=== PATIENT | female | born 1935 | race Caucasian/White ===

== ENCOUNTER 2016-05-22 17:46 | Emergency (ER) | payer MEDICARE, OTHER ==
[~2016-05-22] VITALS: Ht 167.6 cm; Wt 111.1 kg
[~2016-05-22 17:46] MED LIST: ALLO300T PO; ALPR0.254 PO; ASPI325T4 PO; ATOR40TA59 PO; BUDE10.2 IH; CALC500T27 PO; CITR473S3 PO; DRON400T PO; HUM100VI SQ; HYDR12.53 PO; HYDR12.58 PO; IBUP200T77 PO; LOSA50TA6 PO; METO100T2 PO; OMEG500C PO; POTA10CA PO; PROAIR HFA8.5 GM IH; VIT1TABL44 PO; WARF10TA PO; WARF5TAB7 PO
[2016-05-22 18:43] LABS: INR 2.3 (0.8-1.1); PROTHROMBIN TIME PATIENT 24.3 SEC (11.7-14.0)
--- NOTE | 2016-05-22 18:48 | PHYS DOC ---
Past Medical History Past Medical History: A-Fib, CHF, COPD, Diabetes-Type II, High Cholesterol, Hypertension, Kidney Infection, Kidney Stone Past Surgical History: Appendectomy, Cholecystectomy, Hysterectomy, Tonsillectomy, Other Additional Past Surgical Histo: bilat knee replacements, aortic valve, mastoid Alcohol Use: None Drug Use: None Adult General Chief Complaint Chief Complaint: NOSEBLEED [facility] HPI Patient is a 81 year old female who presents with right nosebleed that started this evening spontaneously. States has intermittent symptoms like this and can usually control it with direct pressure. She has finally controlled her bleeding upon arrival. She takes Coumadin chronically; no recent dose changes. She notes mild sneezing and rhinorrhea recently similar to seasonal allergy symptoms. Review of Systems Review of Systems Constitutional: Denies fever or chills [] Eyes: Denies change in visual acuity, redness, or eye pain [] HENT: Denies nasal congestion or sore throat [] Respiratory: Denies cough or shortness of breath [] Cardiovascular: No additional information not addressed in HPI [] GI: Denies abdominal pain, nausea, vomiting, bloody stools or diarrhea [] : Denies dysuria or hematuria [] Musculoskeletal: Denies back pain or joint pain [] Integument: Denies rash or skin lesions [] Neurologic: Denies headache, focal weakness or sensory changes [] Endocrine: Denies polyuria or polydipsia [] Allergies Allergies Allergies Coded Allergies Type Severity Reaction Last Updated Verified lisinopril Allergy Severe Anaphylaxis 06/07/15 Yes shellfish derived Allergy Severe Shortness of Air 06/07/15 Yes Penicillins Allergy Intermediate Tolerates rocephin 06/07/15 Yes Sulfa (Sulfonamide Antibiotics) Allergy Intermediate 06/07/15 Yes morphine Adverse Reaction Severe Anxiety 06/07/15 Yes Physical Exam Physical Exam Constitutional: Well developed, well nourished, no acute distress, non-toxic appearance. [] HENT: Normocephalic, atraumatic, bilateral external ears normal, oropharynx moist. Nose with bilateral hyperemia, right side anterior small clot, no active bleeding. [] Eyes: PERRLA, EOMI. [] Neck: Normal range of motion, supple. [] Cardiovascular:Heart rate regular rhythm [] Lungs & Thorax: Bilateral breath sounds clear to auscultation [] Abdomen: Bowel sounds normal, soft, no tenderness. [] Skin: Warm, dry, no erythema, no rash. [] Back: Normal ROM. [] Extremities: No tenderness, ROM intact. [] Neurologic: Alert and oriented X 3, normal motor function, normal sensory function, no focal deficits noted. [] Psychologic: Affect normal, judgement normal, mood normal. [] Current Patient Data Vital Signs Vital Signs Date Time Temp Pulse Resp B/P Pulse Ox O2 Delivery O2 Flow Rate FiO2 05/22/16 19:00 78 20 169/73 95 Room Air 05/22/16 17:50 98.2 98.2 Lab Values Laboratory Tests Test 05/22/16 18:25 Prothrombin Time 24.3SEC (11.7-14.0) H Prothrombin Time INR 2.3 (0.8-1.1) H Course & Med Decision Making Course & Med Decision Making Pertinent Labs and Imaging studies reviewed. (See chart for details) Bleeding controlled. Discussed symptomatic care for nose bleeds. Return precautions given. She understands and agrees with plan. Dragon Disclaimer Dragon Disclaimer This electronic medical record was generated, in whole or in part, using a voice recognition dictation system. Departure Departure Impression: Primary Impression: Anterior epistaxis Disposition: 01 HOME, SELF-CARE Condition: STABLE Referrals: PREMA MASON MD (PCP) Patient Instructions: Nosebleed, [id number] Additional Instructions: Your INR is 2.3 today; continue your current coumadin therapy. Follow-up with your primary care doctor. Return for any concerns. Nils KEYS MD May 22, 2016 18:48
[2016-05-22 19:00] VITALS: BP 169/73
== END 2016-05-22 19:20 | disposition home or self-care (01) ==
LOC: ER 17:46
DX: R04.0 Epistaxis (principal); I11.0 Hypertensive heart disease with heart failure; I50.9 Heart failure, unspecified; J44.9 Chronic obstructive pulmonary disease, unspecified; E11.9 Type 2 diabetes mellitus without complications; E78.00 Pure hypercholesterolemia, unspecified; I48.91 Unspecified atrial fibrillation; Z90.49 Acquired absence of other specified parts of digestive tract; Z90.710 Acquired absence of both cervix and uterus; Z90.89 Acquired absence of other organs; Z79.01 Long term (current) use of anticoagulants; Z88.0 Allergy status to penicillin; Z88.2 Allergy status to sulfonamides; Z88.8 Allergy status to other drugs, medicaments and biological substances; Z88.5 Allergy status to narcotic agent; Z91.013 Allergy to seafood
CPT/HCPCS: 36415; 85610; 99283

== ENCOUNTER → 2016-06-08 | Outpatient (CLI) | payer MEDICARE ==
[~2016-06-08] VITALS: Ht 167.6 cm; Wt 106.1 kg
[~2016-06-08] MED LIST changes: +LIDOCAINE 1% / SOD BICARB 8.4% 20 ML VIAL. IJ ONE; +METO50TA2 PO
[2016-06-08 11:22] VITALS: BP 199/76
--- NOTE | 2016-06-09 10:57 | RAD ---
Ultrasound and fluoro guided power PICC placement Indication: 81-year-old female with recurrent urinary tract infections. PICC insertion has been requested for long-term outpatient IV antibiotics. Fluoro time: 0.6 minutes Kerma-Area Product: 258.3 microGym2 Anesthesia: Local only Sterility: All elements of maximal sterile barrier technique were utilized, including cap, mask, sterile gown, sterile gloves, large sterile sheet, appropriate hand hygiene, and 2% chlorhexidine for cutaneous antisepsis Procedure: Informed consent was obtained from the patient. She was placed supine on the biplane angiography table. Preliminary ultrasound examination of right upper arm revealed wide patency of right basilic vein, which was documented with a hard copy ultrasound image. Right upper arm was then prepped and draped in the usual sterile fashion, utilizing all elements of maximal sterile barrier technique, as described above. Using aseptic technique, local anesthesia, direct ultrasound guidance, and the micropuncture system, successful percutaneous entry was achieved into right basilic vein at the level of distal humerus. A 5 Ethiopian dual lumen power PICC was trimmed to 42 cm in length, was inserted through a 5 Ethiopian peel-away sheath, and was easily advanced centrally under fluoroscopic control. Tip of the power PICC was positioned at upper right atrium. This was documented with a single fluoroscopic spot image. The PICC was then demonstrated to flush and aspirate normally, and was secured at the skin exit site utilizing suture and sterile dressing. The patient tolerated the procedure well without apparent complication. Impression: Successful, uneventful ultrasound and fluoro guided placement of right basilic vein 5 Ethiopian dual-lumen 42 cm power PICC, as described.
== END | disposition home or self-care (01) ==
LOC: INTRAD 08:00
PROVIDERS: ATTEND Urology
DX: N39.0 Urinary tract infection, site not specified (principal); E78.00 Pure hypercholesterolemia, unspecified; I10 Essential (primary) hypertension; J44.9 Chronic obstructive pulmonary disease, unspecified; J45.909 Unspecified asthma, uncomplicated; E66.9 Obesity, unspecified; M19.90 Unspecified osteoarthritis, unspecified site; E11.9 Type 2 diabetes mellitus without complications; F41.9 Anxiety disorder, unspecified; Z90.710 Acquired absence of both cervix and uterus; Z90.49 Acquired absence of other specified parts of digestive tract; Z98.41 Cataract extraction status, right eye; Z98.42 Cataract extraction status, left eye; Z96.653 Presence of artificial knee joint, bilateral; Z87.442 Personal history of urinary calculi
CPT/HCPCS: 36569; 76937; 77001; 96365; C1751; C1892

== ENCOUNTER 2016-06-17 14:42 | Inpatient (IN) | payer MEDICARE ==
[~2016-06-17] VITALS: Ht 167.6 cm; Wt 109.0 kg
[~2016-06-17 14:42] MED LIST changes: -LIDOCAINE 1% / SOD BICARB 8.4% 20 ML VIAL. IJ ONE; -METO50TA2 PO; -WARF10TA PO; +WARF10TA45 PO
[2016-06-17 15:51] LABS: BASO # 0.1 x10^3/uL (0.0-0.2); BASO % 1 % (0-3); EOS % 2 % (0-3); HEMATOCRIT 28.4 % (36.0-47.0); HEMOGLOBIN 8.8 g/dL (12.0-15.5); LYMPH % 9 % (24-48); MEAN CORPUSCULAR HEMOGLOBIN 26 pg (25-35); MEAN CORPUSCULAR HGB CONC 31 g/dL (31-37); MEAN CORPUSCULAR VOLUME 83 fL (79-100); MONO % 7 % (0-9); NEUT % 81 % (31-73); PLATELET COUNT 410 x10^3/uL (140-400); RED BLOOD COUNT 3.41 x10^6/uL (3.50-5.40); RED CELL DISTRIBUTION WIDTH 18.9 % (11.5-14.5); WHITE BLOOD COUNT 11.3 x10^3/uL (4.0-11.0)
--- NOTE | 2016-06-17 15:58 | PHYS DOC ---
Past Medical History Past Medical History: A-Fib, CHF, COPD, Diabetes-Type II, High Cholesterol, Hypertension, Kidney Infection, Kidney Stone Additional Past Medical Histor: coumadin use Past Surgical History: Appendectomy, Cholecystectomy, Hysterectomy, Tonsillectomy, Other Additional Past Surgical Histo: bilat knee replacements, aortic valve, mastoid Alcohol Use: None Drug Use: None Adult General Chief Complaint Chief Complaint: SHORTNESS OF BREATH HPI HPI Patient is a 81 year old female who presents with SOB. Patient reports this morning she was having indigestion; she has also been having constipation recently. Yesterday she took milk of magnesia, and has had 4-5 BMs today. This morning she started feeling SOB and having dizzy spells. Also having hot flashes with BMs. Only c/o pain is in R posterior shoulder. She tried tylenol for pain with insufficient relief. Review of Systems Review of Systems Constitutional: Hot flashes during BMs. Denies fever or chills Eyes: Denies change in visual acuity or eye pain HENT: Denies nasal congestion or sore throat Respiratory: Shortness of breath Cardiovascular: Denies chest pain GI: 4-5 loose stools today. Denies abdominal pain, nausea, vomiting, bloody stools : Denies dysuria or hematuria Musculoskeletal: R posterior shoulder pain Integument: Denies rash or skin lesions Neurologic: Dizzy spells. Denies headache, focal weakness or sensory changes Allergies Allergies Allergies Coded Allergies Type Severity Reaction Last Updated Verified lisinopril Allergy Severe Anaphylaxis 06/14/16 Yes shellfish derived Allergy Severe Shortness of Air 06/14/16 Yes Penicillins Allergy Intermediate Tolerates rocephin 06/14/16 Yes Sulfa (Sulfonamide Antibiotics) Allergy Intermediate 06/14/16 Yes morphine Adverse Reaction Severe Anxiety 06/14/16 Yes Physical Exam Physical Exam Constitutional: Well developed, well nourished, no acute distress, non-toxic appearance HENT: Normocephalic, atraumatic, bilateral external ears normal Neck: Normal range of motion, no stridor Cardiovascular: Bradycardic, irregular rhythm, no murmur. Radial pulses equal b/ l Lungs & Thorax: Coarse breath sounds in L base Abdomen: Bowel sounds normal, soft, non-distended, no TTP Skin: Warm, dry, no erythema, no rash Back: No tenderness, R shoulder without deformity Extremities: No obvious deformity, no edema Neurologic: Alert and oriented X 3, no gross deficits noted Current Patient Data Vital Signs Vital Signs Date Time Temp Pulse Resp B/P Pulse Ox O2 Delivery O2 Flow Rate FiO2 06/17/16 14:50 98.3 50 24 140/40 95 Room Air 98.3 Lab Values Laboratory Tests Test 06/17/16 15:40 06/17/16 16:09 White Blood Count 11.3x10^3/uL (4.0-11.0) H Red Blood Count 3.41x10^6/uL (3.50-5.40) L Hemoglobin 8.8g/dL (12.0-15.5) L Hematocrit 28.4% (36.0-47.0) L Mean Corpuscular Volume 83fL (79-100) Mean Corpuscular Hemoglobin 26pg (25-35) Mean Corpuscular Hemoglobin Concent 31g/dL (31-37) Red Cell Distribution Width 18.9% (11.5-14.5) H Platelet Count 410x10^3/uL (140-400) H Neutrophils (%) (Auto) 81% (31-73) H Lymphocytes (%) (Auto) 9% (24-48) L Monocytes (%) (Auto) 7% (0-9) Eosinophils (%) (Auto) 2% (0-3) Basophils (%) (Auto) 1% (0-3) Neutrophils # (Auto) 9.1x10^3uL (1.8-7.7) H Lymphocytes # (Auto) 1.0x10^3/uL (1.0-4.8) Monocytes # (Auto) 0.8x10^3/uL (0.0-1.1) Eosinophils # (Auto) 0.2x10^3/uL (0.0-0.7) Basophils # (Auto) 0.1x10^3/uL (0.0-0.2) Prothrombin Time 21.3SEC (11.7-14.0) H Prothrombin Time INR 2.0 (0.8-1.1) H Sodium Level 137mmol/L (136-145) Potassium Level 4.8mmol/L (3.5-5.1) Chloride Level 100mmol/L (98-107) Carbon Dioxide Level 29mmol/L (21-32) Anion Gap 8 (6-14) Blood Urea Nitrogen 29mg/dL (7-20) H Creatinine 1.3mg/dL (0.6-1.0) H Estimated GFR (Cockcroft-Gault) 39.2 Glucose Level 253mg/dL (70-99) H Calcium Level 9.0mg/dL (8.5-10.1) Total Bilirubin 0.3mg/dL (0.2-1.0) Direct Bilirubin 0.2mg/dL (0.0-0.2) Aspartate Amino Transferase (AST) 29U/L (15-37) Alanine Aminotransferase (ALT) 30U/L (14-59) Alkaline Phosphatase 140U/L (46-116) H Troponin I Quantitative < 0.017ng/mL (0.000-0.055) [id number]-[id number]-Y-Type Natriuretic Peptide 1159pg/mL (0-449) H Total Protein 7.1g/dL (6.4-8.2) Albumin 3.4g/dL (3.4-5.0) Urine Collection Type Void Urine Color Yellow Urine Clarity Clear Urine pH 6.5 Urine Specific [place] 1.015 Urine Protein Negativemg/dL (NEG-TRACE) Urine Glucose (UA) Negativemg/dL (NEG) Urine Ketones (Stick) Negativemg/dL (NEG) Urine Blood Negative (NEG) Urine Nitrite Negative (NEG) Urine Bilirubin Negative (NEG) Urine Urobilinogen Dipstick 0.2mg/dL (0.2 mg/dL) Urine Leukocyte Esterase Trace (NEG) Urine RBC 0/HPF (0-2) Urine WBC 5-10/HPF (0-4) Urine Squamous Epithelial Cells Mod/LPF Urine Bacteria Few/HPF (0-FEW) Laboratory Tests 06/17/16 15:40 Laboratory Tests 06/17/16 15:40 EKG EKG EKG (my read): atrial fibrillation, rate 79, LAD, QTc 488ms, no acute ST/T changes Radiology/Procedures Radiology/Procedures CXR: Impression: Findings are seen consistent with CHF. Course & Med Decision Making Course & Med Decision Making Pertinent Labs and Imaging studies reviewed. (See chart for details) Patient is 81 year old female who presents with SOB. Will check EKG, CXR, labs to evaluate. EKG and CXR results as above. Labs notable for anemia (has been anemic in past although not quite to this degree), elevated BNP (high than prior value). Discussed results with patient. Discussed with her PCP, Dr. Suresh. Will admit under his care for further evaluation and treatment. Dose of lasix ordered as well as hydralazine for elevated BP. Dragon Disclaimer Dragon Disclaimer This electronic medical record was generated, in whole or in part, using a voice recognition dictation system. Departure Departure Impression: Primary Impression: CHF (congestive heart failure) Disposition: ADMITTED INPATIENT Admitting Physician: Thee Suresh Condition: STABLE Referrals: THEE SURESH MD (PCP) CR CHANDRA MD Jun 17, 2016 15:58
[2016-06-17 16:01] LABS: PROTHROMBIN TIME PATIENT 21.3 SEC (11.7-14.0)
[2016-06-17 16:02] LABS: CREATININE 1.3 mg/dL (0.6-1.0); GFR 39.2; POTASSIUM 4.8 mmol/L (3.5-5.1)
[2016-06-17 16:08] LABS: ALBUMIN 3.4 g/dL (3.4-5.0); DIRECT BILIRUBIN 0.2 mg/dL (0.0-0.2); TOTAL BILIRUBIN 0.3 mg/dL (0.2-1.0); TOTAL PROTEIN 7.1 g/dL (6.4-8.2)
[2016-06-17 16:18] LABS: BILIRUBIN,URINE NEGATIVE (NEG); GLUCOSE,URINE NEGATIVE (NEG); NITRITE,URINE NEGATIVE (NEG); PH,URINE 6.5; PROTEIN,URINE NEGATIVE (NEG-TRACE); UROBILINOGEN,URINE 0.2 mg/dL (0.2 mg/dL)
--- NOTE | 2016-06-17 16:20 | RAD ---
PA and lateral chest radiographs 06/17/2016 Clinical history: Shortness of breath and weakness. PA and lateral digital radiographs of the chest were obtained. Comparison study is dated 10/17/2015. Surgical changes are seen consistent with a cardiac valve replacement. The cardiac silhouette is mildly enlarged. Atherosclerotic calcification of the thoracic aorta is seen. The thoracic aorta is mildly tortuous. Prominence of the vasculature and interstitial markings of both lungs is seen consistent with mild to moderate CHF. No area of consolidation is noted. No pneumothorax or pleural effusion is seen. Degenerative changes are seen involving the thoracic spine. Impression: Findings are seen consistent with CHF.
[2016-06-17 16:24] LABS: BACTERIA,URINE FEW /HPF (0-FEW); RBC,URINE 0 /HPF (0-2); SQUAMOUS EPITHELIAL CELL,UR MOD /LPF
[2016-06-17] MEDS ORDERED: hydrALAZINE 20 MG/ML VIAL. IVP ONE (16:45)
[2016-06-17] MEDS ORDERED: ACETAMINOPHEN 325 MG TABLET. PO PRN (16:45)
[2016-06-17] MEDS ORDERED: ONDANSETRON PF 4 MG/2 ML VIAL. IV PRN (16:45)
[2016-06-17] MEDS ORDERED: fentaNYL PF VIAL 100 MCG/2 ML VIAL IV PRN (16:45)
[2016-06-17] MEDS ORDERED: DEXTROSE 50% 25 GM / 50ML DISP.SYRIN. IV PRN (16:45)
[2016-06-17] MEDS ORDERED: FUROSEMIDE 40 MG/4 ML VIAL. IVP ONE (16:45)
--- NOTE | 2016-06-17 17:15 | ACF ---
Admission Forms Criteria HEART FAILURE: COMMON COMPLICATIONS Clinical Indications for Inpatient Care (Place 'X' for any and all applicable criteria): Ongoing inpatient care may be indicated for heart failure with ANY ONE of the following (1)(2)(3)(4)(5): [ ]I. Ongoing need for care for primary condition requiring frequent therapy adjustments because of changes in cardiac function (eg, drug dosage changes for drugs that are renally metabolized) [ ]II. New-onset heart failure [ ]III. Heart failure with decreased urine output not responsive to attempts to optimize volume status [ ]IV. Acute cardiac ischemia causing or associated with failure [X]V. Complications of heart failure, including ANY ONE of the following: [ ]a) Pericardial effusion [ ]b) Symptomatic pleural effusion [ ]c) O2 saturation <90% or PO2 < 60 mm Hg (8.0 kPa) on room air or require baseline supplemental O2 [ ]d) Tachypnea [X]e) Dyspnea [ ]f) Syncope [ ]g) Change in mental status [ ]h) Acute renal insufficiency that is severe (reduction of more than 50% in estimated glomerular filtration rate from baseline) or progressive reduction of more than 25% in estimated glomerular filtration rate from baseline, with creatinine continuing to rise) [ ]i) Hemodynamic instability [ ]j) Anasarca [ ]k) Clinically significant metabolic abnormalities due to heart failure (eg, new-onset metabolic acidosis) Extended stay beyond goal length of stay for primary condition may be needed until ALL of the following are present(1)(3): [ ]a) Stable and effective diuretic regimen established (or patient on stable dialysis regimen if in chronic renal failure) [ ]b) Breathing comfortably at rest [ ]c) Saturation of arterial oxygen greater than 90% or at acceptable baseline [ ]d) Pulmonary edema absent or improved [ ]e) Hemodynamic stability [ ]f) Volume status acceptable on oral medication [ ]g) Peripheral or sacral edema absent or improved [ ]h) Renal function stable and manageable at a lower level of care [ ]i) Complications (eg, pleural effusion) resolved or manageable at a lower level of care [ ]j) Patient or caregiver has received written discharge instructions or educational material addressing activity level, diet, discharge medications, follow-up appointment, weight monitoring, and what to do if symptoms worsen The original [email or web address] content created by [email or web address] has been revised. The portions of the content which have been revised are identified through the use of italic text or in bold, and [facility] has neither reviewed nor approved the modified material.All other unmodified content is copyright [facility]. Please see references footnoted in the original [facility] edition 2016 Admission Criteria Met?: Yes RERE GOODE Jun 17, 2016 17:15
[2016-06-17 19:00] VITALS: BP 154/75
[2016-06-17] MEDS ORDERED: ALBUTEROL SULFATE 2.5 MG/3 ML NEBU. NEB PRN (21:00)
[2016-06-17] MEDS ORDERED: METO50TA2 PO (21:04)
[2016-06-17] MEDS: ALPRAZolam 0.25 MG TABLET PO SCH (21:25)
[2016-06-17] MEDS: DRONEDARONE HCL 400 MG TABLET PO SCH (21:25)
[2016-06-17] MEDS: CITRIC ACID/SODIUM CITRATE 30 ML SOLUTION. PO SCH (21:26)
[2016-06-17] MEDS: METOPROLOL TART IMMED RELEASE 50 MG TABLET. PO SCH (21:26)
[2016-06-17] MEDS: INSULIN DETEMIR 300 UNITS/3 ML INSULN.PEN. SQ SCH (21:30)
[2016-06-17] MEDS: INSULIN ASPART 300 UNITS/3 ML INSULN.PEN SQ SCH (21:30)
--- NOTE | 2016-06-17 22:10 | EKG ---
[facility] [address] [place] [address] Test Date: 2016-06-17 Test Time: 15:20:22 Pat Name: ROSA PATEL Department: Room: 506 1 Gender: Female Equal Opportunity Director: : 1935 Requested By: CR CHANDRA Order Number: [id number] Reading MD: Mateus Jacobo Measurements Intervals [place] Rate: 79 P: [place]: QRS: -26 QRSD: 90 T: 27 QT: 420 QTc: 488 Interpretive Statements SINUS RHYTHM NON-SPECIFIC ST/T CHANGES Electronically Signed On 06-19-2016 15:35:15 CDT by Mateus Jacobo
[2016-06-17 23:00] VITALS: BP 139/80
[2016-06-18 04:54] LABS: BASO # 0.1 x10^3/uL (0.0-0.2); BASO % 1 % (0-3); EOS % 2 % (0-3); HEMATOCRIT 28.5 % (36.0-47.0); HEMOGLOBIN 8.8 g/dL (12.0-15.5); LYMPH # 1.3 x10^3/uL (1.0-4.8); LYMPH % 11 % (24-48); MEAN CORPUSCULAR HEMOGLOBIN 26 pg (25-35); MEAN CORPUSCULAR HGB CONC 31 g/dL (31-37); MEAN CORPUSCULAR VOLUME 82 fL (79-100); MONO % 11 % (0-9); NEUT % 76 % (31-73); PLATELET COUNT 435 x10^3/uL (140-400); RED BLOOD COUNT 3.47 x10^6/uL (3.50-5.40); RED CELL DISTRIBUTION WIDTH 18.6 % (11.5-14.5)
[2016-06-18 05:14] LABS: CALCIUM 9.3 mg/dL (8.5-10.1); CREATININE 1.1 mg/dL (0.6-1.0); GFR 47.6
[2016-06-18 07:00] VITALS: BP 178/80
[2016-06-18] MEDS ORDERED: POTASSIUM CHLORIDE 10 MEQ TABLET.ER. PO SCH (08:00)
[2016-06-18] MEDS: INSULIN ASPART 300 UNITS/3 ML INSULN.PEN SQ SCH (08:00)
[2016-06-18] MEDS: BUDESONIDE 0.5 MG/2 ML NEBU. NEB SCH ×2 (08:19→19:49)
[2016-06-18] MEDS: ALBUTEROL SULFATE 2.5 MG/3 ML NEBU. NEB SCH ×4 (08:19→19:48)
--- NOTE | 2016-06-18 08:28 | PDOC ---
Provider Note Provider Note [id number] PREMA MASON MD Jun 18, 2016 08:28
[2016-06-18 08:51] LABS: % SAT IRON 6 % (15-34); IRON,SERUM 25 ug/dL (50-170)
[2016-06-18] MEDS: MULTIVITAMIN EYE FORMULA CAPSULE. PO SCH (08:52)
[2016-06-18] MEDS: CALCIUM CARBONATE 500 MG TABLET PO SCH (08:53)
[2016-06-18] MEDS: OMEGA-3 FATTY ACIDS/FISH OIL 1,000 MG CAPSULE. PO SCH (08:53)
[2016-06-18] MEDS: POTASSIUM CHLORIDE 10 MEQ TABLET.ER. PO SCH ×2 (08:53→16:37)
[2016-06-18] MEDS: ASPIRIN 325 MG TABLET PO SCH (08:53)
[2016-06-18] MEDS: DRONEDARONE HCL 400 MG TABLET PO SCH ×2 (08:53→20:33)
[2016-06-18] MEDS: ATORVASTATIN CALCIUM 40 MG TABLET. PO SCH (08:53)
[2016-06-18] MEDS: METOPROLOL TART IMMED RELEASE 50 MG TABLET. PO SCH ×2 (08:54→20:34)
[2016-06-18] MEDS: ALLOPURINOL 300 MG TABLET. PO SCH (08:54)
[2016-06-18] MEDS: HYDROCHLOROTHIAZIDE 12.5 MG CAPSULE. PO SCH (08:54)
[2016-06-18] MEDS: FUROSEMIDE 40 MG/4 ML VIAL. IVP SCH ×2 (08:55→16:37)
[2016-06-18] MEDS: FAMOTIDINE 20 MG TABLET. PO SCH ×2 (08:59→20:31)
[2016-06-18] MEDS ORDERED: LOSARTAN POTASSIUM 50 MG TABLET. PO SCH (09:00)
[2016-06-18] MEDS: INSULIN DETEMIR 300 UNITS/3 ML INSULN.PEN. SQ SCH ×2 (09:10→20:41)
--- NOTE | 2016-06-18 09:24 | HP ---
ADMIT DATE: 06/17/2016 CHIEF COMPLAINT: Shortness of breath. HISTORY OF PRESENT ILLNESS: An 81-year-old white female with known atrial fibrillation and aortic valve replacement, is on warfarin and other medications and came in with increasing shortness of breath over the last 2-3 days. She describes a scant dry cough and a lot of "burping," but no dysphagia, heartburn, emesis, nausea or known melena or hematochezia. She does have visual problems, and does not see her stools well, in the form of macular degeneration. Previous echocardiogram shows a good ejection fraction of 55%. ALLERGIES: PENICILLIN, SULFA AND OLVIN INHIBITORS. MEDICATIONS: Noted per the chart. She uses Symbicort and albuterol for breathing treatments at home. She is on warfarin for her atrial fibrillation and aortic valve and is monitored by Dr. Jovel. No other recent significant problems. Last hemoglobin A1c was 6.8 about 2 months ago regarding her diabetes. SOCIAL HISTORY: Nonsmoker, nondrinker, lives with her , not employed, not physically active because of her medical problems. FAMILY HISTORY: Unremarkable. REVIEW OF SYSTEMS: No other known complaints. OBJECTIVE: ENT: All within normal limits. NECK: No nodes, masses, or thyroid enlargement. LUNGS: Bibasilar crackle. No wheezing or tachypnea noted. CARDIOVASCULAR: Irregular rate. Grade 2 systolic murmur over the aortic valve, otherwise unremarkable. No S3 is heard. ABDOMEN: Obese, benign and nontender. EXTREMITIES: No ankle or pedal edema. Pedal pulses are good. Nail beds are slightly pale. JOINTS AND SKIN: Normal. NEUROLOGIC: Physiologic and nonfocal. LABORATORY STUDIES: Of note showed hemoglobin of 8.8, whereas 4-5 months ago it was 11. ASSESSMENT: 1. Congestive heart failure, diastolic type, with preserved ejection fraction. She has a history of atrial fibrillation and aortic valve replacement, adequately anticoagulated. 2. Well-controlled type 2 diabetes mellitus. 3. Normocytic anemia, etiology undetermined. The patient is anticoagulated, but certainly could contribute to any gastrointestinal blood loss. PLAN: We will follow the anemia and work it up further as this could be contributing to her dyspnea symptoms. We will add Pepcid for gastrointestinal prophylaxis and she is not a great endoscopic candidate. PREMA MASON MD DR: Jaquelin JOB#: [id number] / [id number]
[2016-06-18 11:00] VITALS: BP 156/78
[2016-06-18] MEDS: CITRIC ACID/SODIUM CITRATE 30 ML SOLUTION. PO SCH ×2 (13:01→20:34)
--- NOTE | 2016-06-18 13:03 | PDOC2 ---
CONSULT Date of Consult Date of Consult DATE: 06/18/16 TIME: 12:54 Reason for Consult Reason for Consult: CHF/HTN Identification/Chief Complaint Chief Complaint SOB and back pain Source Source: Patient History of Present Illness Reason for Visit: Ms. Barkley is an 81 yo female who presented to the ED yesterday with SOB and pain in her back. Pt reported that she couldn't sleep this past Saturday and felt bad all day Saturday. After a nap Saturday, she reported that she couldn't breathe and came to the ED. Pt reported that she had difficulty breathing while laying flat and started to have right shoulder pain. Pt's SBP on arrival was >200. Pt has a history of pulmonary edema if her BP's are too elevated. Pt reported the ED physician that she took some milk of magnesia for constipation and had 4-5 bowel movements. Afterwards, she started feeling lightheaded and dizzy. Today, the pt reported feeling a little better. Denies SOB/CP currently. Past Medical History Cardiovascular: AFIB, CAD, CHF, HTN, Valve insufficiency, Pulmonary hypertension Pulmonary: Bronchitis, COPD Endocrine: Diabetes Past Surgical History Past Surgical History: Appendectomy, Cholecystectomy, Total knee replacement ( bilateral), Hysterectomy, Other (aortic valve replaced) Current Problem List Problem List Problems Medical Problems: (1) CHF (congestive heart failure) Status: Acute Current Medications Current Medications Current Medications Furosemide (Lasix) 40 mg 1X ONCE IVP Last administered on 06/17/16 17:23; Start 06/17/16 at 16:45; Stop 06/17/16 at 16:46; Status DC Hydralazine HCl (Apresoline) 10 mg 1X ONCE IVP Last administered on 06/17/16 17:23; Start 06/17/16 at 16:45; Stop 06/17/16 at 16:46; Status DC Ondansetron HCl (Zofran) 4 mg PRN Q8HRS PRN IV NAUSEA/VOMITING; Start 06/17/16 at 16:45; Stop 06/18/16 at 16:44 Acetaminophen (Tylenol) 650 mg PRN Q4HRS PRN PO FEVER Last administered on 06/18 08:59; Start 06/17/16 at 16:45; Stop 06/18/16 at 16:44 Insulin Aspart (Novolog) 0-7 UNITS TIDWMEALS SQ Last administered on 06/17/16 21:30; Start 06/17/16 at 17:00; Stop 06/18/16 at 08:24; Status DC Dextrose (Dextrose 50%-Water Syringe) 12.5 gm PRN Q15MIN PRN IV SEE COMMENTS; Start 06/17/16 at 16:45 Fentanyl Citrate (Fentanyl 2ml Vial) 25 mcg PRN Q1HR PRN IV pain; Start at 16:45; Stop 06/18/16 at 08:24; Status DC Allopurinol (Zyloprim) 300 mg DAILY PO Last administered on 06/18/16 08:54; Start 06/18/16 at 09:00 Atorvastatin Calcium (Lipitor) 40 mg DAILY PO Last administered on 06/18/16 08 :53; Start 06/18/16 at 09:00 Calcium Carbonate/ Glycine (Oscal) 500 mg DAILY PO Last administered on 08:53; Start 06/18/16 at 09:00 Citric Acid/ Sodium Citrate (Bicitra) 30 ml BID PO Last administered on 21:26; Start 06/17/16 at 21:00 Multivitamins/ Minerals (Ocuvite Lutein) 2 cap DAILY PO Last administered on 08:52; Start 06/18/16 at 09:00 Warfarin Sodium (Coumadin) 7.5 mg TuThSa@16 PO ; Start 06/19/16 at 16:00 Warfarin Sodium (Coumadin) 10 mg SuMoWeFr@16 PO ; Start 06/18/16 at 16:00 Albuterol Sulfate (Ventolin Neb Soln) 2.5 mg PRN Q4HRS PRN NEB SHORTNESS OF BREATH; Start 06/17/16 at 21:00 Budesonide (Pulmicort) 0.5 mg RTBID NEB Last administered on 06/18/16 08:19; Start 06/18/16 at 08:00 Insulin Detemir (Levemir) 35 units QHS SQ Last administered on 06/17/16 21:30 ; Start 06/17/16 at 21:00 Insulin Detemir (Levemir) 50 units DAILYWBKFT SQ Last administered on 09:10; Start 06/18/16 at 08:00 Hydrochlorothiazide (Microzide) 12.5 mg DAILY PO Last administered on 08:54; Start 06/18/16 at 09:00 Metoprolol Tartrate (Lopressor) 50 mg BID PO Last administered on 06/18/16 08: 54; Start 06/17/16 at 21:00 Fish Oil (Fish Oil) 1,000 mg DAILY PO Last administered on 06/18/16 08:53; Start 06/18/16 at 09:00 Potassium Chloride (Klor-Con) 10 meq DAILYWBKFT PO ; Start 06/18/16 at 08:00; Stop 06/18/16 at 08:24; Status DC Alprazolam (Xanax) 0.25 mg HS PO Last administered on 06/17/16 21:25; Start at 21:00 Aspirin (Madhuri Aspirin) 325 mg DAILY PO Last administered on 06/18/16 08:53; Start 06/18/16 at 09:00 Dronedarone (Multaq) 400 mg BID PO Last administered on 06/18/16 08:53; Start 06/17/16 at 21:00 Losartan Potassium (Cozaar) 50 mg DAILY PO Last administered on 06/18/16 08:55 ; Start 06/18/16 at 09:00 Warfarin Sodium (Coumadin Per Physician) 1 each PRN DAILY PRN MC SEE COMMENTS; Start 06/17/16 at 21:15 Albuterol Sulfate (Ventolin Neb Soln) 2.5 mg RTQID NEB Last administered on 11:47; Start 06/18/16 at 08:00 Potassium Chloride (Klor-Con) 10 meq BIDAFTMEAL PO Last administered on 08:53; Start 06/18/16 at 09:00 Furosemide (Lasix) 40 mg BID92 IVP Last administered on 06/18/16 08:55; Start 06/18/16 at 09:00 Famotidine (Pepcid) 20 mg QHS PO Last administered on 06/18/16 08:59; Start at 09:00 Active Scripts Active Reported Metoprolol Tartrate 50 Mg Tablet 50 Mg PO BID Warfarin Sodium 5 Mg Tablet 10 Mg PO SUMOWEFR Multaq (Dronedarone Hcl) 400 Mg Tablet 1 Tab PO BID Humulin 70-30 Vial (Hum Insulin Nph/Reg Insulin Hm) 100 Unit/1 Ml Vial 35 Unit SQ HS Alprazolam 0.25 Mg Tablet 1 Tab PO HS Aspirin 325 Mg Tablet 1 Tab PO DAILY Proair Hfa Inhaler (Albuterol Sulfate) 8.5 Gm Hfa.aer.ad 2 Puff IH PRN Q4-6HRS Losartan Potassium 50 Mg Tablet 1 Tab PO DAILY Potassium Chloride 10 Meq Capsule.er 1 Cap PO DAILY Warfarin Sodium 5 Mg Tablet 7.5 Mg PO TUTHSA Vision Vitamins Tablet (Vit A,C & E/Lutein/Minerals) 1 Each Tablet 2 Tab PO DAILY Hydrochlorothiazide Tablet (Hydrochlorothiazide) 12.5 Mg Tablet 12.5 Mg PO DAILY Calcium (Calcium Carbonate) 500 Mg Tablet 500 Mg PO DAILY Fish Oil (Star-3 Fatty Acids) 500 Mg Capsule.dr 500 Mg PO DAILY Cytra-2 Oral Solution (Citric Acid/Sodium Citrate) 473 Ml Solution 30 Ml PO BID Allopurinol 300 Mg Tablet 300 Mg PO DAILY Symbicort 160-4.5 Mcg Inhaler (Budesonide/Formoterol Fumarate) 10.2 Gm Hfa.aer.ad 10.2 Gm IH BID Atorvastatin Calcium 40 Mg Tablet 40 Mg PO DAILY Humulin 70-30 Vial (Hum Insulin Nph/Reg Insulin Hm) 100 Unit/1 Ml Vial 50 Unit SQ DAILYWBKFT Allergies Allergies: Coded Allergies: lisinopril (Verified Allergy, Severe, Anaphylaxis, 06/14/16) shellfish derived (Verified Allergy, Severe, Shortness of Air, 06/14/16) Penicillins (Verified Allergy, Intermediate, Tolerates rocephin, 06/14/16) Sulfa (Sulfonamide Antibiotics) (Verified Allergy, Intermediate, 06/14/16) morphine (Verified Adverse Reaction, Severe, Anxiety, 06/14/16) Physical Exam General: Alert, Oriented X3, Cooperative HEENT: Atraumatic, PERRLA Lungs: Clear to auscultation Heart: Normal S1, Normal S2, Other (irregular rate; grade 2/6 systolic murmur heard best over the aortic valve;) Abdomen: Normal bowel sounds, Soft, No tenderness Extremities: No cyanosis, No edema Neuro: Normal speech Vitals VITALS Vital Signs Date Time Temp Pulse Resp B/P Pulse Ox O2 Delivery O2 Flow Rate FiO2 06/18/16 11:47 92 Room Air 06/18/16 08:55 83 178/80 06/17/16 23:00 98.5 18 98.5 Labs Labs Laboratory Tests Test 06/17/16 15:40 06/17/16 16:09 06/17/16 18:39 06/17/16 21:24 White Blood Count 11.3x10^3/uL (4.0-11.0) Red Blood Count 3.41x10^6/uL (3.50-5.40) Hemoglobin 8.8g/dL (12.0-15.5) Hematocrit 28.4% (36.0-47.0) Mean Corpuscular Volume 83fL (79-100) Mean Corpuscular Hemoglobin 26pg (25-35) Mean Corpuscular Hemoglobin Concent 31g/dL (31-37) Red Cell Distribution Width 18.9% (11.5-14.5) Platelet Count 410x10^3/uL (140-400) Neutrophils (%) (Auto) 81% (31-73) Lymphocytes (%) (Auto) 9% (24-48) Monocytes (%) (Auto) 7% (0-9) Eosinophils (%) (Auto) 2% (0-3) Basophils (%) (Auto) 1% (0-3) Neutrophils # (Auto) 9.1x10^3uL (1.8-7.7) Lymphocytes # (Auto) 1.0x10^3/uL (1.0-4.8) Monocytes # (Auto) 0.8x10^3/uL (0.0-1.1) Eosinophils # (Auto) 0.2x10^3/uL (0.0-0.7) Basophils # (Auto) 0.1x10^3/uL (0.0-0.2) Prothrombin Time 21.3SEC (11.7-14.0) Prothromb Time International Ratio 2.0 (0.8-1.1) Sodium Level 137mmol/L (136-145) Potassium Level 4.8mmol/L (3.5-5.1) Chloride Level 100mmol/L (98-107) Carbon Dioxide Level 29mmol/L (21-32) Anion Gap 8 (6-14) Blood Urea Nitrogen 29mg/dL (7-20) Creatinine 1.3mg/dL (0.6-1.0) Estimated GFR (Cockcroft-Gault) 39.2 Glucose Level 253mg/dL (70-99) Calcium Level 9.0mg/dL (8.5-10.1) Total Bilirubin 0.3mg/dL (0.2-1.0) Direct Bilirubin 0.2mg/dL (0.0-0.2) Aspartate Amino Transf (AST/SGOT) 29U/L (15-37) Alanine Aminotransferase (ALT/SGPT) 30U/L (14-59) Alkaline Phosphatase 140U/L (46-116) Troponin I Quantitative < 0.017ng/mL (0.000-0.055) LQ-Bwh-X-Type Natriuretic Peptide 1159pg/mL (0-449) Total Protein 7.1g/dL (6.4-8.2) Albumin 3.4g/dL (3.4-5.0) Urine Collection Type Void Urine Color Yellow Urine Clarity Clear Urine pH 6.5 Urine Specific Trosper 1.015 Urine Protein Negativemg/dL (NEG-TRACE) Urine Glucose (UA) Negativemg/dL (NEG) Urine Ketones (Stick) Negativemg/dL (NEG) Urine Blood Negative (NEG) Urine Nitrite Negative (NEG) Urine Bilirubin Negative (NEG) Urine Urobilinogen Dipstick 0.2mg/dL (0.2 mg/dL) Urine Leukocyte Esterase Trace (NEG) Urine RBC 0/HPF (0-2) Urine WBC 5-10/HPF (0-4) Urine Squamous Epithelial Cells Mod/LPF Urine Bacteria Few/HPF (0-FEW) Glucose (Fingerstick) 154mg/dL (70-99) 223mg/dL (70-99) Test 06/18/16 03:25 06/18/16 04:00 06/18/16 04:10 06/18/16 07:59 Glucose (Fingerstick) 112mg/dL (70-99) 98mg/dL (70-99) White Blood Count 12.0x10^3/uL (4.0-11.0) Red Blood Count 3.47x10^6/uL (3.50-5.40) Hemoglobin 8.8g/dL (12.0-15.5) Hematocrit 28.5% (36.0-47.0) Mean Corpuscular Volume 82fL (79-100) Mean Corpuscular Hemoglobin 26pg (25-35) Mean Corpuscular Hemoglobin Concent 31g/dL (31-37) Red Cell Distribution Width 18.6% (11.5-14.5) Platelet Count 435x10^3/uL (140-400) Neutrophils (%) (Auto) 76% (31-73) Lymphocytes (%) (Auto) 11% (24-48) Monocytes (%) (Auto) 11% (0-9) Eosinophils (%) (Auto) 2% (0-3) Basophils (%) (Auto) 1% (0-3) Neutrophils # (Auto) 9.0x10^3uL (1.8-7.7) Lymphocytes # (Auto) 1.3x10^3/uL (1.0-4.8) Monocytes # (Auto) 1.3x10^3/uL (0.0-1.1) Eosinophils # (Auto) 0.3x10^3/uL (0.0-0.7) Basophils # (Auto) 0.1x10^3/uL (0.0-0.2) Thyroid Stimulating Hormone (TSH) 2.432uIU/mL (0.358-3.74) Sodium Level 141mmol/L (136-145) Potassium Level 4.0mmol/L (3.5-5.1) Chloride Level 100mmol/L (98-107) Carbon Dioxide Level 30mmol/L (21-32) Anion Gap 11 (6-14) Blood Urea Nitrogen 26mg/dL (7-20) Creatinine 1.1mg/dL (0.6-1.0) Estimated GFR (Cockcroft-Gault) 47.6 Glucose Level 103mg/dL (70-99) Calcium Level 9.3mg/dL (8.5-10.1) Iron Level 25ug/dL (50-170) Total Iron Binding Capacity 427ug/dL (250-450) Iron Saturation 6% (15-34) Ferritin 14ng/mL (8-252) Test 06/18/16 12:03 Glucose (Fingerstick) 143mg/dL (70-99) Laboratory Tests Test 06/17/16 15:40 06/17/16 16:09 06/17/16 18:39 06/17/16 21:24 White Blood Count 11.3x10^3/uL (4.0-11.0) Red Blood Count 3.41x10^6/uL (3.50-5.40) Hemoglobin 8.8g/dL (12.0-15.5) Hematocrit 28.4% (36.0-47.0) Mean Corpuscular Volume 83fL (79-100) Mean Corpuscular Hemoglobin 26pg (25-35) Mean Corpuscular Hemoglobin Concent 31g/dL (31-37) Red Cell Distribution Width 18.9% (11.5-14.5) Platelet Count 410x10^3/uL (140-400) Neutrophils (%) (Auto) 81% (31-73) Lymphocytes (%) (Auto) 9% (24-48) Monocytes (%) (Auto) 7% (0-9) Eosinophils (%) (Auto) 2% (0-3) Basophils (%) (Auto) 1% (0-3) Neutrophils # (Auto) 9.1x10^3uL (1.8-7.7) Lymphocytes # (Auto) 1.0x10^3/uL (1.0-4.8) Monocytes # (Auto) 0.8x10^3/uL (0.0-1.1) Eosinophils # (Auto) 0.2x10^3/uL (0.0-0.7) Basophils # (Auto) 0.1x10^3/uL (0.0-0.2) Prothrombin Time 21.3SEC (11.7-14.0) Prothromb Time International Ratio 2.0 (0.8-1.1) Sodium Level 137mmol/L (136-145) Potassium Level 4.8mmol/L (3.5-5.1) Chloride Level 100mmol/L (98-107) Carbon Dioxide Level 29mmol/L (21-32) Anion Gap 8 (6-14) Blood Urea Nitrogen 29mg/dL (7-20) Creatinine 1.3mg/dL (0.6-1.0) Estimated GFR (Cockcroft-Gault) 39.2 Glucose Level 253mg/dL (70-99) Calcium Level 9.0mg/dL (8.5-10.1) Total Bilirubin 0.3mg/dL (0.2-1.0) Direct Bilirubin 0.2mg/dL (0.0-0.2) Aspartate Amino Transf (AST/SGOT) 29U/L (15-37) Alanine Aminotransferase (ALT/SGPT) 30U/L (14-59) Alkaline Phosphatase 140U/L (46-116) Troponin I Quantitative < 0.017ng/mL (0.000-0.055) IK-Yss-Y-Type Natriuretic Peptide 1159pg/mL (0-449) Total Protein 7.1g/dL (6.4-8.2) Albumin 3.4g/dL (3.4-5.0) Urine Collection Type Void Urine Color Yellow Urine Clarity Clear Urine pH 6.5 Urine Specific Trosper 1.015 Urine Protein Negativemg/dL (NEG-TRACE) Urine Glucose (UA) Negativemg/dL (NEG) Urine Ketones (Stick) Negativemg/dL (NEG) Urine Blood Negative (NEG) Urine Nitrite Negative (NEG) Urine Bilirubin Negative (NEG) Urine Urobilinogen Dipstick 0.2mg/dL (0.2 mg/dL) Urine Leukocyte Esterase Trace (NEG) Urine RBC 0/HPF (0-2) Urine WBC 5-10/HPF (0-4) Urine Squamous Epithelial Cells Mod/LPF Urine Bacteria Few/HPF (0-FEW) Glucose (Fingerstick) 154mg/dL (70-99) 223mg/dL (70-99) Test 06/18/16 03:25 06/18/16 04:00 06/18/16 04:10 06/18/16 07:59 Glucose (Fingerstick) 112mg/dL (70-99) 98mg/dL (70-99) White Blood Count 12.0x10^3/uL (4.0-11.0) Red Blood Count 3.47x10^6/uL (3.50-5.40) Hemoglobin 8.8g/dL (12.0-15.5) Hematocrit 28.5% (36.0-47.0) Mean Corpuscular Volume 82fL (79-100) Mean Corpuscular Hemoglobin 26pg (25-35) Mean Corpuscular Hemoglobin Concent 31g/dL (31-37) Red Cell Distribution Width 18.6% (11.5-14.5) Platelet Count 435x10^3/uL (140-400) Neutrophils (%) (Auto) 76% (31-73) Lymphocytes (%) (Auto) 11% (24-48) Monocytes (%) (Auto) 11% (0-9) Eosinophils (%) (Auto) 2% (0-3) Basophils (%) (Auto) 1% (0-3) Neutrophils # (Auto) 9.0x10^3uL (1.8-7.7) Lymphocytes # (Auto) 1.3x10^3/uL (1.0-4.8) Monocytes # (Auto) 1.3x10^3/uL (0.0-1.1) Eosinophils # (Auto) 0.3x10^3/uL (0.0-0.7) Basophils # (Auto) 0.1x10^3/uL (0.0-0.2) Thyroid Stimulating Hormone (TSH) 2.432uIU/mL (0.358-3.74) Sodium Level 141mmol/L (136-145) Potassium Level 4.0mmol/L (3.5-5.1) Chloride Level 100mmol/L (98-107) Carbon Dioxide Level 30mmol/L (21-32) Anion Gap 11 (6-14) Blood Urea Nitrogen 26mg/dL (7-20) Creatinine 1.1mg/dL (0.6-1.0) Estimated GFR (Cockcroft-Gault) 47.6 Glucose Level 103mg/dL (70-99) Calcium Level 9.3mg/dL (8.5-10.1) Iron Level 25ug/dL (50-170) Total Iron Binding Capacity 427ug/dL (250-450) Iron Saturation 6% (15-34) Ferritin 14ng/mL (8-252) Test 06/18/16 12:03 Glucose (Fingerstick) 143mg/dL (70-99) Assessment/Plan Assessment/Plan Assessment: - Congestive heart failure, diastolic type with preserved ejection fraction - Type 2 DM, well controlled - Normocytic anemia Plan: - Agree with continuing IV lasix - Will increase her losartan to 100mg PO daily - I want to keep her SBP's <140-150. - Will add Labetalol 5mg IV Q4hrs prn if SBP >150 - Will continue to monitor while she is in the hospital Thank you for your consultation! RUDOLPH CLARK MD Jun 18, 2016 13:03
[2016-06-18] MEDS ORDERED: LABETALOL 20 MG/4 ML DISP.SYRIN. IVP PRN (13:15)
[2016-06-18 15:00] VITALS: BP 148/72
[2016-06-18] MEDS ORDERED: WARFARIN 10 MG TABLET. PO SCH (16:00)
[2016-06-18 19:00] VITALS: BP 112/70
[2016-06-18] MEDS: ALPRAZolam 0.25 MG TABLET PO SCH (20:34)
[2016-06-18] MEDS: ACETAMINOPHEN 325 MG TABLET. PO PRN (22:37)
[2016-06-18 23:00] VITALS: BP 152/60
[2016-06-19 03:00] VITALS: BP 129/56
[2016-06-19 07:00] VITALS: BP 151/71
[2016-06-19 07:17] LABS: HEMOGLOBIN 9.4 g/dL (12.0-15.5); RED BLOOD COUNT 3.58 x10^6/uL (3.50-5.40); RED CELL DISTRIBUTION WIDTH 18.5 % (11.5-14.5); WHITE BLOOD COUNT 10.3 x10^3/uL (4.0-11.0)
[2016-06-19 07:31] LABS: INR 1.5 (0.8-1.1); PROTHROMBIN TIME PATIENT 17.6 SEC (11.7-14.0)
--- NOTE | 2016-06-19 08:14 | PDOC ---
Provider Note Provider Note feels better , less cough/ orthopnea- no edema in legs, lungs sound good- tsh ok , hb 9.4, iron low/TIBC high, will go to po lasix, repeat hb- may dc in am , may need po iron as gi workup will not be well tolerated PREMA MASON MD Jun 19, 2016 08:14
[2016-06-19] MEDS: ASPIRIN 325 MG TABLET PO SCH (08:51)
[2016-06-19] MEDS: METOPROLOL TART IMMED RELEASE 50 MG TABLET. PO SCH ×2 (08:51→20:33)
[2016-06-19] MEDS: ATORVASTATIN CALCIUM 40 MG TABLET. PO SCH (08:51)
[2016-06-19] MEDS: ALLOPURINOL 300 MG TABLET. PO SCH (08:52)
[2016-06-19] MEDS: LOSARTAN POTASSIUM 50 MG TABLET. PO SCH (08:52)
[2016-06-19] MEDS: MULTIVITAMIN EYE FORMULA CAPSULE. PO SCH (08:52)
[2016-06-19] MEDS: OMEGA-3 FATTY ACIDS/FISH OIL 1,000 MG CAPSULE. PO SCH (08:52)
[2016-06-19] MEDS: POTASSIUM CHLORIDE 10 MEQ TABLET.ER. PO SCH ×2 (08:53→17:34)
[2016-06-19] MEDS: FUROSEMIDE 40 MG TABLET. PO SCH (08:53)
[2016-06-19] MEDS: HYDROCHLOROTHIAZIDE 12.5 MG CAPSULE. PO SCH (08:53)
[2016-06-19] MEDS: DRONEDARONE HCL 400 MG TABLET PO SCH ×2 (08:53→20:33)
[2016-06-19] MEDS: CALCIUM CARBONATE 500 MG TABLET PO SCH (08:53)
[2016-06-19] MEDS: INSULIN DETEMIR 300 UNITS/3 ML INSULN.PEN. SQ SCH ×2 (09:08→20:37)
[2016-06-19] MEDS: ALBUTEROL SULFATE 2.5 MG/3 ML NEBU. NEB SCH ×4 (09:09→19:29)
[2016-06-19] MEDS: BUDESONIDE 0.5 MG/2 ML NEBU. NEB SCH ×2 (09:10→19:29)
[2016-06-19 11:00] VITALS: BP 108/52
[2016-06-19] MEDS: CITRIC ACID/SODIUM CITRATE 30 ML SOLUTION. PO SCH ×2 (12:15→20:33)
--- NOTE | 2016-06-19 12:44 | PDOC ---
PROGRESS NOTES Subjective Subjective Pt is sitting up in her chair this morning. Pt reported she felt nauseous after she took a shower. Pt reports her breathing is getting better and had a good night sleep. Objective Objective Vital Signs Date Time Temp Pulse Resp B/P Pulse Ox O2 Delivery O2 Flow Rate FiO2 06/19/16 09:16 Room Air 06/19/16 08:53 89 151/71 06/19/16 08:23 95 06/19/16 07:00 98.5 19 98.5 Intake and Output 06/19/16 06:59 Intake Total 1550 ml Output Total 950 ml Balance 600 ml Intake Oral 1550 ml Output Urine Total 950 ml Physical Exam Abdomen: Normal bowel sounds, Soft, No tenderness Heart: No murmurs, Other (Irregular rate; 2/6 systolic murmur over the aortic valve) Extremities: No clubbing, No edema General: Alert, Oriented X3, Cooperative HEENT: Atraumatic, PERRLA Lungs: Clear to auscultation Neck: Supple Psych/Mental Status: Mental status NL, Mood NL Assessment Assessment Pt with chronic A Fib that has some timothy episodes with the rate down to the 40' s but she is not symptomatic with it and no LOC. She is probably going to need a pacer in the future and we have discussed this in the past 2 years. Home soon. Problems Medical Problems: (1) CHF (congestive heart failure) Status: Acute - Congestive heart failure, diastolic type with preserved ejection fraction - Type 2 DM, well controlled - Normocytic anemia Plan Plan of Care - Agree with continuing lasix - BP's have improved; now SBP is around 150's - I want to keep her SBP's <140-150. - Will add Labetalol 5mg IV Q4hrs prn if SBP >150 - Will continue to monitor while she is in the hospital Thank you for your consultation and allowing me to participate in the care of this patient! Comment Review of Relevant I have reviewed the following items yo (where applicable) has been applied. Labs Laboratory Tests Test 06/17/16 15:40 06/17/16 16:09 06/17/16 18:39 06/17/16 21:24 White Blood Count 11.3x10^3/uL (4.0-11.0) Red Blood Count 3.41x10^6/uL (3.50-5.40) Hemoglobin 8.8g/dL (12.0-15.5) Hematocrit 28.4% (36.0-47.0) Mean Corpuscular Volume 83fL (79-100) Mean Corpuscular Hemoglobin 26pg (25-35) Mean Corpuscular Hemoglobin Concent 31g/dL (31-37) Red Cell Distribution Width 18.9% (11.5-14.5) Platelet Count 410x10^3/uL (140-400) Neutrophils (%) (Auto) 81% (31-73) Lymphocytes (%) (Auto) 9% (24-48) Monocytes (%) (Auto) 7% (0-9) Eosinophils (%) (Auto) 2% (0-3) Basophils (%) (Auto) 1% (0-3) Neutrophils # (Auto) 9.1x10^3uL (1.8-7.7) Lymphocytes # (Auto) 1.0x10^3/uL (1.0-4.8) Monocytes # (Auto) 0.8x10^3/uL (0.0-1.1) Eosinophils # (Auto) 0.2x10^3/uL (0.0-0.7) Basophils # (Auto) 0.1x10^3/uL (0.0-0.2) Prothrombin Time 21.3SEC (11.7-14.0) Prothromb Time International Ratio 2.0 (0.8-1.1) Sodium Level 137mmol/L (136-145) Potassium Level 4.8mmol/L (3.5-5.1) Chloride Level 100mmol/L (98-107) Carbon Dioxide Level 29mmol/L (21-32) Anion Gap 8 (6-14) Blood Urea Nitrogen 29mg/dL (7-20) Creatinine 1.3mg/dL (0.6-1.0) Estimated GFR (Cockcroft-Gault) 39.2 Glucose Level 253mg/dL (70-99) Calcium Level 9.0mg/dL (8.5-10.1) Total Bilirubin 0.3mg/dL (0.2-1.0) Direct Bilirubin 0.2mg/dL (0.0-0.2) Aspartate Amino Transf (AST/SGOT) 29U/L (15-37) Alanine Aminotransferase (ALT/SGPT) 30U/L (14-59) Alkaline Phosphatase 140U/L (46-116) Troponin I Quantitative < 0.017ng/mL (0.000-0.055) DZ-Qgg-X-Type Natriuretic Peptide 1159pg/mL (0-449) Total Protein 7.1g/dL (6.4-8.2) Albumin 3.4g/dL (3.4-5.0) Urine Collection Type Void Urine Color Yellow Urine Clarity Clear Urine pH 6.5 Urine Specific [place] 1.015 Urine Protein Negativemg/dL (NEG-TRACE) Urine Glucose (UA) Negativemg/dL (NEG) Urine Ketones (Stick) Negativemg/dL (NEG) Urine Blood Negative (NEG) Urine Nitrite Negative (NEG) Urine Bilirubin Negative (NEG) Urine Urobilinogen Dipstick 0.2mg/dL (0.2 mg/dL) Urine Leukocyte Esterase Trace (NEG) Urine RBC 0/HPF (0-2) Urine WBC 5-10/HPF (0-4) Urine Squamous Epithelial Cells Mod/LPF Urine Bacteria Few/HPF (0-FEW) Glucose (Fingerstick) 154mg/dL (70-99) 223mg/dL (70-99) Test 06/18/16 03:25 06/18/16 04:00 06/18/16 04:10 06/18/16 07:59 Glucose (Fingerstick) 112mg/dL (70-99) 98mg/dL (70-99) White Blood Count 12.0x10^3/uL (4.0-11.0) Red Blood Count 3.47x10^6/uL (3.50-5.40) Hemoglobin 8.8g/dL (12.0-15.5) Hematocrit 28.5% (36.0-47.0) Mean Corpuscular Volume 82fL (79-100) Mean Corpuscular Hemoglobin 26pg (25-35) Mean Corpuscular Hemoglobin Concent 31g/dL (31-37) Red Cell Distribution Width 18.6% (11.5-14.5) Platelet Count 435x10^3/uL (140-400) Neutrophils (%) (Auto) 76% (31-73) Lymphocytes (%) (Auto) 11% (24-48) Monocytes (%) (Auto) 11% (0-9) Eosinophils (%) (Auto) 2% (0-3) Basophils (%) (Auto) 1% (0-3) Neutrophils # (Auto) 9.0x10^3uL (1.8-7.7) Lymphocytes # (Auto) 1.3x10^3/uL (1.0-4.8) Monocytes # (Auto) 1.3x10^3/uL (0.0-1.1) Eosinophils # (Auto) 0.3x10^3/uL (0.0-0.7) Basophils # (Auto) 0.1x10^3/uL (0.0-0.2) Thyroid Stimulating Hormone (TSH) 2.432uIU/mL (0.358-3.74) Sodium Level 141mmol/L (136-145) Potassium Level 4.0mmol/L (3.5-5.1) Chloride Level 100mmol/L (98-107) Carbon Dioxide Level 30mmol/L (21-32) Anion Gap 11 (6-14) Blood Urea Nitrogen 26mg/dL (7-20) Creatinine 1.1mg/dL (0.6-1.0) Estimated GFR (Cockcroft-Gault) 47.6 Glucose Level 103mg/dL (70-99) Calcium Level 9.3mg/dL (8.5-10.1) Iron Level 25ug/dL (50-170) Total Iron Binding Capacity 427ug/dL (250-450) Iron Saturation 6% (15-34) Ferritin 14ng/mL (8-252) Test 06/18/16 12:03 06/18/16 16:43 06/18/16 20:32 06/19/16 06:15 Glucose (Fingerstick) 143mg/dL (70-99) 220mg/dL (70-99) 306mg/dL (70-99) White Blood Count 10.3x10^3/uL (4.0-11.0) Red Blood Count 3.58x10^6/uL (3.50-5.40) Hemoglobin 9.4g/dL (12.0-15.5) Hematocrit 30.0% (36.0-47.0) Mean Corpuscular Volume 84fL (79-100) Mean Corpuscular Hemoglobin 26pg (25-35) Mean Corpuscular Hemoglobin Concent 31g/dL (31-37) Red Cell Distribution Width 18.5% (11.5-14.5) Platelet Count 425x10^3/uL (140-400) Prothrombin Time 17.6SEC (11.7-14.0) Prothromb Time International Ratio 1.5 (0.8-1.1) Test 06/19/16 07:50 Glucose (Fingerstick) 118mg/dL (70-99) Laboratory Tests Test 06/18/16 16:43 06/18/16 20:32 06/19/16 06:15 06/19/16 07:50 Glucose (Fingerstick) 220mg/dL (70-99) 306mg/dL (70-99) 118mg/dL (70-99) White Blood Count 10.3x10^3/uL (4.0-11.0) Red Blood Count 3.58x10^6/uL (3.50-5.40) Hemoglobin 9.4g/dL (12.0-15.5) Hematocrit 30.0% (36.0-47.0) Mean Corpuscular Volume 84fL (79-100) Mean Corpuscular Hemoglobin 26pg (25-35) Mean Corpuscular Hemoglobin Concent 31g/dL (31-37) Red Cell Distribution Width 18.5% (11.5-14.5) Platelet Count 425x10^3/uL (140-400) Prothrombin Time 17.6SEC (11.7-14.0) Prothromb Time International Ratio 1.5 (0.8-1.1) Microbiology 06/17/16 Urine Culture - Preliminary, Resulted 06/17/16 Urine Culture Result 1 (AMI) - Preliminary, Resulted Medications Current Medications Furosemide (Lasix) 40 mg 1X ONCE IVP Last administered on 06/17/16 17:23; Start 06/17/16 at 16:45; Stop 06/17/16 at 16:46; Status DC Hydralazine HCl (Apresoline) 10 mg 1X ONCE IVP Last administered on 06/17/16 17:23; Start 06/17/16 at 16:45; Stop 06/17/16 at 16:46; Status DC Ondansetron HCl (Zofran) 4 mg PRN Q8HRS PRN IV NAUSEA/VOMITING; Start 06/17/16 at 16:45; Stop 06/18/16 at 16:44; Status DC Acetaminophen (Tylenol) 650 mg PRN Q4HRS PRN PO FEVER Last administered on 06/18 08:59; Start 06/17/16 at 16:45; Stop 06/18/16 at 16:44; Status DC Insulin Aspart (Novolog) 0-7 UNITS TIDWMEALS SQ Last administered on 06/17/16 21:30; Start 06/17/16 at 17:00; Stop 06/18/16 at 08:24; Status DC Dextrose (Dextrose 50%-Water Syringe) 12.5 gm PRN Q15MIN PRN IV SEE COMMENTS; Start 06/17/16 at 16:45 Fentanyl Citrate (Fentanyl 2ml Vial) 25 mcg PRN Q1HR PRN IV pain; Start at 16:45; Stop 06/18/16 at 08:24; Status DC Allopurinol (Zyloprim) 300 mg DAILY PO Last administered on 06/19/16 08:52; Start 06/18/16 at 09:00 Atorvastatin Calcium (Lipitor) 40 mg DAILY PO Last administered on 06/19/16 08 :51; Start 06/18/16 at 09:00 Calcium Carbonate/ Glycine (Oscal) 500 mg DAILY PO Last administered on 08:53; Start 06/18/16 at 09:00 Citric Acid/ Sodium Citrate (Bicitra) 30 ml BID PO Last administered on 12:15; Start 06/17/16 at 21:00 Multivitamins/ Minerals (Ocuvite Lutein) 2 cap DAILY PO Last administered on 08:52; Start 06/18/16 at 09:00 Warfarin Sodium (Coumadin) 7.5 mg TuThSa@16 PO ; Start 06/19/16 at 16:00 Warfarin Sodium (Coumadin) 10 mg SuMoWeFr@16 PO Last administered on 06/18/16 16:37; Start 06/18/16 at 16:00 Albuterol Sulfate (Ventolin Neb Soln) 2.5 mg PRN Q4HRS PRN NEB SHORTNESS OF BREATH; Start 06/17/16 at 21:00 Budesonide (Pulmicort) 0.5 mg RTBID NEB Last administered on 06/19/16 09:10; Start 06/18/16 at 08:00 Insulin Detemir (Levemir) 35 units QHS SQ Last administered on 06/18/16 20:41 ; Start 06/17/16 at 21:00 Insulin Detemir (Levemir) 50 units DAILYWBKFT SQ Last administered on 09:08; Start 06/18/16 at 08:00 Hydrochlorothiazide (Microzide) 12.5 mg DAILY PO Last administered on 08:53; Start 06/18/16 at 09:00 Metoprolol Tartrate (Lopressor) 50 mg BID PO Last administered on 06/19/16 08: 51; Start 06/17/16 at 21:00 Fish Oil (Fish Oil) 1,000 mg DAILY PO Last administered on 06/19/16 08:52; Start 06/18/16 at 09:00 Potassium Chloride (Klor-Con) 10 meq DAILYWBKFT PO ; Start 06/18/16 at 08:00; Stop 06/18/16 at 08:24; Status DC Alprazolam (Xanax) 0.25 mg HS PO Last administered on 06/18/16 20:34; Start at 21:00 Aspirin (Madhuri Aspirin) 325 mg DAILY PO Last administered on 06/19/16 08:51; Start 06/18/16 at 09:00 Dronedarone (Multaq) 400 mg BID PO Last administered on 06/19/16 08:53; Start 06/17/16 at 21:00 Losartan Potassium (Cozaar) 50 mg DAILY PO Last administered on 06/18/16 08:55 ; Start 06/18/16 at 09:00; Stop 06/18/16 at 13:06; Status DC Warfarin Sodium (Coumadin Per Physician) 1 each PRN DAILY PRN MC SEE COMMENTS Last administered on 06/18/16 14:10; Start 06/17/16 at 21:15 Albuterol Sulfate (Ventolin Neb Soln) 2.5 mg RTQID NEB Last administered on 09:09; Start 06/18/16 at 08:00 Potassium Chloride (Klor-Con) 10 meq BIDAFTMEAL PO Last administered on 08:53; Start 06/18/16 at 09:00 Furosemide (Lasix) 40 mg BID92 IVP Last administered on 06/18/16 16:37; Start 06/18/16 at 09:00; Stop 06/19/16 at 08:13; Status DC Famotidine (Pepcid) 20 mg QHS PO Last administered on 06/18/16 20:31; Start at 09:00 Losartan Potassium (Cozaar) 100 mg DAILY PO Last administered on 06/19/16 08: 52; Start 06/19/16 at 09:00 Labetalol HCl (Normodyne) 5 mg PRN Q4HRS PRN IVP HYPERTENSION, SEE COMMENTS; Start 06/18/16 at 13:15 Acetaminophen (Tylenol) 650 mg PRN Q6HRS PRN PO PAIN Last administered on 22:37; Start 06/18/16 at 22:30 Furosemide (Lasix) 40 mg DAILY PO Last administered on 06/19/16 08:53; Start 06/19/16 at 09:00 Active Scripts Active Reported Metoprolol Tartrate 50 Mg Tablet 50 Mg PO BID Warfarin Sodium 5 Mg Tablet 10 Mg PO SUMOWEFR Multaq (Dronedarone Hcl) 400 Mg Tablet 1 Tab PO BID Humulin 70-30 Vial (Hum Insulin Nph/Reg Insulin Hm) 100 Unit/1 Ml Vial 35 Unit SQ HS Alprazolam 0.25 Mg Tablet 1 Tab PO HS Aspirin 325 Mg Tablet 1 Tab PO DAILY Proair Hfa Inhaler (Albuterol Sulfate) 8.5 Gm Hfa.aer.ad 2 Puff IH PRN Q4-6HRS Losartan Potassium 50 Mg Tablet 1 Tab PO DAILY Potassium Chloride 10 Meq Capsule.er 1 Cap PO DAILY Warfarin Sodium 5 Mg Tablet 7.5 Mg PO TUTHSA Vision Vitamins Tablet (Vit A,C & E/Lutein/Minerals) 1 Each Tablet 2 Tab PO DAILY Hydrochlorothiazide Tablet (Hydrochlorothiazide) 12.5 Mg Tablet 12.5 Mg PO DAILY Calcium (Calcium Carbonate) 500 Mg Tablet 500 Mg PO DAILY Fish Oil (Paradis-3 Fatty Acids) 500 Mg Capsule.dr 500 Mg PO DAILY Cytra-2 Oral Solution (Citric Acid/Sodium Citrate) 473 Ml Solution 30 Ml PO BID Allopurinol 300 Mg Tablet 300 Mg PO DAILY Symbicort 160-4.5 Mcg Inhaler (Budesonide/Formoterol Fumarate) 10.2 Gm Hfa.aer.ad 10.2 Gm IH BID Atorvastatin Calcium 40 Mg Tablet 40 Mg PO DAILY Humulin 70-30 Vial (Hum Insulin Nph/Reg Insulin Hm) 100 Unit/1 Ml Vial 50 Unit SQ DAILYWBKFT Vitals/I & O Vital Sign - Last 24 Hours 06/18/16 06/18/16 06/18/16 06/18/16 15:00 15:14 19:00 19:49 Temp 97.8 98.3 97.8 98.3 Pulse 80 93 Resp 20 20 B/P 148/72 112/70 Pulse Ox 92 91 95 O2 Delivery Room Air Room Air Room Air Room Air 06/18/16 06/18/16 06/18/16 06/18/16 19:50 20:03 20:33 20:34 Pulse 52 52 B/P 112/70 112/70 Pulse Ox 95 O2 Delivery Room Air Room Air 06/18/16 06/19/16 06/19/16 06/19/16 23:00 03:00 07:00 08:20 Temp 98.2 98.2 98.5 98.2 98.2 98.5 Pulse 87 61 89 Resp 18 18 19 B/P 152/60 129/56 151/71 Pulse Ox 91 94 92 95 O2 Delivery Room Air Room Air Room Air Room Air 06/19/16 06/19/16 06/19/16 06/19/16 08:23 08:51 08:52 08:53 Pulse 89 89 89 B/P 151/71 151/71 151/71 Pulse Ox 95 O2 Delivery Room Air 06/19/16 09:16 O2 Delivery Room Air Intake and Output 06/18/16 06/18/16 06/19/16 14:59 22:59 06:59 Intake Total 500 ml 1050 ml Output Total 950 ml Balance 500 ml 100 ml RUDOLPH CLARK MD Jun 19, 2016 12:44
[2016-06-19 15:00] VITALS: BP 120/69
[2016-06-19] MEDS ORDERED: WARFARIN 7.5 MG TABLET. PO SCH (16:00)
[2016-06-19 19:00] VITALS: BP 153/66
[2016-06-19] MEDS: FAMOTIDINE 20 MG TABLET. PO SCH (20:33)
[2016-06-19] MEDS: ALPRAZolam 0.25 MG TABLET PO SCH (20:33)
[2016-06-19] MEDS: ACETAMINOPHEN 325 MG TABLET. PO PRN (21:15)
[2016-06-19 23:00] VITALS: BP 147/59
[2016-06-20 03:00] VITALS: BP 130/65
[2016-06-20 06:20] LABS: HEMATOCRIT 30.5 % (36.0-47.0); HEMOGLOBIN 9.2 g/dL (12.0-15.5); RED BLOOD COUNT 3.62 x10^6/uL (3.50-5.40); RED CELL DISTRIBUTION WIDTH 18.9 % (11.5-14.5); WHITE BLOOD COUNT 11.4 x10^3/uL (4.0-11.0)
[2016-06-20] MEDS: BUDESONIDE 0.5 MG/2 ML NEBU. NEB SCH (07:12)
[2016-06-20] MEDS: ALBUTEROL SULFATE 2.5 MG/3 ML NEBU. NEB SCH ×2 (07:14→10:53)
[2016-06-20 07:30] VITALS: BP 138/67
[2016-06-20] MEDS: POTASSIUM CHLORIDE 10 MEQ TABLET.ER. PO SCH (08:16)
[2016-06-20] MEDS: CITRIC ACID/SODIUM CITRATE 30 ML SOLUTION. PO SCH (08:16)
[2016-06-20] MEDS: FUROSEMIDE 40 MG TABLET. PO SCH (08:16)
[2016-06-20] MEDS: MULTIVITAMIN EYE FORMULA CAPSULE. PO SCH (08:16)
[2016-06-20] MEDS: LOSARTAN POTASSIUM 50 MG TABLET. PO SCH (08:17)
[2016-06-20] MEDS: ALLOPURINOL 300 MG TABLET. PO SCH (08:17)
[2016-06-20] MEDS: ATORVASTATIN CALCIUM 40 MG TABLET. PO SCH (08:17)
[2016-06-20] MEDS: CALCIUM CARBONATE 500 MG TABLET PO SCH (08:17)
[2016-06-20] MEDS: OMEGA-3 FATTY ACIDS/FISH OIL 1,000 MG CAPSULE. PO SCH (08:18)
[2016-06-20] MEDS: HYDROCHLOROTHIAZIDE 12.5 MG CAPSULE. PO SCH (08:18)
[2016-06-20] MEDS: METOPROLOL TART IMMED RELEASE 50 MG TABLET. PO SCH (08:18)
[2016-06-20 08:19] VITALS: BP 138/67
[2016-06-20] MEDS: ASPIRIN 325 MG TABLET PO SCH (08:19)
[2016-06-20] MEDS: DRONEDARONE HCL 400 MG TABLET PO SCH (08:19)
[2016-06-20] MEDS: INSULIN DETEMIR 300 UNITS/3 ML INSULN.PEN. SQ SCH (08:26)
--- NOTE | 2016-06-20 08:34 | DISCH ---
DISCHARGE INSTRUCTIONS Condition on Discharge Condition on Discharge: Stable Activity After Discharge Activity Instructions for Disc: No restrictions Diet after Discharge Diet after Discharge: Low Sodium 4 gm Follow-Up Follow up with: dr tony Patel w PREMA MASON MD Jun 20, 2016 08:34
--- NOTE | 2016-06-20 08:39 | PDOC ---
Provider Note Provider Note tc to [facility], admit re chf and new onset anemia, on anticoags, iv lasix and hb monitoring, still admit declined per reviewer, ok to dc and follow as op [id number] PREMA MASON MD Jun 20, 2016 08:39
--- NOTE | 2016-06-20 18:31 | DS ---
DATE OF DISCHARGE: 06/20/2016 HOSPITAL SUMMARY: An 81-year-old white female with a history of aortic valve replacement, renal artery stents, and atrial fibrillation, came in with congestive heart failure, seen on chest x-ray with orthopnea and shortness of breath. She also had a hemoglobin reduced to 8.8, which is new for her, last they have been 11 about 6 months ago. She has had some recent epistaxis and perhaps is a source of anemia, but no other source of anemia is seen, although she is on aspirin and warfarin. Iron was low, TIBC was high, and ferritin was low at 14 consistent with iron deficiency. Hemoglobin was followed and has remained stable at 9.2, after IV diuresis and lab studies were normal. She is feeling better after a day and half of IV Lasix and is comfortable to be followed as an outpatient, as she is hemodynamically stable as well. Echocardiogram showed a preserved ejection fraction of 55% consistent with diastolic heart failure. ASSESSMENT: 1. Acute congestive heart failure, diastolic type. 2. Iron deficiency anemia, etiology undetermined. OPERATIONS, PROCEDURES, COMPLICATIONS: None. CONSULTATIONS: Dr. Jovel. DISPOSITION: We will add Lasix 40 mg 3 times a week for now to home meds, which to continue the same. Continue aspirin and warfarin as ordered, see her in 1 week for the repeat hemoglobin. Hopefully, the recent epistaxis would allow her hemoglobins to recover a bit. Would need further GI evaluation should the hemoglobin continued to drop. As likely, this was some of the etiology of her heart failure as well. She is not a good candidate for aggressive endoscopies or interventions otherwise. PREMA MASON MD DR: KAMI/dwaine JOB#: [id number] / [id number]
== END 2016-06-20 10:57 | disposition home or self-care (01) | DRG 291 ==
LOC: ER 14:42 → 5 NORTH 16:32
PROVIDERS: ADMIT Family Medicine; ATTEND Family Medicine
DX: I13.0 Hypertensive heart and chronic kidney disease with heart failure and stage 1 through stage 4 chronic kidney disease, or unspecified chronic kidney disease (principal); I50.31 Acute diastolic (congestive) heart failure; E11.9 Type 2 diabetes mellitus without complications; D64.9 Anemia, unspecified; D50.9 Iron deficiency anemia, unspecified; E78.00 Pure hypercholesterolemia, unspecified; I25.10 Atherosclerotic heart disease of native coronary artery without angina pectoris; I27.2 Other secondary pulmonary hypertension; Z96.653 Presence of artificial knee joint, bilateral; I48.2 Chronic atrial fibrillation; J44.9 Chronic obstructive pulmonary disease, unspecified; K59.00 Constipation, unspecified; Z79.01 Long term (current) use of anticoagulants; Z87.442 Personal history of urinary calculi; Z95.2 Presence of prosthetic heart valve; Z88.0 Allergy status to penicillin; Z88.2 Allergy status to sulfonamides; Z90.49 Acquired absence of other specified parts of digestive tract; Z90.710 Acquired absence of both cervix and uterus; Z88.8 Allergy status to other drugs, medicaments and biological substances; Z91.013 Allergy to seafood; Z79.899 Other long term (current) drug therapy; N18.2 Chronic kidney disease, stage 2 (mild)
CPT/HCPCS: 36415; 71020; 80048; 80076; 81001; 82728; 82947; 83540; 83550; 83880; 84443; 84484; 85027; 85610; 87086; 87186; 93005; 94250; 94640; 94760; 96374; 96375; J0360; J1815; J1940; 99285-25

== ENCOUNTER 2016-07-02 08:16 | Observation (INO) | payer MEDICARE ==
[2016-07-02] VITALS (10 sets, daily range): BP systolic 122–185; BP diastolic 58–76
[~2016-07-02] VITALS: Ht 167.6 cm; Wt 116.7 kg
[~2016-07-02 08:16] MED LIST changes: -ASPI325T4 PO; +ASPI325T8 PO; -CALC500T27 PO; +CALC500T30 PO; +METO50TA2 PO; -POTA10CA PO; +POTASSIUM CHLO10 MEQ PO; +VANCOMYCIN 1 GM in IV NORMAL SALINE 250ML 250 ML IV ONE
[2016-07-02] MEDS ORDERED: BACITRACIN 50,000 UNIT in IV NORMAL SALINE 250ML 250 ML IRR ONE (08:45)
[2016-07-02 08:52] LABS: HEMATOCRIT 28.7 % (36.0-47.0); RED BLOOD COUNT 3.34 x10^6/uL (3.50-5.40); RED CELL DISTRIBUTION WIDTH 18.8 % (11.5-14.5); WHITE BLOOD COUNT 9.4 x10^3/uL (4.0-11.0)
[2016-07-02 09:02] LABS: INR 1.3 (0.8-1.1); PROTHROMBIN TIME PATIENT 15.3 SEC (11.7-14.0)
[2016-07-02] MEDS ORDERED: GABA-585 PO (09:07)
[2016-07-02] MEDS ORDERED: FURO40TA4 PO (09:07)
[2016-07-02] MEDS ORDERED: FERR-26 PO (09:07)
[2016-07-02 09:11] LABS: CALCIUM 8.4 mg/dL (8.5-10.1); CREATININE 1.2 mg/dL (0.6-1.0); POTASSIUM 4.7 mmol/L (3.5-5.1)
[2016-07-02] MEDS ORDERED: LIDOCAINE 2%/EPI 1:100,000 20 ML VIAL. ONE (09:32)
--- NOTE | 2016-07-02 09:41 | PDOC ---
MODERATE SEDATION ASSESSMENT RISKS/ALTERNATIVES Risks/Alternatives Risks and alternatives of this type of sedation and procedure discussed with: RISK/ALTERNATIVES: Patient H & P ON CHART H & P H & P on chart and reviewed for co-morbid conditions and appropriate labs. H&P ON CHART: Yes STATUS PREG STATUS ASSESSED: Yes MEDS/ALLERGIES REVIEWED Meds/Allergies Reviewed Medications and Allergies including time and route of recently administered narcotics and sedatives. MEDS/ALLERGIES REVIEWED: Yes ASA RATING ASA RATING: II AIRWAY ASSESSMENT Airway Assessment Airway patency, oral function limitations, presence of caps, crowns, dentures, partials, and ability to extend neck assessed. AIRWAY ASSESSMENT: Yes MALLAMPATI SCORE MALLAMPATI SCORE: II PRE-SEDATION ASSESSMENT PRE-SEDATION ASSESSMENT: Yes RUDOLPH CLARK MD July 02, 2016 09:41
--- NOTE | 2016-07-02 10:53 | EKG ---
[facility] [address] [place] [address] Test Date: 2016-07-02 Test Time: 09:03:36 Pat Name: ROSA PATEL Department: Room: Gender: F Risk Investigator: : 1935 Requested By: RUDOLPH CLARK Order Number: [id number] Reading MD: Mateus Jacobo Measurements Intervals [place] Rate: 83 P: 90 NV: 58 QRS: -29 QRSD: 144 T: -15 QT: 424 QTc: 499 Interpretive Statements SINUS RHYTHM LEFTWARD AXIS NON SPECIFIC INTRAVENTRICULAR BLOCK RBBB INFERIOR INFARCT, LIKELY OLD Electronically Signed On 07-09-2016 8:54:18 CDT by Mateus Jacobo
--- NOTE | 2016-07-02 11:21 | EKG ---
[facility] [address] [place] [address] Test Date: 2016-07-02 Test Time: 09:03:36 Pat Name: ROSA PATEL Department: Room: 208 1 Gender: F Transition Social Worker: : 1935 Requested By: RUDOLPH CLARK Order Number: [id number] Reading MD: Mateus Jacobo Measurements Intervals [place] Rate: 83 P: 90 ND: 58 QRS: -29 QRSD: 144 T: -15 QT: 424 QTc: 499 Interpretive Statements SINUS RHYTHM LEFTWARD AXIS RBBB CONSIDER ANTEROSEPTAL MYOCARDIAL DAMAGE CONSISTENT WITH INFERIOR INFARCT AGE UNDETERMINED Electronically Signed On 07-09-2016 8:53:58 CDT by Mateus Jacobo
[2016-07-02] MEDS ORDERED: LIDOCAINE 2%/EPI 1:100,000 20 ML VIAL. IJ ONE (11:45)
[2016-07-02] MEDS ORDERED: fentaNYL PF VIAL 100 MCG/2 ML VIAL IV ONE (11:45)
[2016-07-02] MEDS ORDERED: MIDAZOLAM HCL/PF 2 MG/2 ML VIAL. IV ONE (11:45)
[2016-07-02] MEDS ORDERED: fentaNYL PF VIAL 100 MCG/2 ML VIAL ONE (11:46)
[2016-07-02] MEDS ORDERED: MIDAZOLAM HCL/PF 2 MG/2 ML VIAL. ONE (11:46)
[2016-07-02] MEDS ORDERED: VANCOMYCIN 1GM IVPB FOR OMNI 250 ML IV ONE (12:30)
[2016-07-02] MEDS ORDERED: NO ANTICOAGULANT THERAPY. MC PRN (12:45)
[2016-07-02] MEDS ORDERED: ONDANSETRON PF 4 MG/2 ML VIAL. IV PRN (12:45)
[2016-07-02] MEDS ORDERED: HYDROcodone/APAP 5/325MG 1 TAB TABLET PO PRN (12:45)
--- NOTE | 2016-07-02 13:22 | RAD ---
Indication: Pacemaker placement. Time of exam 1315 hours. Correlation is made with prior chest from 06/17/2016. The heart size is stable. There are changes of median sternotomy. A single lead left-sided cardiac pacer has been placed with the lead tip in the region of the right ventricle. No pneumothorax is identified. The lungs are clear. Impression: Pacer placement, as described.
[2016-07-02] MEDS ORDERED: NON FORMULARY ITEM (Albuterol Sulfate (Proair Hfa Inhaler) 2 PUFF) IH SCH (16:00)
[2016-07-02] MEDS ORDERED: ALBUTEROL SULFATE 2.5 MG/3 ML NEBU. NEB PRN (16:15)
[2016-07-02] MEDS ORDERED: WARFARIN 10 MG TABLET. PO SCH (17:00)
--- NOTE | 2016-07-02 17:55 | CARD ---
APPROVED REPORT HISTORY The Patient is a 81 year-old female with a history of chronic a fib and bradycardia PROCEDURES Insertion Single Chamber Ventricle Pacemaker CONSCIOUS SEDATION AGENTS Fentanyl mg Versed mg PROCEDURE After explaining the risks, benefits, and alternative options, informed consent was obtained from the patient. The patient was brought to the cardiac catheterization lab and the left chest and shoulder were prepp ed and draped in a sterile manner. The left subclavian region was infiltrated with 2% Lidocaine with Epinephrine, subcutaneous anesthesi a. A transverse incision was made in the left subclavicular area. During this case, Fluoroscopy were used for imaging. The subcutaneous pocket was formed via blunt dissection, Percutaneous venous access was achieved and an introducer sheath was inserted into the leftSubclavian vein. Through the introducer sheath, the ventricular lead wire was postitioned in the right ventricular ape x utilizing fluoroscopic guidance. The ventricular lead was advanced over the wire under fluoroscopic guidance and positioned in the rig ht ventricle. Capturing and sensing thresholds were verified. This was a [employer] Adalberto pacing lead THE VENTRICULAR ELECTRODE PARAMETERS The ventricular lead was then secured using sutures. The subcutaneous pocket was irrigated with Betad ine. The ventricular lead was attached to the appropriate receptacle on the pulse generator and set s crews firmly tightened to insure adequate contact and stability. The lead and pulse generator were pl aced into the subcutaneous pocket. Sharp and sponge counts were confirmed to be correct. At this time the pocket was closed subcutaneously with a 3 layers of running sutures and the skin was closed with a dermabond .The operative site was dressed in sterile fashion. The patient tolerated the procedure well and was transferred to the floor in stable condition. The pacer generator was a single lead [employer] Adalberto pacemaker COMPLICATIONS The patient tolerated the procedure well and there were no complications associated with the procedur e. CONCLUSION This was the insertion of a [employer] Adalberto single lead pacemaker. The patient tolerated this well and will go home in AM if stable
[2016-07-02] MEDS: GABAPENTIN 100 MG CAPSULE. PO SCH (20:10)
[2016-07-02] MEDS: DRONEDARONE HCL 400 MG TABLET PO SCH (20:10)
[2016-07-02] MEDS: METOPROLOL TART IMMED RELEASE 50 MG TABLET. PO SCH (20:11)
[2016-07-02] MEDS ORDERED: ALPRAZolam 0.25 MG TABLET PO SCH (21:00)
[2016-07-02] MEDS ORDERED: INSULN ASP PRT/INSULIN ASPART 300 UNITS/3 ML INSULN.PEN. SQ SCH (21:00)
[2016-07-02] MEDS ORDERED: ATORVASTATIN CALCIUM 40 MG TABLET. PO SCH (21:00)
[2016-07-02] MEDS ORDERED: NON FORMULARY ITEM (Budesonide/Formoterol Fumarate (Symbicort 160-4.5 Mcg Inhaler) 10.2 GM IH SCH (21:00)
[2016-07-02] MEDS: ALBUTEROL SULFATE 2.5 MG/3 ML NEBU. NEB SCH ×2 (21:08→23:35)
[2016-07-02] MEDS: BUDESONIDE 0.5 MG/2 ML NEBU. NEB SCH (21:08)
[2016-07-03] MEDS ORDERED: VANCOMYCIN 1 GM in IV NORMAL SALINE 250ML 250 ML IV ONE ×2
[2016-07-03 03:02] VITALS: BP 148/55
[2016-07-03 07:00] VITALS: BP 157/62
[2016-07-03] MEDS: BUDESONIDE 0.5 MG/2 ML NEBU. NEB SCH (07:59)
[2016-07-03] MEDS: ALBUTEROL SULFATE 2.5 MG/3 ML NEBU. NEB SCH (07:59)
[2016-07-03] MEDS ORDERED: INSULN ASP PRT/INSULIN ASPART 300 UNITS/3 ML INSULN.PEN. SQ SCH (08:00)
[2016-07-03] MEDS ORDERED: POTASSIUM CHLORIDE 10 MEQ TABLET.ER. PO SCH (08:00)
[2016-07-03] MEDS: GABAPENTIN 100 MG CAPSULE. PO SCH (08:42)
[2016-07-03] MEDS: DRONEDARONE HCL 400 MG TABLET PO SCH (08:44)
[2016-07-03] MEDS: METOPROLOL TART IMMED RELEASE 50 MG TABLET. PO SCH (08:44)
[2016-07-03 08:45] VITALS: BP 158/72
[2016-07-03] MEDS ORDERED: LOSARTAN POTASSIUM 50 MG TABLET. PO SCH (09:00)
[2016-07-03] MEDS ORDERED: hydroCHLOROthiazide 12.5 MG CAPSULE PO SCH (09:00)
[2016-07-03] MEDS ORDERED: ALLOPURINOL 300 MG TABLET. PO SCH (09:00)
[2016-07-03] MEDS ORDERED: ASPIRIN 325 MG TABLET PO SCH (09:00)
[2016-07-03] MEDS ORDERED: FERROUS SULFATE 325 MG TABLET. PO SCH (09:00)
[2016-07-03] MEDS ORDERED: MULTIVITAMIN I-VITE TABLET. PO SCH (09:00)
--- NOTE | 2016-07-03 11:17 | RAD ---
Exam performed: 2 view chest. History: 1 day post pacemaker. Date of service: 07/03/16. Comparison: 07/02/16. Single AP upright portable view chest findings: Left-sided unipolar pacemaker. No pneumothorax. Mild cardiomegaly. Atheromatous calcification of the aortic knob with ectatic tortuous aorta. Previous median sternotomy. Improved central vascular congestion. Coarse prominent interstitial markings are seen in both lungs likely improving interstitial edema versus chronic interstitial markings. Linear right basilar atelectasis. No pleural effusion. Impression: 1. Left-sided pacemaker without evidence of pneumothorax. 2. Improved central vascular congestion.
[2016-07-03] MEDS ORDERED: WARFARIN 5 MG TABLET. PO SCH (16:00)
[2016-07-03] MEDS ORDERED: WARFARIN 7.5 MG TABLET. PO SCH (16:00)
[2016-07-04] MEDS ORDERED: FUROSEMIDE 40 MG TABLET. PO SCH (09:00)
[2016-07-08] MEDS ORDERED: WARFARIN 10 MG TABLET. PO SCH (16:00)
== END 2016-07-03 11:51 | disposition home or self-care (01) ==
LOC: CCL 08:16 → 2 NORTH 11:21
PROVIDERS: ADMIT Internal Medicine Cardiovascular Disease; ATTEND Internal Medicine Cardiovascular Disease
DX: I49.5 Sick sinus syndrome (principal); I48.2 Chronic atrial fibrillation; R55 Syncope and collapse; I10 Essential (primary) hypertension; I25.10 Atherosclerotic heart disease of native coronary artery without angina pectoris; E11.9 Type 2 diabetes mellitus without complications; E66.9 Obesity, unspecified; Z95.1 Presence of aortocoronary bypass graft; Z95.2 Presence of prosthetic heart valve; Z80.9 Family history of malignant neoplasm, unspecified; Z82.49 Family history of ischemic heart disease and other diseases of the circulatory system
CPT/HCPCS: 33207; 36415; 71010; 71020; 80048; 82962; 85027; 85610; 85730; 93005; 94250; 94640; 94760; 96365; 96367; 96368; 96372; C1786; C1898; G0378; G0379; J1815; J2250; J3010; J3370; J3490; J7050; 99152; 99153; J7030

== ENCOUNTER → 2016-12-03 | Outpatient (CLI) | payer MEDICARE ==
[2016-11-09 11:00] VITALS: BP 137/59
[~2016-12-03] MED LIST changes: +FERR-26 PO; +FURO40TA4 PO; +GABA-585 PO; +INSU100V13 SQ; +PANT40GR PO; -VANCOMYCIN 1 GM in IV NORMAL SALINE 250ML 250 ML IV ONE
[2016-12-03 15:56] LABS: BASO # 0.1 x10^3/uL (0.0-0.2); BASO % 1 % (0-3); EOS % 3 % (0-3); HEMATOCRIT 32.1 % (36.0-47.0); LYMPH # 0.6 x10^3/uL (1.0-4.8); LYMPH % 8 % (24-48); MEAN CORPUSCULAR HEMOGLOBIN 31 pg (25-35); MEAN CORPUSCULAR HGB CONC 31 g/dL (31-37); MEAN CORPUSCULAR VOLUME 99 fL (79-100); MONO % 10 % (0-9); NEUT % 79 % (31-73); PLATELET COUNT 325 x10^3/uL (140-400); RED BLOOD COUNT 3.24 x10^6/uL (3.50-5.40); WHITE BLOOD COUNT 8.3 x10^3/uL (4.0-11.0)
[2016-12-03 16:57] LABS: ANISOCYTOSIS MOD; PLT ESTIMATE ADEQUATE (ADEQUATE); POLYCHROMASIA SLIGHT; SCHISTOCYTES OCC
== END | disposition home or self-care (01) ==
LOC: SPEC 15:41
PROVIDERS: ATTEND Family Medicine
DX: K92.2 Gastrointestinal hemorrhage, unspecified (principal); M62.81 Muscle weakness (generalized)
CPT/HCPCS: 36415; 85025

== ENCOUNTER 2017-03-18 07:24 | Inpatient (IN) | payer MEDICARE ==
[2017-03-18 09:05] LABS: ADD MAN DIFF? NO
[2017-03-18 09:08] LABS: BASO # 0.1 x10^3/uL (0.0-0.2); BASO % 1 % (0-3); EOS # 0.1 x10^3/uL (0.0-0.7); EOS % 0 % (0-3); LYMPH # 1.3 x10^3/uL (1.0-4.8); LYMPH % 8 % (24-48); MEAN CORPUSCULAR HEMOGLOBIN 28 pg (25-35); MEAN CORPUSCULAR HGB CONC 31 g/dL (31-37); MEAN CORPUSCULAR VOLUME 91 fL (79-100); MONO # 0.9 x10^3/uL (0.0-1.1); MONO % 6 % (0-9); NEUT # 13.5 x10^3uL (1.8-7.7); NEUT % 85 % (31-73); PLATELET COUNT 603 x10^3/uL (140-400); RED BLOOD COUNT 1.78 x10^6/uL (3.50-5.40); RED CELL DISTRIBUTION WIDTH 17.3 % (11.5-14.5); WHITE BLOOD COUNT 15.9 x10^3/uL (4.0-11.0)
[2017-03-18 09:12] LABS: HEMATOCRIT 16.2 % (36.0-47.0)
[2017-03-18 09:29] LABS: ANION GAP 9 (6-14); BLOOD UREA NITROGEN 74 mg/dL (7-20); CALCIUM 9.1 mg/dL (8.5-10.1); CARBON DIOXIDE 28 mmol/L (21-32); CHLORIDE 102 mmol/L (98-107); CREATININE 1.2 mg/dL (0.6-1.0); GLUCOSE 256 mg/dL (70-99); SODIUM 139 mmol/L (136-145)
[2017-03-18 09:34] LABS: ALBUMIN 2.4 g/dL (3.4-5.0); ALK PHOS 104 U/L (46-116); ALT (SGPT) 14 U/L (14-59); AST (SGOT) 16 U/L (15-37); DIRECT BILIRUBIN 0.2 mg/dL (0.0-0.2); LIPASE 125 U/L (73-393); TOTAL BILIRUBIN 0.3 mg/dL (0.2-1.0); TOTAL PROTEIN 6.2 g/dL (6.4-8.2)
[2017-03-18 09:37] LABS: TROPONINI < 0.017 ng/mL (0.000-0.055)
[2017-03-18 09:40] LABS: THYROID STIM HORMONE (TSH) 2.203 uIU/mL (0.358-3.74)
[2017-03-18 09:42] LABS: CKMB MASS 1.3 ng/mL (0.0-3.6); CREATINE KINASE 22 U/L (26-192)
[2017-03-18 09:42] LABS: NT-PRO BNP 3363 pg/mL (0-449)
[2017-03-18] MEDS ORDERED: ONDANSETRON PF 4 MG/2 ML VIAL. IV (10:15)
[2017-03-18 11:33] LABS: % BANDS 1 % (0-9); % LYMPHS 6 % (24-48); % MONOS 5 % (0-10); % SEGS 88 % (35-66); ANISOCYTOSIS MOD; HYPERSEGS PRESENT; NUCLEATED RBC 1; PLT ESTIMATE INCREASED (ADEQUATE); POLYCHROMASIA PRESENT
[2017-03-18 11:50] LABS: POC GLUCOSE 235 mg/dL (70-99)
[2017-03-18 15:04] LABS: HEMOGLOBIN 5.5 g/dL (12.0-15.5)
[2017-03-18 15:04] LABS: HEMATOCRIT 17.9 % (36.0-47.0)
[2017-03-18 15:32] LABS: TROPONINI < 0.017 ng/mL (0.000-0.055)
[2017-03-18] MEDS ORDERED: NON FORMULARY ITEM (Albuterol Sulfate (Proair Hfa Inhaler) 2 PUFF) IH (15:45)
[2017-03-18] MEDS ORDERED: FUROSEMIDE 40 MG TABLET. PO (16:00)
[2017-03-18] MEDS: ALBUTEROL SULFATE 2.5 MG/3 ML NEBU. NEB ×2 (16:00→20:09)
[2017-03-18 16:02] LABS: PROTHROMBIN TIME PATIENT 66.5 SEC (11.7-14.0)
[2017-03-18 16:04] LABS: INR 8.7 (0.8-1.1)
[2017-03-18] MEDS: FUROSEMIDE 40 MG TABLET. PO (16:17)
[2017-03-18] MEDS: ALLOPURINOL 300 MG TABLET. PO (16:17)
[2017-03-18] MEDS: PANTOPRAZOLE 40 MG TABLET.DR. PO (16:17)
[2017-03-18] MEDS: FERROUS SULFATE 325 MG TABLET. PO (16:17)
[2017-03-18] MEDS: hydroCHLOROthiazide 12.5 MG CAPSULE PO (16:18)
[2017-03-18] MEDS: DRONEDARONE HCL 400 MG TABLET PO (16:18)
[2017-03-18 16:37] LABS: POC GLUCOSE 290 mg/dL (70-99)
[2017-03-18] MEDS: PHYTONADIONE 10 MG/ML AMPUL. SQ (17:31)
[2017-03-18] MEDS: BUDESONIDE 0.5 MG/2 ML NEBU. NEB (20:09)
[2017-03-18 20:38] LABS: POC GLUCOSE 350 mg/dL (70-99)
[2017-03-18] MEDS ORDERED: NON FORMULARY ITEM (Budesonide/Formoterol Fumarate (Symbicort 160-4.5 Mcg Inhaler) 10.2 GM IH (21:00)
[2017-03-18] MEDS: ATORVASTATIN CALCIUM 40 MG TABLET. PO (21:35)
[2017-03-18] MEDS: ALPRAZolam 0.25 MG TABLET PO (21:35)
[2017-03-18] MEDS: GABAPENTIN 100 MG CAPSULE. PO (21:36)
[2017-03-18] MEDS: METOPROLOL TART IMMED RELEASE 50 MG TABLET. PO (21:40)
[2017-03-18] MEDS: INSULIN DETEMIR 300 UNITS/3 ML INSULN.PEN. SQ (21:45)
[2017-03-18 22:24] LABS: TROPONINI 0.019 ng/mL (0.000-0.055)
[2017-03-18 23:32] LABS: IMMEDIATE SPIN CROSSMATCH 1 7
[2017-03-18] MEDS: PANTOPRAZOLE SODIUM IV DRIP 80 MG in IV NORMAL SALINE 100ML 100 ML IV (23:36)
[2017-03-19] MEDS: PANTOPRAZOLE SODIUM IV DRIP 80 MG in IV NORMAL SALINE 100ML 100 ML IV ×2 (02:45→12:28)
[2017-03-19 06:57] LABS: BASO # 0.1 x10^3/uL (0.0-0.2); BASO % 1 % (0-3); EOS # 0.1 x10^3/uL (0.0-0.7); EOS % 1 % (0-3); LYMPH % 6 % (24-48); MEAN CORPUSCULAR HEMOGLOBIN 28 pg (25-35); MEAN CORPUSCULAR HGB CONC 32 g/dL (31-37); MEAN CORPUSCULAR VOLUME 88 fL (79-100); MONO # 1.3 x10^3/uL (0.0-1.1); MONO % 9 % (0-9); NEUT # 12.7 x10^3uL (1.8-7.7); NEUT % 84 % (31-73); PLATELET COUNT 454 x10^3/uL (140-400); RED BLOOD COUNT 2.28 x10^6/uL (3.50-5.40); RED CELL DISTRIBUTION WIDTH 16.4 % (11.5-14.5); WHITE BLOOD COUNT 15.2 x10^3/uL (4.0-11.0)
[2017-03-19 07:06] LABS: ANION GAP 6 (6-14); BLOOD UREA NITROGEN 76 mg/dL (7-20); CALCIUM 8.2 mg/dL (8.5-10.1); CARBON DIOXIDE 29 mmol/L (21-32); CHLORIDE 100 mmol/L (98-107); CREATININE 1.2 mg/dL (0.6-1.0); GLUCOSE 319 mg/dL (70-99); SODIUM 135 mmol/L (136-145)
[2017-03-19 07:10] LABS: ADD MAN DIFF? YES; HEMATOCRIT 20.1 % (36.0-47.0); HEMOGLOBIN 6.4 g/dL (12.0-15.5)
[2017-03-19 07:48] LABS: INR 2.4 (0.8-1.1); PROTHROMBIN TIME PATIENT 24.7 SEC (11.7-14.0)
[2017-03-19 08:02] LABS: POC GLUCOSE 278 mg/dL (70-99)
[2017-03-19] MEDS: BUDESONIDE 0.5 MG/2 ML NEBU. NEB ×2 (08:09→20:24)
[2017-03-19] MEDS: ALBUTEROL SULFATE 2.5 MG/3 ML NEBU. NEB ×4 (08:09→20:24)
[2017-03-19] MEDS: DRONEDARONE HCL 400 MG TABLET PO ×2 (09:11→20:36)
[2017-03-19] MEDS: POTASSIUM CHLORIDE 10 MEQ TABLET.ER. PO (09:12)
[2017-03-19] MEDS: GABAPENTIN 100 MG CAPSULE. PO ×3 (09:12→20:37)
[2017-03-19] MEDS: FERROUS SULFATE 325 MG TABLET. PO ×2 (09:12→17:58)
[2017-03-19] MEDS: ALLOPURINOL 300 MG TABLET. PO (09:12)
[2017-03-19] MEDS: METOPROLOL TART IMMED RELEASE 50 MG TABLET. PO ×2 (09:12→20:37)
[2017-03-19] MEDS: hydroCHLOROthiazide 12.5 MG CAPSULE PO (09:12)
[2017-03-19] MEDS: INSULIN DETEMIR 300 UNITS/3 ML INSULN.PEN. SQ ×2 (09:18→20:42)
[2017-03-19 10:12] LABS: % BANDS 1 % (0-9); % LYMPHS 5 % (24-48); % MONOS 2 % (0-10); % SEGS 92 % (35-66); PLT ESTIMATE ADEQUATE (ADEQUATE)
[2017-03-19 11:37] LABS: POC GLUCOSE 302 mg/dL (70-99)
[2017-03-19 17:23] LABS: POC GLUCOSE 222 mg/dL (70-99)
[2017-03-19 18:35] LABS: HEMATOCRIT 23.2 % (36.0-47.0); HEMOGLOBIN 7.6 g/dL (12.0-15.5); MEAN CORPUSCULAR HEMOGLOBIN 29 pg (25-35); MEAN CORPUSCULAR HGB CONC 33 g/dL (31-37); MEAN CORPUSCULAR VOLUME 89 fL (79-100); PLATELET COUNT 452 x10^3/uL (140-400); RED BLOOD COUNT 2.62 x10^6/uL (3.50-5.40); RED CELL DISTRIBUTION WIDTH 16.2 % (11.5-14.5); WHITE BLOOD COUNT 17.3 x10^3/uL (4.0-11.0)
[2017-03-19 19:56] LABS: POC GLUCOSE 255 mg/dL (70-99)
[2017-03-19] MEDS: ALPRAZolam 0.25 MG TABLET PO (20:37)
[2017-03-19] MEDS: ATORVASTATIN CALCIUM 40 MG TABLET. PO (20:37)
[2017-03-20] MEDS: PANTOPRAZOLE SODIUM IV DRIP 80 MG in IV NORMAL SALINE 100ML 100 ML IV ×2 (00:28→08:45)
[2017-03-20 05:12] LABS: MEAN CORPUSCULAR HEMOGLOBIN 30 pg (25-35); MEAN CORPUSCULAR HGB CONC 33 g/dL (31-37); MEAN CORPUSCULAR VOLUME 89 fL (79-100); PLATELET COUNT 407 x10^3/uL (140-400); RED BLOOD COUNT 2.32 x10^6/uL (3.50-5.40); RED CELL DISTRIBUTION WIDTH 16.3 % (11.5-14.5); WHITE BLOOD COUNT 16.9 x10^3/uL (4.0-11.0)
[2017-03-20 05:14] LABS: INR 1.5 (0.8-1.1); PROTHROMBIN TIME PATIENT 17.1 SEC (11.7-14.0)
[2017-03-20 05:23] LABS: HEMATOCRIT 20.7 % (36.0-47.0); HEMOGLOBIN 6.9 g/dL (12.0-15.5)
[2017-03-20] MEDS: BUDESONIDE 0.5 MG/2 ML NEBU. NEB ×2 (06:08→19:46)
[2017-03-20] MEDS: ALBUTEROL SULFATE 2.5 MG/3 ML NEBU. NEB ×4 (06:08→19:46)
[2017-03-20] MEDS: INSULIN DETEMIR 300 UNITS/3 ML INSULN.PEN. SQ ×2 (08:00→20:52)
[2017-03-20 08:10] LABS: POC GLUCOSE 140 mg/dL (70-99)
[2017-03-20] MEDS: POTASSIUM CHLORIDE 10 MEQ TABLET.ER. PO (08:58)
[2017-03-20] MEDS: METOPROLOL TART IMMED RELEASE 50 MG TABLET. PO ×2 (08:59→20:45)
[2017-03-20] MEDS: FUROSEMIDE 40 MG TABLET. PO (08:59)
[2017-03-20] MEDS: GABAPENTIN 100 MG CAPSULE. PO ×3 (08:59→20:44)
[2017-03-20] MEDS: hydroCHLOROthiazide 12.5 MG CAPSULE PO (08:59)
[2017-03-20] MEDS: FERROUS SULFATE 325 MG TABLET. PO (08:59)
[2017-03-20] MEDS: ALLOPURINOL 300 MG TABLET. PO (08:59)
[2017-03-20] MEDS: DRONEDARONE HCL 400 MG TABLET PO ×2 (09:00→20:44)
[2017-03-20] MEDS: IRON SUCROSE COMPLEX 500 MG in IV NORMAL SALINE 250ML 250 ML IV (09:47)
[2017-03-20 11:36] LABS: IMMEDIATE SPIN CROSSMATCH 1
[2017-03-20 12:22] LABS: POC GLUCOSE 170 mg/dL (70-99)
[2017-03-20] MEDS: PANTOPRAZOLE 40 MG TABLET.DR. PO (13:23)
[2017-03-20 17:47] LABS: POC GLUCOSE 134 mg/dL (70-99)
[2017-03-20 17:57] LABS: HEMATOCRIT 25.8 % (36.0-47.0); HEMOGLOBIN 8.5 g/dL (12.0-15.5); MEAN CORPUSCULAR HEMOGLOBIN 29 pg (25-35); MEAN CORPUSCULAR HGB CONC 33 g/dL (31-37); MEAN CORPUSCULAR VOLUME 88 fL (79-100); PLATELET COUNT 420 x10^3/uL (140-400); RED BLOOD COUNT 2.93 x10^6/uL (3.50-5.40); RED CELL DISTRIBUTION WIDTH 17.1 % (11.5-14.5); WHITE BLOOD COUNT 17.7 x10^3/uL (4.0-11.0)
[2017-03-20] MEDS: ATORVASTATIN CALCIUM 40 MG TABLET. PO (20:43)
[2017-03-20] MEDS: ALPRAZolam 0.25 MG TABLET PO (20:43)
[2017-03-20 23:37] LABS: POC GLUCOSE 112 mg/dL (70-99)
[2017-03-21 05:52] LABS: HEMATOCRIT 23.5 % (36.0-47.0); HEMOGLOBIN 7.6 g/dL (12.0-15.5); MEAN CORPUSCULAR HEMOGLOBIN 29 pg (25-35); MEAN CORPUSCULAR HGB CONC 32 g/dL (31-37); MEAN CORPUSCULAR VOLUME 89 fL (79-100); PLATELET COUNT 427 x10^3/uL (140-400); RED BLOOD COUNT 2.66 x10^6/uL (3.50-5.40); RED CELL DISTRIBUTION WIDTH 17.1 % (11.5-14.5); WHITE BLOOD COUNT 15.6 x10^3/uL (4.0-11.0)
[2017-03-21] MEDS: INSULIN DETEMIR 300 UNITS/3 ML INSULN.PEN. SQ ×2 (08:00→21:41)
[2017-03-21 08:02] LABS: POC GLUCOSE 58 mg/dL (70-99)
[2017-03-21] MEDS: BUDESONIDE 0.5 MG/2 ML NEBU. NEB ×2 (08:09→20:14)
[2017-03-21] MEDS: ALBUTEROL SULFATE 2.5 MG/3 ML NEBU. NEB ×4 (08:09→20:15)
[2017-03-21 09:22] LABS: INR 1.3 (0.8-1.1)
[2017-03-21] MEDS: GABAPENTIN 100 MG CAPSULE. PO ×3 (09:33→21:38)
[2017-03-21] MEDS: METOPROLOL TART IMMED RELEASE 50 MG TABLET. PO ×2 (09:34→21:38)
[2017-03-21] MEDS: POTASSIUM CHLORIDE 10 MEQ TABLET.ER. PO (09:34)
[2017-03-21] MEDS: ALLOPURINOL 300 MG TABLET. PO (09:34)
[2017-03-21] MEDS: hydroCHLOROthiazide 12.5 MG CAPSULE PO (09:34)
[2017-03-21] MEDS: DRONEDARONE HCL 400 MG TABLET PO ×2 (09:35→21:37)
[2017-03-21] MEDS: PANTOPRAZOLE 40 MG TABLET.DR. PO (09:37)
[2017-03-21 12:16] LABS: POC GLUCOSE 119 mg/dL (70-99)
[2017-03-21 13:49] LABS: IMMEDIATE SPIN CROSSMATCH 1
[2017-03-21] MEDS: ACETAMINOPHEN 325 MG TABLET. PO (14:28)
[2017-03-21 17:13] LABS: POC GLUCOSE 112 mg/dL (70-99)
[2017-03-21 17:17] LABS: HEMATOCRIT 26.8 % (36.0-47.0); HEMOGLOBIN 8.9 g/dL (12.0-15.5); MEAN CORPUSCULAR HEMOGLOBIN 29 pg (25-35); MEAN CORPUSCULAR HGB CONC 33 g/dL (31-37); MEAN CORPUSCULAR VOLUME 87 fL (79-100); PLATELET COUNT 403 x10^3/uL (140-400); RED BLOOD COUNT 3.07 x10^6/uL (3.50-5.40); RED CELL DISTRIBUTION WIDTH 16.5 % (11.5-14.5); WHITE BLOOD COUNT 15.3 x10^3/uL (4.0-11.0)
[2017-03-21 20:37] LABS: POC GLUCOSE 236 mg/dL (70-99)
[2017-03-21] MEDS: ALPRAZolam 0.25 MG TABLET PO (21:37)
[2017-03-21] MEDS: ATORVASTATIN CALCIUM 40 MG TABLET. PO (21:38)
[2017-03-22 07:37] LABS: HEMATOCRIT 29.4 % (36.0-47.0); HEMOGLOBIN 9.6 g/dL (12.0-15.5); MEAN CORPUSCULAR HEMOGLOBIN 30 pg (25-35); MEAN CORPUSCULAR HGB CONC 33 g/dL (31-37); MEAN CORPUSCULAR VOLUME 91 fL (79-100); PLATELET COUNT 384 x10^3/uL (140-400); RED BLOOD COUNT 3.22 x10^6/uL (3.50-5.40); RED CELL DISTRIBUTION WIDTH 17.1 % (11.5-14.5); WHITE BLOOD COUNT 14.3 x10^3/uL (4.0-11.0)
[2017-03-22 07:56] LABS: POC GLUCOSE 136 mg/dL (70-99)
[2017-03-22] MEDS: ALBUTEROL SULFATE 2.5 MG/3 ML NEBU. NEB ×4 (08:02→20:18)
[2017-03-22] MEDS: BUDESONIDE 0.5 MG/2 ML NEBU. NEB ×2 (08:02→20:18)
[2017-03-22] MEDS: hydroCHLOROthiazide 12.5 MG CAPSULE PO (09:48)
[2017-03-22] MEDS: POTASSIUM CHLORIDE 10 MEQ TABLET.ER. PO (09:48)
[2017-03-22] MEDS: ALLOPURINOL 300 MG TABLET. PO (09:48)
[2017-03-22] MEDS: PANTOPRAZOLE 40 MG TABLET.DR. PO (09:49)
[2017-03-22] MEDS: FUROSEMIDE 40 MG TABLET. PO (09:49)
[2017-03-22] MEDS: GABAPENTIN 100 MG CAPSULE. PO ×3 (09:49→21:25)
[2017-03-22] MEDS: METOPROLOL TART IMMED RELEASE 50 MG TABLET. PO ×2 (09:49→21:26)
[2017-03-22] MEDS: DRONEDARONE HCL 400 MG TABLET PO ×2 (09:50→21:26)
[2017-03-22] MEDS: INSULIN DETEMIR 300 UNITS/3 ML INSULN.PEN. SQ ×2 (09:56→21:33)
[2017-03-22 10:41] LABS: BILIRUBIN,URINE NEGATIVE (NEG); CLARITY,URINE TURBID; COLOR,URINE YELLOW; GLUCOSE,URINE NEGATIVE (NEG); NITRITE,URINE NEGATIVE (NEG); PROTEIN,URINE 30 mg/dL (NEG-TRACE)
[2017-03-22 10:50] LABS: BACTERIA,URINE MANY /HPF (0-FEW); RBC,URINE FOBS /HPF (0-2); WBC,URINE TNTC /HPF (0-4)
[2017-03-22 11:31] LABS: POC GLUCOSE 222 mg/dL (70-99)
[2017-03-22] MEDS: NEOMY/BACITR/POLYMYXIN OINT PACKET. TP (15:31)
[2017-03-22 17:19] LABS: POC GLUCOSE 190 mg/dL (70-99)
[2017-03-22 18:08] LABS: HEMATOCRIT 28.2 % (36.0-47.0); HEMOGLOBIN 9.2 g/dL (12.0-15.5); MEAN CORPUSCULAR HEMOGLOBIN 29 pg (25-35); MEAN CORPUSCULAR HGB CONC 33 g/dL (31-37); MEAN CORPUSCULAR VOLUME 88 fL (79-100); PLATELET COUNT 420 x10^3/uL (140-400); RED CELL DISTRIBUTION WIDTH 16.7 % (11.5-14.5); WHITE BLOOD COUNT 15.2 x10^3/uL (4.0-11.0)
[2017-03-22] MEDS: ACETAMINOPHEN 325 MG TABLET. PO (18:27)
[2017-03-22 20:47] LABS: POC GLUCOSE 194 mg/dL (70-99)
[2017-03-22] MEDS: TEMAZEPAM 15 MG CAPSULE PO (21:25)
[2017-03-22] MEDS: ATORVASTATIN CALCIUM 40 MG TABLET. PO (21:25)
[2017-03-22] MEDS: MAG HYDROX/ALUMINUM HYD/SIMETH 30 ML ORAL.SUSP PO (21:25)
[2017-03-23 05:40] LABS: HEMOGLOBIN 8.8 g/dL (12.0-15.5); MEAN CORPUSCULAR HEMOGLOBIN 29 pg (25-35); MEAN CORPUSCULAR HGB CONC 33 g/dL (31-37); MEAN CORPUSCULAR VOLUME 89 fL (79-100); PLATELET COUNT 407 x10^3/uL (140-400); RED BLOOD COUNT 3.02 x10^6/uL (3.50-5.40); RED CELL DISTRIBUTION WIDTH 16.9 % (11.5-14.5); WHITE BLOOD COUNT 12.5 x10^3/uL (4.0-11.0)
[2017-03-23 07:37] LABS: POC GLUCOSE 90 mg/dL (70-99)
[2017-03-23] MEDS: ALBUTEROL SULFATE 2.5 MG/3 ML NEBU. NEB ×4 (08:12→19:55)
[2017-03-23] MEDS: BUDESONIDE 0.5 MG/2 ML NEBU. NEB ×2 (08:12→19:55)
[2017-03-23] MEDS: POTASSIUM CHLORIDE 10 MEQ TABLET.ER. PO (09:38)
[2017-03-23] MEDS: GABAPENTIN 100 MG CAPSULE. PO ×3 (09:38→20:41)
[2017-03-23] MEDS: DRONEDARONE HCL 400 MG TABLET PO ×2 (09:38→20:41)
[2017-03-23] MEDS: ALLOPURINOL 300 MG TABLET. PO (09:39)
[2017-03-23] MEDS: PANTOPRAZOLE 40 MG TABLET.DR. PO (09:39)
[2017-03-23] MEDS: hydroCHLOROthiazide 12.5 MG CAPSULE PO (09:39)
[2017-03-23] MEDS: METOPROLOL TART IMMED RELEASE 50 MG TABLET. PO ×2 (09:40→20:42)
[2017-03-23] MEDS: INSULIN DETEMIR 300 UNITS/3 ML INSULN.PEN. SQ ×2 (09:47→21:06)
[2017-03-23] MEDS: CEFPODOXIME PROXETIL 100 MG TABLET. PO ×2 (11:25→20:41)
[2017-03-23 12:01] LABS: POC GLUCOSE 150 mg/dL (70-99)
[2017-03-23 16:51] LABS: POC GLUCOSE 180 mg/dL (70-99)
[2017-03-23 18:25] LABS: HEMATOCRIT 28.9 % (36.0-47.0); HEMOGLOBIN 9.4 g/dL (12.0-15.5); MEAN CORPUSCULAR HEMOGLOBIN 29 pg (25-35); MEAN CORPUSCULAR HGB CONC 32 g/dL (31-37); MEAN CORPUSCULAR VOLUME 90 fL (79-100); PLATELET COUNT 438 x10^3/uL (140-400); RED BLOOD COUNT 3.23 x10^6/uL (3.50-5.40); RED CELL DISTRIBUTION WIDTH 16.6 % (11.5-14.5); WHITE BLOOD COUNT 14.8 x10^3/uL (4.0-11.0)
[2017-03-23 20:26] LABS: POC GLUCOSE 209 mg/dL (70-99)
[2017-03-23] MEDS: ATORVASTATIN CALCIUM 40 MG TABLET. PO (20:41)
[2017-03-23] MEDS: LACTOBACILLUS RHAMNOSUS GG 1 CAPSULE. PO (20:41)
[2017-03-23] MEDS: TEMAZEPAM 15 MG CAPSULE PO (20:42)
[2017-03-23] MEDS ORDERED: CIPROFLOXACIN HCL 250 MG TABLET. PO (21:00)
[2017-03-24] MEDS: ALBUTEROL SULFATE 2.5 MG/3 ML NEBU. NEB ×5 (04:08→19:58)
[2017-03-24 05:45] LABS: HEMATOCRIT 27.4 % (36.0-47.0); HEMOGLOBIN 8.7 g/dL (12.0-15.5); MEAN CORPUSCULAR HEMOGLOBIN 29 pg (25-35); MEAN CORPUSCULAR HGB CONC 32 g/dL (31-37); MEAN CORPUSCULAR VOLUME 90 fL (79-100); PLATELET COUNT 389 x10^3/uL (140-400); RED BLOOD COUNT 3.04 x10^6/uL (3.50-5.40); RED CELL DISTRIBUTION WIDTH 17.1 % (11.5-14.5); WHITE BLOOD COUNT 13.2 x10^3/uL (4.0-11.0)
[2017-03-24 07:47] LABS: POC GLUCOSE 90 mg/dL (70-99)
[2017-03-24] MEDS: PANTOPRAZOLE 40 MG TABLET.DR. PO (08:37)
[2017-03-24] MEDS: hydroCHLOROthiazide 12.5 MG CAPSULE PO (08:38)
[2017-03-24] MEDS: CEFPODOXIME PROXETIL 100 MG TABLET. PO (08:38)
[2017-03-24] MEDS: ALLOPURINOL 300 MG TABLET. PO (08:38)
[2017-03-24] MEDS: GABAPENTIN 100 MG CAPSULE. PO ×3 (08:38→20:41)
[2017-03-24] MEDS: LACTOBACILLUS RHAMNOSUS GG 1 CAPSULE. PO ×2 (08:38→20:45)
[2017-03-24] MEDS: DRONEDARONE HCL 400 MG TABLET PO ×2 (08:39→20:42)
[2017-03-24] MEDS: POTASSIUM CHLORIDE 10 MEQ TABLET.ER. PO (08:39)
[2017-03-24] MEDS: METOPROLOL TART IMMED RELEASE 50 MG TABLET. PO ×2 (08:40→20:43)
[2017-03-24] MEDS: INSULIN DETEMIR 300 UNITS/3 ML INSULN.PEN. SQ ×2 (08:45→20:48)
[2017-03-24] MEDS: MAG HYDROX/ALUMINUM HYD/SIMETH 30 ML ORAL.SUSP PO (08:45)
[2017-03-24] MEDS: BUDESONIDE 0.5 MG/2 ML NEBU. NEB ×2 (09:32→19:58)
[2017-03-24 11:31] LABS: POC GLUCOSE 161 mg/dL (70-99)
[2017-03-24] MEDS: DABIGATRAN ETEXILATE 75 MG CAPSULE. PO (13:49)
[2017-03-24] MEDS: cefTRIAXone IV Push 1 GM VIAL. IVP (13:49)
[2017-03-24 16:57] LABS: POC GLUCOSE 155 mg/dL (70-99)
[2017-03-24 18:01] LABS: MEAN CORPUSCULAR HEMOGLOBIN 29 pg (25-35); MEAN CORPUSCULAR HGB CONC 32 g/dL (31-37); MEAN CORPUSCULAR VOLUME 90 fL (79-100); PLATELET COUNT 426 x10^3/uL (140-400); RED BLOOD COUNT 3.11 x10^6/uL (3.50-5.40); RED CELL DISTRIBUTION WIDTH 17.5 % (11.5-14.5); WHITE BLOOD COUNT 12.2 x10^3/uL (4.0-11.0)
[2017-03-24] MEDS: ATORVASTATIN CALCIUM 40 MG TABLET. PO (20:44)
[2017-03-24] MEDS: TEMAZEPAM 15 MG CAPSULE PO (20:55)
[2017-03-24 21:53] LABS: POC GLUCOSE 245 mg/dL (70-99)
[2017-03-25] MEDS: ALBUTEROL SULFATE 2.5 MG/3 ML NEBU. NEB ×5 (01:47→19:17)
[2017-03-25 04:51] LABS: ADD MAN DIFF? NO
[2017-03-25 05:01] LABS: BASO # 0.1 x10^3/uL (0.0-0.2); BASO % 1 % (0-3); EOS # 0.4 x10^3/uL (0.0-0.7); EOS % 4 % (0-3); HEMATOCRIT 28.4 % (36.0-47.0); HEMOGLOBIN 8.9 g/dL (12.0-15.5); LYMPH # 1.1 x10^3/uL (1.0-4.8); LYMPH % 10 % (24-48); MEAN CORPUSCULAR HEMOGLOBIN 29 pg (25-35); MEAN CORPUSCULAR HGB CONC 32 g/dL (31-37); MEAN CORPUSCULAR VOLUME 91 fL (79-100); MONO # 1.2 x10^3/uL (0.0-1.1); MONO % 10 % (0-9); NEUT % 76 % (31-73); PLATELET COUNT 387 x10^3/uL (140-400); RED BLOOD COUNT 3.13 x10^6/uL (3.50-5.40); RED CELL DISTRIBUTION WIDTH 17.3 % (11.5-14.5); WHITE BLOOD COUNT 11.8 x10^3/uL (4.0-11.0)
[2017-03-25] MEDS: BUDESONIDE 0.5 MG/2 ML NEBU. NEB ×2 (07:37→19:17)
[2017-03-25 08:18] LABS: POC GLUCOSE 108 mg/dL (70-99)
[2017-03-25] MEDS: ALLOPURINOL 300 MG TABLET. PO (09:09)
[2017-03-25] MEDS: FUROSEMIDE 40 MG TABLET. PO (09:09)
[2017-03-25] MEDS: POTASSIUM CHLORIDE 10 MEQ TABLET.ER. PO (09:09)
[2017-03-25] MEDS: PANTOPRAZOLE 40 MG TABLET.DR. PO (09:09)
[2017-03-25] MEDS: DABIGATRAN ETEXILATE 75 MG CAPSULE. PO (09:10)
[2017-03-25] MEDS: LACTOBACILLUS RHAMNOSUS GG 1 CAPSULE. PO ×2 (09:10→22:17)
[2017-03-25] MEDS: METOPROLOL TART IMMED RELEASE 50 MG TABLET. PO ×2 (09:10→22:16)
[2017-03-25] MEDS: GABAPENTIN 100 MG CAPSULE. PO ×3 (09:10→22:16)
[2017-03-25] MEDS: DRONEDARONE HCL 400 MG TABLET PO ×2 (09:11→22:17)
[2017-03-25] MEDS: hydroCHLOROthiazide 12.5 MG CAPSULE PO (09:13)
[2017-03-25] MEDS: INSULIN DETEMIR 300 UNITS/3 ML INSULN.PEN. SQ ×2 (09:20→22:24)
[2017-03-25 11:48] LABS: POC GLUCOSE 159 mg/dL (70-99)
[2017-03-25] MEDS: ANTI-COAG MONITOR BY PHARMACY. MC (12:26)
[2017-03-25 12:57] LABS: BILIRUBIN,URINE NEGATIVE (NEG); CLARITY,URINE CLEAR; COLOR,URINE YELLOW; GLUCOSE,URINE NEGATIVE (NEG); NITRITE,URINE NEGATIVE (NEG); PH,URINE 5.5; PROTEIN,URINE NEGATIVE (NEG-TRACE); UROBILINOGEN,URINE 0.2 mg/dL (0.2 mg/dL)
[2017-03-25 13:07] LABS: BACTERIA,URINE MODERATE /HPF (0-FEW); SQUAMOUS EPITHELIAL CELL,UR FEW /LPF; WBC,URINE 20-40 /HPF (0-4)
[2017-03-25] MEDS: cefTRIAXone IV Push 1 GM VIAL. IVP (14:08)
[2017-03-25 16:36] LABS: POC GLUCOSE 159 mg/dL (70-99)
[2017-03-25 18:54] LABS: HEMATOCRIT 27.3 % (36.0-47.0); HEMOGLOBIN 9.1 g/dL (12.0-15.5); MEAN CORPUSCULAR HEMOGLOBIN 30 pg (25-35); MEAN CORPUSCULAR HGB CONC 33 g/dL (31-37); MEAN CORPUSCULAR VOLUME 90 fL (79-100); PLATELET COUNT 414 x10^3/uL (140-400); RED BLOOD COUNT 3.02 x10^6/uL (3.50-5.40); RED CELL DISTRIBUTION WIDTH 17.1 % (11.5-14.5); WHITE BLOOD COUNT 10.2 x10^3/uL (4.0-11.0)
[2017-03-25 21:14] LABS: POC GLUCOSE 225 mg/dL (70-99)
[2017-03-25] MEDS: ATORVASTATIN CALCIUM 40 MG TABLET. PO (22:16)
[2017-03-25] MEDS: TEMAZEPAM 15 MG CAPSULE PO (22:29)
[2017-03-26 05:48] LABS: ADD MAN DIFF? NO
[2017-03-26 07:03] LABS: BASO # 0.1 x10^3/uL (0.0-0.2); BASO % 1 % (0-3); EOS # 0.5 x10^3/uL (0.0-0.7); EOS % 5 % (0-3); HEMATOCRIT 26.7 % (36.0-47.0); HEMOGLOBIN 8.6 g/dL (12.0-15.5); LYMPH # 0.9 x10^3/uL (1.0-4.8); LYMPH % 9 % (24-48); MEAN CORPUSCULAR HEMOGLOBIN 29 pg (25-35); MEAN CORPUSCULAR HGB CONC 32 g/dL (31-37); MEAN CORPUSCULAR VOLUME 91 fL (79-100); MONO % 10 % (0-9); NEUT # 7.6 x10^3uL (1.8-7.7); NEUT % 75 % (31-73); PLATELET COUNT 399 x10^3/uL (140-400); RED BLOOD COUNT 2.94 x10^6/uL (3.50-5.40); RED CELL DISTRIBUTION WIDTH 17.6 % (11.5-14.5); WHITE BLOOD COUNT 10.1 x10^3/uL (4.0-11.0)
[2017-03-26] MEDS: ALBUTEROL SULFATE 2.5 MG/3 ML NEBU. NEB ×4 (07:36→20:21)
[2017-03-26] MEDS: BUDESONIDE 0.5 MG/2 ML NEBU. NEB ×2 (07:36→20:21)
[2017-03-26 08:27] LABS: POC GLUCOSE 107 mg/dL (70-99)
[2017-03-26] MEDS: DABIGATRAN ETEXILATE 75 MG CAPSULE. PO (09:39)
[2017-03-26] MEDS: GABAPENTIN 100 MG CAPSULE. PO ×3 (09:40→22:22)
[2017-03-26] MEDS: METOPROLOL TART IMMED RELEASE 50 MG TABLET. PO ×2 (09:43→22:21)
[2017-03-26] MEDS: PANTOPRAZOLE 40 MG TABLET.DR. PO (09:43)
[2017-03-26] MEDS: hydroCHLOROthiazide 12.5 MG CAPSULE PO (09:43)
[2017-03-26] MEDS: ALLOPURINOL 300 MG TABLET. PO (09:43)
[2017-03-26] MEDS: DRONEDARONE HCL 400 MG TABLET PO ×2 (09:43→22:22)
[2017-03-26] MEDS: LACTOBACILLUS RHAMNOSUS GG 1 CAPSULE. PO ×2 (09:46→22:21)
[2017-03-26] MEDS: POTASSIUM CHLORIDE 10 MEQ TABLET.ER. PO (09:47)
[2017-03-26] MEDS: INSULIN DETEMIR 300 UNITS/3 ML INSULN.PEN. SQ ×2 (10:09→22:23)
[2017-03-26 11:59] LABS: POC GLUCOSE 204 mg/dL (70-99)
[2017-03-26] MEDS: ANTI-COAG MONITOR BY PHARMACY. MC (12:10)
[2017-03-26] MEDS: ACETAMINOPHEN 325 MG TABLET. PO (12:51)
[2017-03-26] MEDS: cefTRIAXone IV Push 1 GM VIAL. IVP (13:54)
[2017-03-26 18:27] LABS: HEMATOCRIT 27.5 % (36.0-47.0); HEMOGLOBIN 9.1 g/dL (12.0-15.5); MEAN CORPUSCULAR HEMOGLOBIN 30 pg (25-35); MEAN CORPUSCULAR HGB CONC 33 g/dL (31-37); MEAN CORPUSCULAR VOLUME 89 fL (79-100); PLATELET COUNT 418 x10^3/uL (140-400); RED BLOOD COUNT 3.08 x10^6/uL (3.50-5.40); RED CELL DISTRIBUTION WIDTH 16.7 % (11.5-14.5); WHITE BLOOD COUNT 10.1 x10^3/uL (4.0-11.0)
[2017-03-26 20:49] LABS: POC GLUCOSE 166 mg/dL (70-99)
[2017-03-26] MEDS: ATORVASTATIN CALCIUM 40 MG TABLET. PO (22:22)
[2017-03-26] MEDS: TEMAZEPAM 15 MG CAPSULE PO (22:25)
[2017-03-27] MEDS: ACETAMINOPHEN 325 MG TABLET. PO ×2 (01:24→10:02)
[2017-03-27 07:50] LABS: POC GLUCOSE 64 mg/dL (70-99)
[2017-03-27 07:51] LABS: POC GLUCOSE 81 mg/dL (70-99)
[2017-03-27] MEDS: INSULIN DETEMIR 300 UNITS/3 ML INSULN.PEN. SQ ×3 (08:00→20:47)
[2017-03-27] MEDS: ALBUTEROL SULFATE 2.5 MG/3 ML NEBU. NEB ×4 (09:09→18:55)
[2017-03-27] MEDS: BUDESONIDE 0.5 MG/2 ML NEBU. NEB ×2 (09:09→18:55)
[2017-03-27] MEDS: PANTOPRAZOLE 40 MG TABLET.DR. PO (10:01)
[2017-03-27] MEDS: DABIGATRAN ETEXILATE 75 MG CAPSULE. PO (10:01)
[2017-03-27] MEDS: METOPROLOL TART IMMED RELEASE 50 MG TABLET. PO ×2 (10:01→20:41)
[2017-03-27] MEDS: GABAPENTIN 100 MG CAPSULE. PO ×3 (10:01→20:41)
[2017-03-27] MEDS: LACTOBACILLUS RHAMNOSUS GG 1 CAPSULE. PO ×2 (10:02→20:40)
[2017-03-27] MEDS: ALLOPURINOL 300 MG TABLET. PO (10:02)
[2017-03-27] MEDS: hydroCHLOROthiazide 12.5 MG CAPSULE PO (10:02)
[2017-03-27] MEDS: DRONEDARONE HCL 400 MG TABLET PO ×2 (10:02→20:40)
[2017-03-27] MEDS: POTASSIUM CHLORIDE 10 MEQ TABLET.ER. PO (10:03)
[2017-03-27] MEDS: FUROSEMIDE 40 MG TABLET. PO (10:03)
[2017-03-27 12:03] LABS: POC GLUCOSE 160 mg/dL (70-99)
[2017-03-27] MEDS: cefTRIAXone IV Push 1 GM VIAL. IVP (12:39)
[2017-03-27] MEDS: ANTI-COAG MONITOR BY PHARMACY. MC ×3 (13:29→13:32)
[2017-03-27 16:56] LABS: POC GLUCOSE 187 mg/dL (70-99)
[2017-03-27] MEDS: TEMAZEPAM 15 MG CAPSULE PO (20:40)
[2017-03-27] MEDS: ATORVASTATIN CALCIUM 40 MG TABLET. PO (20:41)
[2017-03-27 20:43] LABS: POC GLUCOSE 183 mg/dL (70-99)
[2017-03-28 02:24] LABS: POC GLUCOSE 150 mg/dL (70-99)
[2017-03-28 04:22] LABS: ADD MAN DIFF? NO
[2017-03-28 04:26] LABS: BASO # 0.1 x10^3/uL (0.0-0.2); BASO % 1 % (0-3); EOS # 0.5 x10^3/uL (0.0-0.7); EOS % 5 % (0-3); HEMOGLOBIN 8.6 g/dL (12.0-15.5); LYMPH % 9 % (24-48); MEAN CORPUSCULAR HEMOGLOBIN 29 pg (25-35); MEAN CORPUSCULAR HGB CONC 32 g/dL (31-37); MEAN CORPUSCULAR VOLUME 90 fL (79-100); MONO % 10 % (0-9); NEUT # 7.6 x10^3uL (1.8-7.7); NEUT % 75 % (31-73); PLATELET COUNT 410 x10^3/uL (140-400); RED BLOOD COUNT 3.01 x10^6/uL (3.50-5.40); RED CELL DISTRIBUTION WIDTH 16.8 % (11.5-14.5); WHITE BLOOD COUNT 10.1 x10^3/uL (4.0-11.0)
[2017-03-28 04:52] LABS: ALBUMIN 2.4 g/dL (3.4-5.0); ALBUMIN/GLOBULIN RATIO 0.6 (1.0-1.7); ALK PHOS 112 U/L (46-116); ALT (SGPT) 12 U/L (14-59); ANION GAP 4 (6-14); AST (SGOT) 16 U/L (15-37); BLOOD UREA NITROGEN 44 mg/dL (7-20); BUN/CREATININE RATIO 37 (6-20); CALCIUM 8.7 mg/dL (8.5-10.1); CARBON DIOXIDE 35 mmol/L (21-32); CHLORIDE 99 mmol/L (98-107); CREATININE 1.2 mg/dL (0.6-1.0); GLUCOSE 104 mg/dL (70-99); SODIUM 138 mmol/L (136-145); TOTAL BILIRUBIN 0.2 mg/dL (0.2-1.0); TOTAL PROTEIN 6.4 g/dL (6.4-8.2)
[2017-03-28 08:00] LABS: POC GLUCOSE 93 mg/dL (70-99)
[2017-03-28 08:00] LABS: POC GLUCOSE 62 mg/dL (70-99)
[2017-03-28] MEDS: INSULIN DETEMIR 300 UNITS/3 ML INSULN.PEN. SQ (08:00)
[2017-03-28] MEDS: ALBUTEROL SULFATE 2.5 MG/3 ML NEBU. NEB ×2 (08:10→11:50)
[2017-03-28] MEDS: BUDESONIDE 0.5 MG/2 ML NEBU. NEB (08:10)
[2017-03-28] MEDS: PANTOPRAZOLE 40 MG TABLET.DR. PO (09:51)
[2017-03-28] MEDS: ALLOPURINOL 300 MG TABLET. PO (09:51)
[2017-03-28] MEDS: DABIGATRAN ETEXILATE 75 MG CAPSULE. PO (09:51)
[2017-03-28] MEDS: LACTOBACILLUS RHAMNOSUS GG 1 CAPSULE. PO (09:52)
[2017-03-28] MEDS: hydroCHLOROthiazide 12.5 MG CAPSULE PO (09:52)
[2017-03-28] MEDS: POTASSIUM CHLORIDE 10 MEQ TABLET.ER. PO (09:52)
[2017-03-28] MEDS: GABAPENTIN 100 MG CAPSULE. PO ×2 (09:52→13:21)
[2017-03-28] MEDS: METOPROLOL TART IMMED RELEASE 50 MG TABLET. PO (09:52)
[2017-03-28] MEDS: DRONEDARONE HCL 400 MG TABLET PO (09:53)
[2017-03-28 12:09] LABS: POC GLUCOSE 116 mg/dL (70-99)
[2017-03-28] MEDS: cefTRIAXone IM 1 GM VIAL IM (13:21)
== END 2017-03-28 14:00 | disposition home health service (06) | DRG 871 ==
LOC: ER 07:24 → 6 SOUTH 09:13
PROC: 30233L1 Transfusion of Nonautologous Fresh Plasma into Peripheral Vein, Percutaneous Approach (ICD-10-PCS; principal; 2017-03-18)
PROC: 30233N1 Transfusion of Nonautologous Red Blood Cells into Peripheral Vein, Percutaneous Approach (ICD-10-PCS; 2017-03-18)
PROC: 30233K1 Transfusion of Nonautologous Frozen Plasma into Peripheral Vein, Percutaneous Approach (ICD-10-PCS; 2017-03-18)
DX: A41.9 Sepsis, unspecified organism (principal); E43 Unspecified severe protein-calorie malnutrition; K92.2 Gastrointestinal hemorrhage, unspecified; D68.32 Hemorrhagic disorder due to extrinsic circulating anticoagulants; E11.22 Type 2 diabetes mellitus with diabetic chronic kidney disease; K57.91 Diverticulosis of intestine, part unspecified, without perforation or abscess with bleeding; D68.2 Hereditary deficiency of other clotting factors; E11.40 Type 2 diabetes mellitus with diabetic neuropathy, unspecified; I48.2 Chronic atrial fibrillation; N39.0 Urinary tract infection, site not specified; J98.11 Atelectasis; E11.649 Type 2 diabetes mellitus with hypoglycemia without coma; E11.65 Type 2 diabetes mellitus with hyperglycemia; D64.9 Anemia, unspecified; E78.5 Hyperlipidemia, unspecified; G47.33 Obstructive sleep apnea (adult) (pediatric); I11.0 Hypertensive heart disease with heart failure; I25.10 Atherosclerotic heart disease of native coronary artery without angina pectoris; I50.9 Heart failure, unspecified; J44.9 Chronic obstructive pulmonary disease, unspecified; K55.20 Angiodysplasia of colon without hemorrhage; M10.9 Gout, unspecified; N20.0 Calculus of kidney; R04.0 Epistaxis; B96.20 Unspecified Escherichia coli [E. coli] as the cause of diseases classified elsewhere; I12.9 Hypertensive chronic kidney disease with stage 1 through stage 4 chronic kidney disease, or unspecified chronic kidney disease; N18.9 Chronic kidney disease, unspecified; R32 Unspecified urinary incontinence; Z96.653 Presence of artificial knee joint, bilateral; T45.515A Adverse effect of anticoagulants, initial encounter; Z87.442 Personal history of urinary calculi; Z90.49 Acquired absence of other specified parts of digestive tract; Z90.710 Acquired absence of both cervix and uterus; Z95.1 Presence of aortocoronary bypass graft; Z95.2 Presence of prosthetic heart valve; Z99.81 Dependence on supplemental oxygen
CPT/HCPCS: 36415; 71045; 71046; 80048; 80053; 80076; 81001; 82553; 82962; 83690; 83735; 83880; 84443; 84484; 85007; 85014; 85018; 85025; 85027; 85610; 86850; 86900; 86901; 86920; 86927; 87045; 87086; 87186; 93005; 94640; 94760; 97110-GP; 97116-GP; 97162-GP; 97166-GO; 97530-GO; 97530-GP; 97535-GO; 99291; C9113; J0696; J1756; J1815; J3430; J7050; J7613; J7626; P9016; P9017

== ENCOUNTER 2017-12-11 02:55 | Inpatient (IN) | payer MEDICARE ==
[~2017-12-11] VITALS: Ht 162.6 cm; Wt 113.4 kg
[~2017-12-11 02:55] MED LIST changes: -FERR-26 PO; +FERR325T14 PO; -LOSA50TA6 PO; +LOSA50TA7 PO; -METO100T2 PO; +METO100T7 PO; -METO50TA2 PO; +METO50TA6 PO; +POTA10TA12 PO; -POTASSIUM CHLO10 MEQ PO; +WARF-31 PO; -WARF5TAB7 PO
--- NOTE | 2017-12-11 03:27 | PHYS DOC ---
Past Medical History Past Medical History: A-Fib, CHF, COPD, Diabetes-Type II, High Cholesterol, Hypertension, Kidney Infection, Kidney Stone Additional Past Medical Histor: coumadin use Past Surgical History: Appendectomy, Cholecystectomy, Hysterectomy, Tonsillectomy, Other Additional Past Surgical Histo: bilat knee replacements, aortic valve, mastoid Alcohol Use: None Drug Use: None Adult General Chief Complaint Chief Complaint: FLANK PAIN HPI HPI Patient is a 82 year old female who presents with left flank pain. The patient had sudden onset of pain in the left flank area about 2 hours earlier when she was sleeping. Since that time, the pain has been severe and worsening. She has had some nausea but no emesis. She denies abdominal pain. No chest pain or shortness of breath. No recent fevers or other illness. She denies urinary symptoms. She does have a remote history of kidney stone on the right and states that the pain this evening feels similar to that. Review of Systems Review of Systems Constitutional: Denies fever or chills Eyes: + hx of macular degeneration and poor vision HENT: Denies Respiratory: Denies cough o Cardiovascular: No additional information not addressed in HPI GI: Denies abdominal pain, + nausea, no emesis : Denies dysuria Musculoskeletal: Denies Integument: Denies rash or skin lesions Neurologic: Denies headache All other systems were reviewed and found to be within normal limits, except as documented in this note. Current Medications Current Medications Current Medications Medications (Trade) Dose Ordered Sig/Nickie Start Time Stop Time Status Last Admin Dose Admin Acetaminophen (Tylenol) 650 mg PRN Q4HRS PRN 12/11/17 05:15 12/12/17 05:14 UNV Fentanyl Citrate (Fentanyl 2ml Vial) 50 mcg PRN Q2HR PRN 12/11/17 05:15 12/12/17 05:14 UNV Ketorolac Tromethamine (Toradol 30mg Vial) 30 mg 1X ONCE 12/11/17 03:45 12/11/17 03:46 DC 12/11/17 04:20 30 MG Levofloxacin/ Dextrose 150 ml @ 100 mls/hr 1X ONCE 12/11/17 05:30 12/11/17 06:59 Ondansetron HCl (Zofran) 4 mg PRN Q8HRS PRN 12/11/17 05:15 12/12/17 05:14 UNV Sodium Chloride 500 ml @ 500 mls/hr 1X ONCE 12/11/17 03:45 12/11/17 04:44 DC 12/11/17 04:21 500 MLS/HR Allergies Allergies Allergies Coded Allergies Type Severity Reaction Last Updated Verified lisinopril Allergy Severe Anaphylaxis 02/11/17 Yes shellfish derived Allergy Severe Shortness of Air 02/11/17 Yes Penicillins Allergy Intermediate Tolerates rocephin 02/11/17 Yes Sulfa (Sulfonamide Antibiotics) Allergy Intermediate 02/11/17 Yes morphine Adverse Reaction Severe Anxiety 02/11/17 Yes Physical Exam Physical Exam Constitutional: Well developed, well nourished, uncomfortable appearing but no acute distress HENT: Normocephalic, atraumatic, bilateral external ears normal Eyes: PERRLA Neck: Normal range of motion, no tenderness Cardiovascular:Heart rate regular rhythm, no murmur Lungs & Thorax: Bilateral breath sounds clear to auscultation Abdomen: Bowel sounds normal, soft, no tenderness Skin: Warm, dry, no erythema, no rash Back: No tenderness, CVA TTP on the Left Extremities: No tenderness, no edema Neurologic: Alert and oriented X 3 Psychologic: Affect normal Current Patient Data Vital Signs Vital Signs Date Time Temp Pulse Resp B/P (MAP) Pulse Ox O2 Delivery O2 Flow Rate FiO2 12/11/17 04:25 60 16 179/75 (109) 92 Nasal Cannula 2.0 12/11/17 03:00 97.6 97.6 Lab Values Laboratory Tests Test 12/11/17 03:15 White Blood Count 10.3 x10^3/uL (4.0-11.0) Red Blood Count 3.13 x10^6/uL (3.50-5.40) L Hemoglobin 9.7 g/dL (12.0-15.5) L Hematocrit 28.8 % (36.0-47.0) L Mean Corpuscular Volume 92 fL (79-100) Mean Corpuscular Hemoglobin 31 pg (25-35) Mean Corpuscular Hemoglobin Concent 34 g/dL (31-37) Red Cell Distribution Width 15.1 % (11.5-14.5) H Platelet Count 340 x10^3/uL (140-400) Neutrophils (%) (Auto) 77 % (31-73) H Lymphocytes (%) (Auto) 12 % (24-48) L Monocytes (%) (Auto) 8 % (0-9) Eosinophils (%) (Auto) 1 % (0-3) Basophils (%) (Auto) 1 % (0-3) Neutrophils # (Auto) 8.0 x10^3uL (1.8-7.7) H Lymphocytes # (Auto) 1.2 x10^3/uL (1.0-4.8) Monocytes # (Auto) 0.8 x10^3/uL (0.0-1.1) Eosinophils # (Auto) 0.1 x10^3/uL (0.0-0.7) Basophils # (Auto) 0.1 x10^3/uL (0.0-0.2) Urine Collection Type Unknown Urine Color Red Urine Clarity Turbid Urine pH 5.0 Urine Specific [place] 1.020 Urine Protein >=300 mg/dL (NEG-TRACE) Urine Glucose (UA) Negative mg/dL (NEG) Urine Ketones (Stick) 40 mg/dL (NEG) Urine Blood Large (NEG) Urine Nitrite Positive (NEG) Urine Bilirubin Large (NEG) Urine Urobilinogen Dipstick 1.0 mg/dL (0.2 mg/dL) Urine Leukocyte Esterase Large (NEG) Urine RBC Tntc /HPF (0-2) Urine WBC Tntc /HPF (0-4) Urine Squamous Epithelial Cells Mod /LPF Urine Bacteria Many /HPF (0-FEW) Urine Mucus Slight /LPF Sodium Level 137 mmol/L (136-145) Potassium Level 3.9 mmol/L (3.5-5.1) Chloride Level 97 mmol/L (98-107) L Carbon Dioxide Level 31 mmol/L (21-32) Anion Gap 9 (6-14) Blood Urea Nitrogen 40 mg/dL (7-20) H Creatinine 1.7 mg/dL (0.6-1.0) H Estimated GFR (Cockcroft-Gault) 28.7 Glucose Level 324 mg/dL (70-99) H Calcium Level 9.6 mg/dL (8.5-10.1) Creatine Kinase 34 U/L (26-192) Laboratory Tests 12/11/17 03:15 Laboratory Tests 12/11/17 03:15 EKG EKG [] Radiology/Procedures Radiology/Procedures FINDINGS: Lack of intravenous contrast limits evaluation of solid organs, vasculature, and lymph nodes. Lower chest: Dependent opacities likely scarring/atelectasis. Abdomen and Pelvis: No focal liver lesion. Gallbladder is not seen, likely from prior cholecystectomy. No biliary ductal dilatation. Spleen is unremarkable. Adrenal glands are unremarkable. Diffuse atrophy of the pancreas which is otherwise unremarkable. A right interpolar nonobstructing calculus measures 1.3 cm. A 1.4 cm right ureteropelvic junction calculus is seen resulting in mild right hydronephrosis and associated inflammatory change. No definite distal right ureteral calculi are seen. No definite left renal, ureteral or bladder calculus is noted. Moderate colonic stool content. No significant large or small bowel dilatation. Colonic diverticula are seen. No evidence of acute diverticulitis. No abdominal or pelvic ascites. No abdominal or pelvic lymphadenopathy. Atherosclerotic calcifications of aorta are seen. Bones: Degenerative changes of the spine are seen. IMPRESSION: 1. 1.4 cm calculus is seen at the right ureteropelvic junction with associated mild right hydronephrosis and significant perienteric fat infiltration/inflammatory change. Superimposed infection is not excluded. 2. Nonobstructing 1.3 cm right interpolar renal calculus. Course & Med Decision Making Course & Med Decision Making Pertinent Labs and Imaging studies reviewed. (See chart for details) 03:20: Patient is evaluated and examined. She did provide a urine sample which is grossly bloody. IV fluids are ordered along with pain medications and nausea medications. We will do CT scan without contrast. 05:00: CT scan is returned. The patient does have small kidney stone on the right resulting in mild hydronephrosis and some fat stranding concerning for infection. Her urinalysis certainly confirms infection. She does have penicillin allergies so Levaquin is started in the emergency department. There are no CT findings to explain the flank pain that the patient has having which is primarily on the left. She is noted to be anemic as well as have some elevation of her creatinine. Both of these numbers appeared to be at baseline for this patient. No indication for transfusion. In the emergency department, the patient was given a single dose of Toradol prior to return of her creatinine. This medication did relieve her pain symptoms. She does have an allergy to morphine. Plan this evening is to admit the patient to her primary care physician, Dr. Thee Suresh. The patient is requesting that Dr. Jovel also be consult did as he apparently follows her very closely and the patient has prior history of valve replacement in the heart. Consult was placed to that effect. Also will consult nephrology for patient's CK the and recommendations for treatment. Suspect Levaquin will remain the best option with every other day dosing but deferred to nephrology consult. No urology consult was during the ED course as the patient's stones are small and no acute intervention is indicated. Prior to admission, all results are reviewed and discussed with the patient and her family and all of their questions are answered. The patient is agreeable to the plan of care. Urine Cx is added to her lab panel. Dragon Disclaimer Dragon Disclaimer This electronic medical record was generated, in whole or in part, using a voice recognition dictation system. Departure Departure Referrals: THEE SURESH MD (PCP) SANIA GIBBS DO Dec 11, 2017 03:27
[2017-12-11 03:34] LABS: BASO # 0.1 x10^3/uL (0.0-0.2); BASO % 1 % (0-3); EOS # 0.1 x10^3/uL (0.0-0.7); EOS % 1 % (0-3); HEMATOCRIT 28.8 % (36.0-47.0); HEMOGLOBIN 9.7 g/dL (12.0-15.5); LYMPH # 1.2 x10^3/uL (1.0-4.8); LYMPH % 12 % (24-48); MEAN CORPUSCULAR HEMOGLOBIN 31 pg (25-35); MEAN CORPUSCULAR HGB CONC 34 g/dL (31-37); MEAN CORPUSCULAR VOLUME 92 fL (79-100); MONO # 0.8 x10^3/uL (0.0-1.1); MONO % 8 % (0-9); NEUT % 77 % (31-73); PLATELET COUNT 340 x10^3/uL (140-400); RED BLOOD COUNT 3.13 x10^6/uL (3.50-5.40); RED CELL DISTRIBUTION WIDTH 15.1 % (11.5-14.5); WHITE BLOOD COUNT 10.3 x10^3/uL (4.0-11.0)
[2017-12-11 03:35] LABS: BILIRUBIN,URINE LARGE (NEG); CLARITY,URINE TURBID; COLOR,URINE RED; NITRITE,URINE POSITIVE (NEG); PROTEIN,URINE >=300 mg/dL (NEG-TRACE)
[2017-12-11 03:40] LABS: BACTERIA,URINE MANY /HPF (0-FEW); RBC,URINE TNTC /HPF (0-2); WBC,URINE TNTC /HPF (0-4)
[2017-12-11 03:41] LABS: SQUAMOUS EPITHELIAL CELL,UR MOD /LPF
[2017-12-11 03:45] LABS: CALCIUM 9.6 mg/dL (8.5-10.1); CREATININE 1.7 mg/dL (0.6-1.0); GFR 28.7; POTASSIUM 3.9 mmol/L (3.5-5.1)
[2017-12-11] MEDS ORDERED: IV NORMAL SALINE 500ML BAG 500 ML IV ONE (03:45)
[2017-12-11] MEDS ORDERED: ONDANSETRON PF 4 MG/2 ML VIAL. IV ONE (03:45)
[2017-12-11] MEDS ORDERED: KETOROLAC 30 MG/ML VIAL. IV ONE (03:45)
--- NOTE | 2017-12-11 05:00 | RAD ---
EXAM: CT Abdomen and Pelvis without IV contrast CLINICAL HISTORY: LT. FLANK PAIN. COMPARISON: none TECHNIQUE: Helical CT of the abdomen and pelvis without intravenous contrast. Axial, coronal and sagittal reformatted images were generated. PQRS compliance statement - One or more of the following individualized dose reduction techniques were utilized for this study: 1. Automated exposure control 2. Adjustment of the mA and/or kV according to patient size 3. Use of iterative reconstruction technique FINDINGS: Lack of intravenous contrast limits evaluation of solid organs, vasculature, and lymph nodes. Lower chest: Dependent opacities likely scarring/atelectasis. Abdomen and Pelvis: No focal liver lesion. Gallbladder is not seen, likely from prior cholecystectomy. No biliary ductal dilatation. Spleen is unremarkable. Adrenal glands are unremarkable. Diffuse atrophy of the pancreas which is otherwise unremarkable. A right interpolar nonobstructing calculus measures 1.3 cm. A 1.4 cm right ureteropelvic junction calculus is seen resulting in mild right hydronephrosis and associated inflammatory change. No definite distal right ureteral calculi are seen. No definite left renal, ureteral or bladder calculus is noted. Moderate colonic stool content. No significant large or small bowel dilatation. Colonic diverticula are seen. No evidence of acute diverticulitis. No abdominal or pelvic ascites. No abdominal or pelvic lymphadenopathy. Atherosclerotic calcifications of aorta are seen. Bones: Degenerative changes of the spine are seen. IMPRESSION: 1. 1.4 cm calculus is seen at the right ureteropelvic junction with associated mild right hydronephrosis and significant perienteric fat infiltration/inflammatory change. Superimposed infection is not excluded. 2. Nonobstructing 1.3 cm right interpolar renal calculus. Electronically signed by: Brandon Hutton MD (12/11/2017 4:57 AM) [facility]
[2017-12-11] MEDS ORDERED: ACETAMINOPHEN 325 MG TABLET. PO PRN (05:15)
[2017-12-11] MEDS ORDERED: ONDANSETRON PF 4 MG/2 ML VIAL. IV PRN (05:15)
[2017-12-11 06:09] VITALS: BP 140/73
--- NOTE | 2017-12-11 08:38 | PDOC1 ---
H & P H&P HPI: Ms. Barkley is a 82-year-old female with past medical history of CHF, type 2 diabetes, COPD, A. fib, hypertension, hyperlipidemia, history of aortic valve replacement, chronic iron deficiency anemia, and macular degeneration who was admitted this AM for likely pyelonephritis and kidney stones. She notes that she started having pain last night in the left flank which worsened and caused her to come to the ER. She denies dysuria, frequency, urgency. She does not a remote hx of kidney stones. She denies any other symptoms of chest pain, palpitations, weakness, numbness or tingling, change in speech, change in vision. She has no recent falls. ROS: Constitutional: Denies fever, fatigue, chills HEENT: Denies vision changes Cardio: Denies chest pain, syncope, palpitations, edema, weight gain; Admits mild shortness of breath Pulmonary: Denies cough, wheezing; notes some shortness of breath GI: Denies nausea, vomiting, diarrhea, constipation or abdominal pain : Denies dysuria, frequency, urgency, incontinence; admits left flank pain, improved now Skin: Denies new lesions Neuro: Denies weakness, paresthesias, change in vision or speech PMH: as above Family Hx: Father -Type 2 diabetes, lung cancer; mother: Heart attack, type 2 diabetes, hypertension Social Hx: Nonsmoker, but notes significant history of secondhand smoke. Nondrinker, no drug use Surg Hx: Aortic valve replacement, pacer placement, tonsillectomy, appendectomy , hysterectomy, bilateral knee replacements, cataract removal Meds: Reviewed and reconciled Allergies: Reviewed PE: Alert, oriented, no acute distress EOMI, sclera non-icteric Neck supple RRR, 2/6 systolic murmur CTAB, no wheezes or rhonchi Soft, NT, ND, normal bowel sounds, no rebound, guarding No CVA tenderness No edema, cyanosis. Normal capillary refill. Calm, cooperative, mood/affect within normal limits Nonfocal, cranial nerves II through XII grossly intact CT abd/pelvis w/o contrast: IMPRESSION: 1. 1.4 cm calculus is seen at the right ureteropelvic junction with associated mild right hydronephrosis and significant perienteric fat infiltration/inflammatory change. Superimposed infection is not excluded. 2. Nonobstructing 1.3 cm right interpolar renal calculus. Assessment/Plan: Possible Pyleonephritis Nephrolithiasis, bilateral CHF not in acute exacerbation Chronic iron deficiency anemia (baseline ~10) ARMAAN on CKD (baseline ~1.1-1.2) Type 2 diabetes A. fib History of aortic valve replacement Hypertension Hyperlipidemia GERD Continue home medications Urology consulted IV fluids Flomax Cipro IV Q12H PT OT consult Pt wishes to be DNR and has a form on file already. VALERIE FLORENCE MD Dec 11, 2017 08:38
--- NOTE | 2017-12-11 09:15 | PDOC2 ---
CONSULT Date of Consult Date of Consult DATE: 12/11/17 TIME: 09:08 Reason for Consult Reason for Consult: past hx of aortic valve replacement Identification/Chief Complaint Chief Complaint left flank pain x1d Source Source: Patient History of Present Illness Reason for Visit: Ms Barkley is an 82 y/o female with past history of COPD, CHF, Afib,T2DM, HTN, s/p aortic valve replacement in 2010 presented to the ED on 12/11 with left flank pain that kept her awake at night. She said the pain was similar to prior episodes of kidney stones, but she also had nausea associated with this episode. She denies having chest pain or any increased shortness of breath. She was concerned that the abdominal pain could be associated with her heart. She was not having any urinary complaints on presentation. Past Medical History Cardiovascular: AFIB, CAD, CHF, HTN, Hyperlipidemia, Valve insufficiency, Pulmonary hypertension Pulmonary: Bronchitis, COPD GI: Diverticulosis, GI bleed Endocrine: Diabetes Past Surgical History Past Surgical History: Pacemaker, Appendectomy, Cholecystectomy, CABG, Total knee replacement, Hysterectomy, Other Family History Family History: Heart Disease Social History ALCOHOL: none Drugs: None Current Medications Current Medications Current Medications Sodium Chloride 500 ml @ 500 mls/hr 1X ONCE IV Last administered on at 04:21; Start 12/11/17 at 03:45; Stop 12/11/17 at 04:44; Status DC Ketorolac Tromethamine (Toradol 30mg Vial) 30 mg 1X ONCE IV Last administered on 12/11/17at 04:20; Start 12/11/17 at 03:45; Stop 12/11/17 at 03:46; Status DC Ondansetron HCl (Zofran) 4 mg 1X ONCE IV Last administered on 12/11/17at 04:20 ; Start 12/11/17 at 03:45; Stop 12/11/17 at 03:46; Status DC Levofloxacin/ Dextrose 150 ml @ 100 mls/hr 1X ONCE IV Last administered on at 05:38; Start 12/11/17 at 05:30; Stop 12/11/17 at 06:59; Status DC Ondansetron HCl (Zofran) 4 mg PRN Q8HRS PRN IV NAUSEA/VOMITING 1ST CHOICE; Start 12/11/17 at 05:15; Stop 12/13/17 at 05:13 Fentanyl Citrate (Fentanyl 2ml Vial) 50 mcg PRN Q2HR PRN IV SEVERE PAIN; Start 12/11/17 at 05:15; Stop 12/13/17 at 05:13 Acetaminophen (Tylenol) 650 mg PRN Q4HRS PRN PO FEVER; Start 12/11/17 at 05:15 ; Stop 12/12/17 at 05:14 Ciprofloxacin/ Dextrose 200 ml @ 200 mls/hr Q12HR IV ; Start 12/11/17 at 09:00 Sodium Chloride 1,000 ml @ 75 mls/hr [id number] IV ; Start 12/11/17 at 08:30 Tamsulosin HCl (Flomax) 0.4 mg DAILY PO ; Start 12/11/17 at 09:00 Active Scripts Active Reported Protonix (Pantoprazole Sodium) 40 Mg Granpkt.dr 40 Mg PO DAILY Ferrous Sulfate 325 Mg Tablet 1 Tab PO BID Levemir (Insulin Detemir) 100 Unit/1 Ml Vial 40 Unit SQ [id number] Levemir (Insulin Detemir) 100 Unit/1 Ml Vial 20 Unit SQ QHS Furosemide 40 Mg Tablet 40 Mg PO QMWF Gabapentin 100 Mg Capsule 100 Mg PO TID Metoprolol Tartrate 50 Mg Tablet 50 Mg PO BID Multaq (Dronedarone Hcl) 400 Mg Tablet 1 Tab PO BID Alprazolam 0.25 Mg Tablet 1 Tab PO HS Aspirin 325 Mg Tablet 1 Tab PO DAILY Potassium Chloride 10 Meq Capsule.er 1 Cap PO DAILY Hydrochlorothiazide Tablet (Hydrochlorothiazide) 12.5 Mg Tablet 12.5 Mg PO DAILY Symbicort 160-4.5 Mcg Inhaler (Budesonide/Formoterol Fumarate) 10.2 Gm Hfa.aer.ad 10.2 Gm IH BID Atorvastatin Calcium 40 Mg Tablet 40 Mg PO DAILY Allergies Allergies: Coded Allergies: lisinopril (Verified Allergy, Severe, Anaphylaxis, 02/11/17) shellfish derived (Verified Allergy, Severe, Shortness of Air, 02/11/17) Penicillins (Verified Allergy, Intermediate, Tolerates rocephin, 02/11/17) Sulfa (Sulfonamide Antibiotics) (Verified Allergy, Intermediate, 02/11/17) morphine (Verified Adverse Reaction, Severe, Anxiety, 02/11/17) ROS Eyes: No Blurry vision, No Decreased vision, No Double vision, No Photophobia HEENT: No: Heacaches, Visual Changes, Hearing change Respiratory: YES: Shortness of breath; No: Cough, Hemoptysis, Orthopnea, Tachypnea Cardiovascular: No Chest Pain, No Palpitations, No Paroxysmal Noc. Dyspnea, No Edema Gastrointestinal: Yes Nausea, Yes Abdominal Pain (left suprapubic pain, radiating to left flank); No Vomiting Genitourinary: No Dysuria, No Frequency, No Incontinence, No Urgency Physical Exam General: Alert, Oriented X3, Cooperative Lungs: Clear to auscultation, Normal air movement Heart: Regular rate, Normal S1, Normal S2, Other (systolic mmurmur 2/6, best heard right 2nd ICS) Extremities: No cyanosis, No edema Psych/Mental Status: Mental status NL, Mood NL Vitals VITALS Vital Signs Date Time Temp Pulse Resp B/P (MAP) Pulse Ox O2 Delivery O2 Flow Rate FiO2 12/11/17 06:09 97.9 57 18 140/73 (95) 95 BiPAP/CPAP 2.0 97.9 Labs Labs Laboratory Tests Test 12/11/17 03:15 12/11/17 07:28 White Blood Count 10.3 x10^3/uL (4.0-11.0) Red Blood Count 3.13 x10^6/uL (3.50-5.40) Hemoglobin 9.7 g/dL (12.0-15.5) Hematocrit 28.8 % (36.0-47.0) Mean Corpuscular Volume 92 fL (79-100) Mean Corpuscular Hemoglobin 31 pg (25-35) Mean Corpuscular Hemoglobin Concent 34 g/dL (31-37) Red Cell Distribution Width 15.1 % (11.5-14.5) Platelet Count 340 x10^3/uL (140-400) Neutrophils (%) (Auto) 77 % (31-73) Lymphocytes (%) (Auto) 12 % (24-48) Monocytes (%) (Auto) 8 % (0-9) Eosinophils (%) (Auto) 1 % (0-3) Basophils (%) (Auto) 1 % (0-3) Neutrophils # (Auto) 8.0 x10^3uL (1.8-7.7) Lymphocytes # (Auto) 1.2 x10^3/uL (1.0-4.8) Monocytes # (Auto) 0.8 x10^3/uL (0.0-1.1) Eosinophils # (Auto) 0.1 x10^3/uL (0.0-0.7) Basophils # (Auto) 0.1 x10^3/uL (0.0-0.2) Urine Collection Type Unknown Urine Color Red Urine Clarity Turbid Urine pH 5.0 Urine Specific [place] 1.020 Urine Protein >=300 mg/dL (NEG-TRACE) Urine Glucose (UA) Negative mg/dL (NEG) Urine Ketones (Stick) 40 mg/dL (NEG) Urine Blood Large (NEG) Urine Nitrite Positive (NEG) Urine Bilirubin Large (NEG) Urine Urobilinogen Dipstick 1.0 mg/dL (0.2 mg/dL) Urine Leukocyte Esterase Large (NEG) Urine RBC Tntc /HPF (0-2) Urine WBC Tntc /HPF (0-4) Urine Squamous Epithelial Cells Mod /LPF Urine Bacteria Many /HPF (0-FEW) Urine Mucus Slight /LPF Sodium Level 137 mmol/L (136-145) Potassium Level 3.9 mmol/L (3.5-5.1) Chloride Level 97 mmol/L (98-107) Carbon Dioxide Level 31 mmol/L (21-32) Anion Gap 9 (6-14) Blood Urea Nitrogen 40 mg/dL (7-20) Creatinine 1.7 mg/dL (0.6-1.0) Estimated GFR (Cockcroft-Gault) 28.7 Glucose Level 324 mg/dL (70-99) Calcium Level 9.6 mg/dL (8.5-10.1) Creatine Kinase 34 U/L (26-192) Glucose (Fingerstick) 277 mg/dL (70-99) Laboratory Tests Test 12/11/17 03:15 12/11/17 07:28 White Blood Count 10.3 x10^3/uL (4.0-11.0) Red Blood Count 3.13 x10^6/uL (3.50-5.40) Hemoglobin 9.7 g/dL (12.0-15.5) Hematocrit 28.8 % (36.0-47.0) Mean Corpuscular Volume 92 fL (79-100) Mean Corpuscular Hemoglobin 31 pg (25-35) Mean Corpuscular Hemoglobin Concent 34 g/dL (31-37) Red Cell Distribution Width 15.1 % (11.5-14.5) Platelet Count 340 x10^3/uL (140-400) Neutrophils (%) (Auto) 77 % (31-73) Lymphocytes (%) (Auto) 12 % (24-48) Monocytes (%) (Auto) 8 % (0-9) Eosinophils (%) (Auto) 1 % (0-3) Basophils (%) (Auto) 1 % (0-3) Neutrophils # (Auto) 8.0 x10^3uL (1.8-7.7) Lymphocytes # (Auto) 1.2 x10^3/uL (1.0-4.8) Monocytes # (Auto) 0.8 x10^3/uL (0.0-1.1) Eosinophils # (Auto) 0.1 x10^3/uL (0.0-0.7) Basophils # (Auto) 0.1 x10^3/uL (0.0-0.2) Urine Collection Type Unknown Urine Color Red Urine Clarity Turbid Urine pH 5.0 Urine Specific [place] 1.020 Urine Protein >=300 mg/dL (NEG-TRACE) Urine Glucose (UA) Negative mg/dL (NEG) Urine Ketones (Stick) 40 mg/dL (NEG) Urine Blood Large (NEG) Urine Nitrite Positive (NEG) Urine Bilirubin Large (NEG) Urine Urobilinogen Dipstick 1.0 mg/dL (0.2 mg/dL) Urine Leukocyte Esterase Large (NEG) Urine RBC Tntc /HPF (0-2) Urine WBC Tntc /HPF (0-4) Urine Squamous Epithelial Cells Mod /LPF Urine Bacteria Many /HPF (0-FEW) Urine Mucus Slight /LPF Sodium Level 137 mmol/L (136-145) Potassium Level 3.9 mmol/L (3.5-5.1) Chloride Level 97 mmol/L (98-107) Carbon Dioxide Level 31 mmol/L (21-32) Anion Gap 9 (6-14) Blood Urea Nitrogen 40 mg/dL (7-20) Creatinine 1.7 mg/dL (0.6-1.0) Estimated GFR (Cockcroft-Gault) 28.7 Glucose Level 324 mg/dL (70-99) Calcium Level 9.6 mg/dL (8.5-10.1) Creatine Kinase 34 U/L (26-192) Glucose (Fingerstick) 277 mg/dL (70-99) Assessment/Plan Assessment/Plan continue treatment as recommended by primary hospitalist will follow patient for any cardiac concerns that may arise RUDOLPH CLARK MD Dec 11, 2017 09:15
[2017-12-11] MEDS ORDERED: DEXTROSE 50% 25 GM / 50ML DISP.SYRIN. IV PRN (09:30)
[2017-12-11] MEDS: GABAPENTIN 100 MG CAPSULE. PO SCH ×3 (09:51→21:00)
[2017-12-11] MEDS: CIPROFLOXACIN 400MG PREMIX 200 ML IV SCH ×2 (09:51→21:01)
[2017-12-11] MEDS: IV NORMAL SALINE 1000ML BAG 1,000 ML IV SCH ×2 (09:51→21:05)
[2017-12-11] MEDS: PANTOPRAZOLE 40 MG TABLET.DR. PO SCH (09:51)
[2017-12-11] MEDS: TAMSULOSIN 0.4 MG CAP.ER.24H. PO SCH (09:51)
[2017-12-11] MEDS: METOPROLOL TART IMMED RELEASE 50 MG TABLET. PO SCH ×2 (09:52→21:21)
[2017-12-11] MEDS: fentaNYL PF VIAL 100 MCG/2 ML VIAL IV PRN ×2 (09:53→14:54)
[2017-12-11] MEDS: ASPIRIN 325 MG TABLET PO SCH (09:57)
[2017-12-11] MEDS: BUDESONIDE 0.5 MG/2 ML NEBU. NEB SCH ×2 (10:00→12:55)
--- NOTE | 2017-12-11 10:15 | PDOC2 ---
DOLORES CAMPOS CHIP PERSON 12/11/17 1015: UROLOGY CONSULT Date of Consult Date of Consult DATE: 12/11/17 TIME: 09:57 Reason for Consult Reason for Consult: 1.4 CM calculus at the right UPJ with mild hydro and significant perienteric fat infiltration/inflammatory change. Superimposed infection not excluded. Identification/Chief Complaint Chief Complaint 1.4 cm calculus at the right UPJ with mild hydro. Source Source: Caregiver, Chart review, Patient History of Present Illness Reason for Visit: 82 year old pleasant female presented to the ER with lower abd pain and right flank pain. A CT scan was done and she was found to have 1.4 cm calculus at the right UPJ with associated mild right hydronephrosis and signficant perienteric fat infiltration/inflammatory changes. Pt also has a 1.3 cm right interpolar renal calculus. She admits a history of stone and is a former patient of Dr. Buenrostro. She has not been to the kidney doctor in several years, ever since Chitra left. The last time she saw a urologist was about 2-3 years ago and at that time she had just a 4 mm stone that was asymptomatic. She did well from that time until last night when she started to have significant pain. This morning her pain is actually well controlled and she denies dysuria. She had some nausea last night, but no vomiting. She does take an aspirin for her blood thinners and thinks she may have one more blood thinner that she takes , but is not sure. She has taken Coumadin in the past for A Fib. Prefers not to have surgery if possible, citing her age and significant cardiovascular history to include A Fib and valve replacement. She is a patient of Dr. Jovel for her heart. Past Medical History Cardiovascular: AFIB, CAD, CHF, HTN, Hyperlipidemia, Valve insufficiency, Pulmonary hypertension Pulmonary: Bronchitis, COPD GI: Diverticulosis, GI bleed Endocrine: Diabetes Past Surgical History Past Surgical History: Pacemaker, Appendectomy, Cholecystectomy, CABG, Total knee replacement, Hysterectomy, Other Family History Family History: Heart Disease Social History No ALCOHOL: none Drugs: None Current Problem List Problems: (1) Renal lithiasis Current Medications Current Medications Current Medications Acetaminophen (Tylenol) 650 mg PRN Q4HRS PRN PO FEVER; Start 12/11/17 at 05:15 ; Stop 12/12/17 at 05:14 Albuterol Sulfate (Ventolin Neb Soln) 2.5 mg Q6HRS NEB ; Start 12/11/17 at 12: 00 Alprazolam (Xanax) 0.25 mg HS PO ; Start 12/11/17 at 21:00 Aspirin (Madhuri Aspirin) 325 mg DAILY PO ; Start 12/11/17 at 12:00 Atorvastatin Calcium (Lipitor) 40 mg QHS PO ; Start 12/12/17 at 21:00 Budesonide (Pulmicort) 0.5 mg BID NEB ; Start 12/11/17 at 10:00 Ciprofloxacin/ Dextrose 200 ml @ 200 mls/hr Q12HR IV Last administered on at 09:51; Start 12/11/17 at 09:00 Dextrose (Dextrose 50%-Water Syringe) 12.5 gm PRN Q15MIN PRN IV SEE COMMENTS; Start 12/11/17 at 09:30 Dronedarone (Multaq) 400 mg BID PO ; Start 12/11/17 at 12:00 Fentanyl Citrate (Fentanyl 2ml Vial) 50 mcg PRN Q2HR PRN IV SEVERE PAIN Last administered on 12/11/17at 09:53; Start 12/11/17 at 05:15; Stop 12/13/17 at 05 :13 Ferrous Sulfate (Feosol) 325 mg BID PO ; Start 12/11/17 at 12:00 Furosemide (Lasix) 40 mg QMWF@0900 PO ; Start 12/11/17 at 12:00 Gabapentin (Neurontin) 100 mg TID PO Last administered on 12/11/17at 09:51; Start 12/11/17 at 10:00 Hydrochlorothiazide (Microzide) 12.5 mg DAILY PO ; Start 12/11/17 at 12:00 Insulin Glargine (Lantus) 20 units QHS SQ ; Start 12/11/17 at 21:00 Insulin Glargine (Lantus) 40 units DAILYWBKFT SQ ; Start 12/11/17 at 10:00 Ketorolac Tromethamine (Toradol 30mg Vial) 30 mg 1X ONCE IV Last administered on 12/11/17at 04:20; Start 12/11/17 at 03:45; Stop 12/11/17 at 03:46; Status DC Levofloxacin/ Dextrose 150 ml @ 100 mls/hr 1X ONCE IV Last administered on at 05:38; Start 12/11/17 at 05:30; Stop 12/11/17 at 06:59; Status DC Metoprolol Tartrate (Lopressor) 50 mg BID PO Last administered on 12/11/17at 09 :52; Start 12/11/17 at 10:00 Non-Formulary Medication (Budesonide/ Formoterol Fumarate (Symbicort 160-4.5 Mcg Inhaler)) 10.2 gm BID IH ; Start 12/11/17 at 21:00; Status UNV Ondansetron HCl (Zofran) 4 mg 1X ONCE IV Last administered on 12/11/17at 04:20 ; Start 12/11/17 at 03:45; Stop 12/11/17 at 03:46; Status DC Ondansetron HCl (Zofran) 4 mg PRN Q8HRS PRN IV NAUSEA/VOMITING 1ST CHOICE; Start 12/11/17 at 05:15; Stop 12/13/17 at 05:13 Pantoprazole Sodium (Protonix) 40 mg DAILYAC PO Last administered on at 09:51; Start 12/11/17 at 11:00 Potassium Chloride (Klor-Con) 10 meq DAILY PO ; Start 12/11/17 at 12:00 Sodium Chloride 500 ml @ 500 mls/hr 1X ONCE IV Last administered on at 04:21; Start 12/11/17 at 03:45; Stop 12/11/17 at 04:44; Status DC Sodium Chloride 1,000 ml @ 75 mls/hr [id number] IV Last administered on at 09:51; Start 12/11/17 at 08:30 Tamsulosin HCl (Flomax) 0.4 mg DAILY PO Last administered on 12/11/17at 09:51; Start 12/11/17 at 09:00 Allergies Allergies: Coded Allergies: lisinopril (Verified Allergy, Severe, Anaphylaxis, 02/11/17) shellfish derived (Verified Allergy, Severe, Shortness of Air, 02/11/17) Penicillins (Verified Allergy, Intermediate, Tolerates rocephin, 02/11/17) Sulfa (Sulfonamide Antibiotics) (Verified Allergy, Intermediate, 02/11/17) morphine (Verified Adverse Reaction, Severe, Anxiety, 02/11/17) ROS Review Of Systems: CONSTITUTIONAL: No fever or chills EYES: No recent changes SKIN: No rash or itching CARDIOVASCULAR: No chest pain, syncope, palpitations, or edema RESPIRATORY: No SOB or cough GASTROINTESTINAL: + lower abd pain, but improving. Nausea last night, but gone this am. No vomiting. NEUROLOGICAL: No headaches or weakness ENDOCRINE: No cold or heat intolerance GENITOURINARY: + slight dysuria, improving. MUSCULOSKELETAL: No back pain or joint pain LYMPHATICS: No enlarged lymph nodes PSYCHIATRIC: No anxiety or depression Physical Exam Physical Exam: General: Pleasant, no acute distress, well groomed Eyes: conjunctiva anicteric, eyes full range of motion ENT: moist oral mucosa, normal dentition Neck: Trachea midline, no masses Respiratory: unlabored breathing, not using accessory muscles. Back: No CVA pain bilaterally. Abdomen: Tender bilat lower quadrants. Soft, obese. Skin: no rashes or skin lesions on visualized skin Psych: normal mood, affect. Alert and oriented x 3. Vitals VITALS Vital Signs Date Time Temp Pulse Resp B/P (MAP) Pulse Ox O2 Delivery O2 Flow Rate FiO2 12/11/17 09:53 95 Nasal Cannula 2.0 12/11/17 09:52 57 140/73 12/11/17 06:09 97.9 18 97.9 Labs Labs Laboratory Tests Test 12/11/17 03:15 12/11/17 07:28 White Blood Count 10.3 x10^3/uL (4.0-11.0) Red Blood Count 3.13 x10^6/uL (3.50-5.40) Hemoglobin 9.7 g/dL (12.0-15.5) Hematocrit 28.8 % (36.0-47.0) Mean Corpuscular Volume 92 fL (79-100) Mean Corpuscular Hemoglobin 31 pg (25-35) Mean Corpuscular Hemoglobin Concent 34 g/dL (31-37) Red Cell Distribution Width 15.1 % (11.5-14.5) Platelet Count 340 x10^3/uL (140-400) Neutrophils (%) (Auto) 77 % (31-73) Lymphocytes (%) (Auto) 12 % (24-48) Monocytes (%) (Auto) 8 % (0-9) Eosinophils (%) (Auto) 1 % (0-3) Basophils (%) (Auto) 1 % (0-3) Neutrophils # (Auto) 8.0 x10^3uL (1.8-7.7) Lymphocytes # (Auto) 1.2 x10^3/uL (1.0-4.8) Monocytes # (Auto) 0.8 x10^3/uL (0.0-1.1) Eosinophils # (Auto) 0.1 x10^3/uL (0.0-0.7) Basophils # (Auto) 0.1 x10^3/uL (0.0-0.2) Urine Collection Type Unknown Urine Color Red Urine Clarity Turbid Urine pH 5.0 Urine Specific [place] 1.020 Urine Protein >=300 mg/dL (NEG-TRACE) Urine Glucose (UA) Negative mg/dL (NEG) Urine Ketones (Stick) 40 mg/dL (NEG) Urine Blood Large (NEG) Urine Nitrite Positive (NEG) Urine Bilirubin Large (NEG) Urine Urobilinogen Dipstick 1.0 mg/dL (0.2 mg/dL) Urine Leukocyte Esterase Large (NEG) Urine RBC Tntc /HPF (0-2) Urine WBC Tntc /HPF (0-4) Urine Squamous Epithelial Cells Mod /LPF Urine Bacteria Many /HPF (0-FEW) Urine Mucus Slight /LPF Sodium Level 137 mmol/L (136-145) Potassium Level 3.9 mmol/L (3.5-5.1) Chloride Level 97 mmol/L (98-107) Carbon Dioxide Level 31 mmol/L (21-32) Anion Gap 9 (6-14) Blood Urea Nitrogen 40 mg/dL (7-20) Creatinine 1.7 mg/dL (0.6-1.0) Estimated GFR (Cockcroft-Gault) 28.7 Glucose Level 324 mg/dL (70-99) Calcium Level 9.6 mg/dL (8.5-10.1) Creatine Kinase 34 U/L (26-192) Glucose (Fingerstick) 277 mg/dL (70-99) Laboratory Tests Test 12/11/17 03:15 12/11/17 07:28 White Blood Count 10.3 x10^3/uL (4.0-11.0) Red Blood Count 3.13 x10^6/uL (3.50-5.40) Hemoglobin 9.7 g/dL (12.0-15.5) Hematocrit 28.8 % (36.0-47.0) Mean Corpuscular Volume 92 fL (79-100) Mean Corpuscular Hemoglobin 31 pg (25-35) Mean Corpuscular Hemoglobin Concent 34 g/dL (31-37) Red Cell Distribution Width 15.1 % (11.5-14.5) Platelet Count 340 x10^3/uL (140-400) Neutrophils (%) (Auto) 77 % (31-73) Lymphocytes (%) (Auto) 12 % (24-48) Monocytes (%) (Auto) 8 % (0-9) Eosinophils (%) (Auto) 1 % (0-3) Basophils (%) (Auto) 1 % (0-3) Neutrophils # (Auto) 8.0 x10^3uL (1.8-7.7) Lymphocytes # (Auto) 1.2 x10^3/uL (1.0-4.8) Monocytes # (Auto) 0.8 x10^3/uL (0.0-1.1) Eosinophils # (Auto) 0.1 x10^3/uL (0.0-0.7) Basophils # (Auto) 0.1 x10^3/uL (0.0-0.2) Urine Collection Type Unknown Urine Color Red Urine Clarity Turbid Urine pH 5.0 Urine Specific [place] 1.020 Urine Protein >=300 mg/dL (NEG-TRACE) Urine Glucose (UA) Negative mg/dL (NEG) Urine Ketones (Stick) 40 mg/dL (NEG) Urine Blood Large (NEG) Urine Nitrite Positive (NEG) Urine Bilirubin Large (NEG) Urine Urobilinogen Dipstick 1.0 mg/dL (0.2 mg/dL) Urine Leukocyte Esterase Large (NEG) Urine RBC Tntc /HPF (0-2) Urine WBC Tntc /HPF (0-4) Urine Squamous Epithelial Cells Mod /LPF Urine Bacteria Many /HPF (0-FEW) Urine Mucus Slight /LPF Sodium Level 137 mmol/L (136-145) Potassium Level 3.9 mmol/L (3.5-5.1) Chloride Level 97 mmol/L (98-107) Carbon Dioxide Level 31 mmol/L (21-32) Anion Gap 9 (6-14) Blood Urea Nitrogen 40 mg/dL (7-20) Creatinine 1.7 mg/dL (0.6-1.0) Estimated GFR (Cockcroft-Gault) 28.7 Glucose Level 324 mg/dL (70-99) Calcium Level 9.6 mg/dL (8.5-10.1) Creatine Kinase 34 U/L (26-192) Glucose (Fingerstick) 277 mg/dL (70-99) Images Images CT ABD/ PELVIS IMPRESSION: 1. 1.4 cm calculus is seen at the right ureteropelvic junction with associated mild right hydronephrosis and significant perienteric fat infiltration/inflammatory change. Superimposed infection is not excluded. 2. Nonobstructing 1.3 cm right interpolar renal calculus. Assessment/Plan Assessment/Plan 82 year old female with 1.4 cm calculus at the right UPJ, is asking for one more day to try to flush stone through. Discussed with patient that given size of stone, is unlikely, however we can monitor for one day and see how she does overnight. Patient will need cardiovascular clearance for surgery anyway since she has a significant cardiovascular history. For today: Continue IVF. Strain urine Cardiac diet today with NPO at midnight Continue pain control/nausea control as needed. Continue antibiotics(Cipro q 12) Labs in the am KUB in am. Will follow. EMETERIO MAHONEY MD 12/11/17 1401: UROLOGY CONSULT Assessment/Plan Assessment/Plan Non obstructing right mid pole and renal pelvis stone. right extra renal pelvis. Recommend treating uti first. KUB for stone visualization. Will set for right ESWl as OP. DOLORES CAMPOS APRN Dec 11, 2017 10:15 EMETERIO MAHONEY MD Dec 11, 2017 14:01
[2017-12-11 11:00] VITALS: BP 139/46
[2017-12-11] MEDS: POTASSIUM CHLORIDE 10 MEQ TABLET.ER. PO SCH (11:00)
[2017-12-11] MEDS: FERROUS SULFATE 325 MG TABLET. PO SCH ×2 (11:00→20:58)
[2017-12-11] MEDS: hydroCHLOROthiazide 12.5 MG CAPSULE PO SCH (11:00)
[2017-12-11] MEDS: FUROSEMIDE 40 MG TABLET. PO SCH (11:00)
[2017-12-11] MEDS: DRONEDARONE HCL 400 MG TABLET PO SCH ×2 (11:01→21:21)
[2017-12-11] MEDS: INSULIN GLARGINE 300 UNITS/3 ML INSULN.PEN. SQ SCH (11:04)
--- NOTE | 2017-12-11 11:15 | PDOC2 ---
CONSULT Date of Consult Date of Consult DATE: 12/11/17 TIME: 11:04 Reason for Consult Reason for Consult: CKD, Pyelo, Renal Lithiasis Identification/Chief Complaint Chief Complaint Lower abdomen discomfort/pain - better Source Source: Chart review, Patient History of Present Illness Reason for Visit: Pt is a 82-year-old CF with PMHx of CHF, DM , COPD, A. fib, HTN, aortic valve replacement, chronic iron deficiency anemia, and macular degeneration admitted on 12/10 for likely pyelonephritis and kidney stones. She reports she has been having pain in lower abdomen (suprapubic) and caused her to come to the ER. States its not tender just discomfort- better now. She denies dysuria, frequency, urgency. She reports she was told by Dr. Buenrostro that she has small stone and he was trying to dissolve it . She never passed any stones and no Surgical intervention. The last time she saw a urologist was about 2-3 years ago had- a 4 mm stone that was asymptomatic She denies any other symptoms of chest pain, palpitations, SOB . No Fever/ Chills , No N/V/D . She uses Home O2 24/7 2 Lts . Denies taking NSAID's. Has never seen Renal Past Medical History Cardiovascular: AFIB, CAD, CHF, HTN, Hyperlipidemia, Valve insufficiency, Pulmonary hypertension Pulmonary: Bronchitis, COPD GI: Diverticulosis, GI bleed Endocrine: Diabetes Past Surgical History Past Surgical History: Pacemaker, Appendectomy, Cholecystectomy, CABG, Total knee replacement, Hysterectomy, Other Family History Family History: Heart Disease Social History No ALCOHOL: none Drugs: None Current Medications Current Medications Current Medications Sodium Chloride 500 ml @ 500 mls/hr 1X ONCE IV Last administered on at 04:21; Start 12/11/17 at 03:45; Stop 12/11/17 at 04:44; Status DC Ketorolac Tromethamine (Toradol 30mg Vial) 30 mg 1X ONCE IV Last administered on 12/11/17at 04:20; Start 12/11/17 at 03:45; Stop 12/11/17 at 03:46; Status DC Ondansetron HCl (Zofran) 4 mg 1X ONCE IV Last administered on 12/11/17at 04:20 ; Start 12/11/17 at 03:45; Stop 12/11/17 at 03:46; Status DC Levofloxacin/ Dextrose 150 ml @ 100 mls/hr 1X ONCE IV Last administered on at 05:38; Start 12/11/17 at 05:30; Stop 12/11/17 at 06:59; Status DC Ondansetron HCl (Zofran) 4 mg PRN Q8HRS PRN IV NAUSEA/VOMITING 1ST CHOICE; Start 12/11/17 at 05:15; Stop 12/13/17 at 05:13 Fentanyl Citrate (Fentanyl 2ml Vial) 50 mcg PRN Q2HR PRN IV SEVERE PAIN Last administered on 12/11/17at 09:53; Start 12/11/17 at 05:15; Stop 12/13/17 at 05 :13 Acetaminophen (Tylenol) 650 mg PRN Q4HRS PRN PO FEVER; Start 12/11/17 at 05:15 ; Stop 12/12/17 at 05:14 Ciprofloxacin/ Dextrose 200 ml @ 200 mls/hr Q12HR IV Last administered on at 09:51; Start 12/11/17 at 09:00 Sodium Chloride 1,000 ml @ 75 mls/hr [id number] IV Last administered on at 09:51; Start 12/11/17 at 08:30 Tamsulosin HCl (Flomax) 0.4 mg DAILY PO Last administered on 12/11/17at 09:51; Start 12/11/17 at 09:00 Alprazolam (Xanax) 0.25 mg HS PO ; Start 12/11/17 at 21:00 Aspirin (Madhuri Aspirin) 325 mg DAILY PO ; Start 12/11/17 at 12:00 Atorvastatin Calcium (Lipitor) 40 mg QHS PO ; Start 12/12/17 at 21:00 Dronedarone (Multaq) 400 mg BID PO ; Start 12/11/17 at 12:00 Ferrous Sulfate (Feosol) 325 mg BID PO ; Start 12/11/17 at 12:00 Furosemide (Lasix) 40 mg QMWF@0900 PO ; Start 12/11/17 at 12:00 Gabapentin (Neurontin) 100 mg TID PO Last administered on 12/11/17at 09:51; Start 12/11/17 at 10:00 Metoprolol Tartrate (Lopressor) 50 mg BID PO Last administered on 12/11/17at 09 :52; Start 12/11/17 at 10:00 Potassium Chloride (Klor-Con) 10 meq DAILY PO ; Start 12/11/17 at 12:00 Non-Formulary Medication (Budesonide/ Formoterol Fumarate (Symbicort 160-4.5 Mcg Inhaler)) 10.2 gm BID IH ; Start 12/11/17 at 21:00; Status UNV Hydrochlorothiazide (Microzide) 12.5 mg DAILY PO ; Start 12/11/17 at 12:00 Insulin Glargine (Lantus) 20 units QHS SQ ; Start 12/11/17 at 21:00 Insulin Glargine (Lantus) 40 units DAILYWBKFT SQ ; Start 12/11/17 at 10:00 Pantoprazole Sodium (Protonix) 40 mg DAILYAC PO Last administered on at 09:51; Start 12/11/17 at 11:00 Dextrose (Dextrose 50%-Water Syringe) 12.5 gm PRN Q15MIN PRN IV SEE COMMENTS; Start 12/11/17 at 09:30 Budesonide (Pulmicort) 0.5 mg BID NEB ; Start 12/11/17 at 10:00 Albuterol Sulfate (Ventolin Neb Soln) 2.5 mg Q6HRS NEB ; Start 12/11/17 at 12: 00 Active Scripts Active Reported Protonix (Pantoprazole Sodium) 40 Mg Granpkt.dr 40 Mg PO DAILY Ferrous Sulfate 325 Mg Tablet 1 Tab PO BID Levemir (Insulin Detemir) 100 Unit/1 Ml Vial 40 Unit SQ DAILYWBKFT Levemir (Insulin Detemir) 100 Unit/1 Ml Vial 20 Unit SQ QHS Furosemide 40 Mg Tablet 40 Mg PO QMWF Gabapentin 100 Mg Capsule 100 Mg PO TID Metoprolol Tartrate 50 Mg Tablet 50 Mg PO BID Multaq (Dronedarone Hcl) 400 Mg Tablet 1 Tab PO BID Alprazolam 0.25 Mg Tablet 1 Tab PO HS Aspirin 325 Mg Tablet 1 Tab PO DAILY Potassium Chloride 10 Meq Capsule.er 1 Cap PO DAILY Hydrochlorothiazide Tablet (Hydrochlorothiazide) 12.5 Mg Tablet 12.5 Mg PO DAILY Symbicort 160-4.5 Mcg Inhaler (Budesonide/Formoterol Fumarate) 10.2 Gm Hfa.aer.ad 10.2 Gm IH BID Atorvastatin Calcium 40 Mg Tablet 40 Mg PO DAILY Allergies Allergies: Coded Allergies: lisinopril (Verified Allergy, Severe, Anaphylaxis, 02/11/17) shellfish derived (Verified Allergy, Severe, Shortness of Air, 02/11/17) Penicillins (Verified Allergy, Intermediate, Tolerates rocephin, 02/11/17) Sulfa (Sulfonamide Antibiotics) (Verified Allergy, Intermediate, 02/11/17) morphine (Verified Adverse Reaction, Severe, Anxiety, 02/11/17) ROS Review of System As per HPI Physical Exam Physical Exam Gen- NAD HEENT- OM Moist Neck- supple Heart RRR, 2/6 systolic murmur Lungs - CTAB, no wheezes or rhonchi Abd- Soft, NT, - No CVA tenderness, Ext - No edema, Neuro - Nonfocal, cranial nerves II through XII grossly intact Skin No Rash Vital Signs Vital Signs Date Time Temp Pulse Resp B/P (MAP) Pulse Ox O2 Delivery O2 Flow Rate FiO2 12/11/17 09:53 95 Nasal Cannula 2.0 12/11/17 09:52 57 140/73 12/11/17 06:09 97.9 18 97.9 Assessment & Plan ARMAAN on CKD - Obstructive Uropathy Urology following E-Lytes and acid base stable UTI- likely has UTI As per Primary CKD stage 3- Baseline 1.2-1.3, in Jan 2016 1.6 based on Records available in [facility] EMR Nephrolithiasis, bilateral- Urology consulted CHF Compensated On HCTZ and lasix Chronic iron deficiency anemia Baseline 10, follows with PCP Type 2 diabetes as per primary A. fib- stable History of aortic valve replacement Hypertension Discussed with Pt Labs Labs Laboratory Tests Test 12/11/17 03:15 12/11/17 07:28 12/11/17 10:51 White Blood Count 10.3 x10^3/uL (4.0-11.0) Red Blood Count 3.13 x10^6/uL (3.50-5.40) Hemoglobin 9.7 g/dL (12.0-15.5) Hematocrit 28.8 % (36.0-47.0) Mean Corpuscular Volume 92 fL (79-100) Mean Corpuscular Hemoglobin 31 pg (25-35) Mean Corpuscular Hemoglobin Concent 34 g/dL (31-37) Red Cell Distribution Width 15.1 % (11.5-14.5) Platelet Count 340 x10^3/uL (140-400) Neutrophils (%) (Auto) 77 % (31-73) Lymphocytes (%) (Auto) 12 % (24-48) Monocytes (%) (Auto) 8 % (0-9) Eosinophils (%) (Auto) 1 % (0-3) Basophils (%) (Auto) 1 % (0-3) Neutrophils # (Auto) 8.0 x10^3uL (1.8-7.7) Lymphocytes # (Auto) 1.2 x10^3/uL (1.0-4.8) Monocytes # (Auto) 0.8 x10^3/uL (0.0-1.1) Eosinophils # (Auto) 0.1 x10^3/uL (0.0-0.7) Basophils # (Auto) 0.1 x10^3/uL (0.0-0.2) Urine Collection Type Unknown Urine Color Red Urine Clarity Turbid Urine pH 5.0 Urine Specific [place] 1.020 Urine Protein >=300 mg/dL (NEG-TRACE) Urine Glucose (UA) Negative mg/dL (NEG) Urine Ketones (Stick) 40 mg/dL (NEG) Urine Blood Large (NEG) Urine Nitrite Positive (NEG) Urine Bilirubin Large (NEG) Urine Urobilinogen Dipstick 1.0 mg/dL (0.2 mg/dL) Urine Leukocyte Esterase Large (NEG) Urine RBC Tntc /HPF (0-2) Urine WBC Tntc /HPF (0-4) Urine Squamous Epithelial Cells Mod /LPF Urine Bacteria Many /HPF (0-FEW) Urine Mucus Slight /LPF Sodium Level 137 mmol/L (136-145) Potassium Level 3.9 mmol/L (3.5-5.1) Chloride Level 97 mmol/L (98-107) Carbon Dioxide Level 31 mmol/L (21-32) Anion Gap 9 (6-14) Blood Urea Nitrogen 40 mg/dL (7-20) Creatinine 1.7 mg/dL (0.6-1.0) Estimated GFR (Cockcroft-Gault) 28.7 Glucose Level 324 mg/dL (70-99) Calcium Level 9.6 mg/dL (8.5-10.1) Creatine Kinase 34 U/L (26-192) Glucose (Fingerstick) 277 mg/dL (70-99) 285 mg/dL (70-99) Laboratory Tests Test 12/11/17 03:15 12/11/17 07:28 12/11/17 10:51 White Blood Count 10.3 x10^3/uL (4.0-11.0) Red Blood Count 3.13 x10^6/uL (3.50-5.40) Hemoglobin 9.7 g/dL (12.0-15.5) Hematocrit 28.8 % (36.0-47.0) Mean Corpuscular Volume 92 fL (79-100) Mean Corpuscular Hemoglobin 31 pg (25-35) Mean Corpuscular Hemoglobin Concent 34 g/dL (31-37) Red Cell Distribution Width 15.1 % (11.5-14.5) Platelet Count 340 x10^3/uL (140-400) Neutrophils (%) (Auto) 77 % (31-73) Lymphocytes (%) (Auto) 12 % (24-48) Monocytes (%) (Auto) 8 % (0-9) Eosinophils (%) (Auto) 1 % (0-3) Basophils (%) (Auto) 1 % (0-3) Neutrophils # (Auto) 8.0 x10^3uL (1.8-7.7) Lymphocytes # (Auto) 1.2 x10^3/uL (1.0-4.8) Monocytes # (Auto) 0.8 x10^3/uL (0.0-1.1) Eosinophils # (Auto) 0.1 x10^3/uL (0.0-0.7) Basophils # (Auto) 0.1 x10^3/uL (0.0-0.2) Urine Collection Type Unknown Urine Color Red Urine Clarity Turbid Urine pH 5.0 Urine Specific [place] 1.020 Urine Protein >=300 mg/dL (NEG-TRACE) Urine Glucose (UA) Negative mg/dL (NEG) Urine Ketones (Stick) 40 mg/dL (NEG) Urine Blood Large (NEG) Urine Nitrite Positive (NEG) Urine Bilirubin Large (NEG) Urine Urobilinogen Dipstick 1.0 mg/dL (0.2 mg/dL) Urine Leukocyte Esterase Large (NEG) Urine RBC Tntc /HPF (0-2) Urine WBC Tntc /HPF (0-4) Urine Squamous Epithelial Cells Mod /LPF Urine Bacteria Many /HPF (0-FEW) Urine Mucus Slight /LPF Sodium Level 137 mmol/L (136-145) Potassium Level 3.9 mmol/L (3.5-5.1) Chloride Level 97 mmol/L (98-107) Carbon Dioxide Level 31 mmol/L (21-32) Anion Gap 9 (6-14) Blood Urea Nitrogen 40 mg/dL (7-20) Creatinine 1.7 mg/dL (0.6-1.0) Estimated GFR (Cockcroft-Gault) 28.7 Glucose Level 324 mg/dL (70-99) Calcium Level 9.6 mg/dL (8.5-10.1) Creatine Kinase 34 U/L (26-192) Glucose (Fingerstick) 277 mg/dL (70-99) 285 mg/dL (70-99) Review All relevant outside records, renal labs, imaging studies, telemetry/EKG's were reviewed. Images Images CT scan Abdomen-- IMPRESSION: 1. 1.4 cm calculus is seen at the right ureteropelvic junction with associated mild right hydronephrosis and significant perienteric fat infiltration/inflammatory change. Superimposed infection is not excluded. 2. Nonobstructing 1.3 cm right interpolar renal calculus. ESTEVAN GOODRICH MD Dec 11, 2017 11:15
[2017-12-11] MEDS: ALBUTEROL SULFATE 2.5 MG/3 ML NEBU. NEB SCH ×4 (12:55→23:30)
[2017-12-11 15:00] VITALS: BP_SYST 137; BP_SYST 143; BP_DIAS 28; BP_DIAS 38
[2017-12-11 19:00] VITALS: BP 135/48
[2017-12-11] MEDS: ALPRAZolam 0.25 MG TABLET PO SCH (21:00)
[2017-12-11] MEDS ORDERED: INSULIN GLARGINE 300 UNITS/3 ML INSULN.PEN. SQ SCH (21:00)
[2017-12-11] MEDS ORDERED: NON FORMULARY ITEM (Budesonide/Formoterol Fumarate (Symbicort 160-4.5 Mcg Inhaler) 10.2 GM IH SCH (21:00)
[2017-12-11 23:17] VITALS: BP 115/39
[2017-12-12 03:50] VITALS: BP 137/38
[2017-12-12] MEDS: PANTOPRAZOLE 40 MG TABLET.DR. PO SCH (06:31)
[2017-12-12 06:35] LABS: BASO # 0.1 x10^3/uL (0.0-0.2); BASO % 1 % (0-3); EOS # 0.2 x10^3/uL (0.0-0.7); EOS % 2 % (0-3); HEMATOCRIT 27.9 % (36.0-47.0); HEMOGLOBIN 9.4 g/dL (12.0-15.5); LYMPH # 0.8 x10^3/uL (1.0-4.8); LYMPH % 9 % (24-48); MEAN CORPUSCULAR HEMOGLOBIN 31 pg (25-35); MEAN CORPUSCULAR HGB CONC 34 g/dL (31-37); MEAN CORPUSCULAR VOLUME 93 fL (79-100); MONO # 0.8 x10^3/uL (0.0-1.1); MONO % 9 % (0-9); NEUT # 6.9 x10^3uL (1.8-7.7); NEUT % 79 % (31-73); PLATELET COUNT 314 x10^3/uL (140-400); RED BLOOD COUNT 3.01 x10^6/uL (3.50-5.40); RED CELL DISTRIBUTION WIDTH 15.4 % (11.5-14.5); WHITE BLOOD COUNT 8.7 x10^3/uL (4.0-11.0)
[2017-12-12 06:37] LABS: CALCIUM 9.3 mg/dL (8.5-10.1); CREATININE 1.6 mg/dL (0.6-1.0); GFR 30.8; POTASSIUM 4.3 mmol/L (3.5-5.1)
[2017-12-12] MEDS: BUDESONIDE 0.5 MG/2 ML NEBU. NEB SCH ×2 (06:58→19:20)
[2017-12-12] MEDS: ALBUTEROL SULFATE 2.5 MG/3 ML NEBU. NEB SCH ×3 (06:58→13:20)
[2017-12-12 07:00] VITALS: BP 131/32
[2017-12-12] MEDS: hydroCHLOROthiazide 12.5 MG CAPSULE PO SCH ×2 (07:30→13:15)
[2017-12-12] MEDS: DRONEDARONE HCL 400 MG TABLET PO SCH ×2 (07:30→21:51)
[2017-12-12] MEDS: POTASSIUM CHLORIDE 10 MEQ TABLET.ER. PO SCH (07:30)
[2017-12-12] MEDS: ASPIRIN 325 MG TABLET PO SCH (07:30)
[2017-12-12] MEDS: INSULIN GLARGINE 300 UNITS/3 ML INSULN.PEN. SQ SCH ×2 (07:30→22:00)
[2017-12-12] MEDS: GABAPENTIN 100 MG CAPSULE. PO SCH ×3 (07:30→21:52)
[2017-12-12] MEDS: METOPROLOL TART IMMED RELEASE 50 MG TABLET. PO SCH ×2 (07:30→21:52)
[2017-12-12] MEDS: FERROUS SULFATE 325 MG TABLET. PO SCH ×2 (07:30→21:52)
[2017-12-12] MEDS: TAMSULOSIN 0.4 MG CAP.ER.24H. PO SCH (07:30)
--- NOTE | 2017-12-12 08:52 | PDOC ---
SUBJECTIVE Subjective Pt resting comfortably, no more pain or dysuria today. Got to see Dr. Lawson yesterday and he explained plan for termite treater stone management-ESWL. OBJECTIVE Objective General: Pleasant, no acute distress, well groomed Eyes: conjunctiva anicteric, eyes full range of motion Neck: Trachea midline, no masses Respiratory: unlabored breathing, not using accessory muscles. Back: No CVA pain bilaterally. Abdomen: Tender bilat lower quadrants. Soft, obese. Skin: no rashes or skin lesions on visualized skin Psych: normal mood, affect. Alert and oriented x 3. Vital Signs Vital Signs Date Time Temp Pulse Resp B/P (MAP) Pulse Ox O2 Delivery O2 Flow Rate FiO2 12/12/17 07:01 97 Nasal Cannula 2.0 12/12/17 07:00 97 Nasal Cannula 2.0 12/12/17 07:00 97.9 80 20 131/32 (65) 97 Nasal Cannula 2.0 97.9 12/12/17 03:50 98.6 60 20 137/38 (71) 98 Nasal Cannula 2.0 98.6 12/11/17 23:17 97.7 74 20 115/39 (64) 97 Nasal Cannula 2.0 97.7 12/11/17 21:21 58 135/48 12/11/17 21:21 58 135/48 12/11/17 20:19 98 Nasal Cannula 2.0 12/11/17 20:10 Nasal Cannula 2.0 12/11/17 19:00 97.9 58 18 135/48 (77) 98 Nasal Cannula 2.0 97.9 12/11/17 16:08 Room Air 12/11/17 15:00 97.5 60 16 143/28 (66) 98 Nasal Cannula 2.0 97.5 137/38 (71) 12/11/17 14:54 98 Nasal Cannula 2.0 12/11/17 12:55 98 Nasal Cannula 2.0 12/11/17 12:29 100 2.0 12/11/17 11:01 57 140/73 12/11/17 11:00 96.8 100 20 139/46 (77) 100 Nasal Cannula 2.0 96.8 12/11/17 09:53 95 Nasal Cannula 2.0 12/11/17 09:52 57 140/73 I & O Intake and Output 12/12/17 07:00 Intake Total 3253 ml Output Total 1350 ml Balance 1903 ml Intake Oral 1250 ml IV Total 2003 ml Output Urine Total 1350 ml # Voids 4 PHYSICAL EXAM Physical Exam General: Pleasant, no acute distress, well groomed Eyes: conjunctiva anicteric, eyes full range of motion Neck: Trachea midline, no masses Respiratory: unlabored breathing, not using accessory muscles. Back: No CVA pain bilaterally. Abdomen: Tender bilat lower quadrants. Soft, obese. Skin: no rashes or skin lesions on visualized skin Psych: normal mood, affect. Alert and oriented x 3. ASSESSMENT/PLAN Assessment/Plan Plan is for patient to have ESWL with DR. Lawson as an outpatient. KUB today to check stone Patient may eat, Cardiac diet. Urology does not plan on doing a surgery for patient this admit. Continue antibiotics, fluid, pain control and other supportive care. Whenever she does go home, she should go home on antibiotics. Renal involved, appreciate input. COMMENT Lab Laboratory Tests Test 12/11/17 10:51 12/11/17 16:45 12/11/17 20:49 12/12/17 06:00 Glucose (Fingerstick) 285 mg/dL (70-99) 267 mg/dL (70-99) 311 mg/dL (70-99) White Blood Count 8.7 x10^3/uL (4.0-11.0) Red Blood Count 3.01 x10^6/uL (3.50-5.40) Hemoglobin 9.4 g/dL (12.0-15.5) Hematocrit 27.9 % (36.0-47.0) Mean Corpuscular Volume 93 fL (79-100) Mean Corpuscular Hemoglobin 31 pg (25-35) Mean Corpuscular Hemoglobin Concent 34 g/dL (31-37) Red Cell Distribution Width 15.4 % (11.5-14.5) Platelet Count 314 x10^3/uL (140-400) Neutrophils (%) (Auto) 79 % (31-73) Lymphocytes (%) (Auto) 9 % (24-48) Monocytes (%) (Auto) 9 % (0-9) Eosinophils (%) (Auto) 2 % (0-3) Basophils (%) (Auto) 1 % (0-3) Neutrophils # (Auto) 6.9 x10^3uL (1.8-7.7) Lymphocytes # (Auto) 0.8 x10^3/uL (1.0-4.8) Monocytes # (Auto) 0.8 x10^3/uL (0.0-1.1) Eosinophils # (Auto) 0.2 x10^3/uL (0.0-0.7) Basophils # (Auto) 0.1 x10^3/uL (0.0-0.2) Sodium Level 136 mmol/L (136-145) Potassium Level 4.3 mmol/L (3.5-5.1) Chloride Level 98 mmol/L (98-107) Carbon Dioxide Level 31 mmol/L (21-32) Anion Gap 7 (6-14) Blood Urea Nitrogen 37 mg/dL (7-20) Creatinine 1.6 mg/dL (0.6-1.0) Estimated GFR (Cockcroft-Gault) 30.8 Glucose Level 225 mg/dL (70-99) Calcium Level 9.3 mg/dL (8.5-10.1) Test 12/12/17 07:17 Glucose (Fingerstick) 218 mg/dL (70-99) DOLORES CAMPOS APRN Dec 12, 2017 08:52
--- NOTE | 2017-12-12 09:04 | PDOC ---
Provider Note Provider Note [id number] PREMA MASON MD Dec 12, 2017 09:04
[2017-12-12] MEDS: CIPROFLOXACIN 400MG PREMIX 200 ML IV SCH (09:33)
--- NOTE | 2017-12-12 10:26 | PN ---
DATE: 12/12/2017 The patient reports some lessening of pain on the right side and no new symptoms. She denies fever, chills or any other complaints. Vitals are stable. No fever. Blood sugars are still running high with her taking the current insulin doses. She has a right hydronephrosis from a large 1.4 cm proximal ureteral stone with pyelo, and the urine culture is pending with her on IV Cipro now. We will continue the IV Cipro until we know the results of the culture and otherwise supportive care. Renal function slightly reduced from normal, and she is on some saline for rehydration. Rest of medical status appears to be stable. PREMA MASON MD DR: KAMI/dwaine JOB#: [id number] / [id number]
[2017-12-12 11:00] VITALS: BP 129/50
--- NOTE | 2017-12-12 11:10 | PDOC ---
SUBJECTIVE ROS Feeling better OBJECTIVE Vital Signs Vital Signs Date Time Temp Pulse Resp B/P (MAP) Pulse Ox O2 Delivery O2 Flow Rate FiO2 12/12/17 07:45 Nasal Cannula 2.0 12/12/17 07:01 97 12/12/17 07:00 97.9 80 20 131/32 (65) 97.9 I & 0 Intake and Output 12/12/17 07:00 Intake Total 3253 ml Output Total 1350 ml Balance 1903 ml Intake Oral 1250 ml IV Total 2003 ml Output Urine Total 1350 ml # Voids 4 PHYSICAL EXAM Physical Exam Gen- NAD HEENT- OM Moist Neck- supple Heart RRR, 2/6 systolic murmur Lungs - CTAB, no wheezes or rhonchi Abd- Soft, NT, - No CVA tenderness, Ext - No edema, Neuro - Nonfocal, cranial nerves II through XII grossly intact Skin No Rash DIAGNOSIS/ASSESSMENT Assessment & Plan ARMAAN on CKD - Obstructive Uropathy, Good UOP Urology following -Plan is for patient to have ESWL with DR. Lawson as an outpatient. E-Lytes and acid base stable UTI- On Abx , primary following CKD stage 3- Baseline 1.2-1.3, in Jan 2016 1.6 based on Records available in [facility] EMR Nephrolithiasis, bilateral-Plan is for patient to have ESWL with DR. Lawson as an outpatient. Urology following CHF Compensated On HCTZ and lasix Chronic iron deficiency anemia Baseline 10, follows with PCP Type 2 diabetes as per primary A. fib- stable History of aortic valve replacement Hypertension Discussed with Pt Follow up with us /Renal as OP if Pt agreeable - next available appt in 2-3 Months DC as per primary- follow up BMP in few weeks with PCP post dc COMMENT/RELEVANT DATA Meds Current Medications Medications (Trade) Dose Ordered Sig/Nickie Start Time Stop Time Status Last Admin Dose Admin Acetaminophen (Tylenol) 650 mg PRN Q4HRS PRN 12/11/17 05:15 12/12/17 05:14 DC Albuterol Sulfate (Ventolin Neb Soln) 2.5 mg Q6HRS 12/11/17 12:00 12/12/17 06:58 2.5 MG Alprazolam (Xanax) 0.25 mg HS 12/11/17 21:00 12/11/17 21:00 0.25 MG Aspirin (Madhuri Aspirin) 325 mg DAILY 12/11/17 12:00 Atorvastatin Calcium (Lipitor) 40 mg QHS 12/12/17 21:00 Budesonide (Pulmicort) 0.5 mg BID 12/11/17 10:00 12/12/17 06:58 0.5 MG Ciprofloxacin/ Dextrose 200 ml @ 200 mls/hr Q12HR 12/11/17 09:00 12/12/17 09:33 200 MLS/HR Dextrose (Dextrose 50%-Water Syringe) 12.5 gm PRN Q15MIN PRN 12/11/17 09:30 Dronedarone (Multaq) 400 mg BID 12/11/17 12:00 12/11/17 11:01 400 MG Fentanyl Citrate (Fentanyl 2ml Vial) 50 mcg PRN Q2HR PRN 12/11/17 05:15 12/13/17 05:13 12/11/17 14:54 50 MCG Ferrous Sulfate (Feosol) 325 mg BID 12/11/17 12:00 12/11/17 20:58 325 MG Furosemide (Lasix) 40 mg QMWF@0900 12/11/17 12:00 12/11/17 11:00 40 MG Gabapentin (Neurontin) 100 mg TID 12/11/17 10:00 12/11/17 21:00 100 MG Hydrochlorothiazide (Microzide) 12.5 mg DAILY 12/11/17 12:00 12/11/17 11:00 12.5 MG Insulin Glargine (Lantus) 30 units QHS 12/12/17 21:00 Ketorolac Tromethamine (Toradol 30mg Vial) 30 mg 1X ONCE 12/11/17 03:45 12/11/17 03:46 DC 12/11/17 04:20 30 MG Levofloxacin/ Dextrose 150 ml @ 100 mls/hr 1X ONCE 12/11/17 05:30 12/11/17 06:59 DC 12/11/17 05:38 100 MLS/HR Metoprolol Tartrate (Lopressor) 50 mg BID 12/11/17 10:00 12/11/17 09:52 50 MG Non-Formulary Medication (Budesonide/ Formoterol Fumarate (Symbicort 160-4.5 Mcg Inhaler)) 10.2 gm BID 12/11/17 21:00 UNV Ondansetron HCl (Zofran) 4 mg PRN Q8HRS PRN 12/11/17 05:15 12/13/17 05:13 Pantoprazole Sodium (Protonix) 40 mg DAILYAC 12/11/17 11:00 12/11/17 09:51 40 MG Potassium Chloride (Klor-Con) 10 meq DAILY 12/11/17 12:00 12/11/17 11:00 10 MEQ Sodium Chloride 1,000 ml @ 75 mls/hr [id number] 12/11/17 08:30 12/11/17 21:05 75 MLS/HR Tamsulosin HCl (Flomax) 0.4 mg DAILY 12/11/17 09:00 12/11/17 09:51 0.4 MG Lab Laboratory Tests Test 12/11/17 16:45 12/11/17 20:49 12/12/17 06:00 12/12/17 07:17 Glucose (Fingerstick) 267 mg/dL (70-99) 311 mg/dL (70-99) 218 mg/dL (70-99) White Blood Count 8.7 x10^3/uL (4.0-11.0) Red Blood Count 3.01 x10^6/uL (3.50-5.40) Hemoglobin 9.4 g/dL (12.0-15.5) Hematocrit 27.9 % (36.0-47.0) Mean Corpuscular Volume 93 fL (79-100) Mean Corpuscular Hemoglobin 31 pg (25-35) Mean Corpuscular Hemoglobin Concent 34 g/dL (31-37) Red Cell Distribution Width 15.4 % (11.5-14.5) Platelet Count 314 x10^3/uL (140-400) Neutrophils (%) (Auto) 79 % (31-73) Lymphocytes (%) (Auto) 9 % (24-48) Monocytes (%) (Auto) 9 % (0-9) Eosinophils (%) (Auto) 2 % (0-3) Basophils (%) (Auto) 1 % (0-3) Neutrophils # (Auto) 6.9 x10^3uL (1.8-7.7) Lymphocytes # (Auto) 0.8 x10^3/uL (1.0-4.8) Monocytes # (Auto) 0.8 x10^3/uL (0.0-1.1) Eosinophils # (Auto) 0.2 x10^3/uL (0.0-0.7) Basophils # (Auto) 0.1 x10^3/uL (0.0-0.2) Sodium Level 136 mmol/L (136-145) Potassium Level 4.3 mmol/L (3.5-5.1) Chloride Level 98 mmol/L (98-107) Carbon Dioxide Level 31 mmol/L (21-32) Anion Gap 7 (6-14) Blood Urea Nitrogen 37 mg/dL (7-20) Creatinine 1.6 mg/dL (0.6-1.0) Estimated GFR (Cockcroft-Gault) 30.8 Glucose Level 225 mg/dL (70-99) Calcium Level 9.3 mg/dL (8.5-10.1) Results All relevant outside records, renal labs, imaging studies, telemetry/EKG's were reviewed. ESTEVAN GOODRICH MD Dec 12, 2017 11:10
--- NOTE | 2017-12-12 12:23 | RAD ---
KUB, 12/12/2017: HISTORY: Kidney stone The abdominal gas pattern is unremarkable. There is no evidence organomegaly. Lower pelvic calcifications on the right are probably phleboliths. The renal regions are partially obscured by overlying bowel. The patient's right intrarenal and proximal ureteral calculi seen on the recent CT study are not visible radiographically. Scattered degenerative changes are present in the spine. IMPRESSION: No acute abnormality is detected. Electronically signed by: Eric Abarca MD (12/12/2017 12:19 PM) [facility]
[2017-12-12] MEDS: IV NORMAL SALINE 1000ML BAG 1,000 ML IV SCH (13:07)
[2017-12-12] MEDS ORDERED: INSULIN GLARGINE 300 UNITS/3 ML INSULN.PEN. SQ ONE (13:15)
[2017-12-12] MEDS: FUROSEMIDE 40 MG TABLET. PO SCH (13:16)
[2017-12-12] MEDS ORDERED: ALBUTEROL SULFATE 2.5 MG/3 ML NEBU. NEB PRN (13:45)
--- NOTE | 2017-12-12 14:18 | PDOC ---
PROGRESS NOTES Subjective Subjective patient has had no chest pain since admission her back pain has resolved with medications, she states less blood is in urine her albuterol treatments have been helping her with her shortness of breath in morning and evening Objective Objective Vital Signs Date Time Temp Pulse Resp B/P (MAP) Pulse Ox O2 Delivery O2 Flow Rate FiO2 12/12/17 13:21 Nasal Cannula 2.0 12/12/17 11:00 98.0 77 20 129/50 (76) 98 98.0 Intake and Output 12/12/17 07:00 Intake Total 3253 ml Output Total 1350 ml Balance 1903 ml Intake Oral 1250 ml IV Total 2003 ml Output Urine Total 1350 ml # Voids 4 Physical Exam Heart: Regular rate, Normal S1, Normal S2, Other (2/6 systolic ejection murmur) Extremities: No clubbing, No cyanosis, No edema General: Alert, Oriented X3, Cooperative, No acute distress Lungs: Clear to auscultation, Normal air movement Assessment Assessment no current cardiac conditions requiring intervention Plan Plan of Care will continue to follow patient for any cardiac concerns patient is stable from cardiovascular standpoint treatment as indicated by primary Comment Review of Relevant I have reviewed the following items yo (where applicable) has been applied. Labs Laboratory Tests Test 12/11/17 03:15 12/11/17 07:28 12/11/17 10:51 12/11/17 16:45 White Blood Count 10.3 x10^3/uL (4.0-11.0) Red Blood Count 3.13 x10^6/uL (3.50-5.40) Hemoglobin 9.7 g/dL (12.0-15.5) Hematocrit 28.8 % (36.0-47.0) Mean Corpuscular Volume 92 fL (79-100) Mean Corpuscular Hemoglobin 31 pg (25-35) Mean Corpuscular Hemoglobin Concent 34 g/dL (31-37) Red Cell Distribution Width 15.1 % (11.5-14.5) Platelet Count 340 x10^3/uL (140-400) Neutrophils (%) (Auto) 77 % (31-73) Lymphocytes (%) (Auto) 12 % (24-48) Monocytes (%) (Auto) 8 % (0-9) Eosinophils (%) (Auto) 1 % (0-3) Basophils (%) (Auto) 1 % (0-3) Neutrophils # (Auto) 8.0 x10^3uL (1.8-7.7) Lymphocytes # (Auto) 1.2 x10^3/uL (1.0-4.8) Monocytes # (Auto) 0.8 x10^3/uL (0.0-1.1) Eosinophils # (Auto) 0.1 x10^3/uL (0.0-0.7) Basophils # (Auto) 0.1 x10^3/uL (0.0-0.2) Urine Collection Type Unknown Urine Color Red Urine Clarity Turbid Urine pH 5.0 Urine Specific [place] 1.020 Urine Protein >=300 mg/dL (NEG-TRACE) Urine Glucose (UA) Negative mg/dL (NEG) Urine Ketones (Stick) 40 mg/dL (NEG) Urine Blood Large (NEG) Urine Nitrite Positive (NEG) Urine Bilirubin Large (NEG) Urine Urobilinogen Dipstick 1.0 mg/dL (0.2 mg/dL) Urine Leukocyte Esterase Large (NEG) Urine RBC Tntc /HPF (0-2) Urine WBC Tntc /HPF (0-4) Urine Squamous Epithelial Cells Mod /LPF Urine Bacteria Many /HPF (0-FEW) Urine Mucus Slight /LPF Sodium Level 137 mmol/L (136-145) Potassium Level 3.9 mmol/L (3.5-5.1) Chloride Level 97 mmol/L (98-107) Carbon Dioxide Level 31 mmol/L (21-32) Anion Gap 9 (6-14) Blood Urea Nitrogen 40 mg/dL (7-20) Creatinine 1.7 mg/dL (0.6-1.0) Estimated GFR (Cockcroft-Gault) 28.7 Glucose Level 324 mg/dL (70-99) Calcium Level 9.6 mg/dL (8.5-10.1) Creatine Kinase 34 U/L (26-192) Glucose (Fingerstick) 277 mg/dL (70-99) 285 mg/dL (70-99) 267 mg/dL (70-99) Test 12/11/17 20:49 12/12/17 06:00 12/12/17 07:17 12/12/17 11:41 Glucose (Fingerstick) 311 mg/dL (70-99) 218 mg/dL (70-99) 269 mg/dL (70-99) White Blood Count 8.7 x10^3/uL (4.0-11.0) Red Blood Count 3.01 x10^6/uL (3.50-5.40) Hemoglobin 9.4 g/dL (12.0-15.5) Hematocrit 27.9 % (36.0-47.0) Mean Corpuscular Volume 93 fL (79-100) Mean Corpuscular Hemoglobin 31 pg (25-35) Mean Corpuscular Hemoglobin Concent 34 g/dL (31-37) Red Cell Distribution Width 15.4 % (11.5-14.5) Platelet Count 314 x10^3/uL (140-400) Neutrophils (%) (Auto) 79 % (31-73) Lymphocytes (%) (Auto) 9 % (24-48) Monocytes (%) (Auto) 9 % (0-9) Eosinophils (%) (Auto) 2 % (0-3) Basophils (%) (Auto) 1 % (0-3) Neutrophils # (Auto) 6.9 x10^3uL (1.8-7.7) Lymphocytes # (Auto) 0.8 x10^3/uL (1.0-4.8) Monocytes # (Auto) 0.8 x10^3/uL (0.0-1.1) Eosinophils # (Auto) 0.2 x10^3/uL (0.0-0.7) Basophils # (Auto) 0.1 x10^3/uL (0.0-0.2) Sodium Level 136 mmol/L (136-145) Potassium Level 4.3 mmol/L (3.5-5.1) Chloride Level 98 mmol/L (98-107) Carbon Dioxide Level 31 mmol/L (21-32) Anion Gap 7 (6-14) Blood Urea Nitrogen 37 mg/dL (7-20) Creatinine 1.6 mg/dL (0.6-1.0) Estimated GFR (Cockcroft-Gault) 30.8 Glucose Level 225 mg/dL (70-99) Calcium Level 9.3 mg/dL (8.5-10.1) Laboratory Tests Test 12/11/17 16:45 12/11/17 20:49 12/12/17 06:00 12/12/17 07:17 Glucose (Fingerstick) 267 mg/dL (70-99) 311 mg/dL (70-99) 218 mg/dL (70-99) White Blood Count 8.7 x10^3/uL (4.0-11.0) Red Blood Count 3.01 x10^6/uL (3.50-5.40) Hemoglobin 9.4 g/dL (12.0-15.5) Hematocrit 27.9 % (36.0-47.0) Mean Corpuscular Volume 93 fL (79-100) Mean Corpuscular Hemoglobin 31 pg (25-35) Mean Corpuscular Hemoglobin Concent 34 g/dL (31-37) Red Cell Distribution Width 15.4 % (11.5-14.5) Platelet Count 314 x10^3/uL (140-400) Neutrophils (%) (Auto) 79 % (31-73) Lymphocytes (%) (Auto) 9 % (24-48) Monocytes (%) (Auto) 9 % (0-9) Eosinophils (%) (Auto) 2 % (0-3) Basophils (%) (Auto) 1 % (0-3) Neutrophils # (Auto) 6.9 x10^3uL (1.8-7.7) Lymphocytes # (Auto) 0.8 x10^3/uL (1.0-4.8) Monocytes # (Auto) 0.8 x10^3/uL (0.0-1.1) Eosinophils # (Auto) 0.2 x10^3/uL (0.0-0.7) Basophils # (Auto) 0.1 x10^3/uL (0.0-0.2) Sodium Level 136 mmol/L (136-145) Potassium Level 4.3 mmol/L (3.5-5.1) Chloride Level 98 mmol/L (98-107) Carbon Dioxide Level 31 mmol/L (21-32) Anion Gap 7 (6-14) Blood Urea Nitrogen 37 mg/dL (7-20) Creatinine 1.6 mg/dL (0.6-1.0) Estimated GFR (Cockcroft-Gault) 30.8 Glucose Level 225 mg/dL (70-99) Calcium Level 9.3 mg/dL (8.5-10.1) Test 12/12/17 11:41 Glucose (Fingerstick) 269 mg/dL (70-99) Medications Current Medications Sodium Chloride 500 ml @ 500 mls/hr 1X ONCE IV Last administered on at 04:21; Start 12/11/17 at 03:45; Stop 12/11/17 at 04:44; Status DC Ketorolac Tromethamine (Toradol 30mg Vial) 30 mg 1X ONCE IV Last administered on 12/11/17at 04:20; Start 12/11/17 at 03:45; Stop 12/11/17 at 03:46; Status DC Ondansetron HCl (Zofran) 4 mg 1X ONCE IV Last administered on 12/11/17at 04:20 ; Start 12/11/17 at 03:45; Stop 12/11/17 at 03:46; Status DC Levofloxacin/ Dextrose 150 ml @ 100 mls/hr 1X ONCE IV Last administered on at 05:38; Start 12/11/17 at 05:30; Stop 12/11/17 at 06:59; Status DC Ondansetron HCl (Zofran) 4 mg PRN Q8HRS PRN IV NAUSEA/VOMITING 1ST CHOICE; Start 12/11/17 at 05:15; Stop 12/13/17 at 05:13 Fentanyl Citrate (Fentanyl 2ml Vial) 50 mcg PRN Q2HR PRN IV SEVERE PAIN Last administered on 12/11/17at 14:54; Start 12/11/17 at 05:15; Stop 12/13/17 at 05 :13 Acetaminophen (Tylenol) 650 mg PRN Q4HRS PRN PO FEVER; Start 12/11/17 at 05:15 ; Stop 12/12/17 at 05:14; Status DC Ciprofloxacin/ Dextrose 200 ml @ 200 mls/hr Q12HR IV Last administered on at 09:33; Start 12/11/17 at 09:00 Sodium Chloride 1,000 ml @ 75 mls/hr [id number] IV Last administered on at 13:07; Start 12/11/17 at 08:30 Tamsulosin HCl (Flomax) 0.4 mg DAILY PO Last administered on 12/11/17at 09:51; Start 12/11/17 at 09:00 Alprazolam (Xanax) 0.25 mg HS PO Last administered on 12/11/17at 21:00; Start 12/11/17 at 21:00 Aspirin (Madhuri Aspirin) 325 mg DAILY PO ; Start 12/11/17 at 12:00 Atorvastatin Calcium (Lipitor) 40 mg QHS PO ; Start 12/12/17 at 21:00 Dronedarone (Multaq) 400 mg BID PO Last administered on 12/11/17at 11:01; Start 12/11/17 at 12:00 Ferrous Sulfate (Feosol) 325 mg BID PO Last administered on 12/11/17at 20:58; Start 12/11/17 at 12:00 Furosemide (Lasix) 40 mg QMWF@0900 PO Last administered on 12/12/17at 13:16; Start 12/11/17 at 12:00 Gabapentin (Neurontin) 100 mg TID PO Last administered on 12/12/17at 13:07; Start 12/11/17 at 10:00 Metoprolol Tartrate (Lopressor) 50 mg BID PO Last administered on 12/11/17at 09 :52; Start 12/11/17 at 10:00 Potassium Chloride (Klor-Con) 10 meq DAILY PO Last administered on 12/11/17at 11:00; Start 12/11/17 at 12:00 Non-Formulary Medication (Budesonide/ Formoterol Fumarate (Symbicort 160-4.5 Mcg Inhaler)) 10.2 gm BID IH ; Start 12/11/17 at 21:00; Status UNV Hydrochlorothiazide (Microzide) 12.5 mg DAILY PO Last administered on at 13:15; Start 12/11/17 at 12:00 Insulin Glargine (Lantus) 20 units QHS SQ Last administered on 12/11/17at 21:03 ; Start 12/11/17 at 21:00; Stop 12/12/17 at 09:05; Status DC Insulin Glargine (Lantus) 40 units DAILYWBKFT SQ Last administered on at 11:04; Start 12/11/17 at 10:00; Stop 12/12/17 at 09:05; Status DC Pantoprazole Sodium (Protonix) 40 mg DAILYAC PO Last administered on at 09:51; Start 12/11/17 at 11:00 Dextrose (Dextrose 50%-Water Syringe) 12.5 gm PRN Q15MIN PRN IV SEE COMMENTS; Start 12/11/17 at 09:30 Budesonide (Pulmicort) 0.5 mg BID NEB Last administered on 12/12/17at 06:58; Start 12/11/17 at 10:00 Albuterol Sulfate (Ventolin Neb Soln) 2.5 mg Q6HRS NEB Last administered on at 13:20; Start 12/11/17 at 12:00; Stop 12/12/17 at 13:32; Status DC Insulin Glargine (Lantus) 50 units DAILYWBKFT SQ ; Start 12/13/17 at 08:00 Insulin Glargine (Lantus) 30 units QHS SQ ; Start 12/12/17 at 21:00 Insulin Glargine (Lantus) 30 units 1X ONCE SQ Last administered on 12/12/17at 13:14; Start 12/12/17 at 13:15; Stop 12/12/17 at 13:16; Status DC Albuterol Sulfate (Ventolin Neb Soln) 2.5 mg PRN Q6HRS PRN NEB SHORTNESS OF BREATH; Start 12/12/17 at 13:45 Active Scripts Active Reported Protonix (Pantoprazole Sodium) 40 Mg Granpkt.dr 40 Mg PO DAILY Ferrous Sulfate 325 Mg Tablet 1 Tab PO BID Levemir (Insulin Detemir) 100 Unit/1 Ml Vial 40 Unit SQ [id number] Levemir (Insulin Detemir) 100 Unit/1 Ml Vial 20 Unit SQ QHS Furosemide 40 Mg Tablet 40 Mg PO QMWF Gabapentin 100 Mg Capsule 100 Mg PO TID Metoprolol Tartrate 50 Mg Tablet 50 Mg PO BID Multaq (Dronedarone Hcl) 400 Mg Tablet 1 Tab PO BID Alprazolam 0.25 Mg Tablet 1 Tab PO HS Aspirin 325 Mg Tablet 1 Tab PO DAILY Potassium Chloride 10 Meq Capsule.er 1 Cap PO DAILY Hydrochlorothiazide Tablet (Hydrochlorothiazide) 12.5 Mg Tablet 12.5 Mg PO DAILY Symbicort 160-4.5 Mcg Inhaler (Budesonide/Formoterol Fumarate) 10.2 Gm Hfa.aer.ad 10.2 Gm IH BID Atorvastatin Calcium 40 Mg Tablet 40 Mg PO DAILY Vitals/I & O Vital Sign - Last 24 Hours 12/11/17 12/11/17 12/11/17 12/11/17 14:54 15:00 16:08 19:00 Temp 97.5 97.9 97.5 97.9 Pulse 60 58 Resp 16 18 B/P (MAP) 143/28 (66) 135/48 (77) 137/38 (71) Pulse Ox 98 98 98 O2 Delivery Nasal Cannula Nasal Cannula Room Air Nasal Cannula O2 Flow Rate 2.0 2.0 2.0 12/11/17 12/11/17 12/11/17 12/11/17 20:10 20:19 21:21 21:21 Pulse 58 58 B/P (MAP) 135/48 135/48 Pulse Ox 98 O2 Delivery Nasal Cannula Nasal Cannula O2 Flow Rate 2.0 2.0 12/11/17 12/12/17 12/12/17 12/12/17 23:17 03:50 07:00 07:00 Temp 97.7 98.6 97.9 97.7 98.6 97.9 Pulse 74 60 80 Resp 20 20 20 B/P (MAP) 115/39 (64) 137/38 (71) 131/32 (65) Pulse Ox 97 98 97 97 O2 Delivery Nasal Cannula Nasal Cannula Nasal Cannula Nasal Cannula O2 Flow Rate 2.0 2.0 2.0 2.0 12/12/17 12/12/17 12/12/17 12/12/17 07:01 07:45 11:00 13:21 Temp 98.0 98.0 Pulse 77 Resp 20 B/P (MAP) 129/50 (76) Pulse Ox 97 98 O2 Delivery Nasal Cannula Nasal Cannula Nasal Cannula Nasal Cannula O2 Flow Rate 2.0 2.0 2.0 2.0 Intake and Output 12/11/17 12/11/17 12/12/17 15:00 23:00 07:00 Intake Total 90 ml 1960 ml 1203 ml Output Total 500 ml 850 ml Balance 90 ml 1460 ml 353 ml RUDOLPH CLARK MD Dec 12, 2017 14:18
[2017-12-12 15:00] VITALS: BP 161/42
[2017-12-12 19:00] VITALS: BP 153/33
[2017-12-12] MEDS ORDERED: ACETAMINOPHEN 325 MG TABLET. PO PRN (21:45)
[2017-12-12] MEDS: LACTOBACILLUS RHAMNOSUS GG 1 CAPSULE. PO SCH (21:51)
[2017-12-12] MEDS: ALPRAZolam 0.25 MG TABLET PO SCH (21:52)
[2017-12-12] MEDS: CIPROFLOXACIN HCL 250 MG TABLET. PO SCH (21:52)
[2017-12-12] MEDS: ATORVASTATIN CALCIUM 40 MG TABLET. PO SCH (21:52)
[2017-12-12 23:00] VITALS: BP 122/38
[2017-12-13] VITALS (7 sets, daily range): BP systolic 117–140; BP diastolic 31–58
[2017-12-13] MEDS: BUDESONIDE 0.5 MG/2 ML NEBU. NEB SCH ×2 (06:59→20:30)
--- NOTE | 2017-12-13 08:48 | PDOC ---
Provider Note Provider Note [id number] PREMA MASON MD Dec 13, 2017 08:48
[2017-12-13] MEDS: ASPIRIN 325 MG TABLET PO SCH (08:57)
[2017-12-13] MEDS: METOPROLOL TART IMMED RELEASE 50 MG TABLET. PO SCH ×2 (08:57→21:27)
[2017-12-13] MEDS: hydroCHLOROthiazide 12.5 MG CAPSULE PO SCH (08:58)
[2017-12-13] MEDS: DRONEDARONE HCL 400 MG TABLET PO SCH ×2 (08:58→21:25)
[2017-12-13] MEDS: LACTOBACILLUS RHAMNOSUS GG 1 CAPSULE. PO SCH ×2 (08:58→21:24)
[2017-12-13] MEDS: PANTOPRAZOLE 40 MG TABLET.DR. PO SCH (08:58)
[2017-12-13] MEDS: GABAPENTIN 100 MG CAPSULE. PO SCH ×3 (08:58→21:24)
[2017-12-13] MEDS: TAMSULOSIN 0.4 MG CAP.ER.24H. PO SCH (08:58)
[2017-12-13] MEDS: POTASSIUM CHLORIDE 10 MEQ TABLET.ER. PO SCH (08:58)
[2017-12-13] MEDS: FUROSEMIDE 40 MG TABLET. PO SCH (08:59)
[2017-12-13] MEDS: CIPROFLOXACIN HCL 250 MG TABLET. PO SCH ×2 (08:59→21:24)
[2017-12-13] MEDS: FERROUS SULFATE 325 MG TABLET. PO SCH ×2 (08:59→21:24)
[2017-12-13] MEDS: INSULIN GLARGINE 300 UNITS/3 ML INSULN.PEN. SQ SCH ×2 (09:06→21:34)
--- NOTE | 2017-12-13 09:41 | PDOC ---
DOLORES CAMPOS NANNY BABYSITTER 12/13/17 0941: SUBJECTIVE Subjective Pt resting comfortably, no dysuria or significant back or belly pain OBJECTIVE Objective Physical Exam: General appearance: Alert and Oriented Head: Normocephalic, without obvious abnormality Eyes: conjunctivae/corneas clear. PERRL, EOM's intact. Fundi benign Back: negative Lungs: regular respirations, non labored breathing. Abdomen: soft, non-tender, obese. No masses, no organomegaly Pelvic: deferred Vital Signs Vital Signs Date Time Temp Pulse Resp B/P (MAP) Pulse Ox O2 Delivery O2 Flow Rate FiO2 12/13/17 08:58 60 127/55 12/13/17 08:57 60 127/55 12/13/17 08:18 98.1 60 127/55 (79) 96 Nasal Cannula 2.0 98.1 12/13/17 07:00 98.1 60 18 127/55 (79) 96 Room Air 98.1 12/13/17 03:00 97.5 60 20 125/38 (67) 95 Nasal Cannula 2.0 97.5 12/12/17 23:00 100.6 60 20 122/38 (66) 97 Nasal Cannula 2.0 100.6 12/12/17 21:52 88 153/33 12/12/17 21:51 88 153/33 12/12/17 20:00 Nasal Cannula 2.0 12/12/17 19:00 100.9 88 18 153/33 (73) 98 Nasal Cannula 2.0 100.9 12/12/17 15:00 99.0 81 20 161/42 (81) 95 Nasal Cannula 2.0 99.0 12/12/17 13:21 Nasal Cannula 2.0 12/12/17 11:00 98.0 77 20 129/50 (76) 98 Nasal Cannula 2.0 98.0 I & O Intake and Output 12/13/17 07:00 Intake Total 1450 ml Output Total 2000 ml Balance -550 ml Intake Oral 800 ml IV Total 650 ml Output Urine Total 2000 ml # Voids 3 PHYSICAL EXAM Physical Exam Physical Exam: General appearance: Alert and Oriented Head: Normocephalic, without obvious abnormality Eyes: conjunctivae/corneas clear. PERRL, EOM's intact. Fundi benign Back: negative Lungs: regular respirations, non labored breathing. Abdomen: soft, non-tender, obese. No masses, no organomegaly Pelvic: deferred ASSESSMENT/PLAN Assessment/Plan Plan for kidney stone is to get patient set up for ESWL as an outpatient, although on KUB stone is not visible. Pt does not remember passing kidney stone. Her information has been given to Rosita, our senior strategy analyst. Pt understands that she should give us until Saturday at the latest and then call our office if she has not heard back from us yet. Pain is under control, no dysuria Patient may eat, Cardiac diet. Urology does not plan on doing a surgery for patient this admit. Continue antibiotics, fluid, pain control and other supportive care. Whenever she does go home, she should go home on ten days worth of oral antibiotics. Will follow peripherally over the weekend, but please call with concerns or change in patient condition over the weekend. COMMENT Lab Laboratory Tests Test 12/12/17 11:41 12/12/17 16:47 12/12/17 20:22 Glucose (Fingerstick) 269 mg/dL (70-99) 252 mg/dL (70-99) 309 mg/dL (70-99) Imaging IMPRESSION: No acute abnormality is detected. EMETERIO MAHONEY MD 12/18/17 1359: ASSESSMENT/PLAN Assessment/Plan Stone not visible. WW v URS are other options. Needs to be off blood thinners for 4-5days prior for URS. Needs PCP clearance for such. fu as OP for final plan. DOLORES CAMPOS APRN Dec 13, 2017 09:41 EMETERIO MAHONEY MD Dec 18, 2017 13:59
--- NOTE | 2017-12-13 09:52 | PDOC ---
PROGRESS NOTES Subjective Subjective patient feeling much better today no chest pain or shortness of breath overnight or this morning she has no cardiovascular complaints at this time Objective Objective Vital Signs Date Time Temp Pulse Resp B/P (MAP) Pulse Ox O2 Delivery O2 Flow Rate FiO2 12/13/17 08:58 60 127/55 12/13/17 08:18 98.1 96 Nasal Cannula 2.0 98.1 12/13/17 07:00 18 Intake and Output 12/13/17 07:00 Intake Total 1450 ml Output Total 2000 ml Balance -550 ml Intake Oral 800 ml IV Total 650 ml Output Urine Total 2000 ml # Voids 3 Physical Exam Heart: Regular rate, Normal S1, Normal S2, Other (2/6 systolic ejection murmur) Extremities: No clubbing, No cyanosis, No edema, Normal pulses General: Alert, Oriented X3, Cooperative, No acute distress Lungs: Clear to auscultation, Normal air movement Assessment Assessment no current cardiovascular conditions to be addressed at this time Plan Plan of Care no cardiovascular intervention needed at this time treatment as indicated by primary physician I will be signing off of care at this time. Thank you for allowing me to help take care in this patient's treatment course. Comment Review of Relevant I have reviewed the following items yo (where applicable) has been applied. Labs Laboratory Tests Test 12/11/17 10:51 12/11/17 16:45 12/11/17 20:49 12/12/17 06:00 Glucose (Fingerstick) 285 mg/dL (70-99) 267 mg/dL (70-99) 311 mg/dL (70-99) White Blood Count 8.7 x10^3/uL (4.0-11.0) Red Blood Count 3.01 x10^6/uL (3.50-5.40) Hemoglobin 9.4 g/dL (12.0-15.5) Hematocrit 27.9 % (36.0-47.0) Mean Corpuscular Volume 93 fL (79-100) Mean Corpuscular Hemoglobin 31 pg (25-35) Mean Corpuscular Hemoglobin Concent 34 g/dL (31-37) Red Cell Distribution Width 15.4 % (11.5-14.5) Platelet Count 314 x10^3/uL (140-400) Neutrophils (%) (Auto) 79 % (31-73) Lymphocytes (%) (Auto) 9 % (24-48) Monocytes (%) (Auto) 9 % (0-9) Eosinophils (%) (Auto) 2 % (0-3) Basophils (%) (Auto) 1 % (0-3) Neutrophils # (Auto) 6.9 x10^3uL (1.8-7.7) Lymphocytes # (Auto) 0.8 x10^3/uL (1.0-4.8) Monocytes # (Auto) 0.8 x10^3/uL (0.0-1.1) Eosinophils # (Auto) 0.2 x10^3/uL (0.0-0.7) Basophils # (Auto) 0.1 x10^3/uL (0.0-0.2) Sodium Level 136 mmol/L (136-145) Potassium Level 4.3 mmol/L (3.5-5.1) Chloride Level 98 mmol/L (98-107) Carbon Dioxide Level 31 mmol/L (21-32) Anion Gap 7 (6-14) Blood Urea Nitrogen 37 mg/dL (7-20) Creatinine 1.6 mg/dL (0.6-1.0) Estimated GFR (Cockcroft-Gault) 30.8 Glucose Level 225 mg/dL (70-99) Calcium Level 9.3 mg/dL (8.5-10.1) Test 12/12/17 07:17 12/12/17 11:41 12/12/17 16:47 12/12/17 20:22 Glucose (Fingerstick) 218 mg/dL (70-99) 269 mg/dL (70-99) 252 mg/dL (70-99) 309 mg/dL (70-99) Laboratory Tests Test 12/12/17 11:41 12/12/17 16:47 12/12/17 20:22 Glucose (Fingerstick) 269 mg/dL (70-99) 252 mg/dL (70-99) 309 mg/dL (70-99) Microbiology 12/11/17 Urine Culture - Preliminary, Resulted 12/11/17 Urine Culture Result 1 (AMI) - Preliminary, Resulted Medications Current Medications Sodium Chloride 500 ml @ 500 mls/hr 1X ONCE IV Last administered on at 04:21; Start 12/11/17 at 03:45; Stop 12/11/17 at 04:44; Status DC Ketorolac Tromethamine (Toradol 30mg Vial) 30 mg 1X ONCE IV Last administered on 12/11/17at 04:20; Start 12/11/17 at 03:45; Stop 12/11/17 at 03:46; Status DC Ondansetron HCl (Zofran) 4 mg 1X ONCE IV Last administered on 12/11/17at 04:20 ; Start 12/11/17 at 03:45; Stop 12/11/17 at 03:46; Status DC Levofloxacin/ Dextrose 150 ml @ 100 mls/hr 1X ONCE IV Last administered on at 05:38; Start 12/11/17 at 05:30; Stop 12/11/17 at 06:59; Status DC Ondansetron HCl (Zofran) 4 mg PRN Q8HRS PRN IV NAUSEA/VOMITING 1ST CHOICE Last administered on 12/12/17at 15:01; Start 12/11/17 at 05:15; Stop 12/13/17 at 05 :13; Status DC Fentanyl Citrate (Fentanyl 2ml Vial) 50 mcg PRN Q2HR PRN IV SEVERE PAIN Last administered on 12/11/17at 14:54; Start 12/11/17 at 05:15; Stop 12/13/17 at 05 :13; Status DC Acetaminophen (Tylenol) 650 mg PRN Q4HRS PRN PO FEVER; Start 12/11/17 at 05:15 ; Stop 12/12/17 at 05:14; Status DC Ciprofloxacin/ Dextrose 200 ml @ 200 mls/hr Q12HR IV Last administered on at 09:33; Start 12/11/17 at 09:00; Stop 12/12/17 at 15:21; Status DC Sodium Chloride 1,000 ml @ 75 mls/hr [id number] IV Last administered on at 13:07; Start 12/11/17 at 08:30; Stop 12/12/17 at 21:44; Status DC Tamsulosin HCl (Flomax) 0.4 mg DAILY PO Last administered on 12/13/17at 08:58; Start 12/11/17 at 09:00 Alprazolam (Xanax) 0.25 mg HS PO Last administered on 12/12/17 21:52; Start 12/11/17 at 21:00 Aspirin (Madhuri Aspirin) 325 mg DAILY PO Last administered on 12/13/17 08:57; Start 12/11/17 at 12:00 Atorvastatin Calcium (Lipitor) 40 mg QHS PO Last administered on 12/12/17 21: 52; Start 12/12/17 at 21:00 Dronedarone (Multaq) 400 mg BID PO Last administered on 12/13/17 08:58; Start 12/11/17 at 12:00 Ferrous Sulfate (Feosol) 325 mg BID PO Last administered on 12/13/17 08:59; Start 12/11/17 at 12:00 Furosemide (Lasix) 40 mg QMWF@0900 PO Last administered on 12/13/17 08:59; Start 12/11/17 at 12:00 Gabapentin (Neurontin) 100 mg TID PO Last administered on 12/13/17 08:58; Start 12/11/17 at 10:00 Metoprolol Tartrate (Lopressor) 50 mg BID PO Last administered on 12/13/17 08 :57; Start 12/11/17 at 10:00 Potassium Chloride (Klor-Con) 10 meq DAILY PO Last administered on 12/13/17 08:58; Start 12/11/17 at 12:00 Non-Formulary Medication (Budesonide/ Formoterol Fumarate (Symbicort 160-4.5 Mcg Inhaler)) 10.2 gm BID IH ; Start 12/11/17 at 21:00; Status UNV Hydrochlorothiazide (Microzide) 12.5 mg DAILY PO Last administered on at 08:58; Start 12/11/17 at 12:00 Insulin Glargine (Lantus) 20 units QHS SQ Last administered on 12/11/17at 21:03 ; Start 12/11/17 at 21:00; Stop 12/12/17 at 09:05; Status DC Insulin Glargine (Lantus) 40 units [id number] SQ Last administered on at 11:04; Start 12/11/17 at 10:00; Stop 12/12/17 at 09:05; Status DC Pantoprazole Sodium (Protonix) 40 mg DAILYAC PO Last administered on at 08:58; Start 12/11/17 at 11:00 Dextrose (Dextrose 50%-Water Syringe) 12.5 gm PRN Q15MIN PRN IV SEE COMMENTS; Start 12/11/17 at 09:30 Budesonide (Pulmicort) 0.5 mg BID NEB Last administered on 12/12/17at 06:58; Start 12/11/17 at 10:00; Stop 12/13/17 at 08:51; Status DC Albuterol Sulfate (Ventolin Neb Soln) 2.5 mg Q6HRS NEB Last administered on at 13:20; Start 12/11/17 at 12:00; Stop 12/12/17 at 13:32; Status DC Insulin Glargine (Lantus) 50 units [id number] SQ Last administered on at 09:06; Start 12/13/17 at 08:00 Insulin Glargine (Lantus) 30 units QHS SQ Last administered on 12/12/17at 22:00 ; Start 12/12/17 at 21:00 Insulin Glargine (Lantus) 30 units 1X ONCE SQ Last administered on 12/12/17at 13:14; Start 12/12/17 at 13:15; Stop 12/12/17 at 13:16; Status DC Albuterol Sulfate (Ventolin Neb Soln) 2.5 mg PRN Q6HRS PRN NEB SHORTNESS OF BREATH; Start 12/12/17 at 13:45 Lactobacillus Rhamnosus (Culturelle) 1 cap BID PO Last administered on at 08:58; Start 12/12/17 at 21:00 Ciprofloxacin (Cipro) 250 mg BID PO Last administered on 12/13/17at 08:59; Start 12/12/17 at 21:00 Acetaminophen (Tylenol) 650 mg PRN QID PRN PO MILD PAIN / TEMP Last administered on 12/12/17at 21:58; Start 12/12/17 at 21:45 Active Scripts Active Reported Protonix (Pantoprazole Sodium) 40 Mg Granpkt.dr 40 Mg PO DAILY Ferrous Sulfate 325 Mg Tablet 1 Tab PO BID Levemir (Insulin Detemir) 100 Unit/1 Ml Vial 40 Unit SQ [id number] Levemir (Insulin Detemir) 100 Unit/1 Ml Vial 20 Unit SQ QHS Furosemide 40 Mg Tablet 40 Mg PO QMWF Gabapentin 100 Mg Capsule 100 Mg PO TID Metoprolol Tartrate 50 Mg Tablet 50 Mg PO BID Multaq (Dronedarone Hcl) 400 Mg Tablet 1 Tab PO BID Alprazolam 0.25 Mg Tablet 1 Tab PO HS Aspirin 325 Mg Tablet 1 Tab PO DAILY Potassium Chloride 10 Meq Capsule.er 1 Cap PO DAILY Hydrochlorothiazide Tablet (Hydrochlorothiazide) 12.5 Mg Tablet 12.5 Mg PO DAILY Symbicort 160-4.5 Mcg Inhaler (Budesonide/Formoterol Fumarate) 10.2 Gm Hfa.aer.ad 10.2 Gm IH BID Atorvastatin Calcium 40 Mg Tablet 40 Mg PO DAILY Vitals/I & O Vital Sign - Last 24 Hours 12/12/17 12/12/17 12/12/17 12/12/17 11:00 13:21 15:00 19:00 Temp 98.0 99.0 100.9 98.0 99.0 100.9 Pulse 77 81 88 Resp 20 20 18 B/P (MAP) 129/50 (76) 161/42 (81) 153/33 (73) Pulse Ox 98 95 98 O2 Delivery Nasal Cannula Nasal Cannula Nasal Cannula Nasal Cannula O2 Flow Rate 2.0 2.0 2.0 2.0 12/12/17 12/12/17 12/12/17 12/12/17 20:00 21:51 21:52 23:00 Temp 100.6 100.6 Pulse 88 88 60 Resp 20 B/P (MAP) 153/33 153/33 122/38 (66) Pulse Ox 97 O2 Delivery Nasal Cannula Nasal Cannula O2 Flow Rate 2.0 2.0 12/13/17 12/13/17 12/13/17 12/13/17 03:00 07:00 08:18 08:57 Temp 97.5 98.1 98.1 97.5 98.1 98.1 Pulse 60 60 60 60 Resp 20 18 B/P (MAP) 125/38 (67) 127/55 (79) 127/55 (79) 127/55 Pulse Ox 95 96 96 O2 Delivery Nasal Cannula Room Air Nasal Cannula O2 Flow Rate 2.0 2.0 12/13/17 08:58 Pulse 60 B/P (MAP) 127/55 Intake and Output 12/12/17 12/12/17 12/13/17 15:00 23:00 07:00 Intake Total 1450 ml Output Total 1400 ml 600 ml Balance 50 ml -600 ml RUDOLPH CLARK MD Dec 13, 2017 09:52
--- NOTE | 2017-12-13 14:20 | PDOC ---
SUBJECTIVE ROS No new complaints, concerns OBJECTIVE Vital Signs Vital Signs Date Time Temp Pulse Resp B/P (MAP) Pulse Ox O2 Delivery O2 Flow Rate FiO2 12/13/17 11:00 98.7 60 18 117/31 (59) 95 Nasal Cannula 2.0 98.7 I & 0 Intake and Output 12/13/17 07:00 Intake Total 1450 ml Output Total 2000 ml Balance -550 ml Intake Oral 800 ml IV Total 650 ml Output Urine Total 2000 ml # Voids 3 PHYSICAL EXAM Physical Exam Gen- NAD HEENT- OM Moist Neck- supple Heart RRR, 2/6 systolic murmur Lungs - CTAB, no wheezes or rhonchi Abd- Soft, NT, - No CVA tenderness, Ext - No edema, Neuro - Nonfocal, cranial nerves II through XII grossly intact Skin No Rash DIAGNOSIS/ASSESSMENT Assessment & Plan ARMAAN on CKD - Obstructive Uropathy, Good UOP Urology following -Plan is for patient to have ESWL with DR. Lawson as an outpatient. E-Lytes and acid base stable No labs today , ordered for am UTI- On Abx , primary following Awaiting cx CKD stage 3- Baseline 1.2-1.3, in Jan 2016 1.6 based on Records available in [facility] EMR Nephrolithiasis, bilateral-Plan is for patient to have ESWL with DR. Lawson as an outpatient. Urology following CHF Compensated On HCTZ and lasix Chronic iron deficiency anemia Baseline 10, follows with PCP Type 2 diabetes as per primary A. fib- stable History of aortic valve replacement Hypertension Discussed with Pt Follow up with us /Renal as OP if Pt agreeable - next available appt in 2-3 Months DC as per primary- follow up BMP in few weeks with PCP post dc COMMENT/RELEVANT DATA Meds Current Medications Medications (Trade) Dose Ordered Sig/Ncikie Start Time Stop Time Status Last Admin Dose Admin Acetaminophen (Tylenol) 650 mg PRN QID PRN 12/12/17 21:45 12/12/17 21:58 650 MG Albuterol Sulfate (Ventolin Neb Soln) 2.5 mg PRN Q6HRS PRN 12/12/17 13:45 Alprazolam (Xanax) 0.25 mg HS 12/11/17 21:00 12/12/17 21:52 0.25 MG Aspirin (Madhuri Aspirin) 325 mg DAILY 12/11/17 12:00 12/13/17 08:57 325 MG Atorvastatin Calcium (Lipitor) 40 mg QHS 12/12/17 21:00 12/12/17 21:52 40 MG Budesonide (Pulmicort) 0.5 mg BID 12/11/17 10:00 12/13/17 08:51 DC 12/12/17 06:58 0.5 MG Ciprofloxacin (Cipro) 250 mg BID 12/12/17 21:00 12/13/17 08:59 250 MG Ciprofloxacin/ Dextrose 200 ml @ 200 mls/hr Q12HR 12/11/17 09:00 12/12/17 15:21 DC 12/12/17 09:33 200 MLS/HR Dextrose (Dextrose 50%-Water Syringe) 12.5 gm PRN Q15MIN PRN 12/11/17 09:30 Dronedarone (Multaq) 400 mg BID 12/11/17 12:00 12/13/17 08:58 400 MG Fentanyl Citrate (Fentanyl 2ml Vial) 50 mcg PRN Q2HR PRN 12/11/17 05:15 12/13/17 05:13 DC 12/11/17 14:54 50 MCG Ferrous Sulfate (Feosol) 325 mg BID 12/11/17 12:00 12/13/17 08:59 325 MG Furosemide (Lasix) 40 mg QMWF@0900 12/11/17 12:00 12/13/17 08:59 40 MG Gabapentin (Neurontin) 100 mg TID 12/11/17 10:00 12/13/17 08:58 100 MG Hydrochlorothiazide (Microzide) 12.5 mg DAILY 12/11/17 12:00 12/13/17 08:58 12.5 MG Insulin Glargine (Lantus) 30 units 1X ONCE 12/12/17 13:15 12/12/17 13:16 DC 12/12/17 13:14 20 UNITS Ketorolac Tromethamine (Toradol 30mg Vial) 30 mg 1X ONCE 12/11/17 03:45 12/11/17 03:46 DC 12/11/17 04:20 30 MG Lactobacillus Rhamnosus (Culturelle) 1 cap BID 12/12/17 21:00 12/13/17 08:58 1 CAP Levofloxacin/ Dextrose 150 ml @ 100 mls/hr 1X ONCE 12/11/17 05:30 12/11/17 06:59 DC 12/11/17 05:38 100 MLS/HR Metoprolol Tartrate (Lopressor) 50 mg BID 12/11/17 10:00 12/13/17 08:57 50 MG Non-Formulary Medication (Budesonide/ Formoterol Fumarate (Symbicort 160-4.5 Mcg Inhaler)) 10.2 gm BID 12/11/17 21:00 UNV Ondansetron HCl (Zofran) 4 mg PRN Q8HRS PRN 12/11/17 05:15 12/13/17 05:13 DC 12/12/17 15:01 4 MG Pantoprazole Sodium (Protonix) 40 mg DAILYAC 12/11/17 11:00 12/13/17 08:58 40 MG Potassium Chloride (Klor-Con) 10 meq DAILY 12/11/17 12:00 12/13/17 08:58 10 MEQ Sodium Chloride 1,000 ml @ 75 mls/hr [id number] 12/11/17 08:30 12/12/17 21:44 DC 12/12/17 13:07 75 MLS/HR Tamsulosin HCl (Flomax) 0.4 mg DAILY 12/11/17 09:00 12/13/17 08:58 0.4 MG Lab Laboratory Tests Test 12/12/17 16:47 12/12/17 20:22 12/13/17 08:03 Glucose (Fingerstick) 252 mg/dL (70-99) 309 mg/dL (70-99) 128 mg/dL (70-99) Results All relevant outside records, renal labs, imaging studies, telemetry/EKG's were reviewed. ESTEVAN GOODRICH MD Dec 13, 2017 14:19
[2017-12-13] MEDS ORDERED: DOCUSATE SODIUM 100 MG CAPSULE. PO PRN (15:45)
[2017-12-13] MEDS: ALPRAZolam 0.25 MG TABLET PO SCH (21:24)
[2017-12-13] MEDS: ATORVASTATIN CALCIUM 40 MG TABLET. PO SCH (21:24)
[2017-12-13] MEDS: ACETAMINOPHEN 325 MG TABLET. PO PRN (21:46)
--- NOTE | 2017-12-13 23:28 | PN ---
DATE: SUBJECTIVE: The patient is still feeling better in general, though she still had a low-grade temperature of 100.6. Urine culture shows E. coli greater than 10:6 colonies with ID and sensitivity is pending at this time. As she has an obstructive hydronephrosis with large stone as the etiology for her urinary tract infection, we need to know the culture and sensitivity report before making decisions for oral medications in an outpatient therapy. She continues to have some low-grade fever despite Cipro, so we will monitor that as well. She will be able to be discharged to home once we know the correct therapy and then follow her as an outpatient. PREMA MASON MD DR: KAMI/nts JOB#: [id number] / [id number]
[2017-12-14 03:34] VITALS: BP 122/52
[2017-12-14] MEDS: PANTOPRAZOLE 40 MG TABLET.DR. PO SCH (06:31)
[2017-12-14 07:00] VITALS: BP 128/59
[2017-12-14 07:05] LABS: CALCIUM 8.7 mg/dL (8.5-10.1); GFR 23.8
[2017-12-14] MEDS: BUDESONIDE 0.5 MG/2 ML NEBU. NEB SCH ×2 (07:29→20:14)
[2017-12-14] MEDS: LACTOBACILLUS RHAMNOSUS GG 1 CAPSULE. PO SCH ×2 (08:17→21:18)
[2017-12-14] MEDS: ASPIRIN 325 MG TABLET PO SCH (08:18)
[2017-12-14] MEDS: hydroCHLOROthiazide 12.5 MG CAPSULE PO SCH (08:18)
[2017-12-14] MEDS: METOPROLOL TART IMMED RELEASE 50 MG TABLET. PO SCH ×2 (08:18→21:00)
[2017-12-14] MEDS: CIPROFLOXACIN HCL 250 MG TABLET. PO SCH (08:19)
[2017-12-14] MEDS: FERROUS SULFATE 325 MG TABLET. PO SCH ×2 (08:19→21:18)
[2017-12-14] MEDS: POTASSIUM CHLORIDE 10 MEQ TABLET.ER. PO SCH (08:19)
[2017-12-14] MEDS: GABAPENTIN 100 MG CAPSULE. PO SCH ×3 (08:20→21:21)
[2017-12-14] MEDS: TAMSULOSIN 0.4 MG CAP.ER.24H. PO SCH (08:20)
[2017-12-14] MEDS: DRONEDARONE HCL 400 MG TABLET PO SCH ×2 (08:21→21:00)
[2017-12-14] MEDS: INSULIN GLARGINE 300 UNITS/3 ML INSULN.PEN. SQ SCH ×2 (08:29→21:27)
[2017-12-14] MEDS ORDERED: CEPHALEXIN 250 MG CAPSULE. PO SCH (09:30)
[2017-12-14 11:00] VITALS: BP 125/47
[2017-12-14] MEDS: CEPHALEXIN 250 MG CAPSULE. PO SCH ×3 (11:57→21:18)
--- NOTE | 2017-12-14 12:41 | PDOC ---
SUBJECTIVE ROS AK I plus C KD She is feeling much better today. CVS: no Orthopnea, no CP RESP: no SOB, no GARIBAY GI: no Nausea, no Vomiting : no Dysuria, no Urgency OBJECTIVE Vital Signs Vital Signs Date Time Temp Pulse Resp B/P (MAP) Pulse Ox O2 Delivery O2 Flow Rate FiO2 12/14/17 11:00 98.5 60 18 125/47 (73) 98 Nasal Cannula 2.0 98.5 I & 0 Intake and Output 12/14/17 07:00 Intake Total 480 ml Output Total 125 ml Balance 355 ml Intake Oral 480 ml Output Urine Total 125 ml # Voids 3 PHYSICAL EXAM Physical Exam GEN: Awake, Oriented x 1, In no distress EYES: Vision Unchanged, Conjunctiva Normal EN: No EN Drainage, Mucous Membranes moist NECK: no JVD, no JVP, Supple, no Thyromegaly CVS: S1S2, no Murmur, No Gallop, No Rub,no Edema RESP: no Rales, no Rhonchi,no Acc. Muscle Use GI: BS + ve, NO Bruit, Non Tender, Non Distended; obese abdomen : no CVA tenderness, no Suprapubic Tenderness DIAGNOSIS/ASSESSMENT Assessment & Plan ARMAAN on CKD - reasonably due to Obstructive Uropathy, Good UOP in the past. Urine output not recorded currently. With rising creatinine I will start IV fluids again. Kidney stone : Plan is for patient to have ESWL with DR. Lawson as an outpatient as outlined by Dr. Paiz UTI- On empiric Abx while we are Awaiting cx results CKD stage 3- Baseline 1.2-1.3, in Jan 2016 . Current creatinine range of 1.6 - 2.0 may be her new baseline. CHF currently clinically Compensated and treated with HCTZ and lasix Chronic iron deficiency anemia follows with PCP Type 2 diabetes: May be contributing to CK D also. Other diagnoses include: A. fib, History of aortic valve replacement & Hypertension Follow up with Dr. Paiz as OP in 1-2 months COMMENT/RELEVANT DATA Meds Current Medications Medications (Trade) Dose Ordered Sig/Nickie Start Time Stop Time Status Last Admin Dose Admin Acetaminophen (Tylenol) 325 mg PRN QID PRN 12/13/17 15:45 12/13/17 21:46 325 MG Albuterol Sulfate (Ventolin Neb Soln) 2.5 mg PRN Q6HRS PRN 12/12/17 13:45 Alprazolam (Xanax) 0.25 mg HS 12/11/17 21:00 12/13/17 21:24 0.25 MG Aspirin (Madhuri Aspirin) 325 mg DAILY 12/11/17 12:00 12/14/17 08:18 325 MG Atorvastatin Calcium (Lipitor) 40 mg QHS 12/12/17 21:00 12/13/17 21:24 40 MG Budesonide (Pulmicort) 0.5 mg RTBID 12/13/17 20:30 12/14/17 07:29 0.5 MG Cephalexin HCl (Keflex) 500 mg Q8HRS 12/14/17 09:30 12/14/17 11:57 500 MG Ciprofloxacin (Cipro) 250 mg BID 12/12/17 21:00 12/14/17 09:20 DC 12/14/17 08:19 250 MG Ciprofloxacin/ Dextrose 200 ml @ 200 mls/hr Q12HR 12/11/17 09:00 12/12/17 15:21 DC 12/12/17 09:33 200 MLS/HR Dextrose (Dextrose 50%-Water Syringe) 12.5 gm PRN Q15MIN PRN 12/11/17 09:30 Docusate Sodium (Colace) 100 mg PRN DAILY PRN 12/13/17 15:45 Dronedarone (Multaq) 400 mg BID 12/11/17 12:00 12/14/17 08:21 400 MG Fentanyl Citrate (Fentanyl 2ml Vial) 50 mcg PRN Q2HR PRN 12/11/17 05:15 12/13/17 05:13 DC 12/11/17 14:54 50 MCG Ferrous Sulfate (Feosol) 325 mg BID 12/11/17 12:00 12/14/17 08:19 325 MG Furosemide (Lasix) 40 mg QMWF@0900 12/11/17 12:00 12/13/17 08:59 40 MG Gabapentin (Neurontin) 100 mg TID 12/11/17 10:00 12/14/17 08:20 100 MG Hydrochlorothiazide (Microzide) 12.5 mg DAILY 12/11/17 12:00 12/14/17 08:18 12.5 MG Insulin Glargine (Lantus) 30 units 1X ONCE 12/12/17 13:15 12/12/17 13:16 DC 12/12/17 13:14 20 UNITS Ketorolac Tromethamine (Toradol 30mg Vial) 30 mg 1X ONCE 12/11/17 03:45 12/11/17 03:46 DC 12/11/17 04:20 30 MG Lactobacillus Rhamnosus (Culturelle) 1 cap BID 12/12/17 21:00 12/14/17 08:17 1 CAP Levofloxacin/ Dextrose 150 ml @ 100 mls/hr 1X ONCE 12/11/17 05:30 12/11/17 06:59 DC 12/11/17 05:38 100 MLS/HR Metoprolol Tartrate (Lopressor) 50 mg BID 12/11/17 10:00 12/14/17 08:18 50 MG Non-Formulary Medication (Budesonide/ Formoterol Fumarate (Symbicort 160-4.5 Mcg Inhaler)) 10.2 gm BID 12/11/17 21:00 UNV Ondansetron HCl (Zofran) 4 mg PRN Q8HRS PRN 12/11/17 05:15 12/13/17 05:13 DC 12/12/17 15:01 4 MG Pantoprazole Sodium (Protonix) 40 mg DAILYAC 12/11/17 11:00 12/14/17 06:31 40 MG Potassium Chloride (Klor-Con) 10 meq DAILY 12/11/17 12:00 12/14/17 08:19 10 MEQ Sodium Chloride 1,000 ml @ 75 mls/hr [id number] 12/11/17 08:30 12/12/17 21:44 DC 12/12/17 13:07 75 MLS/HR Tamsulosin HCl (Flomax) 0.4 mg DAILY 12/11/17 09:00 12/14/17 08:20 0.4 MG Lab Laboratory Tests Test 12/13/17 16:08 12/13/17 21:25 12/14/17 06:20 12/14/17 07:41 Glucose (Fingerstick) 260 mg/dL (70-99) 289 mg/dL (70-99) 208 mg/dL (70-99) Sodium Level 136 mmol/L (136-145) Potassium Level 4.0 mmol/L (3.5-5.1) Chloride Level 98 mmol/L (98-107) Carbon Dioxide Level 31 mmol/L (21-32) Anion Gap 7 (6-14) Blood Urea Nitrogen 43 mg/dL (7-20) Creatinine 2.0 mg/dL (0.6-1.0) Estimated GFR (Cockcroft-Gault) 23.8 Glucose Level 215 mg/dL (70-99) Calcium Level 8.7 mg/dL (8.5-10.1) Test 12/14/17 11:41 Glucose (Fingerstick) 229 mg/dL (70-99) Results All relevant outside records, renal labs, imaging studies, telemetry/EKG's were reviewed. PAM CHOWDHURY MD Dec 14, 2017 12:41
--- NOTE | 2017-12-14 13:08 | PN ---
DATE: 12/14/2017 LOCATION: She is in room 404. SUBJECTIVE: The patient is awake, alert, is visiting. She denies any significant complaints other than weakness. OBJECTIVE: VITAL SIGNS: Stable. She is afebrile. There is charting ____ down. Vital signs were, pulse was 140, I am not sure this is accurate, nursing is not aware and currently that is not the case. Sugars have been up at times and decent at times. Creatinine is increased to 2. Her E. coli on her urine culture with sensitivities back today shows resistance to Cipro, and she will be switched to Keflex. CHEST: Clear. HEART: Regular. ABDOMEN: Benign. IMPRESSION: Urinary tract infection with obstructive hydronephrosis due to stone. PLAN: Switch to p.o. Keflex. I discussed with her and her probable discharge tomorrow if she does well, with outpatient followup for ESWL per Urology as noted. ELROY BRUSH MD DR: LOIS/dwaine JOB#: [id number] / [id number]
[2017-12-14 15:00] VITALS: BP 138/55
[2017-12-14] MEDS: IV NORMAL SALINE 1000ML BAG 1,000 ML IV SCH ×2 (15:52→22:45)
[2017-12-14 19:00] VITALS: BP 109/54
[2017-12-14] MEDS: ATORVASTATIN CALCIUM 40 MG TABLET. PO SCH (21:20)
[2017-12-14] MEDS: ALPRAZolam 0.25 MG TABLET PO SCH (21:20)
[2017-12-14] MEDS: ACETAMINOPHEN 325 MG TABLET. PO PRN (21:20)
[2017-12-14 23:00] VITALS: BP 133/40
[2017-12-15 03:00] VITALS: BP 140/71
[2017-12-15] MEDS: PANTOPRAZOLE 40 MG TABLET.DR. PO SCH (05:44)
[2017-12-15] MEDS: CEPHALEXIN 250 MG CAPSULE. PO SCH (05:44)
[2017-12-15] MEDS: BUDESONIDE 0.5 MG/2 ML NEBU. NEB SCH (06:10)
[2017-12-15 07:00] VITALS: BP 164/51
[2017-12-15] MEDS: LACTOBACILLUS RHAMNOSUS GG 1 CAPSULE. PO SCH (08:33)
[2017-12-15] MEDS: ASPIRIN 325 MG TABLET PO SCH (08:33)
[2017-12-15] MEDS: FERROUS SULFATE 325 MG TABLET. PO SCH (08:33)
[2017-12-15] MEDS: METOPROLOL TART IMMED RELEASE 50 MG TABLET. PO SCH (08:34)
[2017-12-15] MEDS: TAMSULOSIN 0.4 MG CAP.ER.24H. PO SCH (08:34)
[2017-12-15] MEDS: GABAPENTIN 100 MG CAPSULE. PO SCH (08:34)
[2017-12-15] MEDS: hydroCHLOROthiazide 12.5 MG CAPSULE PO SCH (08:35)
[2017-12-15] MEDS: DRONEDARONE HCL 400 MG TABLET PO SCH (08:35)
[2017-12-15] MEDS: POTASSIUM CHLORIDE 10 MEQ TABLET.ER. PO SCH (08:36)
[2017-12-15] MEDS: INSULIN GLARGINE 300 UNITS/3 ML INSULN.PEN. SQ SCH ×2 (08:42→08:57)
[2017-12-15 11:00] VITALS: BP 140/43
--- NOTE | 2017-12-15 11:46 | PDOC ---
GENERAL General: see discharge summary. VITAL SIGNS Vital Signs: Vital Signs Date Time Temp Pulse Resp B/P (MAP) Pulse Ox O2 Delivery O2 Flow Rate FiO2 12/15/17 08:35 75 164/51 12/15/17 07:00 97.7 16 93 Room Air 97.7 12/15/17 06:07 2.5 I & O I & O Intake and Output 12/15/17 07:00 Output Total 600 ml Balance -600 ml Output Urine Total 600 ml # Voids 5 ALLERGIES Allergies: Allergies Coded Allergies Type Severity Reaction Last Updated Verified lisinopril Allergy Severe Anaphylaxis 02/11/17 Yes shellfish derived Allergy Severe Shortness of Air 02/11/17 Yes Penicillins Allergy Intermediate Tolerates rocephin 02/11/17 Yes Sulfa (Sulfonamide Antibiotics) Allergy Intermediate 02/11/17 Yes morphine Adverse Reaction Severe Anxiety 02/11/17 Yes MEDS Medications: Current Medications Medications (Trade) Dose Ordered Sig/Nickie Start Time Stop Time Status Last Admin Dose Admin Acetaminophen (Tylenol) 325 mg PRN QID PRN 12/13/17 15:45 12/14/17 21:20 325 MG Albuterol Sulfate (Ventolin Neb Soln) 2.5 mg PRN Q6HRS PRN 12/12/17 13:45 Alprazolam (Xanax) 0.25 mg HS 12/11/17 21:00 12/14/17 21:20 0.25 MG Aspirin (Madhuri Aspirin) 325 mg DAILY 12/11/17 12:00 12/15/17 08:33 325 MG Atorvastatin Calcium (Lipitor) 40 mg QHS 12/12/17 21:00 12/14/17 21:20 40 MG Budesonide (Pulmicort) 0.5 mg RTBID 12/13/17 20:30 12/15/17 06:10 0.5 MG Cephalexin HCl (Keflex) 500 mg Q8HRS 12/14/17 09:30 12/15/17 05:44 500 MG Ciprofloxacin (Cipro) 250 mg BID 12/12/17 21:00 12/14/17 09:20 DC 12/14/17 08:19 250 MG Ciprofloxacin/ Dextrose 200 ml @ 200 mls/hr Q12HR 12/11/17 09:00 12/12/17 15:21 DC 12/12/17 09:33 200 MLS/HR Dextrose (Dextrose 50%-Water Syringe) 12.5 gm PRN Q15MIN PRN 12/11/17 09:30 Docusate Sodium (Colace) 100 mg PRN DAILY PRN 12/13/17 15:45 Dronedarone (Multaq) 400 mg BID 12/11/17 12:00 12/15/17 08:35 400 MG Fentanyl Citrate (Fentanyl 2ml Vial) 50 mcg PRN Q2HR PRN 12/11/17 05:15 12/13/17 05:13 DC 12/11/17 14:54 50 MCG Ferrous Sulfate (Feosol) 325 mg BID 12/11/17 12:00 12/15/17 08:33 325 MG Furosemide (Lasix) 40 mg QMWF@0900 12/11/17 12:00 12/13/17 08:59 40 MG Gabapentin (Neurontin) 100 mg TID 12/11/17 10:00 12/15/17 08:34 100 MG Hydrochlorothiazide (Microzide) 12.5 mg DAILY 12/11/17 12:00 12/15/17 08:35 12.5 MG Insulin Glargine (Lantus) 30 units 1X ONCE 12/12/17 13:15 12/12/17 13:16 DC 12/12/17 13:14 20 UNITS Ketorolac Tromethamine (Toradol 30mg Vial) 30 mg 1X ONCE 12/11/17 03:45 12/11/17 03:46 DC 12/11/17 04:20 30 MG Lactobacillus Rhamnosus (Culturelle) 1 cap BID 12/12/17 21:00 12/15/17 08:33 1 CAP Levofloxacin/ Dextrose 150 ml @ 100 mls/hr 1X ONCE 12/11/17 05:30 12/11/17 06:59 DC 12/11/17 05:38 100 MLS/HR Metoprolol Tartrate (Lopressor) 50 mg BID 12/11/17 10:00 12/15/17 08:34 50 MG Non-Formulary Medication (Budesonide/ Formoterol Fumarate (Symbicort 160-4.5 Mcg Inhaler)) 10.2 gm BID 12/11/17 21:00 UNV Ondansetron HCl (Zofran) 4 mg PRN Q8HRS PRN 12/11/17 05:15 12/13/17 05:13 DC 12/12/17 15:01 4 MG Pantoprazole Sodium (Protonix) 40 mg DAILYAC 12/11/17 11:00 12/15/17 05:44 40 MG Potassium Chloride (Klor-Con) 10 meq DAILY 12/11/17 12:00 12/15/17 08:36 10 MEQ Sodium Chloride 1,000 ml @ 100 mls/hr Q10H 12/14/17 12:45 12/15/17 08:44 DC 12/14/17 15:52 100 MLS/HR Tamsulosin HCl (Flomax) 0.4 mg DAILY 12/11/17 09:00 12/15/17 08:34 0.4 MG LAB Lab: Laboratory Tests Test 12/14/17 17:09 12/14/17 20:43 12/15/17 07:54 Glucose (Fingerstick) 251 mg/dL (70-99) 283 mg/dL (70-99) 169 mg/dL (70-99) ELROY BRUSH MD Dec 15, 2017 11:46
--- NOTE | 2017-12-15 13:18 | DS ---
DATE OF DISCHARGE: 12/15/2017 PRIMARY DIAGNOSIS: Pyelonephritis. ADDITIONAL DIAGNOSES: Obstructing 1.3 cm right renal calculus with hydronephrosis and periureteral edema, congestive heart failure, controlled; chronic iron deficiency anemia, chronic kidney disease, diabetes, atrial fibrillation, history of aortic valve replacement, hypertension, hyperlipidemia, gastroesophageal reflux disease. CHIEF COMPLAINT AND HISTORY OF PRESENT ILLNESS: This 82-year-old white female, admitted through the Emergency Room with flank pain and evidence of blood as well as urine infection on initial evaluation. She did eventually grow E. coli out of the urine, which was multidrug resistant variety, sensitive to Keflex, which she was tolerating p.o. at the time of discharge. Urology followed along and asked her to call Saturday following discharge for an appointment for ESWL as an outpatient. She improved on a regular basis, was back to her usual baseline, felt ready for discharge on 12/15/2017 and this was accomplished. DISPOSITION: The patient is discharged to home. ADA diet, activity as tolerated, office of Dr. Suresh in 1 week. She is to call Urology tomorrow for an appointment for the ESWL. DISCHARGE MEDICATIONS: Will be that of her regular home meds plus Keflex 500 q.i.d. for the next 10 days. ELROY BRUSH MD DR: LOIS/dwaine JOB#: [id number] / [id number] PREMA Christopher MD
== END 2017-12-15 12:45 | disposition home or self-care (01) | DRG 683 ==
LOC: ER 02:55 → 4 NORTH 05:10
PROVIDERS: ADMIT Family Medicine; ATTEND Family Medicine
PROC: 5A09357 Assistance with Respiratory Ventilation, Less than 24 Consecutive Hours, Continuous Positive Airway Pressure (ICD-10-PCS; principal; 2017-12-11)
DX: N17.9 Acute kidney failure, unspecified (principal); I13.0 Hypertensive heart and chronic kidney disease with heart failure and stage 1 through stage 4 chronic kidney disease, or unspecified chronic kidney disease; N13.6 Pyonephrosis; Z90.49 Acquired absence of other specified parts of digestive tract; Z90.710 Acquired absence of both cervix and uterus; D50.9 Iron deficiency anemia, unspecified; E11.22 Type 2 diabetes mellitus with diabetic chronic kidney disease; E78.00 Pure hypercholesterolemia, unspecified; E78.5 Hyperlipidemia, unspecified; H35.30 Unspecified macular degeneration; I25.10 Atherosclerotic heart disease of native coronary artery without angina pectoris; K57.90 Diverticulosis of intestine, part unspecified, without perforation or abscess without bleeding; I48.91 Unspecified atrial fibrillation; I50.9 Heart failure, unspecified; J44.9 Chronic obstructive pulmonary disease, unspecified; B96.20 Unspecified Escherichia coli [E. coli] as the cause of diseases classified elsewhere; Z96.653 Presence of artificial knee joint, bilateral; N18.3 Chronic kidney disease, stage 3 (moderate); K21.9 Gastro-esophageal reflux disease without esophagitis; Z66 Do not resuscitate; Z87.442 Personal history of urinary calculi; Z88.0 Allergy status to penicillin; Z88.5 Allergy status to narcotic agent; Z95.1 Presence of aortocoronary bypass graft; Z95.2 Presence of prosthetic heart valve; Z99.81 Dependence on supplemental oxygen; Z79.899 Other long term (current) drug therapy; Z88.2 Allergy status to sulfonamides; Z88.8 Allergy status to other drugs, medicaments and biological substances; Z88.6 Allergy status to analgesic agent; Z88.1 Allergy status to other antibiotic agents; Z91.013 Allergy to seafood
CPT/HCPCS: 36415; 74018; 74176; 80048; 81001; 82550; 82962; 85025; 87086; 87186; 94640; 94760; 96361; 96365; 96375; J0744; J1815; J1885; J1956; J2405; J3010; J7030; J7040; J7613; J7626; 97116; 97530; 97535; 99285-25

== ENCOUNTER 2018-02-02 10:46 | Inpatient (IN) | payer MEDICARE ==
[~2018-02-02] VITALS: Ht 167.6 cm; Wt 115.8 kg
[~2018-02-02 10:46] MED LIST changes: -HYDR12.53 PO; +HYDR12.575 PO; +LOSA-73 PO; -LOSA50TA7 PO
[2018-02-02] MEDS ORDERED: TAMSULOSIN 0.4 MG CAP.ER.24H. PO ONE (11:45)
[2018-02-02] MEDS ORDERED: fentaNYL PF VIAL 100 MCG/2 ML VIAL IV ONE (11:45)
[2018-02-02] MEDS ORDERED: IV NORMAL SALINE 1000ML BAG 1,000 ML IV ONE ×2 (11:45)
[2018-02-02 12:22] LABS: BILIRUBIN,URINE NEGATIVE (NEG); CLARITY,URINE CLEAR; COLOR,URINE YELLOW; NITRITE,URINE NEGATIVE (NEG); PH,URINE 6.5; PROTEIN,URINE NEGATIVE (NEG-TRACE); UROBILINOGEN,URINE 0.2 mg/dL (0.2 mg/dL)
[2018-02-02 12:30] LABS: BACTERIA,URINE MANY /HPF (0-FEW); SQUAMOUS EPITHELIAL CELL,UR MOD /LPF
[2018-02-02 12:31] LABS: RBC,URINE TNTC /HPF (0-2); WBC,URINE >40 /HPF (0-4)
--- NOTE | 2018-02-02 12:59 | RAD ---
CT abdomen and pelvis without contrast PQRS statement: CT scans at this facility use dose reduction including either automated exposure control, iterative reconstructions, and /or weight based radiation dosing via mA and kV modification when appropriate to reduce radiation dose to as low as reasonably achievable. HISTORY: Flank pain, history of kidney stones. COMPARISON: CT abdomen and pelvis December 11, 2017. TECHNIQUE: Helical multiplanar reconstructed noncontrast CT imaging abdomen and pelvis was acquired. Abdomen findings: 2 right lower lobe adjacent solid pulmonary nodules largest measuring 5 mm outside the [id number] on the prior study. 1 cm right adrenal nodule density of 1 units consistent with an adenoma. Probable smaller left adrenal adenoma. This is stable. Mild prominence of the common bile duct likely related to cholecystectomy. Pancreas, liver, spleen unremarkable. Left kidney is unremarkable. Nonobstructing right renal midpole calculus measuring 10 mm. There is mild right renal hydronephrosis and pelviectasis with renal pelvis diameter 3 cm which is stable, associated with ureteropelvic junction irregular linear 15 mm calculus with exuberant urothelial thickening and surrounding edema and enlargement of the ureteropelvic junction. Extensive calcified plaque of the arteries and aorta and the abdomen. Mild sigmoid diverticulosis. No obstruction or inflammation GI tract. Appendix not visualized. No abdominal free fluid. Bones unremarkable. Pelvis findings: Hysterectomy. Ovaries absent. No bladder calculi. Rectum and bones are unremarkable. IMPRESSION: 1. Mild right renal hydronephrosis associated with a 15 mm obstructing linear irregular ureteropelvic junction calculus with expansion of the junction and markedly abnormal thickening of the urothelium and extensive surrounding edema. This is similar to prior imaging in November 2017. This is presumably reflective of advanced infection/inflammation. Given the marked wall thickening and expansion surrounding the calculus, urothelial malignancy is not excluded. 2. Stable 10 mm nonobstructing right renal midpole calculus. 3. 2 pulmonary solid nodules right lower lobe largest measuring 5 mm. These are outside the [id number] on the prior exam. Per Fleischner guidelines in a patient with risk factors for malignancy optional CT follow-up in 12 months would be advised, otherwise no follow-up is necessary. Electronically signed by: Alberto Pérez MD (02/02/2018 12:55 PM) [facility]
[2018-02-02 13:24] LABS: BASO # 0.1 x10^3/uL (0.0-0.2); BASO % 1 % (0-3); EOS # 0.2 x10^3/uL (0.0-0.7); EOS % 2 % (0-3); HEMATOCRIT 36.6 % (36.0-47.0); HEMOGLOBIN 12.4 g/dL (12.0-15.5); LYMPH % 10 % (24-48); MEAN CORPUSCULAR HEMOGLOBIN 31 pg (25-35); MEAN CORPUSCULAR HGB CONC 34 g/dL (31-37); MEAN CORPUSCULAR VOLUME 91 fL (79-100); MONO # 0.9 x10^3/uL (0.0-1.1); MONO % 9 % (0-9); NEUT # 8.2 x10^3uL (1.8-7.7); NEUT % 78 % (31-73); PLATELET COUNT 402 x10^3/uL (140-400); RED BLOOD COUNT 4.02 x10^6/uL (3.50-5.40); RED CELL DISTRIBUTION WIDTH 14.8 % (11.5-14.5); WHITE BLOOD COUNT 10.4 x10^3/uL (4.0-11.0)
[2018-02-02 13:31] LABS: CALCIUM 10.5 mg/dL (8.5-10.1); CREATININE 1.5 mg/dL (0.6-1.0); GFR 33.2
[2018-02-02 13:38] LABS: ALBUMIN 3.8 g/dL (3.4-5.0); ALBUMIN/GLOBULIN RATIO 0.8 (1.0-1.7); TOTAL BILIRUBIN 0.5 mg/dL (0.2-1.0); TOTAL PROTEIN 8.3 g/dL (6.4-8.2)
--- NOTE | 2018-02-02 15:11 | PHYS DOC ---
Past Medical History Past Medical History: A-Fib, CHF, COPD, Diabetes-Type II, High Cholesterol, Hypertension, Kidney Infection, Kidney Stone Additional Past Medical Histor: coumadin use Past Surgical History: Appendectomy, Cholecystectomy, Hysterectomy, Tonsillectomy, Other Additional Past Surgical Histo: bilat knee replacements, aortic valve, mastoid Alcohol Use: None Drug Use: None Adult General Chief Complaint Chief Complaint: NAUSEA/VOMITING/DIARRHA HPI HPI Patient is a 82 year old female with history of heart disease, COPD, hypertension, high cholesterol, diabetes type 2, kidney stones, who presents today complaining of moderate right flank pain with nausea that began this morning. Patient states she has known history of kidney stone roughly 10 mm and she was supposed to have it removed at [facility] by but pain has gotten worse. Patient denies any hematuria urgency frequency dysuria. Denies any fever. PCP Dr. Thee Suresh Review of Systems Review of Systems Constitutional: Denies fever or chills [] Eyes: Denies change in visual acuity, redness, or eye pain [] HENT: Denies nasal congestion or sore throat [] Respiratory: Denies cough or shortness of breath [] Cardiovascular: No additional information not addressed in HPI [] GI: Reports nausea, denies abdominal pain, vomiting, bloody stools or diarrhea [ ] : Reports right flank pain. Denies dysuria or hematuria [] Musculoskeletal: Denies back pain or joint pain [] Integument: Denies rash or skin lesions [] Neurologic: Denies headache, focal weakness or sensory changes [] All other systems were reviewed and found to be within normal limits, except as documented in this note. Current Medications Current Medications Current Medications Medications (Trade) Dose Ordered Sig/Nickie Start Time Stop Time Status Last Admin Dose Admin Fentanyl Citrate (Fentanyl 2ml Vial) 50 mcg 1X ONCE 02/02/18 11:45 02/02/18 11:46 DC 02/02/18 13:17 50 MCG Sodium Chloride 1,000 ml @ 1,000 mls/hr 1X ONCE 02/02/18 11:45 02/02/18 12:44 DC 02/02/18 11:45 1,000 MLS/HR Tamsulosin HCl (Flomax) 0.4 mg 1X ONCE 02/02/18 11:45 02/02/18 11:46 DC 02/02/18 13:17 0.4 MG Allergies Allergies Allergies Coded Allergies Type Severity Reaction Last Updated Verified lisinopril Allergy Severe Anaphylaxis 02/11/17 Yes shellfish derived Allergy Severe Shortness of Air 02/11/17 Yes Penicillins Allergy Intermediate Tolerates rocephin 02/11/17 Yes Sulfa (Sulfonamide Antibiotics) Allergy Intermediate 02/11/17 Yes morphine Adverse Reaction Severe Anxiety 02/11/17 Yes Physical Exam Physical Exam Constitutional: Well developed, well nourished, no acute distress, non-toxic appearance. [] HENT: Normocephalic, atraumatic, bilateral external ears normal, oropharynx moist, no oral exudates, nose normal. [] Eyes: PERRLA, EOMI, conjunctiva normal, no discharge. [] Neck: Normal range of motion, no tenderness, supple, no stridor. [] Cardiovascular:Heart rate regular rhythm, no murmur [] Lungs & Thorax: Bilateral breath sounds clear to auscultation, on oxygen 2 L- chronic Abdomen: Bowel sounds normal, soft, no tenderness, no masses, no pulsatile masses. [] Skin: Warm, dry, no erythema, no rash. [] Back: No tenderness, no CVA tenderness. [] Extremities: No tenderness, no cyanosis, no clubbing, ROM intact, no edema. [] Neurologic: Alert and oriented X 3, normal motor function, normal sensory function, no focal deficits noted. [] Psychologic: Affect normal, judgement normal, mood normal. [] Current Patient Data Vital Signs Vital Signs Date Time Temp Pulse Resp B/P (MAP) Pulse Ox O2 Delivery O2 Flow Rate FiO2 02/02/18 13:50 62 20 192/79 (116) 100 Nasal Cannula 2.0 02/02/18 11:19 98.1 98.1 Lab Values Laboratory Tests Test 02/02/18 11:16 02/02/18 13:15 Urine Collection Type Unknown Urine Color Yellow Urine Clarity Clear Urine pH 6.5 Urine Specific [place] 1.010 Urine Protein Negative mg/dL (NEG-TRACE) Urine Glucose (UA) Negative mg/dL (NEG) Urine Ketones (Stick) Negative mg/dL (NEG) Urine Blood Large (NEG) Urine Nitrite Negative (NEG) Urine Bilirubin Negative (NEG) Urine Urobilinogen Dipstick 0.2 mg/dL (0.2 mg/dL) Urine Leukocyte Esterase Large (NEG) Urine RBC Tntc /HPF (0-2) Urine WBC >40 /HPF (0-4) Urine Squamous Epithelial Cells Mod /LPF Urine Bacteria Many /HPF (0-FEW) Urine Mucus Slight /LPF White Blood Count 10.4 x10^3/uL (4.0-11.0) Red Blood Count 4.02 x10^6/uL (3.50-5.40) Hemoglobin 12.4 g/dL (12.0-15.5) Hematocrit 36.6 % (36.0-47.0) Mean Corpuscular Volume 91 fL (79-100) Mean Corpuscular Hemoglobin 31 pg (25-35) Mean Corpuscular Hemoglobin Concent 34 g/dL (31-37) Red Cell Distribution Width 14.8 % (11.5-14.5) H Platelet Count 402 x10^3/uL (140-400) H Neutrophils (%) (Auto) 78 % (31-73) H Lymphocytes (%) (Auto) 10 % (24-48) L Monocytes (%) (Auto) 9 % (0-9) Eosinophils (%) (Auto) 2 % (0-3) Basophils (%) (Auto) 1 % (0-3) Neutrophils # (Auto) 8.2 x10^3uL (1.8-7.7) H Lymphocytes # (Auto) 1.0 x10^3/uL (1.0-4.8) Monocytes # (Auto) 0.9 x10^3/uL (0.0-1.1) Eosinophils # (Auto) 0.2 x10^3/uL (0.0-0.7) Basophils # (Auto) 0.1 x10^3/uL (0.0-0.2) Prothrombin Time 16.2 SEC (11.7-14.0) H Prothrombin Time INR 1.3 (0.8-1.1) H PTT 40 SEC (24-38) H Sodium Level 140 mmol/L (136-145) Potassium Level 4.0 mmol/L (3.5-5.1) Chloride Level 99 mmol/L (98-107) Carbon Dioxide Level 32 mmol/L (21-32) Anion Gap 9 (6-14) Blood Urea Nitrogen 33 mg/dL (7-20) H Creatinine 1.5 mg/dL (0.6-1.0) H Estimated GFR (Cockcroft-Gault) 33.2 BUN/Creatinine Ratio 22 (6-20) H Glucose Level 152 mg/dL (70-99) H Calcium Level 10.5 mg/dL (8.5-10.1) H Total Bilirubin 0.5 mg/dL (0.2-1.0) Aspartate Amino Transferase (AST) 16 U/L (15-37) Alanine Aminotransferase (ALT) 17 U/L (14-59) Alkaline Phosphatase 132 U/L (46-116) H Total Protein 8.3 g/dL (6.4-8.2) H Albumin 3.8 g/dL (3.4-5.0) Albumin/Globulin Ratio 0.8 (1.0-1.7) L Lipase 153 U/L (73-393) Laboratory Tests 02/02/18 13:15 Laboratory Tests 02/02/18 13:15 Microbiology 02/02/18 Urine Culture - Final, Complete 02/02/18 Urine Culture Result 1 (AMI) - Final, Complete 02/02/18 Antimicrobic Susceptibility - Final, Complete EKG EKG [] Radiology/Procedures Radiology/Procedures []PROCEDURE: CT ABDOMEN PELVIS WO CONTRAST CT abdomen and pelvis without contrast PQRS statement: CT scans at this facility use dose reduction including either automated exposure control, iterative reconstructions, and /or weight based radiation dosing via mA and kV modification when appropriate to reduce radiation dose to as low as reasonably achievable. HISTORY: Flank pain, history of kidney stones. COMPARISON: CT abdomen and pelvis December 11, 2017. TECHNIQUE: Helical multiplanar reconstructed noncontrast CT imaging abdomen and pelvis was acquired. Abdomen findings: 2 right lower lobe adjacent solid pulmonary nodules largest measuring 5 mm outside the [id number]-er-[id number] on the prior study. 1 cm right adrenal nodule density of 1 units consistent with an adenoma. Probable smaller left adrenal adenoma. This is stable. Mild prominence of the common bile duct likely related to cholecystectomy. Pancreas, liver, spleen unremarkable. Left kidney is unremarkable. Nonobstructing right renal midpole calculus measuring 10 mm. There is mild right renal hydronephrosis and pelviectasis with renal pelvis diameter 3 cm which is stable, associated with ureteropelvic junction irregular linear 15 mm calculus with exuberant urothelial thickening and surrounding edema and enlargement of the ureteropelvic junction. Extensive calcified plaque of the arteries and aorta and the abdomen. Mild sigmoid diverticulosis. No obstruction or inflammation GI tract. Appendix not visualized. No abdominal free fluid. Bones unremarkable. Pelvis findings: Hysterectomy. Ovaries absent. No bladder calculi. Rectum and bones are unremarkable. IMPRESSION: 1. Mild right renal hydronephrosis associated with a 15 mm obstructing linear irregular ureteropelvic junction calculus with expansion of the junction and markedly abnormal thickening of the urothelium and extensive surrounding edema. This is similar to prior imaging in November 2017. This is presumably reflective of advanced infection/inflammation. Given the marked wall thickening and expansion surrounding the calculus, urothelial malignancy is not excluded. 2. Stable 10 mm nonobstructing right renal midpole calculus. 3. 2 pulmonary solid nodules right lower lobe largest measuring 5 mm. These are outside the [id number] on the prior exam. Per Fleischner guidelines in a patient with risk factors for malignancy optional CT follow-up in 12 months would be advised, otherwise no follow-up is necessary. Electronically signed by: Raj Pérez MD (02/02/2018 12:55 PM) [facility] DICTATED and SIGNED BY: RAJ PÉREZ MD DATE: 02/02/18 9975 Course & Med Decision Making Course & Med Decision Making Pertinent Labs and Imaging studies reviewed. (See chart for details) This is a 82-year-old female patient presenting to the ED right flank pain with nausea that began this morning. Has history of kidney stone. CBC with a normal WBC. CMP with creatinine of 1.5, BUN 33. Urine analysis is noted for large amount of leukocytes, large amount of blood, no nitrites. CT of the abdomen and pelvic was noted for 15 mm obstructing stone at the UVJ. Patient was also noted for abnormal thickening of urothelium and extensive surrounding Edema. Also noted for 10 mm nonobstructing right renal mid pole calculus. Also noted for possible pulmonary nodules. Patient was started on Cipro. Also given Flomax. 14:[address] Lopez urologist, they will follow up with patient tomorrow morning. NPO after midnight 14:[address] Suresh who accepted patient for admission Venancio Disclaimer Venancio Disclaimer This electronic medical record was generated, in whole or in part, using a voice recognition dictation system. Departure Departure Impression: Primary Impression: Kidney stones Additional Impression: Pyelonephritis Disposition: ADMITTED INPATIENT Condition: STABLE Referrals: VALERIE FLORENCE MD (PCP) Attending Signature Attending Signature I have reviewed the PA/CRO's note and plan of care. I was available for consultation as needed during the patient's visit in the emergency department. I agree with the clinical impression, plan, and disposition. Problem Qualifiers JOSE ALFREDO FREEMAN APRN Feb 02, 2018 15:11 DERRICK MONROE DO Feb 05, 2018 19:59
[2018-02-02] MEDS ORDERED: ACETAMINOPHEN 325 MG TABLET. PO PRN (15:15)
[2018-02-02] MEDS ORDERED: ONDANSETRON PF 4 MG/2 ML VIAL. IV PRN (15:15)
[2018-02-02] MEDS ORDERED: DEXTROSE 50% 25 GM / 50ML DISP.SYRIN. IV PRN (15:15)
[2018-02-02 15:26] LABS: PROTHROMBIN TIME PATIENT 16.2 SEC (11.7-14.0)
[2018-02-02 17:30] VITALS: BP 108/48
[2018-02-02] MEDS: fentaNYL PF VIAL 100 MCG/2 ML VIAL IV PRN ×2 (17:50→23:07)
[2018-02-02 19:00] VITALS: BP 145/41
[2018-02-02] MEDS: ALPRAZolam 0.25 MG TABLET PO SCH (21:53)
[2018-02-02] MEDS: CIPROFLOXACIN 400MG PREMIX 200 ML IV SCH (21:53)
[2018-02-02] MEDS: DRONEDARONE HCL 400 MG TABLET PO SCH (21:56)
[2018-02-02] MEDS: INSULIN GLARGINE 300 UNITS/3 ML INSULN.PEN. SQ SCH (21:58)
[2018-02-02 22:20] VITALS: BP 142/45
[2018-02-03 03:00] VITALS: BP 118/47
[2018-02-03 07:00] VITALS: BP 155/64
--- NOTE | 2018-02-03 08:28 | PDOC1 ---
H & P. HPI: Ms. Barkley is an 82-year-old female with past medical history of well-controlled type 2 diabetes, complicated by diabetic polyneuropathy, A. fib, history of aortic valve replacement, COPD, hypertension, hyperlipidemia, macular degeneration, CHF, recurrent urolithiasis, for which she was admitted to [place] in November 2017. Pt presented to the ED yesterday for complaints of increasing right flank pain with nausea. She denies dysuria, hematuria, frequency, urgency. Initial labs show large blood and large leukocytes on UA, elevated creatinine at 1.5. ROS: Constitutional: Denies fever, fatigue, chills HEENT: Denies sore throat, vision changes Cardio: Denies chest pain, dyspnea with exertion, syncope, palpitations, edema Pulmonary: Denies shortness of breath, cough, wheezing GI: Denies nausea, vomiting, diarrhea, constipation : Denies dysuria, frequency, urgency, incontinence Skin: Denies new lesions Neuro: Denies weakness, paresthesias PMH: As above FAMILY HX: Father had lung cancer, type 2 diabetes. Mother had type 2 diabetes, hypertension, obesity, heart attack. SOCIAL HX: Never smoker, no significant alcohol use, denies drug use. SURGICAL HX: Total hysterectomy with bilateral salpingo-oophorectomy, tonsillectomy, appendectomy, history of ureteral stent, aortic valve replacement, bilateral knee replacements, cardiac pacemaker MEDS: Reviewed and reconciled ALLERGIES: Reviewed PE: Alert, oriented, no acute distress EOMI, sclera non-icteric Neck supple RRR with audible click of valve replacement CTAB, no wheezes, crackles or rhonchi Soft, NT, ND, normal bowel sounds. No edema, cyanosis. Normal capillary refill. Calm, cooperative, mood/affect within normal limits CT Abd/Pelvis: IMPRESSION: 1. Mild right renal hydronephrosis associated with a 15 mm obstructing linear irregular ureteropelvic junction calculus with expansion of the junction and markedly abnormal thickening of the urothelium and extensive surrounding edema. This is similar to prior imaging in November 2017. This is presumably reflective of advanced infection/inflammation. Given the marked wall thickening and expansion surrounding the calculus, urothelial malignancy is not excluded. 2. Stable 10 mm nonobstructing right renal midpole calculus. 3. 2 pulmonary solid nodules right lower lobe largest measuring 5 mm. These are outside the [id number] on the prior exam. Per Fleischner guidelines in a patient with risk factors for malignancy optional CT follow-up in 12 months would be advised, otherwise no follow-up is necessary. ASSESSMENT & PLAN: 15 mm obstructing stone at the right UPJ, present from admission in November 2017 10 mm nonobstructing right mid pole renal calculus ARMAAN Asymptomatic bacteruria, awaiting culture Type 2 diabetes Atrial fibrillation History of aortic valve replacement COPD Hypertension Hyperlipidemia Macular degeneration CHF, not in acute exacerbation Urology was consulted Continue home medications, apart from pradaxa as she was told to hold this medication prior to the procedure Await repeat BMP this AM Cipro to cover UTI pending culture Pt is NPO pending likely procedure today VALERIE FLORENCE MD Feb 03, 2018 08:28
[2018-02-03] MEDS: ALBUTEROL SULFATE 2.5 MG/3 ML NEBU. NEB SCH ×4 (09:00→19:38)
[2018-02-03] MEDS ORDERED: NON FORMULARY ITEM (Budesonide/Formoterol Fumarate (Symbicort 160-4.5 Mcg Inhaler) 10.2 GM IH SCH (09:00)
[2018-02-03] MEDS: BUDESONIDE 0.5 MG/2 ML NEBU. NEB SCH ×2 (09:00→19:38)
[2018-02-03 09:24] LABS: BASO # 0.1 x10^3/uL (0.0-0.2); BASO % 1 % (0-3); EOS # 0.3 x10^3/uL (0.0-0.7); EOS % 4 % (0-3); HEMOGLOBIN 11.5 g/dL (12.0-15.5); LYMPH # 0.9 x10^3/uL (1.0-4.8); LYMPH % 11 % (24-48); MEAN CORPUSCULAR HEMOGLOBIN 31 pg (25-35); MEAN CORPUSCULAR HGB CONC 34 g/dL (31-37); MEAN CORPUSCULAR VOLUME 91 fL (79-100); MONO # 0.8 x10^3/uL (0.0-1.1); MONO % 10 % (0-9); NEUT # 6.1 x10^3uL (1.8-7.7); NEUT % 75 % (31-73); PLATELET COUNT 354 x10^3/uL (140-400); RED BLOOD COUNT 3.73 x10^6/uL (3.50-5.40); RED CELL DISTRIBUTION WIDTH 14.9 % (11.5-14.5); WHITE BLOOD COUNT 8.1 x10^3/uL (4.0-11.0)
[2018-02-03 09:50] LABS: ALBUMIN 3.3 g/dL (3.4-5.0); ALBUMIN/GLOBULIN RATIO 0.8 (1.0-1.7); CALCIUM 9.4 mg/dL (8.5-10.1); CREATININE 1.5 mg/dL (0.6-1.0); GFR 33.2; POTASSIUM 3.9 mmol/L (3.5-5.1); TOTAL BILIRUBIN 0.4 mg/dL (0.2-1.0); TOTAL PROTEIN 7.3 g/dL (6.4-8.2)
[2018-02-03] MEDS: CIPROFLOXACIN 400MG PREMIX 200 ML IV SCH ×2 (10:26→21:07)
[2018-02-03] MEDS: FLUTICASONE 50MCG/NASAL SPRAY 16GM BOTTLE. NS SCH (10:30)
[2018-02-03 10:59] VITALS: BP 105/51
[2018-02-03] MEDS: hydroCHLOROthiazide 12.5 MG CAPSULE PO SCH (13:30)
[2018-02-03] MEDS: fentaNYL PF VIAL 100 MCG/2 ML VIAL IV PRN ×2 (13:30→16:43)
[2018-02-03] MEDS: METOPROLOL TART IMMED RELEASE 50 MG TABLET. PO SCH ×2 (13:30→21:06)
[2018-02-03] MEDS: DRONEDARONE HCL 400 MG TABLET PO SCH ×2 (13:30→21:05)
[2018-02-03] MEDS: POTASSIUM CHLORIDE 10 MEQ TABLET.ER. PO SCH (13:31)
[2018-02-03] MEDS: IV NORMAL SALINE 1000ML BAG 1,000 ML IV SCH ×2 (13:31→22:50)
[2018-02-03] MEDS: CETIRIZINE HCL 10 MG TABLET. PO SCH (13:31)
[2018-02-03 15:00] VITALS: BP 144/48
[2018-02-03] MEDS: FUROSEMIDE 40 MG TABLET. PO SCH (16:42)
--- NOTE | 2018-02-03 18:09 | PDOC2 ---
UROLOGY CONSULT Date of Consult Date of Consult DATE: 02/03/18 TIME: 17:59 Reason for Consult Reason for Consult: right ureteral stone Identification/Chief Complaint Chief Complaint right flank pain Source Source: Chart review, Patient History of Present Illness Reason for Visit: [address] Lawson with 15 mm midureteral stone and plans for ureteroscopy with laser litho on Th who is admitted with renal colic. CT on presentation identified the stone in the proximal to mid ureter. Ct 1.5. No leukocytosis. UA +LE, WBC, RBC, bacteria, squamous cells. On ciprofloxacin. Denies fevers, chills and other concerns. Pain and nausea have been well controlled since admission. Past Medical History Cardiovascular: AFIB, CAD, CHF, HTN, Hyperlipidemia, Valve insufficiency, Pulmonary hypertension Pulmonary: Bronchitis, COPD GI: Diverticulosis, GI bleed Endocrine: Diabetes Past Surgical History Past Surgical History: Pacemaker, Appendectomy, Cholecystectomy, CABG, Total knee replacement, Hysterectomy, Other Family History Family History: Heart Disease Social History ALCOHOL: none Drugs: None Current Medications Current Medications Current Medications Albuterol Sulfate (Ventolin Neb Soln) 2.5 mg RTQID NEB Last administered on 14:58; Start 02/03/18 at 09:00 Alprazolam (Xanax) 0.25 mg HS PO Last administered on 02/02/18at 21:53; Start 02/02/18 at 21:00 Atorvastatin Calcium (Lipitor) 40 mg QHS PO ; Start 02/03/18 at 21:00 Budesonide (Pulmicort) 0.5 mg RTBID NEB Last administered on 02/03/18at 09:00; Start 02/03/18 at 09:00 Cetirizine HCl (ZyrTEC) 10 mg DAILY PO Last administered on 02/03/18 13:31; Start 02/03/18 at 10:30 Ciprofloxacin/ Dextrose 200 ml @ 200 mls/hr Q12HR IV Last administered on 10:26; Start 02/02/18 at 21:00 Dronedarone (Multaq) 400 mg BID PO Last administered on 02/03/18 13:30; Start 02/02/18 at 21:00 Fentanyl Citrate (Fentanyl 2ml Vial) 50 mcg PRN Q1HR PRN IV PAIN Last administered on 02/03/18 16:43; Start 02/03/18 at 16:30 Fluticasone Propionate (Flonase) 2 spray DAILY NS Last administered on 10:30; Start 02/03/18 at 10:30 Furosemide (Lasix) 40 mg QMWF PO Last administered on 02/03/18 16:42; Start 02/03/18 at 16:00 Hydrochlorothiazide (Microzide) 12.5 mg DAILY PO Last administered on 13:30; Start 02/03/18 at 09:00 Insulin Glargine (Lantus) 30 units QHS SQ Last administered on 02/02/18 21:58 ; Start 02/02/18 at 21:00 Metoprolol Tartrate (Lopressor) 50 mg BID PO Last administered on 02/03/18 13 :30; Start 02/03/18 at 09:00 Non-Formulary Medication (Budesonide/ Formoterol Fumarate (Symbicort 160-4.5 Mcg Inhaler)) 10.2 gm BID IH ; Start 02/03/18 at 09:00; Status UNV Potassium Chloride (Klor-Con) 10 meq DAILY PO Last administered on 02/03/18 13:31; Start 02/03/18 at 09:00 Sodium Chloride 1,000 ml @ 75 mls/hr [id number] IV Last administered on 13:31; Start 02/03/18 at 09:30 Tamsulosin HCl (Flomax) 0.4 mg QHS PO ; Start 02/03/18 at 21:00 Allergies Allergies: Coded Allergies: lisinopril (Verified Allergy, Severe, Anaphylaxis, 02/11/17) shellfish derived (Verified Allergy, Severe, Shortness of Air, 02/11/17) Penicillins (Verified Allergy, Intermediate, Tolerates rocephin, 02/11/17) Sulfa (Sulfonamide Antibiotics) (Verified Allergy, Intermediate, 02/11/17) morphine (Verified Adverse Reaction, Severe, Anxiety, 02/11/17) ROS Review Of Systems: Pertinent positives and negatives for obtained and included in the HPI. Physical Exam Physical Exam: General: Pleasant, no acute distress Eyes: conjunctiva anicteric, eyes full range of motion ENT: moist oral mucosa Neck: Trachea midline Respiratory: unlabored breathing, not using accessory muscles Cardiovascular: Normal temperature Abdomen: nontender, nondistended, obese Skin: no rashes or skin lesions on visualized skin Psych: normal mood, affect. Alert and oriented x 3. Vitals VITALS Vital Signs Date Time Temp Pulse Resp B/P (MAP) Pulse Ox O2 Delivery O2 Flow Rate FiO2 02/03/18 16:43 18 97 Nasal Cannula 2.0 02/03/18 15:00 97.8 93 144/48 (80) 97.8 Labs Labs Laboratory Tests Test 02/02/18 11:16 02/02/18 13:15 02/02/18 16:53 02/02/18 21:07 Urine Collection Type Unknown Urine Color Yellow Urine Clarity Clear Urine pH 6.5 Urine Specific [place] 1.010 Urine Protein Negative mg/dL (NEG-TRACE) Urine Glucose (UA) Negative mg/dL (NEG) Urine Ketones (Stick) Negative mg/dL (NEG) Urine Blood Large (NEG) Urine Nitrite Negative (NEG) Urine Bilirubin Negative (NEG) Urine Urobilinogen Dipstick 0.2 mg/dL (0.2 mg/dL) Urine Leukocyte Esterase Large (NEG) Urine RBC Tntc /HPF (0-2) Urine WBC >40 /HPF (0-4) Urine Squamous Epithelial Cells Mod /LPF Urine Bacteria Many /HPF (0-FEW) Urine Mucus Slight /LPF White Blood Count 10.4 x10^3/uL (4.0-11.0) Red Blood Count 4.02 x10^6/uL (3.50-5.40) Hemoglobin 12.4 g/dL (12.0-15.5) Hematocrit 36.6 % (36.0-47.0) Mean Corpuscular Volume 91 fL (79-100) Mean Corpuscular Hemoglobin 31 pg (25-35) Mean Corpuscular Hemoglobin Concent 34 g/dL (31-37) Red Cell Distribution Width 14.8 % (11.5-14.5) Platelet Count 402 x10^3/uL (140-400) Neutrophils (%) (Auto) 78 % (31-73) Lymphocytes (%) (Auto) 10 % (24-48) Monocytes (%) (Auto) 9 % (0-9) Eosinophils (%) (Auto) 2 % (0-3) Basophils (%) (Auto) 1 % (0-3) Neutrophils # (Auto) 8.2 x10^3uL (1.8-7.7) Lymphocytes # (Auto) 1.0 x10^3/uL (1.0-4.8) Monocytes # (Auto) 0.9 x10^3/uL (0.0-1.1) Eosinophils # (Auto) 0.2 x10^3/uL (0.0-0.7) Basophils # (Auto) 0.1 x10^3/uL (0.0-0.2) Prothrombin Time 16.2 SEC (11.7-14.0) Prothromb Time International Ratio 1.3 (0.8-1.1) Activated Partial Thromboplast Time 40 SEC (24-38) Sodium Level 140 mmol/L (136-145) Potassium Level 4.0 mmol/L (3.5-5.1) Chloride Level 99 mmol/L (98-107) Carbon Dioxide Level 32 mmol/L (21-32) Anion Gap 9 (6-14) Blood Urea Nitrogen 33 mg/dL (7-20) Creatinine 1.5 mg/dL (0.6-1.0) Estimated GFR (Cockcroft-Gault) 33.2 BUN/Creatinine Ratio 22 (6-20) Glucose Level 152 mg/dL (70-99) Calcium Level 10.5 mg/dL (8.5-10.1) Total Bilirubin 0.5 mg/dL (0.2-1.0) Aspartate Amino Transf (AST/SGOT) 16 U/L (15-37) Alanine Aminotransferase (ALT/SGPT) 17 U/L (14-59) Alkaline Phosphatase 132 U/L (46-116) Total Protein 8.3 g/dL (6.4-8.2) Albumin 3.8 g/dL (3.4-5.0) Albumin/Globulin Ratio 0.8 (1.0-1.7) Lipase 153 U/L (73-393) Glucose (Fingerstick) 155 mg/dL (70-99) 231 mg/dL (70-99) Test 02/03/18 07:03 02/03/18 08:17 02/03/18 11:22 02/03/18 16:55 Glucose (Fingerstick) 146 mg/dL (70-99) 216 mg/dL (70-99) 244 mg/dL (70-99) White Blood Count 8.1 x10^3/uL (4.0-11.0) Red Blood Count 3.73 x10^6/uL (3.50-5.40) Hemoglobin 11.5 g/dL (12.0-15.5) Hematocrit 34.0 % (36.0-47.0) Mean Corpuscular Volume 91 fL (79-100) Mean Corpuscular Hemoglobin 31 pg (25-35) Mean Corpuscular Hemoglobin Concent 34 g/dL (31-37) Red Cell Distribution Width 14.9 % (11.5-14.5) Platelet Count 354 x10^3/uL (140-400) Neutrophils (%) (Auto) 75 % (31-73) Lymphocytes (%) (Auto) 11 % (24-48) Monocytes (%) (Auto) 10 % (0-9) Eosinophils (%) (Auto) 4 % (0-3) Basophils (%) (Auto) 1 % (0-3) Neutrophils # (Auto) 6.1 x10^3uL (1.8-7.7) Lymphocytes # (Auto) 0.9 x10^3/uL (1.0-4.8) Monocytes # (Auto) 0.8 x10^3/uL (0.0-1.1) Eosinophils # (Auto) 0.3 x10^3/uL (0.0-0.7) Basophils # (Auto) 0.1 x10^3/uL (0.0-0.2) Sodium Level 142 mmol/L (136-145) Potassium Level 3.9 mmol/L (3.5-5.1) Chloride Level 102 mmol/L (98-107) Carbon Dioxide Level 31 mmol/L (21-32) Anion Gap 9 (6-14) Blood Urea Nitrogen 26 mg/dL (7-20) Creatinine 1.5 mg/dL (0.6-1.0) Estimated GFR (Cockcroft-Gault) 33.2 BUN/Creatinine Ratio 17 (6-20) Glucose Level 167 mg/dL (70-99) Calcium Level 9.4 mg/dL (8.5-10.1) Total Bilirubin 0.4 mg/dL (0.2-1.0) Aspartate Amino Transf (AST/SGOT) 17 U/L (15-37) Alanine Aminotransferase (ALT/SGPT) 16 U/L (14-59) Alkaline Phosphatase 115 U/L (46-116) Total Protein 7.3 g/dL (6.4-8.2) Albumin 3.3 g/dL (3.4-5.0) Albumin/Globulin Ratio 0.8 (1.0-1.7) Laboratory Tests Test 02/02/18 21:07 02/03/18 07:03 02/03/18 08:17 02/03/18 11:22 Glucose (Fingerstick) 231 mg/dL (70-99) 146 mg/dL (70-99) 216 mg/dL (70-99) White Blood Count 8.1 x10^3/uL (4.0-11.0) Red Blood Count 3.73 x10^6/uL (3.50-5.40) Hemoglobin 11.5 g/dL (12.0-15.5) Hematocrit 34.0 % (36.0-47.0) Mean Corpuscular Volume 91 fL (79-100) Mean Corpuscular Hemoglobin 31 pg (25-35) Mean Corpuscular Hemoglobin Concent 34 g/dL (31-37) Red Cell Distribution Width 14.9 % (11.5-14.5) Platelet Count 354 x10^3/uL (140-400) Neutrophils (%) (Auto) 75 % (31-73) Lymphocytes (%) (Auto) 11 % (24-48) Monocytes (%) (Auto) 10 % (0-9) Eosinophils (%) (Auto) 4 % (0-3) Basophils (%) (Auto) 1 % (0-3) Neutrophils # (Auto) 6.1 x10^3uL (1.8-7.7) Lymphocytes # (Auto) 0.9 x10^3/uL (1.0-4.8) Monocytes # (Auto) 0.8 x10^3/uL (0.0-1.1) Eosinophils # (Auto) 0.3 x10^3/uL (0.0-0.7) Basophils # (Auto) 0.1 x10^3/uL (0.0-0.2) Sodium Level 142 mmol/L (136-145) Potassium Level 3.9 mmol/L (3.5-5.1) Chloride Level 102 mmol/L (98-107) Carbon Dioxide Level 31 mmol/L (21-32) Anion Gap 9 (6-14) Blood Urea Nitrogen 26 mg/dL (7-20) Creatinine 1.5 mg/dL (0.6-1.0) Estimated GFR (Cockcroft-Gault) 33.2 BUN/Creatinine Ratio 17 (6-20) Glucose Level 167 mg/dL (70-99) Calcium Level 9.4 mg/dL (8.5-10.1) Total Bilirubin 0.4 mg/dL (0.2-1.0) Aspartate Amino Transf (AST/SGOT) 17 U/L (15-37) Alanine Aminotransferase (ALT/SGPT) 16 U/L (14-59) Alkaline Phosphatase 115 U/L (46-116) Total Protein 7.3 g/dL (6.4-8.2) Albumin 3.3 g/dL (3.4-5.0) Albumin/Globulin Ratio 0.8 (1.0-1.7) Test 02/03/18 16:55 Glucose (Fingerstick) 244 mg/dL (70-99) Images Images CT reviewed Assessment/Plan Assessment/Plan 82 yo F with large symptomatic mid ureteral stone. Discussed treatment options including cystoscopy with right retrograde pyelogram, ureteroscopy, laser lithotripsy and ureteral stent placement vs observation vs stent placement and delayed treatment given +UA and concern for infection. Risk and SEs to all approaches reviewed in detail. She wish to proceed with definitive stone therapy. Will discuss timing with Dr. Lawson however will likely take place tomorrow PM. NPO at NH Obtain consent DAVIE ONEILL MD Feb 03, 2018 18:08
[2018-02-03 19:00] VITALS: BP 135/67
[2018-02-03] MEDS: ATORVASTATIN CALCIUM 40 MG TABLET. PO SCH (21:05)
[2018-02-03] MEDS: ALPRAZolam 0.25 MG TABLET PO SCH (21:06)
[2018-02-03] MEDS: TAMSULOSIN 0.4 MG CAP.ER.24H. PO SCH (21:06)
[2018-02-03] MEDS: INSULIN GLARGINE 300 UNITS/3 ML INSULN.PEN. SQ SCH (21:13)
[2018-02-03 22:57] VITALS: BP 126/62
[2018-02-04] VITALS (12 sets, daily range): BP systolic 117–184; BP diastolic 40–74
[2018-02-04] MEDS: ALBUTEROL SULFATE 2.5 MG/3 ML NEBU. NEB SCH ×4 (07:05→20:00)
[2018-02-04] MEDS: BUDESONIDE 0.5 MG/2 ML NEBU. NEB SCH ×2 (07:05→20:00)
--- NOTE | 2018-02-04 08:30 | PDOC ---
SUBJECTIVE Subjective Pain well controlled. No other concerns. OBJECTIVE Objective Reviewed. Vital Signs Vital Signs Date Time Temp Pulse Resp B/P (MAP) Pulse Ox O2 Delivery O2 Flow Rate FiO2 02/04/18 07:15 97.8 60 18 117/49 (71) 99 BiPAP/CPAP 97.8 02/04/18 07:07 99 Nasal Cannula 2.0 02/04/18 02:47 98.7 60 19 125/58 (80) 99 BiPAP/CPAP 98.7 02/03/18 22:57 97.8 60 18 126/62 (83) 99 Room Air 97.8 02/03/18 21:06 77 135/67 02/03/18 21:05 77 135/67 02/03/18 20:00 Nasal Cannula 2.0 02/03/18 19:40 98 Room Air 2.0 02/03/18 19:39 98 Room Air 2.0 02/03/18 19:00 97.9 77 20 135/67 (89) 99 Nasal Cannula 2.0 97.9 02/03/18 17:13 18 Nasal Cannula 2.0 02/03/18 16:43 18 97 Nasal Cannula 2.0 02/03/18 15:00 97.8 93 20 144/48 (80) 97 Nasal Cannula 2.0 97.8 02/03/18 14:59 Room Air 2.0 02/03/18 14:00 18 Nasal Cannula 2.0 02/03/18 13:30 78 105/51 02/03/18 13:30 78 105/51 02/03/18 13:30 18 97 Nasal Cannula 2.0 02/03/18 11:10 Room Air 2.0 02/03/18 10:59 97.7 78 20 105/51 (69) 97 Room Air 97.7 02/03/18 09:04 96 Room Air 2.0 02/03/18 09:02 96 Room Air 2.0 I & O Intake and Output 02/04/18 07:00 Intake Total 760 ml Output Total 600 ml Balance 160 ml Intake Oral 760 ml Output Urine Total 600 ml # Voids 4 # Bowel Movements 2 PHYSICAL EXAM Physical Exam Alert, oriented, no acute distress EOMI, sclera non-icteric Neck supple RRR with audible click of valve replacement CTAB, no wheezes, crackles or rhonchi Soft, NT, ND, normal bowel sounds. No edema, cyanosis. Normal capillary refill. Calm, cooperative, mood/affect within normal limits ASSESSMENT/PLAN Assessment/Plan 15 mm obstructing stone at the right UPJ, present from admission in November 2017 10 mm nonobstructing right mid pole renal calculus ARMAAN Asymptomatic bacteruria, awaiting culture Type 2 diabetes Atrial fibrillation History of aortic valve replacement COPD Hypertension Hyperlipidemia Macular degeneration CHF, not in acute exacerbation Urology plan for procedure today Continue home medications, apart from pradaxa as she was told to hold this medication prior to the procedure Await repeat BMP this AM Cipro to cover UTI pending culture Will likely need home health at ar COMMENT Lab Laboratory Tests Test 02/03/18 11:22 02/03/18 16:55 02/03/18 20:15 02/04/18 07:36 Glucose (Fingerstick) 216 mg/dL (70-99) 244 mg/dL (70-99) 224 mg/dL (70-99) 193 mg/dL (70-99) VALERIE FLORENCE MD Feb 04, 2018 08:30
[2018-02-04] MEDS: FLUTICASONE 50MCG/NASAL SPRAY 16GM BOTTLE. NS SCH (08:48)
[2018-02-04] MEDS: CIPROFLOXACIN 400MG PREMIX 200 ML IV SCH ×2 (08:48→20:32)
[2018-02-04] MEDS: hydroCHLOROthiazide 12.5 MG CAPSULE PO SCH (09:00)
[2018-02-04] MEDS: DRONEDARONE HCL 400 MG TABLET PO SCH ×2 (09:00→20:32)
[2018-02-04] MEDS: METOPROLOL TART IMMED RELEASE 50 MG TABLET. PO SCH ×2 (09:00→20:33)
[2018-02-04 11:09] LABS: CALCIUM 9.1 mg/dL (8.5-10.1); CREATININE 1.6 mg/dL (0.6-1.0); GFR 30.8; POTASSIUM 3.3 mmol/L (3.5-5.1)
[2018-02-04] MEDS: IV NORMAL SALINE 1000ML BAG 1,000 ML IV SCH (12:10)
[2018-02-04] MEDS ORDERED: PROCHLORPERAZINE 10 MG/2 ML VIAL. ONE (13:36)
[2018-02-04] MEDS ORDERED: fentaNYL PF VIAL 100 MCG/2 ML VIAL ONE ×2 (13:36→16:38)
[2018-02-04] MEDS: fentaNYL PF VIAL 100 MCG/2 ML VIAL IV PRN ×4 (13:43→22:59)
[2018-02-04] MEDS ORDERED: IV RINGERS,LACTATED 1000ML 1,000 ML IV SCH (13:54)
[2018-02-04] MEDS ORDERED: LIDOCAINE 1% PF 2 ML VIAL. ID PRN (14:00)
[2018-02-04] MEDS ORDERED: fentaNYL PF VIAL 100 MCG/2 ML VIAL IV PRN ×2 (14:00)
[2018-02-04] MEDS ORDERED: LIDOCAINE 2% JELLY 6ML IN APPLICATOR. ONE (14:16)
[2018-02-04] MEDS ORDERED: IOHEXOL 300 MG/ML 100ML VIAL. ONE ×2 (14:16→16:24)
[2018-02-04] MEDS ORDERED: SEVOFLURANE 31 TO 60 MINUTES. IH ONE (14:22)
[2018-02-04] MEDS ORDERED: LIDOCAINE 2% PF Vial for OR 5 ML VIAL. ONE (14:23)
[2018-02-04] MEDS ORDERED: DEXAMETHASONE SOD PHOS 20 MG/5 ML VIAL. ONE (14:23)
[2018-02-04] MEDS ORDERED: PROPOFOL 20 ML IV ONE (14:23)
[2018-02-04] MEDS ORDERED: ONDANSETRON PF 4 MG/2 ML VIAL. ONE (14:23)
[2018-02-04] MEDS ORDERED: ePHEDrine PF IN SALINE 50 MG/5 ML DISP.SYRIN IV ONE (14:53)
--- NOTE | 2018-02-04 15:51 | PDOC ---
BRIEF OPERATIVE NOTE Pre-Op Diagnosis right ureteral stone, UTI Post-Op Diagnosis same Procedure Performed Cystoscopy, right retrograde pyelogram Surgeon Herre Turbine Subassembler None Anesthesia Type: General Blood Loss <5 cc Findings Cystitis cystica, large obstructing proximal ureteral stone with proximal hydronephrosis Complications none Operative Note Dictation # [id number] DAVIE ONEILL MD Feb 04, 2018 15:51
--- NOTE | 2018-02-04 16:14 | OP ---
DATE OF SURGERY: 02/04/2018 PREOPERATIVE DIAGNOSES: 1. Obstructing proximal right ureteral stone. 2. Urinary tract infection. POSTOPERATIVE DIAGNOSES: 1. Obstructive proximal right ureteral stone. 2. Urinary tract infection. 3. Cystitis cystica. ANESTHESIA: General. COMPLICATIONS: None. BLOOD LOSS: Less than 5 mL. INDICATION FOR PROCEDURE: The patient is an 82-year-old female with a history of a 15-mm proximal right ureteral stone. Plan was for definitive therapy with Dr. Lawosn on ; however, developed intolerable symptoms as well as urinary tract infection and presented to the hospital. Given the infection, she presents for the above-mentioned procedures. DESCRIPTION OF PROCEDURE: The patient was met in the preoperative holding area where her procedure, risks, benefits, and alternatives were reviewed in detail. Informed consent was obtained. She was brought back to the operating room and placed supine on the operating table. A timeout was called, identifying the correct patient, procedure, preoperative antibiotics and right-sided laterality. All members of the surgical team were in agreement. General anesthesia was induced and she was repositioned into dorsal lithotomy and prepped and draped in sterile fashion. A 21-Macanese rigid cystoscope was placed atraumatically through urethra into the bladder. Within the bladder, complete cystoscopy was performed with a 30-degree lens. There was diffuse cystitis cystica. The single ureteral orifices were noted orthotopically along the trigone. The right ureteral orifice was cannulated with a sensor tip wire. This was fed up to the proximal ureter under fluoroscopic guidance. Over the wire, a 5-Macanese open-ended ureteral catheter placed. A retrograde pyelogram was shot identifying an extremely tortuous and dilated proximal ureter. The radiodensity noted on the rug cleaner film was also appreciated as a filling defect to what appeared to be the ureteropelvic junction. There was significant proximal hydronephrosis to this. We were unable to advance the sensor wire beyond this. We then tried using both straight and angled Glidewire; however, they were unable to traverse this. Finally, we did try a Super Stiff wire to see if we could push the stone up into the renal pelvis; however, we were unsuccessful at gaining access to the renal pelvis. The bladder was then reinspected and no trauma was noted. The bladder was emptied and the scope was removed under direct vision. Delayed films identified no drainage of contrast or extravasation from the right renal pelvis. The patient was then awoken and transferred to the PACU in stable condition. I discussed with both her family and notify Interventional Radiology that she will likely need a nephrostomy tube with hopeful antegrade ureteral stent placement prior to definitive stone surgery. DAVIE ONEILL MD DR: ELEONORA/nts JOB#: [id number] / [id number]
[2018-02-04] MEDS ORDERED: LIDOCAINE WITH 8.4% SOD BICARB 3 ML DISP.SYRIN. ONE ×2 (16:24→16:50)
[2018-02-04] MEDS ORDERED: MIDAZOLAM HCL/PF 2 MG/2 ML VIAL. ONE (16:38)
[2018-02-04] MEDS ORDERED: MIDAZOLAM HCL/PF 2 MG/2 ML VIAL. IV ONE (16:45)
[2018-02-04] MEDS ORDERED: LIDOCAINE WITH 8.4% SOD BICARB 3 ML DISP.SYRIN. IJ ONE (16:45)
[2018-02-04] MEDS ORDERED: fentaNYL PF VIAL 100 MCG/2 ML VIAL IV ONE (16:45)
[2018-02-04] MEDS ORDERED: IOHEXOL 300 MG/ML 100ML VIAL. IART ONE (16:45)
[2018-02-04] MEDS: POTASSIUM CHLORIDE 10 MEQ TABLET.ER. PO SCH (17:49)
[2018-02-04] MEDS: CETIRIZINE HCL 10 MG TABLET. PO SCH (17:49)
[2018-02-04] MEDS: INSULIN GLARGINE 300 UNITS/3 ML INSULN.PEN. SQ SCH (20:30)
[2018-02-04] MEDS: ALPRAZolam 0.25 MG TABLET PO SCH (20:33)
[2018-02-04] MEDS: LACTOBACILLUS RHAMNOSUS GG 1 CAPSULE. PO SCH (20:33)
[2018-02-04] MEDS: TAMSULOSIN 0.4 MG CAP.ER.24H. PO SCH (20:33)
[2018-02-04] MEDS: ATORVASTATIN CALCIUM 40 MG TABLET. PO SCH (20:36)
[2018-02-05] VITALS (7 sets, daily range): BP systolic 116–133; BP diastolic 31–47
[2018-02-05] MEDS: fentaNYL PF VIAL 100 MCG/2 ML VIAL IV PRN ×5 (00:55→21:10)
[2018-02-05] MEDS: IV NORMAL SALINE 1000ML BAG 1,000 ML IV SCH ×2 (04:30→16:22)
[2018-02-05] MEDS: BUDESONIDE 0.5 MG/2 ML NEBU. NEB SCH ×2 (07:23→19:37)
[2018-02-05] MEDS: ALBUTEROL SULFATE 2.5 MG/3 ML NEBU. NEB SCH ×4 (07:23→19:38)
[2018-02-05] MEDS: DRONEDARONE HCL 400 MG TABLET PO SCH ×2 (08:34→20:12)
[2018-02-05] MEDS: LACTOBACILLUS RHAMNOSUS GG 1 CAPSULE. PO SCH ×2 (08:35→20:11)
[2018-02-05] MEDS: hydroCHLOROthiazide 12.5 MG CAPSULE PO SCH (08:35)
[2018-02-05] MEDS: METOPROLOL TART IMMED RELEASE 50 MG TABLET. PO SCH (08:35)
[2018-02-05] MEDS: CETIRIZINE HCL 10 MG TABLET. PO SCH (08:35)
[2018-02-05] MEDS: POTASSIUM CHLORIDE 10 MEQ TABLET.ER. PO SCH (08:35)
[2018-02-05] MEDS: FLUTICASONE 50MCG/NASAL SPRAY 16GM BOTTLE. NS SCH (08:36)
--- NOTE | 2018-02-05 08:53 | PDOC ---
SUBJECTIVE Subjective Doing ok after procedure yesterday. Pain adequately controlled OBJECTIVE Objective Reviewed. Vital Signs Vital Signs Date Time Temp Pulse Resp B/P (MAP) Pulse Ox O2 Delivery O2 Flow Rate FiO2 02/05/18 08:35 61 131/46 02/05/18 08:34 61 131/46 02/05/18 07:24 97 Nasal Cannula 2.0 02/05/18 07:00 98.1 61 14 131/46 (74) 93 Nasal Cannula 2.0 98.1 02/05/18 05:01 95 Nasal Cannula 2.0 02/05/18 04:31 95 Nasal Cannula 2.0 02/05/18 02:37 97.4 59 18 116/41 (66) 95 Nasal Cannula 2.0 97.4 02/05/18 00:55 94 Nasal Cannula 2.0 02/04/18 22:59 94 Nasal Cannula 2.0 02/04/18 22:34 98.0 79 18 119/45 (69) 94 Nasal Cannula 2.0 98.0 02/04/18 20:45 98.6 87 18 124/40 (68) 94 Nasal Cannula 2.0 98.6 02/04/18 20:33 82 129/56 02/04/18 20:32 82 129/56 02/04/18 20:30 95 Nasal Cannula 2.0 02/04/18 20:00 Nasal Cannula 2.0 02/04/18 19:45 99.4 82 18 129/56 (80) 95 Nasal Cannula 2.0 99.4 02/04/18 18:46 97.1 70 1 130/62 (84) 98 Nasal Cannula 2.0 97.1 02/04/18 18:24 98 Nasal Cannula 2.0 02/04/18 18:15 97.3 66 20 140/70 (93) 98 Nasal Cannula 2.0 97.3 02/04/18 18:00 152/74 (100) 02/04/18 17:45 148/71 (96) 02/04/18 17:30 97.7 64 18 157/65 (95) 98 Nasal Cannula 2.0 97.7 02/04/18 17:13 79 21 98 Nasal Cannula 2.0 02/04/18 17:00 18 97 Nasal Cannula 2.0 02/04/18 16:08 97.6 68 18 134/41 99 Nasal Cannula 2 97.6 02/04/18 15:57 97.6 65 18 154/38 100 Nasal Cannula 2 97.6 02/04/18 15:37 Nasal Cannula 10 02/04/18 15:37 97.6 90 18 177/95 100 Nasal Cannula 10 97.6 02/04/18 13:43 15 98 Nasal Cannula 2.0 02/04/18 13:17 97.9 76 15 177/95 98 Nasal Cannula 2 97.9 02/04/18 11:05 97.9 60 20 125/58 (80) 99 Room Air 2.0 97.9 02/04/18 10:58 Nasal Cannula 2.0 I & O Intake and Output 02/05/18 07:00 Intake Total 1440 ml Output Total 950 ml Balance 490 ml Intake Oral 1440 ml Output Urine Total 950 ml PHYSICAL EXAM Physical Exam Alert, oriented, no acute distress EOMI, sclera non-icteric Neck supple RRR with audible click of valve replacement CTAB, no wheezes, crackles or rhonchi Soft, NT, ND, normal bowel sounds. Nephrostomy tube in place in R flank No edema, cyanosis. Normal capillary refill. Calm, cooperative, mood/affect within normal limits ASSESSMENT/PLAN Assessment/Plan 15 mm obstructing stone at the right UPJ, present from admission in November 2017 10 mm nonobstructing right mid pole renal calculus ARMAAN, likely postrenal Asymptomatic bacteruria, awaiting culture Type 2 diabetes Atrial fibrillation History of aortic valve replacement COPD Hypertension Hyperlipidemia Macular degeneration CHF, not in acute exacerbation Nephrostomy tube placed yesterday, await urology's final recommendations Urine Cx showed Ecoli resistant to many abx including cipro. Changed to Rocephin. Pt last had rxn to [facility] ~20 yrs ago and believes she has had cefalosporins before without issue Will observe for allergic rxn after administration Depending on length of need for nephrostomy, may need SNF for assistance with care at home. Lives with who is unable to assist. COMMENT Lab Laboratory Tests Test 02/04/18 10:08 02/04/18 10:59 02/04/18 17:25 02/04/18 20:34 Sodium Level 140 mmol/L (136-145) Potassium Level 3.3 mmol/L (3.5-5.1) Chloride Level 102 mmol/L (98-107) Carbon Dioxide Level 30 mmol/L (21-32) Anion Gap 8 (6-14) Blood Urea Nitrogen 25 mg/dL (7-20) Creatinine 1.6 mg/dL (0.6-1.0) Estimated GFR (Cockcroft-Gault) 30.8 Glucose Level 215 mg/dL (70-99) Calcium Level 9.1 mg/dL (8.5-10.1) Glucose (Fingerstick) 182 mg/dL (70-99) 181 mg/dL (70-99) 283 mg/dL (70-99) Test 02/04/18 21:34 02/05/18 07:32 Glucose (Fingerstick) 282 mg/dL (70-99) 163 mg/dL (70-99) VALERIE FLORENCE MD Feb 05, 2018 08:53
[2018-02-05] MEDS ORDERED: cefTRIAXone IV Push 1 GM VIAL. IVP SCH (09:00)
[2018-02-05] MEDS: INSULIN GLARGINE 300 UNITS/3 ML INSULN.PEN. SQ SCH ×2 (09:00→20:15)
[2018-02-05 09:03] LABS: CALCIUM 8.6 mg/dL (8.5-10.1); CREATININE 1.5 mg/dL (0.6-1.0); GFR 33.2; POTASSIUM 4.2 mmol/L (3.5-5.1)
--- NOTE | 2018-02-05 12:39 | RAD ---
Ultrasound and fluoroscopically guided right approximately 2 placement 02/04/2018 Indication: Right UPJ stone, infected. Associated hydronephrosis and intermittent obstruction Discussion: The risks and benefits of the procedure were discussed with the, her , and her daughter. Informed consent was obtained. A timeout procedure was performed. The patient was placed in the prone position. Ultrasound evaluation demonstrates minimal hydronephrosis. The overlying right flank was prepped and draped using sterile barrier technique. 1% lidocaine was measured for local anesthesia. Under direct ultrasound guidance 21-gauge Chiba needle was advanced into what appears to be a dilated calyx. Fluoroscopic evaluation demonstrates the access to be within an infundibulum. Additional contrast was given to distend the calyces. A small amount of air was administered. A posterior calyx was accessed with a 21-gauge Chiba needle. A wire was advanced to the renal pelvis. Over this wire following dilatation 8 Kenyan nephrostomy catheter was placed. A catheter flushes and aspirates normally. No gross filling defects in the renal pelvis are identified. Given possible acute infection nephrostogram was performed as a limited study. Catheter was secured in place and sterile dressings applied. No immediate complications were identified. Total fluoroscopy time 6.0 minutes Dose area product 17 Gycm2 The procedure was performed under conscious sedation including continuous cardiopulmonary monitoring via dedicated sedation nurse. [id number] sedation time: 30 minutes. Impression: Ultrasound and fluoroscopically guided right nephrostomy tube placement
[2018-02-05] MEDS: FUROSEMIDE 40 MG TABLET. PO SCH (16:22)
--- NOTE | 2018-02-05 16:48 | PDOC ---
Progress Note Subjective Subjective Not too keen on NT. AF VSSN UCX with preteus , MDR. ROS ROS No nausea No vomiting No pain No rash Vital Sign Vital Signs Vital Signs Date Time Temp Pulse Resp B/P (MAP) Pulse Ox O2 Delivery O2 Flow Rate FiO2 02/05/18 16:22 Nasal Cannula 2.0 02/05/18 15:50 99 02/05/18 15:00 97.9 60 16 127/35 (65) 97.9 Physical Exam PHYSICAL EXAM GENERAL: NAD, Alert HEENT: PERRL, OC/OP NECK: Supple, no JVD, no LN LUNGS: Clear HEART: S1S2, no gallop, no murmur ABD: Soft, NT, no organomegaly, no rebound EXT: No edema, no cyanosis PICKLE MAKER: Alert, oriented x 3, no focal neurologic deficit SKIN: No rash IV: ok Labs Lab Laboratory Tests Test 02/04/18 17:25 02/04/18 20:34 02/04/18 21:34 02/05/18 07:32 Glucose (Fingerstick) 181 mg/dL (70-99) 283 mg/dL (70-99) 282 mg/dL (70-99) 163 mg/dL (70-99) Test 02/05/18 07:45 02/05/18 11:22 Sodium Level 141 mmol/L (136-145) Potassium Level 4.2 mmol/L (3.5-5.1) Chloride Level 104 mmol/L (98-107) Carbon Dioxide Level 28 mmol/L (21-32) Anion Gap 9 (6-14) Blood Urea Nitrogen 22 mg/dL (7-20) Creatinine 1.5 mg/dL (0.6-1.0) Estimated GFR (Cockcroft-Gault) 33.2 Glucose Level 166 mg/dL (70-99) Calcium Level 8.6 mg/dL (8.5-10.1) Glucose (Fingerstick) 208 mg/dL (70-99) Objective Assessment right renal stone, large. proteus uti. Plan Plan of Care Will challenge w po abx while IP to avoid PICC. Needs 2 weeks of abx for complicated UTI. Ask IR to place internalize stent next 7-10days, may do so as OP. May dc home with abx once above 2 issues have dispo. Delayed URS will be planned once urine sterility is achieved and right indwelling ureter stent is in place. EMETERIO MAHONEY MD Feb 05, 2018 16:48
[2018-02-05] MEDS: ALPRAZolam 0.25 MG TABLET PO SCH (20:11)
[2018-02-05] MEDS: TAMSULOSIN 0.4 MG CAP.ER.24H. PO SCH (20:11)
[2018-02-05] MEDS: ATORVASTATIN CALCIUM 40 MG TABLET. PO SCH (20:11)
[2018-02-05] MEDS ORDERED: AMOXICILLIN/K CLAV 875/125MG TABLET. PO SCH (21:00)
[2018-02-06 03:00] VITALS: BP 124/32
[2018-02-06 07:00] VITALS: BP 112/59
[2018-02-06] MEDS: ALBUTEROL SULFATE 2.5 MG/3 ML NEBU. NEB SCH ×4 (07:11→20:29)
[2018-02-06] MEDS: BUDESONIDE 0.5 MG/2 ML NEBU. NEB SCH ×2 (07:11→20:29)
[2018-02-06] MEDS: IV NORMAL SALINE 1000ML BAG 1,000 ML IV SCH ×2 (07:15→21:04)
--- NOTE | 2018-02-06 07:51 | PDOC ---
SUBJECTIVE Subjective Feeling ok, pain from nephrostomy tube. OBJECTIVE Objective Reviewed. Vital Signs Vital Signs Date Time Temp Pulse Resp B/P (MAP) Pulse Ox O2 Delivery O2 Flow Rate FiO2 02/06/18 07:12 97 Nasal Cannula 2.0 02/06/18 03:00 98.1 60 16 124/32 (62) 96 Room Air 98.1 02/05/18 23:00 98.0 58 17 116/33 (60) 97 Room Air 98.0 02/05/18 21:45 13 97 BiPAP/CPAP 2.0 02/05/18 21:10 16 97 Nasal Cannula 2.0 02/05/18 20:12 60 124/31 02/05/18 19:40 97 Nasal Cannula 2.0 02/05/18 19:30 Nasal Cannula 2.0 02/05/18 19:00 98.1 60 16 118/31 (60) 96 Room Air 98.1 02/05/18 17:41 98.6 60 16 124/31 (62) 95 Nasal Cannula 2.0 98.6 02/05/18 15:50 99 Nasal Cannula 2.0 02/05/18 15:00 97.9 60 16 127/35 (65) 96 Nasal Cannula 2.0 97.9 02/05/18 13:23 Nasal Cannula 2.0 02/05/18 11:12 96 Nasal Cannula 2.0 02/05/18 11:00 97.8 61 16 133/47 (75) 98 Nasal Cannula 2.0 97.8 02/05/18 08:54 Nasal Cannula 2.0 02/05/18 08:35 61 131/46 02/05/18 08:34 61 131/46 02/05/18 08:00 Nasal Cannula 2.0 I & O Intake and Output 02/06/18 07:00 Intake Total 480 ml Output Total 1000 ml Balance -520 ml Intake Oral 480 ml Output Urine Total 1000 ml # Voids 1 PHYSICAL EXAM Physical Exam Alert, oriented, no acute distress EOMI, sclera non-icteric Neck supple RRR with audible click of valve replacement CTAB, no wheezes, crackles or rhonchi Nephrostomy tube in place in R flank No edema, cyanosis. Normal capillary refill. Calm, cooperative, mood/affect within normal limits ASSESSMENT/PLAN Assessment/Plan 15 mm obstructing stone at the right UPJ, present from admission in November 2017 10 mm nonobstructing right mid pole renal calculus ARMAAN, likely postrenal Asymptomatic bacteruria, awaiting culture Type 2 diabetes Atrial fibrillation History of aortic valve replacement COPD Hypertension Hyperlipidemia Macular degeneration CHF, not in acute exacerbation Nephrostomy tube in place, plan for outpt stent placement in 7-10 days. Changed to rocephin yesterday without issue despite PCN allergy. After discussion with pharm, will transition to cefdinir as cefpodoxime is not available while inpt. Plan to complete 14 days d/t complicated UTI. Pt would benefit from SNF d/t her poor vision and unable to help care for her. PT/OT eval and dc when placement found. COMMENT Lab Laboratory Tests Test 02/05/18 11:22 02/05/18 16:26 02/05/18 20:00 Glucose (Fingerstick) 208 mg/dL (70-99) 209 mg/dL (70-99) 263 mg/dL (70-99) VALERIE FLORENCE MD Feb 06, 2018 07:51
[2018-02-06] MEDS: FLUTICASONE 50MCG/NASAL SPRAY 16GM BOTTLE. NS SCH (08:53)
[2018-02-06] MEDS: fentaNYL PF VIAL 100 MCG/2 ML VIAL IV PRN ×3 (08:54→20:17)
[2018-02-06] MEDS: DRONEDARONE HCL 400 MG TABLET PO SCH ×3 (08:57→20:23)
[2018-02-06] MEDS: CEFDINIR 300 MG CAPSULE PO SCH ×2 (08:58→20:15)
[2018-02-06] MEDS: CETIRIZINE HCL 10 MG TABLET. PO SCH (08:58)
[2018-02-06] MEDS: LACTOBACILLUS RHAMNOSUS GG 1 CAPSULE. PO SCH ×2 (08:58→20:14)
[2018-02-06] MEDS: POTASSIUM CHLORIDE 10 MEQ TABLET.ER. PO SCH (08:58)
[2018-02-06] MEDS: INSULIN GLARGINE 300 UNITS/3 ML INSULN.PEN. SQ SCH ×2 (09:05→23:06)
--- NOTE | 2018-02-06 09:10 | DISCH ---
DISCHARGE DISCHARGE INFORMATION: CONDITION ON DISCHARGE: Stable POST DISCHARGE ORDERS: ACTIVITY ORDERS: Activity as tolerated WEIGHT BEARING STATUS: As tolerated BATHING ORDERS: Shower-keep dressing dry DIET AFTER DISCHARGE: ADA WOUND/INCISION CARE: No wound care needed CHECKS AFTER DISCHARGE: CHECKS AFTER DISCHARGE: Check blood press - daily COMMENTS: flank TREATMENT/EQUIPMENT ORDERS: ADAPTIVE EQUIPMENT NEEDED: Four wheeled walker RESPIRATORY EQUIPMENT NEEDED: Oxygen Physical Therapy For: Evalulation/Treatment Occupational Therapy For: Evaluation/Treatment DISCHARGE MEDICATIONS: Home Meds Reported Medications Pantoprazole Sodium (PROTONIX) 40 Mg Granpkt.dr, 40 MG PO DAILY, TAB 11/09/16 Ferrous Sulfate (FERROUS SULFATE) 325 Mg Tablet, 1 TAB PO BID, #60 TAB 3 Refills 11/09/16 Insulin Detemir (LEVEMIR) 100 Unit/1 Ml Vial, 40 UNIT SQ DAILYWBKFT, VIAL 11/09/16 Insulin Detemir (LEVEMIR) 100 Unit/1 Ml Vial, 30 UNIT SQ QHS for Diabetes, VIAL 11/09/16 Furosemide (FUROSEMIDE) 40 Mg Tablet, 40 MG PO QMWF, TAB 07/02/16 Gabapentin (GABAPENTIN ) 100 Mg Capsule, 100 MG PO TID, CAP 07/02/16 Metoprolol Tartrate (METOPROLOL TARTRATE) 50 Mg Tablet, 50 MG PO BID for FOR HYPERTENSION, #60 TAB 0 Refills 06/17/16 Dronedarone Hcl (MULTAQ) 400 Mg Tablet, 1 TAB PO BID, #180 TAB 1 Refill 02/14/15 Alprazolam (ALPRAZOLAM) 0.25 Mg Tablet, 1 TAB PO HS, #90 TAB 06/16/14 Aspirin (ASPIRIN) 325 Mg Tablet, 1 TAB PO DAILY, #30 TAB 5 Refills 06/16/14 Potassium Chloride (POTASSIUM CHLORIDE) 10 Meq Capsule.er, 1 CAP PO DAILY, #90 CAP 1 Refill 06/16/14 Hydrochlorothiazide (HYDROCHLOROTHIAZIDE TABLET) 12.5 Mg Tablet, 12.5 MG PO DAILY 05/17/13 Budesonide/Formoterol Fumarate (SYMBICORT 160-4.5 MCG INHALER) 10.2 Gm Hfa.aer.ad, 10.2 GM IH BID 05/17/13 Atorvastatin Calcium (ATORVASTATIN CALCIUM) 40 Mg Tablet, 40 MG PO DAILY 05/17/13 VALERIE FLORENCE MD Feb 06, 2018 09:10
--- NOTE | 2018-02-06 10:08 | PDOC ---
SUBJECTIVE Subjective Patient has been switched to oral antibiotics for PO challenge. Pt switched to Cefdinir this am and so far no problems with nausea/vomiting. She understands that IR should be calling her in the next few days to set up an appointment for internalization of her stent. OBJECTIVE Objective Physical Exam: General appearance: Alert and Oriented Head: Normocephalic, without obvious abnormality Eyes: conjunctivae/corneas clear. PERRL, EOM's intact. Fundi benign Lungs: regular respirations, non labored breathing, NC in place Abdomen: soft, obese, tender on the right side, non tender on the left. Vital Signs Vital Signs Date Time Temp Pulse Resp B/P (MAP) Pulse Ox O2 Delivery O2 Flow Rate FiO2 02/06/18 08:57 60 112/59 02/06/18 08:54 Nasal Cannula 2.0 02/06/18 07:12 97 Nasal Cannula 2.0 02/06/18 07:00 98.0 60 20 112/59 (76) 95 Nasal Cannula 2.0 98.0 02/06/18 03:00 98.1 60 16 124/32 (62) 96 Room Air 98.1 02/05/18 23:00 98.0 58 17 116/33 (60) 97 Room Air 98.0 02/05/18 21:45 13 97 BiPAP/CPAP 2.0 02/05/18 21:10 16 97 Nasal Cannula 2.0 02/05/18 20:12 60 124/31 02/05/18 19:40 97 Nasal Cannula 2.0 02/05/18 19:30 Nasal Cannula 2.0 02/05/18 19:00 98.1 60 16 118/31 (60) 96 Room Air 98.1 02/05/18 17:41 98.6 60 16 124/31 (62) 95 Nasal Cannula 2.0 98.6 02/05/18 15:50 99 Nasal Cannula 2.0 02/05/18 15:00 97.9 60 16 127/35 (65) 96 Nasal Cannula 2.0 97.9 02/05/18 13:23 Nasal Cannula 2.0 02/05/18 11:12 96 Nasal Cannula 2.0 02/05/18 11:00 97.8 61 16 133/47 (75) 98 Nasal Cannula 2.0 97.8 I & O Intake and Output 02/06/18 07:00 Intake Total 480 ml Output Total 1000 ml Balance -520 ml Intake Oral 480 ml Output Urine Total 1000 ml # Voids 1 PHYSICAL EXAM Physical Exam Physical Exam: General appearance: Alert and Oriented Head: Normocephalic, without obvious abnormality Eyes: conjunctivae/corneas clear. PERRL, EOM's intact. Fundi benign Lungs: regular respirations, non labored breathing, NC in place Abdomen: soft, obese, tender on the right side, non tender on the left. ASSESSMENT/PLAN Assessment/Plan Pt currently undergoing PO challenged antibiotic. Hopefully we can avoid a PICC line for her. She will need two weeks of oral antibiotics for complicated UTI. Order sent to IR to place internalize stent next 7-10days, may do so as OP. Order sent to IR via fax. Discussed with May dc home with abx once above 2 issues have dispo. Delayed URS will be planned once urine sterility is achieved and right indwelling ureter stent is in place. Patient's daughter Jeaneth Barcenas, has some questions regarding the next steps of her mother's care. [employer] did talk to her briefly and a text has been sent to Dr. Lawson asking him to contact her directly and answer her questions. Will follow patient while in house. Problems: (1) Kidney stones COMMENT Lab Laboratory Tests Test 02/05/18 11:22 02/05/18 16:26 02/05/18 20:00 02/06/18 07:34 Glucose (Fingerstick) 208 mg/dL (70-99) 209 mg/dL (70-99) 263 mg/dL (70-99) 146 mg/dL (70-99) DOLORES CAMPOS APRN Feb 06, 2018 10:08
[2018-02-06 11:00] VITALS: BP 147/39
[2018-02-06 15:00] VITALS: BP 121/85
[2018-02-06 19:00] VITALS: BP 143/42
[2018-02-06] MEDS: ATORVASTATIN CALCIUM 40 MG TABLET. PO SCH (20:15)
[2018-02-06] MEDS: ALPRAZolam 0.25 MG TABLET PO SCH (20:15)
[2018-02-06] MEDS: TAMSULOSIN 0.4 MG CAP.ER.24H. PO SCH (20:16)
[2018-02-06 23:00] VITALS: BP 144/55
[2018-02-07 03:00] VITALS: BP 154/39
[2018-02-07] MEDS: IV NORMAL SALINE 1000ML BAG 1,000 ML IV SCH (06:50)
[2018-02-07 07:00] VITALS: BP 168/47
[2018-02-07] MEDS: ALBUTEROL SULFATE 2.5 MG/3 ML NEBU. NEB SCH ×4 (07:09→19:56)
[2018-02-07] MEDS: BUDESONIDE 0.5 MG/2 ML NEBU. NEB SCH ×2 (07:09→19:56)
--- NOTE | 2018-02-07 07:54 | PDOC ---
SUBJECTIVE Subjective Doing well with cefdinir. Pain is manageable. OBJECTIVE Objective Reviewed. Vital Signs Vital Signs Date Time Temp Pulse Resp B/P (MAP) Pulse Ox O2 Delivery O2 Flow Rate FiO2 02/07/18 07:10 Nasal Cannula 2.0 02/07/18 03:00 98.3 70 20 154/39 (77) 92 BiPAP/CPAP 98.3 02/06/18 23:00 98.6 89 17 144/55 (84) 95 Room Air 98.6 02/06/18 20:47 20 Nasal Cannula 02/06/18 20:27 Nasal Cannula 2.0 02/06/18 20:17 20 Nasal Cannula 02/06/18 19:55 Nasal Cannula 02/06/18 19:00 98.9 60 18 143/42 (75) 96 Nasal Cannula 2.0 98.9 02/06/18 15:16 2.0 02/06/18 15:15 Nasal Cannula 2.0 02/06/18 15:00 98.6 70 20 121/85 (97) 98 Nasal Cannula 2.0 98.6 02/06/18 15:00 98.6 70 20 121/85 (97) 98 Nasal Cannula 2.0 98.6 02/06/18 14:32 Nasal Cannula 2.0 02/06/18 11:01 Nasal Cannula 2.0 02/06/18 11:00 98.0 60 20 147/39 (75) Nasal Cannula 2.0 98.0 02/06/18 08:57 60 112/59 02/06/18 08:54 Nasal Cannula 2.0 02/06/18 08:00 Nasal Cannula 2.0 I & O Intake and Output 02/07/18 07:00 Intake Total 1000 ml Output Total 1100 ml Balance -100 ml IV Total 1000 ml Output Urine Total 1100 ml # Voids 1 PHYSICAL EXAM Physical Exam Alert, oriented, no acute distress EOMI, sclera non-icteric Neck supple RRR with audible click of valve replacement CTAB, no wheezes, crackles or rhonchi Nephrostomy tube in place in R flank No edema, cyanosis. Normal capillary refill. Calm, cooperative, mood/affect within normal limits ASSESSMENT/PLAN Assessment/Plan 15 mm obstructing stone at the right UPJ, present from admission in November 2017 10 mm nonobstructing right mid pole renal calculus ARMAAN, likely postrenal Ecoli UTI Type 2 diabetes Atrial fibrillation History of aortic valve replacement COPD Hypertension Hyperlipidemia Macular degeneration CHF, not in acute exacerbation Nephrostomy tube in place, plan for outpt stent placement on 02/13/18 Changed to cefdinir and doing well despite PCN allergy. Will continue this until 02/19 d/t complicated UTI Pt would benefit from SNF d/t her poor vision, fall risk and unable to help care for her at home. Awaiting OT re-eval and dc when placement found. Daughter prefers [facility]. COMMENT Lab Laboratory Tests Test 02/06/18 11:49 02/06/18 16:53 02/06/18 20:30 02/07/18 07:39 Glucose (Fingerstick) 152 mg/dL (70-99) 181 mg/dL (70-99) 250 mg/dL (70-99) 182 mg/dL (70-99) VALERIE FLORENCE MD Feb 07, 2018 07:54
[2018-02-07] MEDS ORDERED: TAMS0.4C97 PO (07:59)
--- NOTE | 2018-02-07 08:43 | PDOC ---
SUBJECTIVE Subjective Having some pain this am, Nursing doing a trial of Oral meds for her for pain. Ok with going to SNF later. OBJECTIVE Objective Physical Exam: General appearance: Alert and Oriented Head: Normocephalic, without obvious abnormality Eyes: conjunctivae/corneas clear. PERRL, EOM's intact. Fundi benign Back: negative Lungs: regular respirations, non labored breathing. Abdomen: soft, obese slight tenderness on the right side No masses, no organomegaly Vital Signs Vital Signs Date Time Temp Pulse Resp B/P (MAP) Pulse Ox O2 Delivery O2 Flow Rate FiO2 02/07/18 07:10 Nasal Cannula 2.0 02/07/18 07:00 97.8 76 18 168/47 (87) 97 Nasal Cannula 2.0 97.8 02/07/18 03:00 98.3 70 20 154/39 (77) 92 BiPAP/CPAP 98.3 02/06/18 23:00 98.6 89 17 144/55 (84) 95 Room Air 98.6 02/06/18 20:47 20 Nasal Cannula 02/06/18 20:27 Nasal Cannula 2.0 02/06/18 20:17 20 Nasal Cannula 02/06/18 19:55 Nasal Cannula 02/06/18 19:00 98.9 60 18 143/42 (75) 96 Nasal Cannula 2.0 98.9 02/06/18 15:16 2.0 02/06/18 15:15 Nasal Cannula 2.0 02/06/18 15:00 98.6 70 20 121/85 (97) 98 Nasal Cannula 2.0 98.6 02/06/18 15:00 98.6 70 20 121/85 (97) 98 Nasal Cannula 2.0 98.6 02/06/18 14:32 Nasal Cannula 2.0 02/06/18 11:01 Nasal Cannula 2.0 02/06/18 11:00 98.0 60 20 147/39 (75) Nasal Cannula 2.0 98.0 02/06/18 08:57 60 112/59 02/06/18 08:54 Nasal Cannula 2.0 I & O Intake and Output 02/07/18 07:00 Intake Total 1000 ml Output Total 1100 ml Balance -100 ml IV Total 1000 ml Output Urine Total 1100 ml # Voids 1 PHYSICAL EXAM Physical Exam Physical Exam: General appearance: Alert and Oriented Head: Normocephalic, without obvious abnormality Eyes: conjunctivae/corneas clear. PERRL, EOM's intact. Fundi benign Back: negative Lungs: regular respirations, non labored breathing. Abdomen: soft, obese slight tenderness on the right side No masses, no organomegaly ASSESSMENT/PLAN Assessment/Plan On discharge patient will complete two weeks worth of oral antibiotics and proceed for appointment with IR on the January at 0700 am. Appointment written down on card and given to patient. All questions answered. So far patient is tolerating oral antibiotics. Ok to discharge from a Urology perspective whenever medical team is ready. Will follow peripherally over the weekend but please call with questions or concerns. COMMENT Lab Laboratory Tests Test 02/06/18 11:49 02/06/18 16:53 02/06/18 20:30 02/07/18 07:39 Glucose (Fingerstick) 152 mg/dL (70-99) 181 mg/dL (70-99) 250 mg/dL (70-99) 182 mg/dL (70-99) DOLORES CAMPOS APRN Feb 07, 2018 08:43
[2018-02-07] MEDS: FLUTICASONE 50MCG/NASAL SPRAY 16GM BOTTLE. NS SCH (08:44)
[2018-02-07] MEDS: CETIRIZINE HCL 10 MG TABLET. PO SCH (08:44)
[2018-02-07] MEDS: POTASSIUM CHLORIDE 10 MEQ TABLET.ER. PO SCH (08:46)
[2018-02-07] MEDS: LACTOBACILLUS RHAMNOSUS GG 1 CAPSULE. PO SCH ×2 (08:46→20:32)
[2018-02-07] MEDS: CEFDINIR 300 MG CAPSULE PO SCH ×2 (08:46→20:32)
[2018-02-07] MEDS: DRONEDARONE HCL 400 MG TABLET PO SCH ×2 (08:46→20:33)
[2018-02-07] MEDS: INSULIN GLARGINE 300 UNITS/3 ML INSULN.PEN. SQ SCH ×2 (08:52→22:35)
[2018-02-07] MEDS: HYDROcodone/APAP 5/325MG 1 TAB TABLET PO PRN ×4 (08:56→22:52)
[2018-02-07 11:00] VITALS: BP 123/34
[2018-02-07 15:00] VITALS: BP 106/32
[2018-02-07] MEDS: FUROSEMIDE 40 MG TABLET. PO SCH (16:00)
[2018-02-07] MEDS: INSULIN LISPRO 300 UNITS/3 ML INSULN.PEN. SQ SCH (18:05)
[2018-02-07 19:44] VITALS: BP 156/50
[2018-02-07] MEDS: ATORVASTATIN CALCIUM 40 MG TABLET. PO SCH (20:32)
[2018-02-07] MEDS: TAMSULOSIN 0.4 MG CAP.ER.24H. PO SCH (20:32)
[2018-02-07] MEDS: ALPRAZolam 0.25 MG TABLET PO SCH (20:32)
[2018-02-07 23:47] VITALS: BP 114/37
[2018-02-08 03:43] VITALS: BP 131/44
[2018-02-08] MEDS: BUDESONIDE 0.5 MG/2 ML NEBU. NEB SCH ×2 (06:52→19:37)
[2018-02-08] MEDS: ALBUTEROL SULFATE 2.5 MG/3 ML NEBU. NEB SCH ×4 (06:52→19:37)
[2018-02-08 07:00] VITALS: BP 139/55
[2018-02-08] MEDS: INSULIN LISPRO 300 UNITS/3 ML INSULN.PEN. SQ SCH ×3 (07:57→16:44)
[2018-02-08] MEDS: INSULIN GLARGINE 300 UNITS/3 ML INSULN.PEN. SQ SCH ×2 (07:58→21:17)
[2018-02-08] MEDS: FLUTICASONE 50MCG/NASAL SPRAY 16GM BOTTLE. NS SCH (08:21)
[2018-02-08] MEDS: CEFDINIR 300 MG CAPSULE PO SCH ×2 (08:22→21:12)
[2018-02-08] MEDS: POTASSIUM CHLORIDE 10 MEQ TABLET.ER. PO SCH (08:23)
[2018-02-08] MEDS: LACTOBACILLUS RHAMNOSUS GG 1 CAPSULE. PO SCH ×2 (08:23→21:11)
[2018-02-08] MEDS: DRONEDARONE HCL 400 MG TABLET PO SCH ×2 (08:23→21:00)
[2018-02-08] MEDS: CETIRIZINE HCL 10 MG TABLET. PO SCH (08:23)
[2018-02-08] MEDS: HYDROcodone/APAP 5/325MG 1 TAB TABLET PO PRN ×2 (08:24→13:03)
[2018-02-08 10:37] VITALS: BP 115/57
[2018-02-08] MEDS: fentaNYL PF VIAL 100 MCG/2 ML VIAL IV PRN (10:47)
[2018-02-08 14:54] VITALS: BP_SYST 116; BP_SYST 117; BP_DIAS 67
--- NOTE | 2018-02-08 17:43 | PN ---
DATE: 02/08/2018 LOCATION: She is in room 556. SUBJECTIVE: The patient is awake, alert, sitting in the chair watching television, states she is much more comfortable after the nephrostomy tube placement. OBJECTIVE: VITAL SIGNS: Stable. She is afebrile. GENERAL: She is awake and alert, very hard of hearing. LUNGS: Clear. HEART: Regular. ABDOMEN: Benign. Nephrostomy tube is draining well. IMPRESSION: 1. Obstructing 15 mm stone at the right ureteropelvic junction. 2. A 10 mm nonobstructing right mid pole renal calculus. 3. Acute kidney injury with creatinine of 1.5. 4. Escherichia coli urinary tract infection, on Omnicef. 5. Diabetes. 6. Atrial fibrillation. 7. History of aortic valve replacement. PLAN: Continue present antibiotics, nephrostomy tube drainage, are currently awaiting mcc placement. ELROY BRUSH MD DR: LOIS/dwaine JOB#: [id number] / [id number]
[2018-02-08 19:59] VITALS: BP 149/34
[2018-02-08] MEDS: TAMSULOSIN 0.4 MG CAP.ER.24H. PO SCH (21:12)
[2018-02-08] MEDS: ATORVASTATIN CALCIUM 40 MG TABLET. PO SCH (21:12)
[2018-02-08] MEDS: ALPRAZolam 0.25 MG TABLET PO SCH (21:12)
[2018-02-08 23:35] VITALS: BP 141/48
[2018-02-09 03:27] VITALS: BP 167/48
[2018-02-09 07:00] VITALS: BP 155/60
[2018-02-09] MEDS: ALBUTEROL SULFATE 2.5 MG/3 ML NEBU. NEB SCH ×4 (07:07→19:16)
[2018-02-09] MEDS: BUDESONIDE 0.5 MG/2 ML NEBU. NEB SCH ×2 (07:07→19:16)
[2018-02-09] MEDS: HYDROcodone/APAP 5/325MG 1 TAB TABLET PO PRN ×2 (08:07→17:03)
[2018-02-09] MEDS: DRONEDARONE HCL 400 MG TABLET PO SCH ×2 (08:07→21:04)
[2018-02-09] MEDS: CETIRIZINE HCL 10 MG TABLET. PO SCH (08:07)
[2018-02-09] MEDS: LACTOBACILLUS RHAMNOSUS GG 1 CAPSULE. PO SCH ×2 (08:08→21:04)
[2018-02-09] MEDS: CEFDINIR 300 MG CAPSULE PO SCH ×2 (08:08→21:03)
[2018-02-09] MEDS: POTASSIUM CHLORIDE 10 MEQ TABLET.ER. PO SCH (08:08)
[2018-02-09] MEDS: FLUTICASONE 50MCG/NASAL SPRAY 16GM BOTTLE. NS SCH (08:08)
[2018-02-09] MEDS: INSULIN LISPRO 300 UNITS/3 ML INSULN.PEN. SQ SCH ×3 (08:13→17:11)
[2018-02-09] MEDS: INSULIN GLARGINE 300 UNITS/3 ML INSULN.PEN. SQ SCH ×2 (08:14→21:07)
[2018-02-09 11:00] VITALS: BP 170/45
--- NOTE | 2018-02-09 13:11 | PN ---
DATE: 02/09/2018 LOCATION: Room 556. SUBJECTIVE: The patient is awake and alert. Denies any specific complaints, states that her right flank does hurt if she moves around, but as long as she sits still, she is fine. OBJECTIVE: VITAL SIGNS: Stable. She is afebrile. Sugars have been acceptable and actually pretty good. CHEST: Clear. HEART: Regular. ABDOMEN: Benign. Right nephrostomy tube in place. NEUROLOGIC: She is intact. ASSESSMENT: 1. Obstructing 15 mm stone at right UP junction. 2. 10 mm nonobstructive right mid pole renal calculi. 3. Acute kidney injury with creatinine of 1.5. 4. E. coli urinary tract infection, on Omnicef. 5. Diabetes. 6. Atrial fibrillation. 7. History of an aortic valve replacement. PLAN: Continue present antibiotics and nephrostomy tube drainage. Currently are awaiting on skilled approval for transfer. ELROY BRUSH MD DR: LOIS/dwaine JOB#: [id number] / [id number]
[2018-02-09 15:00] VITALS: BP 162/37
[2018-02-09 19:00] VITALS: BP 160/55
[2018-02-09] MEDS: TAMSULOSIN 0.4 MG CAP.ER.24H. PO SCH (21:03)
[2018-02-09] MEDS: ATORVASTATIN CALCIUM 40 MG TABLET. PO SCH (21:03)
[2018-02-09] MEDS: ALPRAZolam 0.25 MG TABLET PO SCH (21:03)
[2018-02-09 23:00] VITALS: BP 124/39
[2018-02-10 03:02] VITALS: BP 145/41
[2018-02-10 07:00] VITALS: BP 142/51
--- NOTE | 2018-02-10 07:43 | PDOC ---
Provider Note Provider Note vss, no new problems, labs good- snf today on omnicef re e coli uti- [facility] PREMA MASON MD Feb 10, 2018 07:43
--- NOTE | 2018-02-10 07:51 | PDOC ---
Provider Note Provider Note [id number] PREMA MASON MD Feb 10, 2018 07:51
--- NOTE | 2018-02-10 08:16 | DS ---
DATE OF DISCHARGE: 02/10/2018 HOSPITAL SUMMARY: An 82-year-old white female who came in with intractable pain and evidence of pyelonephritis. Chemistry profile showed a GFR of 33, which is about baseline for her and has remained stable. Urine showed evidence of blood and infection and urine culture grew out E. coli sensitive to cephalosporins and resistant to quinolones, sulfa and nitrofurantoin. CT showed mild right renal hydronephrosis with a 15 mm obstructing calculus at the ureteropelvic junction. There was a small stone, nonobstructing in the right kidney as well. She was treated with IV antibiotics and remains on oral Omnicef at this time. She underwent nephrostomy placement for relief of the hydronephrosis and will likely have lithotripsy or some other similar procedure per Urology consultants when the urinary tract infection is cleared. She is transferred to the [facility] as soon as a bed is available. FINAL DIAGNOSES: 1. Acute pyelonephritis. 2. Hydronephrosis secondary to large obstructing ureteropelvic junction stone. 3. Chronic kidney disease 3, stable. OPERATIONS AND PROCEDURES: Nephrostomy placement. COMPLICATIONS: None. CONSULTATIONS: Dr. Lawson in [facility] group. DISPOSITION: Continues on Omnicef 300 mg twice a day for a total of 2 weeks. Rest of meds remain the same. ACTIVITY: As tolerated. FOLLOWUP: With Urology as planned for further procedural disposition. PROGNOSIS: Guarded given her advanced age and multiple medical problems. PREMA MASON MD DR: KAMI/dwaine JOB#: [id number] / [id number]
[2018-02-10] MEDS: BUDESONIDE 0.5 MG/2 ML NEBU. NEB SCH (08:36)
[2018-02-10] MEDS: ALBUTEROL SULFATE 2.5 MG/3 ML NEBU. NEB SCH ×3 (08:36→15:09)
[2018-02-10] MEDS: CETIRIZINE HCL 10 MG TABLET. PO SCH (09:00)
[2018-02-10] MEDS: DRONEDARONE HCL 400 MG TABLET PO SCH (09:00)
[2018-02-10] MEDS: LACTOBACILLUS RHAMNOSUS GG 1 CAPSULE. PO SCH (09:00)
[2018-02-10] MEDS: FLUTICASONE 50MCG/NASAL SPRAY 16GM BOTTLE. NS SCH (09:00)
[2018-02-10] MEDS: CEFDINIR 300 MG CAPSULE PO SCH (09:01)
[2018-02-10] MEDS: HYDROcodone/APAP 5/325MG 1 TAB TABLET PO PRN ×2 (09:01→16:22)
[2018-02-10] MEDS: POTASSIUM CHLORIDE 10 MEQ TABLET.ER. PO SCH (09:01)
[2018-02-10] MEDS: INSULIN LISPRO 300 UNITS/3 ML INSULN.PEN. SQ SCH ×2 (09:07→12:19)
[2018-02-10] MEDS: INSULIN GLARGINE 300 UNITS/3 ML INSULN.PEN. SQ SCH (09:07)
--- NOTE | 2018-02-10 09:34 | PDOC ---
SUBJECTIVE Subjective Pt sitting up in chair, reports very comfortable. Has slight soreness on the right side, but this is much improved since Saturday. Ok with going to SNF whenever they are ready to send her. OBJECTIVE Objective Physical Exam: General appearance: Alert and Oriented Head: Normocephalic, without obvious abnormality Eyes: conjunctivae/corneas clear. PERRL, EOM's intact. Fundi benign Back: negative, +CVA tenderness on the right side, none on the left. Lungs: regular respirations, non labored breathing. Abdomen: soft, obese slight tenderness on the right side, non tender on the left. No masses, no organomegaly Vital Signs Vital Signs Date Time Temp Pulse Resp B/P (MAP) Pulse Ox O2 Delivery O2 Flow Rate FiO2 02/10/18 09:01 Nasal Cannula 2.0 02/10/18 09:00 64 142/51 02/10/18 08:39 98 Nasal Cannula 2.0 02/10/18 07:00 97.8 64 20 142/51 (81) 93 Nasal Cannula 2.0 97.8 02/10/18 03:02 97.4 61 20 145/41 (75) 97 BiPAP/CPAP 97.4 02/09/18 23:00 98.2 79 20 124/39 (67) 94 BiPAP/CPAP 98.2 02/09/18 21:04 85 160/55 02/09/18 20:42 Nasal Cannula 2.0 02/09/18 19:17 Nasal Cannula 2.0 02/09/18 19:17 Nasal Cannula 2.0 02/09/18 19:00 98.0 85 20 160/55 (90) 95 Nasal Cannula 98.0 02/09/18 18:03 Nasal Cannula 02/09/18 17:03 Nasal Cannula 02/09/18 15:16 Nasal Cannula 2.0 02/09/18 15:00 98.2 62 16 162/37 (78) 98 Nasal Cannula 2.0 98.2 02/09/18 11:12 Nasal Cannula 2.0 02/09/18 11:00 97.9 80 18 170/45 (86) 95 Nasal Cannula 2.0 97.9 I & O Intake and Output 02/10/18 07:00 Intake Total 480 ml Output Total 1050 ml Balance -570 ml Intake Oral 480 ml Output Urine Total 300 ml Drainage Total 750 ml # Voids 3 PHYSICAL EXAM Physical Exam Physical Exam: General appearance: Alert and Oriented Head: Normocephalic, without obvious abnormality Eyes: conjunctivae/corneas clear. PERRL, EOM's intact. Fundi benign Back: negative, +CVA tenderness on the right side, none on the left. Lungs: regular respirations, non labored breathing. Abdomen: soft, obese slight tenderness on the right side, non tender on the left. No masses, no organomegaly ASSESSMENT/PLAN Assessment/Plan On discharge patient will complete two weeks worth of oral antibiotics and proceed for appointment with IR on the January at 0700 am. Pt still has appointment card. All questions answered. So far patient is tolerating oral antibiotics. Ok to discharge from a Urology perspective whenever medical team is ready, but will follow peripherally while in house. COMMENT Lab Laboratory Tests Test 02/09/18 11:41 02/09/18 16:30 02/09/18 20:24 02/10/18 07:23 Glucose (Fingerstick) 183 mg/dL (70-99) 128 mg/dL (70-99) 178 mg/dL (70-99) 130 mg/dL (70-99) DOLORES CAMPOS APRN Feb 10, 2018 09:34
[2018-02-10 10:54] VITALS: BP 132/48
--- NOTE | 2018-02-10 14:01 | DISCH ---
DISCHARGE DISCHARGE INFORMATION: DISCHARGE DATE: Feb 10, 2018 FINAL DIAGNOSIS ureteral stone CONDITION ON DISCHARGE: Stable CODE STATUS: Code Status: Full [facility]PC: SNF STAY <30 DAYS: Yes POST DISCHARGE ORDERS: ACTIVITY ORDERS: Activity as tolerated WEIGHT BEARING STATUS: As tolerated BATHING ORDERS: Shower-keep dressing dry DIET AFTER DISCHARGE: ADA WOUND/INCISION CARE: No wound care needed CHECKS AFTER DISCHARGE: CHECKS AFTER DISCHARGE: Check blood press - daily COMMENTS: flank TREATMENT/EQUIPMENT ORDERS: ADAPTIVE EQUIPMENT NEEDED: Four wheeled walker RESPIRATORY EQUIPMENT NEEDED: Oxygen Physical Therapy For: Evalulation/Treatment Occupational Therapy For: Evaluation/Treatment DISCHARGE MEDICATIONS: Home Meds Reported Medications Pantoprazole Sodium (PROTONIX) 40 Mg Granpkt.dr, 40 MG PO DAILY, TAB 11/09/16 Ferrous Sulfate (FERROUS SULFATE) 325 Mg Tablet, 1 TAB PO BID, #60 TAB 3 Refills 11/09/16 Insulin Detemir (LEVEMIR) 100 Unit/1 Ml Vial, 40 UNIT SQ DAILYWBKFT, VIAL 11/09/16 Insulin Detemir (LEVEMIR) 100 Unit/1 Ml Vial, 30 UNIT SQ QHS for Diabetes, VIAL 11/09/16 Furosemide (FUROSEMIDE) 40 Mg Tablet, 40 MG PO QMWF, TAB 07/02/16 Gabapentin (GABAPENTIN ) 100 Mg Capsule, 100 MG PO TID, CAP 07/02/16 Metoprolol Tartrate (METOPROLOL TARTRATE) 50 Mg Tablet, 50 MG PO BID for FOR HYPERTENSION, #60 TAB 0 Refills 06/17/16 Dronedarone Hcl (MULTAQ) 400 Mg Tablet, 1 TAB PO BID, #180 TAB 1 Refill 02/14/15 Alprazolam (ALPRAZOLAM) 0.25 Mg Tablet, 1 TAB PO HS, #90 TAB 06/16/14 Aspirin (ASPIRIN) 325 Mg Tablet, 1 TAB PO DAILY, #30 TAB 5 Refills 06/16/14 Potassium Chloride (POTASSIUM CHLORIDE) 10 Meq Capsule.er, 1 CAP PO DAILY, #90 CAP 1 Refill 06/16/14 Hydrochlorothiazide (HYDROCHLOROTHIAZIDE TABLET) 12.5 Mg Tablet, 12.5 MG PO DAILY 05/17/13 Budesonide/Formoterol Fumarate (SYMBICORT 160-4.5 MCG INHALER) 10.2 Gm Hfa.aer.ad, 10.2 GM IH BID 05/17/13 Atorvastatin Calcium (ATORVASTATIN CALCIUM) 40 Mg Tablet, 40 MG PO DAILY 05/17/13 PREMA MASON MD Feb 10, 2018 14:01
[2018-02-10 14:55] VITALS: BP 139/49
[2018-02-10] MEDS ORDERED: MAGNESIUM HYDROXIDE 2,400 MG/30 ML ORAL.SUSP. PO ONE (15:15)
[2018-02-10] MEDS ORDERED: CEFD300C PO (15:50)
[2018-02-10] MEDS: FUROSEMIDE 40 MG TABLET. PO SCH (16:22)
== END 2018-02-10 17:09 | DRG 660 ==
LOC: ER 10:46 → 5 SOUTH 14:59
PROVIDERS: ADMIT Family Medicine; ATTEND Family Medicine
PROC: 5A09357 Assistance with Respiratory Ventilation, Less than 24 Consecutive Hours, Continuous Positive Airway Pressure (ICD-10-PCS; 2018-02-02)
PROC: 0T9330Z Drainage of Right Kidney Pelvis with Drainage Device, Percutaneous Approach (ICD-10-PCS; 2018-02-04)
PROC: BT1D1ZZ Fluoroscopy of Right Kidney, Ureter and Bladder using Low Osmolar Contrast (ICD-10-PCS; 2018-02-04)
PROC: 5A09357 Assistance with Respiratory Ventilation, Less than 24 Consecutive Hours, Continuous Positive Airway Pressure (ICD-10-PCS; 2018-02-04)
PROC: 0T768ZZ Dilation of Right Ureter, Via Natural or Artificial Opening Endoscopic (ICD-10-PCS; principal; 2018-02-04 14:00)
PROC: 5A09357 Assistance with Respiratory Ventilation, Less than 24 Consecutive Hours, Continuous Positive Airway Pressure (ICD-10-PCS; 2018-02-07)
PROC: 5A09357 Assistance with Respiratory Ventilation, Less than 24 Consecutive Hours, Continuous Positive Airway Pressure (ICD-10-PCS; 2018-02-08)
PROC: 5A09357 Assistance with Respiratory Ventilation, Less than 24 Consecutive Hours, Continuous Positive Airway Pressure (ICD-10-PCS; 2018-02-09)
PROC: 5A09357 Assistance with Respiratory Ventilation, Less than 24 Consecutive Hours, Continuous Positive Airway Pressure (ICD-10-PCS; 2018-02-10)
DX: N13.6 Pyonephrosis (principal); I13.0 Hypertensive heart and chronic kidney disease with heart failure and stage 1 through stage 4 chronic kidney disease, or unspecified chronic kidney disease; N17.9 Acute kidney failure, unspecified; J44.9 Chronic obstructive pulmonary disease, unspecified; I50.9 Heart failure, unspecified; I48.91 Unspecified atrial fibrillation; N18.3 Chronic kidney disease, stage 3 (moderate); E78.00 Pure hypercholesterolemia, unspecified; E11.22 Type 2 diabetes mellitus with diabetic chronic kidney disease; N15.9 Renal tubulo-interstitial disease, unspecified; Z96.653 Presence of artificial knee joint, bilateral; E78.5 Hyperlipidemia, unspecified; R82.71 Bacteriuria; H35.30 Unspecified macular degeneration; I27.20 Pulmonary hypertension, unspecified; I25.10 Atherosclerotic heart disease of native coronary artery without angina pectoris; K57.90 Diverticulosis of intestine, part unspecified, without perforation or abscess without bleeding; N30.80 Other cystitis without hematuria; B96.4 Proteus (mirabilis) (morganii) as the cause of diseases classified elsewhere; B96.20 Unspecified Escherichia coli [E. coli] as the cause of diseases classified elsewhere; Z87.442 Personal history of urinary calculi; Z90.710 Acquired absence of both cervix and uterus; Z90.49 Acquired absence of other specified parts of digestive tract; Z95.2 Presence of prosthetic heart valve; Z95.1 Presence of aortocoronary bypass graft; H54.7 Unspecified visual loss; Z88.0 Allergy status to penicillin; Z91.81 History of falling
CPT/HCPCS: 36415; 50432; 74176; 74420; 76942; 80048; 80053; 81001; 82962; 83690; 85025; 85610; 85730; 87086; 87186; 94640; 94760; 96374; 99152; 99153; A7015; C1769; J0696; J0744; J1100; J1815; J2001; J2250; J2405; J2704; J3010; J7030; J7613; J7626; Q9967; 97110; 97116; 97530; 99285-25

== ENCOUNTER 2018-02-13 06:50 | Outpatient (CLI) | payer MEDICARE ==
[~2018-02-13] VITALS: Ht 167.6 cm; Wt 109.3 kg
[2018-02-13] VITALS (12 sets, daily range): BP systolic 97–175; BP diastolic 55–80
[~2018-02-13 06:50] MED LIST changes: +ALBU2.5V8 IH; +CEFD300C PO; -PROAIR HFA8.5 GM IH; +TAMS0.4C97 PO
[2018-02-13 07:28] LABS: BASO % 1 % (0-3); EOS # 0.4 x10^3/uL (0.0-0.7); EOS % 5 % (0-3); HEMATOCRIT 32.3 % (36.0-47.0); HEMOGLOBIN 10.7 g/dL (12.0-15.5); LYMPH # 0.6 x10^3/uL (1.0-4.8); LYMPH % 8 % (24-48); MEAN CORPUSCULAR HEMOGLOBIN 30 pg (25-35); MEAN CORPUSCULAR HGB CONC 33 g/dL (31-37); MEAN CORPUSCULAR VOLUME 91 fL (79-100); MONO # 0.6 x10^3/uL (0.0-1.1); MONO % 8 % (0-9); NEUT # 5.5 x10^3uL (1.8-7.7); NEUT % 78 % (31-73); PLATELET COUNT 281 x10^3/uL (140-400); RED BLOOD COUNT 3.56 x10^6/uL (3.50-5.40); RED CELL DISTRIBUTION WIDTH 14.2 % (11.5-14.5); WHITE BLOOD COUNT 7.1 x10^3/uL (4.0-11.0)
[2018-02-13] MEDS ORDERED: CETI1TAB PO (07:45)
[2018-02-13] MEDS ORDERED: HYDR-2761 PO (07:45)
[2018-02-13] MEDS ORDERED: ALBU2.5V14 NEB (07:45)
[2018-02-13] MEDS ORDERED: ASPI81TA50 PO (07:45)
[2018-02-13 07:49] LABS: PROTHROMBIN TIME PATIENT 13.6 SEC (11.7-14.0)
[2018-02-13] MEDS ORDERED: IOHEXOL 240 MG/ML 50ML VIAL. ONE (08:06)
[2018-02-13] MEDS ORDERED: LIDOCAINE WITH 8.4% SOD BICARB 3 ML DISP.SYRIN. ONE (08:06)
[2018-02-13] MEDS ORDERED: MIDAZOLAM HCL/PF 2 MG/2 ML VIAL. ONE (08:14)
[2018-02-13] MEDS ORDERED: fentaNYL PF VIAL 100 MCG/2 ML VIAL ONE (08:15)
[2018-02-13] MEDS ORDERED: MIDAZOLAM HCL/PF 2 MG/2 ML VIAL. IV ONE (08:45)
[2018-02-13] MEDS ORDERED: IOHEXOL 240 MG/ML 50ML VIAL. IJ ONE (08:45)
[2018-02-13] MEDS ORDERED: LIDOCAINE WITH 8.4% SOD BICARB 3 ML DISP.SYRIN. IJ ONE (08:45)
[2018-02-13] MEDS ORDERED: fentaNYL PF VIAL 100 MCG/2 ML VIAL IV ONE (08:45)
--- NOTE | 2018-02-13 09:18 | PDOC ---
BRIEF OPERATIVE NOTE Pre-Op Diagnosis Ureterolithiasis Post-Op Diagnosis same Procedure Performed Nephrostomy to nephroureteral stent exchange Surgeon Gary Anesthesia Type: Conscious Sedation Findings Obstructing upj calculus Complications No immediate Additional Remarks 26cm 10F nephroureteral placed. If patient tolerates capping for 2 weeks, nephroureteral will be exchanged for double J ureteral stent SISSY GUERRERO MD Feb 13, 2018 09:18
--- NOTE | 2018-02-13 09:19 | PDOC ---
MODERATE SEDATION ASSESSMENT RISKS/ALTERNATIVES Risks/Alternatives Risks and alternatives of this type of sedation and procedure discussed with: RISK/ALTERNATIVES: Patient H & P ON CHART H & P H & P on chart and reviewed for co-morbid conditions and appropriate labs. H&P ON CHART: Yes STATUS PREG STATUS ASSESSED: Yes MEDS/ALLERGIES REVIEWED Meds/Allergies Reviewed Medications and Allergies including time and route of recently administered narcotics and sedatives. MEDS/ALLERGIES REVIEWED: Yes ASA RATING ASA RATING: II AIRWAY ASSESSMENT Airway Assessment Airway patency, oral function limitations, presence of caps, crowns, dentures, partials, and ability to extend neck assessed. AIRWAY ASSESSMENT: Yes MALLAMPATI SCORE MALLAMPATI SCORE: II PRE-SEDATION ASSESSMENT PRE-SEDATION ASSESSMENT: Yes SISSY GUERRERO MD Feb 13, 2018 09:19
--- NOTE | 2018-02-13 09:21 | PDOC1 ---
History and Physical Date of Procedure Date of Admission History of Present Illness Reason for Visit Adult with obstructing right UPJ calculus Past Medical History Past Medical History see nursing pre-op assessment Current Medications Current Medications Current Medications Lidocaine/Sodium Bicarbonate (Buffered Lidocaine 1%) 3 ml STK-MED ONCE .ROUTE ; Start 02/13/18 at 08:06; Stop 02/13/18 at 08:07; Status DC Iohexol (Omnipaque 240 Mg/ml) 50 ml STK-MED ONCE .ROUTE ; Start 02/13/18 at 08: 06; Stop 02/13/18 at 08:07; Status DC Midazolam HCl (Versed) 2 mg STK-MED ONCE .ROUTE ; Start 02/13/18 at 08:14; Stop 02/13/18 at 08:16; Status DC Fentanyl Citrate (Fentanyl 2ml Vial) 100 mcg STK-MED ONCE .ROUTE ; Start at 08:15; Stop 02/13/18 at 08:16; Status DC Levofloxacin/ Dextrose 100 ml @ As Directed STK-MED ONCE IV ; Start 02/13/18 at 08:15; Stop 02/13/18 at 08:16; Status DC Lidocaine/Sodium Bicarbonate (Buffered Lidocaine 1%) 3 ml 1X ONCE IJ Last administered on 02/13/18at 09:11; Start 02/13/18 at 08:45; Stop 02/13/18 at 08 :46; Status DC Midazolam HCl (Versed) 2 mg 1X ONCE IV Last administered on 02/13/18at 09:13; Start 02/13/18 at 08:45; Stop 02/13/18 at 08:46; Status DC Fentanyl Citrate (Fentanyl 2ml Vial) 100 mcg 1X ONCE IV Last administered on 02/13/18at 09:12; Start 02/13/18 at 08:45; Stop 02/13/18 at 08:46; Status DC Levofloxacin/ Dextrose 100 ml @ 100 mls/hr 1X ONCE IV Last administered on at 08:41; Start 02/13/18 at 08:45; Stop 02/13/18 at 09:44 Iohexol (Omnipaque 240 Mg/ml) 50 ml 1X ONCE IJ Last administered on at 09:12; Start 02/13/18 at 08:45; Stop 12/20/18 at 08:46; Status DC Active Scripts Active Flomax (Tamsulosin Hcl) 0.4 Mg Cap.er.24h 0.4 Mg PO QHS 30 Days Reported Hydrocodone-Apap 5-325 (Hydrocodone Bit/Acetaminophen) 1 Tab Tablet 1 Tab PO PRN Q4HRS PRN All Day Allergy-D Tablet (Cetirizine Hcl/Pseudoephedrine) 1 Each Tab.er.12h 1 Each PO DAILY Albuterol Sulfate Conc Neb Soln (Albuterol Sulfate) 2.5 Mg/0.5 Ml Vial.neb 1 Vial NEB Q6HRS Aspir-Low (Aspirin) 81 Mg Tablet.dr 1 Tab PO DAILY Cefdinir 300 Mg Capsule 1 Cap PO BID 11 Days Stop date 02/19/18 Protonix (Pantoprazole Sodium) 40 Mg Granpkt.dr 40 Mg PO DAILY Ferrous Sulfate 325 Mg Tablet 1 Tab PO BID Levemir (Insulin Detemir) 100 Unit/1 Ml Vial 40 Unit SQ DAILYWBKFT Furosemide 40 Mg Tablet 40 Mg PO QMWF Gabapentin (Gabapentin) 100 Mg Capsule 100 Mg PO TID Multaq (Dronedarone Hcl) 400 Mg Tablet 1 Tab PO BID Alprazolam 0.25 Mg Tablet 1 Tab PO HS Potassium Chloride 10 Meq Capsule.er 1 Cap PO DAILY Symbicort 160-4.5 Mcg Inhaler (Budesonide/Formoterol Fumarate) 10.2 Gm Hfa.aer.ad 10.2 Gm IH BID Atorvastatin Calcium 40 Mg Tablet 40 Mg PO DAILY Allergies Allergies: Coded Allergies: lisinopril (Verified Allergy, Severe, Anaphylaxis, 02/11/17) shellfish derived (Verified Allergy, Severe, Shortness of Air, 02/11/17) Penicillins (Verified Allergy, Intermediate, Tolerates rocephin, 02/11/17) Sulfa (Sulfonamide Antibiotics) (Verified Allergy, Intermediate, 02/11/17) morphine (Verified Adverse Reaction, Severe, Anxiety, 02/11/17) Physical Exam Vital Signs Vital Signs Date Time Temp Pulse Resp B/P (MAP) Pulse Ox O2 Delivery O2 Flow Rate FiO2 02/13/18 09:13 71 7 99 Room Air 02/13/18 09:12 2.0 02/13/18 07:55 97.9 135/56 (82) 97.9 Other see nursing pre-op assessment Assessment Assessment obstructing ureterolithiasis and nephrostomy tube. Plan Plan Internalization of stent SISSY GUERRERO MD Feb 13, 2018 09:21
[2018-02-13] MEDS ORDERED: HYDROcodone/APAP 5/325MG 1 TAB TABLET PO ONE (11:15)
--- NOTE | 2018-02-13 12:45 | NUR ---
pt A&O x 3. rt nephro-ureter tube in place, tube capped off at 1230. drainage in drain bag is clear light red tinged. d/c instructions reviewed, questions answered. tolerating po well. pain med given at 1120 with good decrease in pain noted. Dr. Vega talked with both pt and family to discuss the procedure done today and what is planned in the future. pt did urinate a small amount of pink tinged urine after drain was clamped. dressing dry and intact around rt nephrostomy tube. called Blank SALCIDO at the [facility] and gave info on clamped tube, and how to decide when it is occluded by stone- leaking around external site. at that time attach a roblero leg bag to external drain port . pt out to vehicle per personal w/c, picked up by [facility] transport staff.
--- NOTE | 2018-02-14 10:54 | RAD ---
Procedure: Fluoroscopic guided ureterogram, and exchange of a nephrostomy tube for a nephroureteral catheter. Clinical Indication: 82-year-old female with obstructing ureteropelvic junction calculus and indwelling nephrostomy tube. We were requested by urology to place an internal double-J ureteral stent. Sedation: Conscious sedation was administered with a total intraprocedural hbqs-vu-mtsh time of 46 minutes. The patient was monitored by a qualified independent observer throughout the time of sedation. Please refer to the medical record for exact doses of medications utilized to achieve moderate sedation. Antibiotics: Antibiotic was administered intravenously within 1 hour of the procedure start time. Exposure: Kerma-Area Product: 61 Gycm2 Sterility: All elements of maximal sterile barrier technique including the use of a cap, mask, sterile gown, sterile gloves, large sterile sheet, appropriate hand hygiene, and 2% chlorhexidine for cutaneous antisepsis (or acceptable alternative antiseptic per current guidelines) were followed for this procedure. If ultrasound guidance was utilized, sterile ultrasound techniques were followed including use of a sterile probe cover. Consent: The procedure was explained in its entirety to the patient or the patients designated insurance account representative by a member of the treatment team, including a discussion of the risks, benefits and commonly accepted alternatives to the procedure, as well as the expected consequences of no therapy whatsoever. Discussion of the risks included, but was not limited to, those that are most frequent and those that are rare but possibly severe or life-threatening, as well as the possibility of unforeseen complications. Technique and Findings: Following informed consent, the patient was prepped and draped in usual sterile fashion. Contrast nephrostogram was performed through the existing nephrostomy tube. There is no hydronephrosis. There is abrupt occlusion of the ureteropelvic junction. The existing catheter was cut and removed over wire and a new angled catheter was advanced into the right renal pelvis and used in conjunction with multiple wires to probe the area of occlusion. Efforts were largely unsuccessful, though one last attempt prior to abandoning these efforts did yield distal access. An angled glide catheter was then advanced over the wire beyond the area of obstruction and contrast venography was performed. The remainder of the ureter is widely patent to the level of the urinary bladder. The catheter was advanced into the urinary bladder and a wire was used to measure the length of the ureter. Given the dense nature of the obstruction, I was concerned any ureteral stent may separate from extrinsic compression at the level of the stone. Consequently, rather than placing a double-J ureteral stent, I elected to place a 26 cm 10 internal/external ureteral stent to preserve external access in the event the stent fails. This internal/external nephroureteral stent was advanced over wire and positioned with the distal pigtail within the urinary bladder and the proximal pigtail within the right renal pelvis. Contrast was injected confirming good position and function of the stent. The stent was then sutured to the skin and capped. Impression: 1. High-grade obstruction of the ureteropelvic junction due to a large impacted calculus. The ureter distal to the stone is normal. 2. Successful conversion of a right nephrostomy tube to a right internal/external nephroureteral stent as described above. Due to concerns that a ureteral stent may fail from external compression due to the dense nature of the obstruction, an internal/external nephroureteral stent was selected rather than a double-J ureteral stent. This allows preservation of access. The stent will be capped, and the patient will return in one to 2 weeks for internalization with a double-J ureteral stent if she tolerates the internal/external nephroureteral stent without signs of stent failure.
== END 2018-02-13 12:45 ==
LOC: INTRAD 06:50
PROVIDERS: ATTEND Nurse Practitioner Occupational Health
DX: Z46.6 Encounter for fitting and adjustment of urinary device (principal); N20.0 Calculus of kidney; Z79.01 Long term (current) use of anticoagulants; Z88.0 Allergy status to penicillin; Z88.2 Allergy status to sulfonamides; Z88.5 Allergy status to narcotic agent; Z91.013 Allergy to seafood; Z88.8 Allergy status to other drugs, medicaments and biological substances
CPT/HCPCS: 36415; 50387; 85025; 85610; 99152; 99153; C1769; J1956; J2250; J3010; Q9966; 50433

== ENCOUNTER 2018-03-04 06:55 | Outpatient (CLI) | payer MEDICARE ==
[2018-03-04] VITALS (7 sets, daily range): BP systolic 119–146; BP diastolic 46–93
[~2018-03-04] VITALS: Ht 167.6 cm; Wt 110.7 kg
[~2018-03-04 06:55] MED LIST changes: +ALBU2.5V14 NEB; +ASPI81TA50 PO; +CETI1TAB PO; +HYDR-2761 PO
[2018-03-04 07:24] LABS: BASO # 0.1 x10^3/uL (0.0-0.2); BASO % 1 % (0-3); EOS # 0.4 x10^3/uL (0.0-0.7); EOS % 5 % (0-3); HEMATOCRIT 32.6 % (36.0-47.0); HEMOGLOBIN 10.8 g/dL (12.0-15.5); LYMPH # 0.9 x10^3/uL (1.0-4.8); LYMPH % 12 % (24-48); MEAN CORPUSCULAR HEMOGLOBIN 29 pg (25-35); MEAN CORPUSCULAR HGB CONC 33 g/dL (31-37); MEAN CORPUSCULAR VOLUME 88 fL (79-100); MONO # 0.7 x10^3/uL (0.0-1.1); MONO % 8 % (0-9); NEUT % 74 % (31-73); PLATELET COUNT 406 x10^3/uL (140-400); RED CELL DISTRIBUTION WIDTH 14.1 % (11.5-14.5); WHITE BLOOD COUNT 8.1 x10^3/uL (4.0-11.0)
[2018-03-04 07:33] LABS: PROTHROMBIN TIME PATIENT 13.3 SEC (11.7-14.0)
[2018-03-04 07:36] LABS: CALCIUM 9.9 mg/dL (8.5-10.1); CREATININE 1.5 mg/dL (0.6-1.0); GFR 33.2; POTASSIUM 3.9 mmol/L (3.5-5.1)
[2018-03-04] MEDS ORDERED: NALOXONE 0.4 MG/ML VIAL. ONE (07:42)
[2018-03-04] MEDS ORDERED: MIDAZOLAM HCL/PF 2 MG/2 ML VIAL. ONE (07:42)
[2018-03-04] MEDS ORDERED: FLUMAZENIL 0.5 MG/5 ML VIAL. IV ONE (07:42)
[2018-03-04] MEDS ORDERED: fentaNYL PF VIAL 100 MCG/2 ML VIAL ONE (07:42)
[2018-03-04] MEDS ORDERED: LIDOCAINE WITH 8.4% SOD BICARB 3 ML DISP.SYRIN. ONE (08:00)
[2018-03-04] MEDS ORDERED: IODIXANOL 320 MG/ML 50ML VIAL. ONE (08:00)
[2018-03-04] MEDS ORDERED: INSU100V13 SQ (08:06)
[2018-03-04] MEDS ORDERED: FLUT9.9S NS (08:06)
[2018-03-04] MEDS ORDERED: fentaNYL PF VIAL 100 MCG/2 ML VIAL IV ONE ×2 (09:00→09:15)
[2018-03-04] MEDS ORDERED: IODIXANOL 320 MG/ML 100 ML VIAL. IART ONE (09:00)
[2018-03-04] MEDS ORDERED: MIDAZOLAM HCL/PF 2 MG/2 ML VIAL. IV ONE ×2 (09:00→09:15)
--- NOTE | 2018-03-04 10:30 | NUR ---
Discharge Note: ROSA PATEL Discharge instructions and discharge home medications reviewed with Spouse and a copy given. All questions have been answered and understanding verbalized. The following instructions and handouts were given: adult moderate sedation and ureteral stent info. Discontinued lines and drains: Peripheral IV intact. Patient discharged to Home or Self Care withSpousevia Wheelchair
--- NOTE | 2018-03-04 11:24 | RAD ---
Conversion of a right nephroureteral stent catheter to a internalized double-J stent 03/04/2018 Indication: Successful capping of nephroureteral catheter. History of stone within the proximal left ureter. Discussion: The risks and benefits of the procedure were discussed the patient. Informed consent was obtained. The right flank was prepped and draped using sterile barrier technique. A timeout procedure was performed. Fluoroscopic evaluation demonstrates the pre-existing catheter to be expected position. A small amount contrast was administered through the catheter confirmed patency. Some irregular narrowing at the UPJ was noted. Area of calcification is poorly delineated fluoroscopically. A wire was advanced into the bladder over which the pre-existing catheter was, removed, and a new 10 Japanese double-J ureteral stent placed with the proximal tip in the renal pelvis and the distal tip in the bladder. Wires were removed. Sterile dressings were applied. No immediate complications were identified. Total fluoroscopy time 6.9 MINUTES dose area product: 43 Gycm2 The procedures performed under conscious sedation including continuous cardiopulmonary monitoring via dedicated sedation nurse. Ptnn-ux-cnew sedation time: 30 minutes Impression: Conversion of a right nephroureteral catheter to a double-J ureteral stent as described
== END 2018-03-04 10:32 | disposition home or self-care (01) ==
LOC: INTRAD 06:55
PROVIDERS: ATTEND Surgery
DX: Z46.6 Encounter for fitting and adjustment of urinary device (principal); Z87.442 Personal history of urinary calculi; Z88.0 Allergy status to penicillin; Z88.2 Allergy status to sulfonamides; Z88.5 Allergy status to narcotic agent; Z91.013 Allergy to seafood; Z88.8 Allergy status to other drugs, medicaments and biological substances; Z79.01 Long term (current) use of anticoagulants; Z79.899 Other long term (current) drug therapy
CPT/HCPCS: 36415; 50693; 80048; 85025; 85610; 99152; 99153; A4215; C1769; C1894; J1956; J2250; J3010

== ENCOUNTER 2018-03-12 08:10 | Day surgery (SDC) | payer MEDICARE ==
[~2018-03-12] VITALS: Ht 167.6 cm; Wt 109.0 kg
[~2018-03-12 08:10] MED LIST changes: +CIPROFLOXACIN 400MG PREMIX 200 ML IV PRN; +FLUT9.9S NS; +IOHEXOL 300 MG/ML 100ML VIAL. ONE; +IV RINGERS,LACTATED 1000ML 1,000 ML IV SCH; +LIDOCAINE 1% PF 2 ML VIAL. ID PRN; +fentaNYL PF VIAL 100 MCG/2 ML VIAL IV PRN
[2018-03-12] MEDS ORDERED: fentaNYL PF VIAL 100 MCG/2 ML VIAL ONE (09:15)
[2018-03-12] MEDS ORDERED: ROCURONIUM 50 MG/5 ML VIAL. ONE (09:30)
[2018-03-12] MEDS ORDERED: DEXAMETHASONE SOD PHOS 20 MG/5 ML VIAL. ONE (09:34)
[2018-03-12] MEDS ORDERED: PROPOFOL 0 ML IV ONE ×2 (09:34→11:54)
[2018-03-12] MEDS ORDERED: LIDOCAINE 2% PF 5 ML VIAL. ONE (09:34)
[2018-03-12] MEDS ORDERED: ONDANSETRON PF 4 MG/2 ML VIAL. ONE (09:35)
[2018-03-12] MEDS ORDERED: GLYCOPYRROLATE 1 MG/5 ML VIAL. ONE (10:29)
[2018-03-12] MEDS ORDERED: NEOSTIGMINE 10 MG/10 ML VIAL. ONE (10:29)
[2018-03-12] MEDS ORDERED: ePHEDrine PF IN SALINE 50 MG/5 ML DISP.SYRIN IV ONE (11:11)
--- NOTE | 2018-03-12 11:34 | PDOC4 ---
OPERATIVE NOTE Date: Date: Mar 12, 2018 Pre-Op Diagnosis: right ureter stone right renal stone Post-Op Diagnosis: same Procedure Performed: right rpg right urs w laser/stent Surgeon: Anesthesia Type: ga Blood Loss: 0ml Specimans Obtained: stone Findings: impacted right ureter stone with invasion into ureter wall renal stone, soft. Complications: none evident EMETERIO MAHONEY MD Mar 12, 2018 11:34
--- NOTE | 2018-03-12 11:36 | DISCH ---
DISCHARGE INSTRUCTIONS Condition on Discharge Condition on Discharge: Stable Activity After Discharge Activity Instructions for Disc: No restrictions, Bedrest today Bathing Instructions: Shower-keep dressing dry, No Tub Bath until see Lifting Instructions after Dis: No heavy lifting, No pulling or pushing, Do not lift >10 pounds Exercise Instruction after Dis: Progress as tolerated Driving Instructions after Dis: Do not drive today Weight Bearing Status after Di: As tolerated Diet after Discharge Diet after Discharge: Regular Diet Texture: Regular Liquid Texture: Thin Liquid Swallowing Supervision: None needed Wound Incision Care Wound/Incision Care: Ice to area for comfort, Keep wound/cast CDI, No wound care needed Checks after Discharge Checks after discharge: Check blood press - daily, Check blood sugar, ac/hs Contacting the DRNam after DC Call your doctor for: If your condition worsens Follow-Up Follow up with: in2 weeks for cysto, stent pull Treatment/Equipment after DC Adaptive Equipment Issued: None Discharge Respiratory Equipmen: Oxygen EMETERIO MAHONEY MD Mar 12, 2018 11:36
[2018-03-12] MEDS ORDERED: CIPR500T PO (11:37)
[2018-03-12] MEDS ORDERED: SEVOFLURANE 61 TO 120 MINUTES. IH ONE (11:54)
[2018-03-12] MEDS ORDERED: PROPOFOL 20 ML IV ONE (11:54)
[2018-03-12] MEDS ORDERED: PHENYLEPHRINE in 0.9% NACL PF 1 MG/10 ML SYRINGE. IV ONE (11:54)
[2018-03-12] MEDS ORDERED: TRAM50TA PO (12:03)
[2018-03-12] MEDS ORDERED: traMADol 50 MG TABLET PO ONE (12:15)
--- NOTE | 2018-03-12 12:25 | OP ---
DATE OF SURGERY: 03/12/2018 PREOPERATIVE DIAGNOSES: Right ureter stone, right renal stone. POSTOPERATIVE DIAGNOSES: Right ureter stone, right renal stone. PROCEDURE: 1. Right ureteroscopy with laser lithotripsy and stent placement. 2. Right retrograde pyelography interpretation. CONDITION: Stable. COMPLICATIONS: None. FINDINGS: Right ureter stone impacted in the wall with ureteral wall invasion. All the fragments were removed endoscopically. She also had a right upper pole stone, which was laser lithotripsy, then removed in its entirety. PROCEDURE IN DETAIL: The patient was taken back to the procedure room and placed under general anesthesia in supine position per protocol. She was prepped and draped in usual sterile fashion in dorsal lithotomy position. Timeout was performed. SCDs were attached. IV antibiotic was administered. A 21-Dominican rigid cystoscope was advanced per urethra into the bladder. Right ureteral orifice was seen in orthotopic and patent position, was not emanating from it. A 5-Dominican open-ended ureteral catheter was placed alongside it and a gentle retrograde pyelography was visualized proximal ureter kinking. I managed to place a sensor wire over the ureteral catheter all the way into the kidney with some difficulty. This was attached to the drape for safety. Cystoscope was reintroduced and preexisting stent was removed. I tried to cannulate it to get access into the kidney and it was very difficult due to the ureter kinking at this point. Hence, I used a dual lumen ureteric catheter to get a working wire. A 12 ureteral access sheath was get accessed through the proximal ureter. Flexible ureteroscope was advanced slowly into the proximal ureter. Upon entry, the area looked very inflamed with mucosal abrasion and fluffing into the ureter tunnel. There was no obvious stone to the ureter. She had a cement-like appearance of almost 3/4 of the ureter. Upon close inspection, this with a stone look was located with invasion into the ureter wall. A laser fiber was obtained and tediously and patiently, all the fragments were brought into the lumen and taken out with the basket. There were no obvious ureteral fragments left behind. I then got entry into the collecting system in the kidney. There was an obvious fluffy appearing stone. This was pulverized into smaller pieces and all the fragments were taken out. Upon final inspection, there was no more residual stone. Final stroud ureteroscopy was performed with no potentially obstructing residual fragments. Given ureteral wall abrasion and previously impacted stone into the wall, this had to leave a stent in there for 2 more weeks to allow that area to heal. This was done under direct vision with a 6 x 28 stent. Bladder was emptied. The patient was awakened, taken to PACU in stable condition. DISPOSITION: The patient was sent home with antibiotic, Flomax and pain medication. She will follow up in 2 weeks for stent removal. EMETERIO MAHONEY MD DR: ADEEL/nts JOB#: [id number] / [id number]
[2018-03-12 13:20] VITALS: BP 148/63
--- NOTE | 2018-03-13 15:10 | PATHOLOGY ---
[facility] Accession Number: [id number] . 01 Material submitted: . RIGHT URETERAL STONES AND KIDNEY STONES . 01 Clinical history: . Rt ureteral stone . 02 Diagnosis: Right ureteral stones and kidney stones: - Consistent with calculi. - The specimen is forwarded to an outside laboratory for further processing, with results to follow in an addendum. S/03/13/2018 . 02 Electronically signed: . Mendez Morris MD, Pathologist NPI- [id number] . 01 Gross description: . Received fresh labeled "Barkley, Lavella, right ureteral stones and kidney stones," are granular, dark celaya calculi ranging from 0.1 to 0.5 cm in maximum dimension. The specimen is forwarded to an outside laboratory for further processing. (DAC; 03/13/2018) XDC/XDC . 02 Pathologist provided ICD-10: N20.0, N20.1 . 02 CPT . 972532 Specimen Comment: A courtesy copy of this report has been sent to Specimen Comment: [phone], . Specimen Comment: Report sent to and Specimen Comment: A duplicate report has been generated due to demographic updates. Performed at: 01 [facility] [address], [place], [place] [id number] MD Johan Cotter MD Phone: [phone] Performed at: 02 [facility] [address] [place], [place] [id number] MD Mendez Morris MD Phone: [phone]
== END 2018-03-12 13:51 | disposition home or self-care (01) ==
LOC: SURG 08:10
PROVIDERS: ATTEND Urology
DX: N20.2 Calculus of kidney with calculus of ureter (principal); Z88.0 Allergy status to penicillin; Z88.2 Allergy status to sulfonamides; Z88.5 Allergy status to narcotic agent; Z88.8 Allergy status to other drugs, medicaments and biological substances; Z90.710 Acquired absence of both cervix and uterus; Z90.49 Acquired absence of other specified parts of digestive tract; Z98.890 Other specified postprocedural states; Z95.0 Presence of cardiac pacemaker; Z79.82 Long term (current) use of aspirin; Z79.899 Other long term (current) drug therapy; J43.9 Emphysema, unspecified; I10 Essential (primary) hypertension; K21.9 Gastro-esophageal reflux disease without esophagitis; M10.9 Gout, unspecified; M15.0 Primary generalized (osteo)arthritis; D64.9 Anemia, unspecified; Z83.3 Family history of diabetes mellitus; Z82.49 Family history of ischemic heart disease and other diseases of the circulatory system; Z82.3 Family history of stroke; Z91.013 Allergy to seafood
CPT/HCPCS: 52356; 76000; C1769; C1776; C2617; J0744; J1100; J2001; J2370; J2405; J2704; J2710; J3010; J3490; Q9967; 82365; 88300

== ENCOUNTER 2018-05-13 14:25 | Inpatient (IN) | payer MEDICARE ==
[~2018-05-13] VITALS: Ht 167.6 cm; Wt 113.1 kg
[~2018-05-13 14:25] MED LIST changes: +CIPR500T PO; -CIPROFLOXACIN 400MG PREMIX 200 ML IV PRN; -IOHEXOL 300 MG/ML 100ML VIAL. ONE; -IV RINGERS,LACTATED 1000ML 1,000 ML IV SCH; -LIDOCAINE 1% PF 2 ML VIAL. ID PRN; +TRAM50TA PO; -fentaNYL PF VIAL 100 MCG/2 ML VIAL IV PRN
[2018-05-13 15:02] VITALS: BP 122/38
[2018-05-13] MEDS ORDERED: BENZOCAINE/MENTHOL LOZENGE. PO PRN (15:15)
[2018-05-13] MEDS ORDERED: fentaNYL PF VIAL 100 MCG/2 ML VIAL IV PRN (15:15)
[2018-05-13] MEDS ORDERED: 0.9 % SODIUM CHLORIDE 10 ML DISP.SYRIN. IV PRN (15:15)
--- NOTE | 2018-05-13 16:12 | RAD ---
PQRS Compliance statement: One or more of the following individualized dose reduction techniques were utilized for this examination: 1. Automated exposure control. 2. Adjustment of the mA and/or kV according to patient size. 3. Use of iterative reconstruction technique. Indication:hematuria, hx kidney stones, prior sent TECHNIQUE: CT abdomen and pelvis without IV contrast with multiplanar reformats. COMPARISON: 02/02/2018 FINDINGS: Limited evaluation of solid abdominal and pelvic organs due to lack of IV contrast. Heart is mildly enlarged in size with pacemaker leads in the right heart. No pericardial or pleural effusion. Clear lung bases. Noncontrast appearance of the liver, spleen, pancreas, left adrenal within normal limits. Attenuating nodule in the right adrenal gland demonstrating Hounsfield units compatible with adrenal adenoma measuring 1.6 cm. Obstructing 4 mm stone is seen in the right proximal ureter, previously this used to measure 1.3 cm. Stable moderate right hydronephrosis. Interval decrease in previously seen obstructing stone in the right kidney measuring 6 mm, previously 1.1 cm. Tortuous proximal right ureter. Moderate diffuse atherosclerotic calcifications of the abdominal aorta and bilateral iliac arteries. No free pelvic fluid or ascites. No retroperitoneal or pelvic adenopathy. Right perinephric inflammatory changes or edema is seen. No bowel obstruction. Status post hysterectomy. Urinary bladder demonstrates no radiopaque stones. No suspicious bony lesion. IMPRESSION: Limited evaluation of solid abdominal and pelvic organs due to lack of IV contrast. Stable obstructing stone in the right proximal ureter although smaller from previous exam as described above. Electronically signed by: Luis Angel Nix DO (05/13/2018 4:09 PM) [facility]
[2018-05-13 16:42] LABS: BASO % 0 % (0-3); EOS % 0 % (0-3); HEMATOCRIT 33.5 % (36.0-47.0); LYMPH # 0.8 x10^3/uL (1.0-4.8); LYMPH % 5 % (24-48); MEAN CORPUSCULAR HEMOGLOBIN 29 pg (25-35); MEAN CORPUSCULAR HGB CONC 33 g/dL (31-37); MEAN CORPUSCULAR VOLUME 88 fL (79-100); MONO % 7 % (0-9); NEUT # 12.4 x10^3uL (1.8-7.7); NEUT % 87 % (31-73); PLATELET COUNT 287 x10^3/uL (140-400); RED BLOOD COUNT 3.82 x10^6/uL (3.50-5.40); RED CELL DISTRIBUTION WIDTH 16.1 % (11.5-14.5); WHITE BLOOD COUNT 14.3 x10^3/uL (4.0-11.0)
[2018-05-13 17:29] LABS: CALCIUM 9.4 mg/dL (8.5-10.1); CREATININE 1.7 mg/dL (0.6-1.0); GFR 28.6; POTASSIUM 4.8 mmol/L (3.5-5.1)
[2018-05-13] MEDS: HYDROcodone/APAP 5/325MG 1 TAB TABLET PO PRN (17:50)
[2018-05-13 18:25] LABS: % BANDS 2 % (0-9); % LYMPHS 4 % (24-48); % MONOS 4 % (0-10); % SEGS 90 % (35-66)
[2018-05-13 18:33] LABS: PLT ESTIMATE ADEQUATE (ADEQUATE); POLYCHROMASIA SLIGHT; TOXIC GRANULATION SLIGHT
[2018-05-13 19:00] VITALS: BP 128/42
[2018-05-13] MEDS ORDERED: HYDROcodone/APAP 5/325MG 1 TAB TABLET PO PRN (19:30)
[2018-05-13] MEDS ORDERED: traMADol 50 MG TABLET PO PRN (19:30)
[2018-05-13] MEDS: ALBUTEROL SULFATE 2.5 MG/3 ML NEBU. NEB SCH ×2 (20:24→23:28)
[2018-05-13] MEDS: BUDESONIDE 0.5 MG/2 ML NEBU. NEB SCH (20:24)
[2018-05-13 20:42] LABS: BILIRUBIN,URINE NEGATIVE (NEG); CLARITY,URINE CLOUDY; COLOR,URINE YELLOW; NITRITE,URINE NEGATIVE (NEG); PH,URINE 6.5; PROTEIN,URINE 100 mg/dL (NEG-TRACE); UROBILINOGEN,URINE 0.2 mg/dL (0.2 mg/dL)
[2018-05-13 20:57] LABS: RBC,URINE TNTC /HPF (0-2)
[2018-05-13 20:58] LABS: BACTERIA,URINE MANY /HPF (0-FEW); SQUAMOUS EPITHELIAL CELL,UR FEW /LPF; WBC,URINE TNTC /HPF (0-4)
[2018-05-13] MEDS ORDERED: NON FORMULARY ITEM (Ciprofloxacin Hcl 1 TAB) PO SCH (21:00)
[2018-05-13] MEDS ORDERED: NON FORMULARY ITEM (Budesonide/Formoterol Fumarate (Symbicort 160-4.5 Mcg Inhaler) 10.2 GM IH SCH (21:00)
[2018-05-13] MEDS: TAMSULOSIN 0.4 MG CAP.ER.24H. PO SCH (21:07)
[2018-05-13] MEDS: ALPRAZolam 0.25 MG TABLET PO SCH (21:07)
[2018-05-13] MEDS: GABAPENTIN 100 MG CAPSULE. PO SCH (21:07)
[2018-05-13] MEDS: ATORVASTATIN CALCIUM 40 MG TABLET. PO SCH (21:07)
[2018-05-13] MEDS: INSULIN GLARGINE 300 UNITS/3 ML INSULN.PEN. SQ SCH (21:16)
[2018-05-13 23:00] VITALS: BP 111/36
[2018-05-14 02:52] VITALS: BP 103/31
[2018-05-14 07:00] VITALS: BP 102/23
[2018-05-14] MEDS: BUDESONIDE 0.5 MG/2 ML NEBU. NEB SCH ×2 (07:13→20:18)
[2018-05-14] MEDS: ALBUTEROL SULFATE 2.5 MG/3 ML NEBU. NEB SCH ×5 (07:14→20:18)
[2018-05-14] MEDS: PANTOPRAZOLE 40 MG TABLET.DR. PO SCH (07:30)
[2018-05-14] MEDS: FERROUS SULFATE 325 MG TABLET. PO SCH ×2 (08:00→18:25)
--- NOTE | 2018-05-14 08:14 | PDOC1 ---
H & P H&P HPI: Ms. Barkley is an 83-year-old female with past medical history of well-controlled type 2 diabetes, complicated by diabetic polyneuropathy, A. fib, history of aortic valve replacement, COPD, hypertension, hyperlipidemia, macular degeneration, CHF, recurrent urolithiasis with multiple recent admissions and procedures. Pt presented to clinic yesterday for follow up and complained of hematuria x 24 hours and increasing right flank pain with nausea. She denies dysuria, frequency, urgency. Initial labs show large blood and large leukocytes on UA, leukocytosis with left shift, elevated creatinine at 1.7. ROS: Constitutional: Denies fever, fatigue, chills HEENT: Denies sore throat, vision changes Cardio: Denies chest pain, dyspnea with exertion, syncope, palpitations, edema Pulmonary: Denies shortness of breath, cough, wheezing GI: Admits intermittent nausea, denies vomiting, diarrhea, constipation MSK: R flank pain : Admits hematuria, Denies dysuria, frequency, urgency Skin: Denies new lesions Neuro: Denies weakness, paresthesias PMH: As above FAMILY HX: Father had lung cancer, type 2 diabetes. Mother had type 2 diabetes, hypertension, obesity, heart attack. SOCIAL HX: Never smoker, no significant alcohol use, denies drug use. SURGICAL HX: Total hysterectomy with bilateral salpingo-oophorectomy, tonsillectomy, appendectomy, history of ureteral stent/urostomy tube placement, aortic valve replacement, bilateral knee replacements, cardiac pacemaker MEDS: Reviewed and reconciled ALLERGIES: Reviewed PE: Alert, oriented, no acute distress EOMI, sclera non-icteric Neck supple RRR with audible click of valve replacement CTAB, no wheezes, crackles or rhonchi Soft, NT, ND, normal bowel sounds. No edema, cyanosis. Normal capillary refill. Calm, cooperative, mood/affect within normal limits CT Abd/Pelvis: Obstructing 4 mm stone is seen in the right proximal ureter, previously this used to measure 1.3 cm. Stable moderate right hydronephrosis. Interval decrease in previously seen obstructing stone in the right kidney measuring 6 mm, previously 1.1 cm. Tortuous proximal right ureter. Moderate diffuse atherosclerotic calcifications of the abdominal aorta and bilateral iliac arteries. No free pelvic fluid or ascites. No retroperitoneal or pelvic adenopathy. Right perinephric inflammatory changes or edema is seen. No bowel obstruction. Status post hysterectomy. Urinary bladder demonstrates no radiopaque stones. No suspicious bony lesion. IMPRESSION: Limited evaluation of solid abdominal and pelvic organs due to lack of IV contrast. Stable obstructing stone in the right proximal ureter although smaller from previous exam as described above. ASSESSMENT & PLAN: 4 mm obstructing stone at the right proximal ureter 6 mm obstructing stone in right kidney ARMAAN Moderate right hydronephrosis Asymptomatic bacteruria, awaiting culture Type 2 diabetes Atrial fibrillation History of aortic valve replacement COPD Hypertension Hyperlipidemia Macular degeneration CHF, not in acute exacerbation Urology was consulted Continue home medications, holding pradaxa d/t possible procedure NPO pending possible procedure Cipro to cover UTI pending culture VALERIE FLORENCE MD May 14, 2018 08:13
[2018-05-14] MEDS ORDERED: ONDANSETRON PF 4 MG/2 ML VIAL. IV PRN (08:45)
[2018-05-14] MEDS: CIPROFLOXACIN 200MG PREMIX 100 ML IV SCH ×2 (08:58→21:45)
[2018-05-14] MEDS ORDERED: FUROSEMIDE 40 MG TABLET. PO SCH (09:00)
[2018-05-14] MEDS ORDERED: ASPIRIN ENTERIC COATED 81 MG TABLET.DR. PO SCH (09:00)
[2018-05-14] MEDS: INSULIN GLARGINE 300 UNITS/3 ML INSULN.PEN. SQ SCH ×2 (09:08→21:53)
--- NOTE | 2018-05-14 09:11 | PDOC2 ---
UROLOGY CONSULT Date of Consult Date of Consult DATE: 05/14/18 TIME: 09:02 Reason for Consult Reason for Consult: Kidney stones Identification/Chief Complaint Chief Complaint Kidney stones Source Source: Chart review, Patient History of Present Illness Reason for Visit: This pleasant 83 year old female is well known to us and is a patient of Dr. Lawson's. She has had several visits over the last month for kidney stones. Her last surgery for4 them was done on 03/12/[address] Lawson of [facility]; this was a right ureteroscopy with laser lithotripsy and stent placement, also right RPG interpretation at [facility]. Her last visit with us was on March 26 for a cystoscopy/stent removal and plans for a follow up CT scan in six weeks. She presented yesterday to Dr. Ordonez's office and was directly admitted from there for several concerns to include 4 mm obstructing stone at the right proximal ureter, 6 mm obstructing stone in right kidney, ARMAAN, Moderate right hydronephrosis and UTI. Urology was thus consulted. Today she describes her pain as a minimal ache 2-3/10 going across the entire lower part of her abdomen and into the right side of her back all the way into her shoulder. She has had no dysuria, but reports gross hematuria for the past 24 hours or so, resembling bolden Koolaide. She was nauseas yesterday but did not vomit. Today she feels like she could eat. Past Medical History Cardiovascular: AFIB, CAD, CHF, HTN, Hyperlipidemia, Valve insufficiency, Pulmonary hypertension Pulmonary: Bronchitis, COPD GI: Diverticulosis, GI bleed Endocrine: Diabetes Past Surgical History Past Surgical History: Pacemaker, Appendectomy, Cholecystectomy, CABG, Total knee replacement, Hysterectomy, Other Family History Family History: Heart Disease Social History ALCOHOL: none Drugs: None Current Problem List Problems: (1) Kidney stones Current Medications Current Medications Current Medications Acetaminophen/ Hydrocodone Bitart (Lortab 5/325) 1 tab PRN Q4HRS PRN PO MODERATE PAIN Last administered on 05/13/18at 17:50; Start 05/13/18 at 15:15 Acetaminophen/ Hydrocodone Bitart (Lortab 5/325) 1 tab PRN Q4HRS PRN PO MODERATE PAIN; Start 05/13/18 at 19:30; Stop 05/14/18 at 08:13; Status DC Albuterol Sulfate (Ventolin Neb Soln) 2.5 mg Q6HRS NEB Last administered on at 07:14; Start 05/13/18 at 20:00; Stop 05/14/18 at 07:18; Status DC Albuterol Sulfate (Ventolin Neb Soln) 2.5 mg RTQID NEB ; Start 05/14/18 at 08:00 Alprazolam (Xanax) 0.25 mg HS PO Last administered on 05/13/18at 21:07; Start at 21:00 Aspirin (Ecotrin) 81 mg DAILY PO ; Start 05/14/18 at 09:00 Atorvastatin Calcium (Lipitor) 40 mg QHS PO Last administered on 05/13/18at 21: 07; Start 05/13/18 at 21:00 Budesonide (Pulmicort) 0.5 mg RTBID NEB Last administered on 05/14/18at 07:13; Start 05/13/18 at 20:00 Cetirizine HCl (ZyrTEC) 10 mg DAILY PO ; Start 05/14/18 at 09:00 Ciprofloxacin/ Dextrose 100 ml @ 100 mls/hr Q12HR IV ; Start 05/14/18 at 09:00 Fentanyl Citrate (Fentanyl 2ml Vial) 50 mcg PRN Q2HR PRN IV PAIN; Start at 15:15 Ferrous Sulfate (Feosol) 325 mg BIDWMEALS PO ; Start 05/14/18 at 08:00 Fluticasone Propionate (Flonase) 2 spray DAILY NS ; Start 05/14/18 at 09:00 Furosemide (Lasix) 40 mg DAILY PO ; Start 05/14/18 at 09:00 Gabapentin (Neurontin) 100 mg TID PO Last administered on 05/13/18at 21:07; Start 05/13/18 at 21:00 Insulin Glargine (Lantus) 10 units QHS SQ Last administered on 05/13/18at 21:16 ; Start 05/13/18 at 21:00 Insulin Glargine (Lantus) 40 units DAILYWBKFT SQ ; Start 05/14/18 at 08:00 Non-Formulary Medication (Budesonide/ Formoterol Fumarate (Symbicort 160-4.5 Mcg Inhaler)) 10.2 gm BID IH ; Start 05/13/18 at 21:00; Status UNV Non-Formulary Medication (Ciprofloxacin Hcl ) 1 tab BID PO ; Start 05/13/18 at 21:00; Status UNV Ondansetron HCl (Zofran) 4 mg PRN Q6HRS PRN IV NAUSEA/VOMITING; Start 05/14/18 at 08:45 Pantoprazole Sodium (Protonix) 40 mg DAILYAC PO ; Start 05/14/18 at 07:30 Potassium Chloride (Klor-Con) 10 meq DAILY PO ; Start 05/14/18 at 09:00 Pseudoephedrine HCl (Sudafed 12-Hour) 120 mg DAILY PO ; Start 05/14/18 at 09:00 Sodium Chloride (Normal Saline Flush) 3 ml PRN DAILY PRN IV AFTER MEDS AND BLOOD DRAWS; Start 05/13/18 at 15:15 Tamsulosin HCl (Flomax) 0.4 mg QHS PO Last administered on 05/13/18at 21:07; Start 05/13/18 at 21:00 Throat Lozenges (Cepacol Sore Throat Lozenge) 1 farideh PRN Q1HR PRN PO SORE THROAT ; Start 05/13/18 at 15:15 Tramadol HCl (Ultram) 50 mg PRN Q6HRS PRN PO MILD PAIN; Start 05/13/18 at 19:30 ; Stop 05/14/18 at 08:13; Status DC Allergies Allergies: Coded Allergies: lisinopril (Verified Allergy, Severe, Anaphylaxis, 03/12/18) shellfish derived (Verified Allergy, Severe, Shortness of Air, 03/12/18) Penicillins (Verified Allergy, Intermediate, Tolerates rocephin, 03/12/18) Sulfa (Sulfonamide Antibiotics) (Verified Allergy, Intermediate, 03/12/18) morphine (Verified Adverse Reaction, Severe, Anxiety, 03/12/18) ROS Review Of Systems: CONSTITUTIONAL: No fever or chills EYES: No recent changes SKIN: No rash or itching CARDIOVASCULAR: No chest pain, syncope, palpitations, or edema RESPIRATORY: No SOB or cough GASTROINTESTINAL: No nausea, vomiting NEUROLOGICAL: No headaches or weakness ENDOCRINE: No cold or heat intolerance GENITOURINARY: + hematuria MUSCULOSKELETAL: + CVA pain on the right side, none on the left. LYMPHATICS: No enlarged lymph nodes PSYCHIATRIC: No anxiety or depression Physical Exam Physical Exam: General: Pleasant, no acute distress, well groomed Eyes: conjunctiva anicteric, eyes full range of motion ENT: moist oral mucosa, normal dentition Neck: Trachea midline, no masses Respiratory: unlabored breathing, not using accessory muscles, Back: + CVA pain on the right side, none on the left Abdomen: soft, obese, tender lower abdomen bilaterally. Skin: no rashes or skin lesions on visualized skin Psych: normal mood, affect. Alert and oriented x 3. Vitals VITALS Vital Signs Date Time Temp Pulse Resp B/P (MAP) Pulse Ox O2 Delivery O2 Flow Rate FiO2 05/14/18 07:15 97 Nasal Cannula 2.0 05/14/18 07:00 98.4 66 18 102/23 (49) 98.4 Labs Labs Laboratory Tests Test 05/13/18 16:25 05/13/18 16:52 05/13/18 19:30 05/13/18 21:08 White Blood Count 14.3 x10^3/uL (4.0-11.0) Red Blood Count 3.82 x10^6/uL (3.50-5.40) Hemoglobin 11.0 g/dL (12.0-15.5) Hematocrit 33.5 % (36.0-47.0) Mean Corpuscular Volume 88 fL (79-100) Mean Corpuscular Hemoglobin 29 pg (25-35) Mean Corpuscular Hemoglobin Concent 33 g/dL (31-37) Red Cell Distribution Width 16.1 % (11.5-14.5) Platelet Count 287 x10^3/uL (140-400) Neutrophils (%) (Auto) 87 % (31-73) Lymphocytes (%) (Auto) 5 % (24-48) Monocytes (%) (Auto) 7 % (0-9) Eosinophils (%) (Auto) 0 % (0-3) Basophils (%) (Auto) 0 % (0-3) Neutrophils # (Auto) 12.4 x10^3uL (1.8-7.7) Lymphocytes # (Auto) 0.8 x10^3/uL (1.0-4.8) Monocytes # (Auto) 1.0 x10^3/uL (0.0-1.1) Eosinophils # (Auto) 0.0 x10^3/uL (0.0-0.7) Basophils # (Auto) 0.0 x10^3/uL (0.0-0.2) Segmented Neutrophils % 90 % (35-66) Band Neutrophils % 2 % (0-9) Lymphocytes % 4 % (24-48) Monocytes % 4 % (0-10) Toxic Granulation Slight Platelet Estimate Adequate (ADEQUATE) Polychromasia Slight Sodium Level 136 mmol/L (136-145) Potassium Level 4.8 mmol/L (3.5-5.1) Chloride Level 98 mmol/L (98-107) Carbon Dioxide Level 32 mmol/L (21-32) Anion Gap 6 (6-14) Blood Urea Nitrogen 44 mg/dL (7-20) Creatinine 1.7 mg/dL (0.6-1.0) Estimated GFR (Cockcroft-Gault) 28.6 Glucose Level 213 mg/dL (70-99) Calcium Level 9.4 mg/dL (8.5-10.1) Glucose (Fingerstick) 176 mg/dL (70-99) 197 mg/dL (70-99) Urine Collection Type Clean catch Urine Color Yellow Urine Clarity Cloudy Urine pH 6.5 Urine Specific [place] 1.010 Urine Protein 100 mg/dL (NEG-TRACE) Urine Glucose (UA) Negative mg/dL (NEG) Urine Ketones (Stick) Negative mg/dL (NEG) Urine Blood Large (NEG) Urine Nitrite Negative (NEG) Urine Bilirubin Negative (NEG) Urine Urobilinogen Dipstick 0.2 mg/dL (0.2 mg/dL) Urine Leukocyte Esterase Large (NEG) Urine RBC Tntc /HPF (0-2) Urine WBC Tntc /HPF (0-4) Urine Squamous Epithelial Cells Few /LPF Urine Bacteria Many /HPF (0-FEW) Test 05/14/18 07:43 Glucose (Fingerstick) 261 mg/dL (70-99) Laboratory Tests Test 05/13/18 16:25 05/13/18 16:52 05/13/18 19:30 05/13/18 21:08 White Blood Count 14.3 x10^3/uL (4.0-11.0) Red Blood Count 3.82 x10^6/uL (3.50-5.40) Hemoglobin 11.0 g/dL (12.0-15.5) Hematocrit 33.5 % (36.0-47.0) Mean Corpuscular Volume 88 fL (79-100) Mean Corpuscular Hemoglobin 29 pg (25-35) Mean Corpuscular Hemoglobin Concent 33 g/dL (31-37) Red Cell Distribution Width 16.1 % (11.5-14.5) Platelet Count 287 x10^3/uL (140-400) Neutrophils (%) (Auto) 87 % (31-73) Lymphocytes (%) (Auto) 5 % (24-48) Monocytes (%) (Auto) 7 % (0-9) Eosinophils (%) (Auto) 0 % (0-3) Basophils (%) (Auto) 0 % (0-3) Neutrophils # (Auto) 12.4 x10^3uL (1.8-7.7) Lymphocytes # (Auto) 0.8 x10^3/uL (1.0-4.8) Monocytes # (Auto) 1.0 x10^3/uL (0.0-1.1) Eosinophils # (Auto) 0.0 x10^3/uL (0.0-0.7) Basophils # (Auto) 0.0 x10^3/uL (0.0-0.2) Segmented Neutrophils % 90 % (35-66) Band Neutrophils % 2 % (0-9) Lymphocytes % 4 % (24-48) Monocytes % 4 % (0-10) Toxic Granulation Slight Platelet Estimate Adequate (ADEQUATE) Polychromasia Slight Sodium Level 136 mmol/L (136-145) Potassium Level 4.8 mmol/L (3.5-5.1) Chloride Level 98 mmol/L (98-107) Carbon Dioxide Level 32 mmol/L (21-32) Anion Gap 6 (6-14) Blood Urea Nitrogen 44 mg/dL (7-20) Creatinine 1.7 mg/dL (0.6-1.0) Estimated GFR (Cockcroft-Gault) 28.6 Glucose Level 213 mg/dL (70-99) Calcium Level 9.4 mg/dL (8.5-10.1) Glucose (Fingerstick) 176 mg/dL (70-99) 197 mg/dL (70-99) Urine Collection Type Clean catch Urine Color Yellow Urine Clarity Cloudy Urine pH 6.5 Urine Specific [place] 1.010 Urine Protein 100 mg/dL (NEG-TRACE) Urine Glucose (UA) Negative mg/dL (NEG) Urine Ketones (Stick) Negative mg/dL (NEG) Urine Blood Large (NEG) Urine Nitrite Negative (NEG) Urine Bilirubin Negative (NEG) Urine Urobilinogen Dipstick 0.2 mg/dL (0.2 mg/dL) Urine Leukocyte Esterase Large (NEG) Urine RBC Tntc /HPF (0-2) Urine WBC Tntc /HPF (0-4) Urine Squamous Epithelial Cells Few /LPF Urine Bacteria Many /HPF (0-FEW) Test 05/14/18 07:43 Glucose (Fingerstick) 261 mg/dL (70-99) Images Images IMPRESSION: Limited evaluation of solid abdominal and pelvic organs due to lack of IV contrast. Stable obstructing stone in the right proximal ureter although smaller from previous exam as described above. Assessment/Plan Assessment/Plan Pt afebrile currently and pain well controlled. Recommend observation for today and antibiotics as already ordered by medical team/Dr. Ordonez. Continue hydration, strain all urine Patient may eat today, NPO at midnight with re-evaluation tomorrow. Continue pain control Continue Flomax Agree with Pradaxa hold, please continue through tomorrow Will discuss internalization of stent per IR vs traditional stent placement with Dr. Ye, surgeon for today. DOLORES CAMPOS APRN May 14, 2018 09:11
[2018-05-14] MEDS: POTASSIUM CHLORIDE 10 MEQ TABLET.ER. PO SCH (09:13)
[2018-05-14] MEDS: CETIRIZINE HCL 10 MG TABLET. PO SCH (09:14)
[2018-05-14] MEDS: GABAPENTIN 100 MG CAPSULE. PO SCH ×3 (09:15→21:45)
[2018-05-14] MEDS: PSEUDOEPHEDRINE ER 120 MG TABLET.ER. PO SCH (09:15)
[2018-05-14] MEDS: FLUTICASONE 50MCG/NASAL SPRAY 16GM BOTTLE. NS SCH (09:16)
[2018-05-14 11:00] VITALS: BP 113/43
--- NOTE | 2018-05-14 11:07 | NUR ---
SW following for discharge planning. Discussed with RN, RN advised plan to observe pt today and decide on possible procedure for tomorrow. Pt is from home with . SW will continue to follow.
[2018-05-14] MEDS: HYDROcodone/APAP 5/325MG 1 TAB TABLET PO PRN (12:56)
[2018-05-14 15:00] VITALS: BP 101/39
--- NOTE | 2018-05-14 15:58 | RAD ---
Single view of the abdomen 05/14/2018 INDICATION: Ureteral stone COMPARISON STUDY: CT of the abdomen without contrast, yesterday Discussion: A small right calculus identified at the UPJ on prior CT is not visualized in today's radiograph. The bowel gas pattern is nonobstructive. No acute osseous changes are seen. IMPRESSION: Small calculus seen at the right UPJ on yesterday's CT is not visualized on today's radiograph. Whether this represents passage of the stone, or that stone is in fact radiographically occult is not known. Electronically signed by: Kyrie Banks MD (05/14/2018 3:56 PM) [id number]
[2018-05-14 19:00] VITALS: BP 116/47
[2018-05-14] MEDS: ALPRAZolam 0.25 MG TABLET PO SCH (21:45)
[2018-05-14] MEDS: ATORVASTATIN CALCIUM 40 MG TABLET. PO SCH (21:45)
[2018-05-14] MEDS: TAMSULOSIN 0.4 MG CAP.ER.24H. PO SCH (21:45)
[2018-05-14] MEDS: LACTOBACILLUS RHAMNOSUS GG 1 CAPSULE. PO SCH (21:45)
[2018-05-14 23:00] VITALS: BP 126/34
[2018-05-15 03:00] VITALS: BP 145/41
[2018-05-15 04:06] LABS: CALCIUM 8.8 mg/dL (8.5-10.1); GFR 23.7; POTASSIUM 4.2 mmol/L (3.5-5.1)
[2018-05-15 07:00] VITALS: BP 112/23
[2018-05-15] MEDS: INSULIN GLARGINE 300 UNITS/3 ML INSULN.PEN. SQ SCH ×3 (08:00→21:43)
[2018-05-15] MEDS: ALBUTEROL SULFATE 2.5 MG/3 ML NEBU. NEB SCH ×4 (08:12→19:51)
[2018-05-15] MEDS: BUDESONIDE 0.5 MG/2 ML NEBU. NEB SCH ×2 (08:12→19:51)
--- NOTE | 2018-05-15 08:35 | PDOC ---
SUBJECTIVE Subjective Doing ok this AM. Pain adequately controlled. Feels weak still. Continues to have hematuria. OBJECTIVE Objective Reviewed Vital Signs Vital Signs Date Time Temp Pulse Resp B/P (MAP) Pulse Ox O2 Delivery O2 Flow Rate FiO2 05/15/18 08:12 97 Nasal Cannula 2.0 05/15/18 07:00 98.1 78 16 112/23 (52) 98 Nasal Cannula 2.0 98.1 05/15/18 03:00 98.2 79 18 145/41 (75) 97 Nasal Cannula 2.0 98.2 05/14/18 23:00 98.3 72 18 126/34 (64) 100 Nasal Cannula 2.0 98.3 05/14/18 20:18 Nasal Cannula 2.0 05/14/18 20:00 Nasal Cannula 2.0 05/14/18 19:00 98.0 70 18 116/47 (70) 100 Nasal Cannula 2.0 98.0 05/14/18 15:00 96.8 64 24 101/39 (59) 94 Nasal Cannula 2.0 96.8 05/14/18 14:48 Nasal Cannula 2.0 05/14/18 14:00 94 Nasal Cannula 2.0 05/14/18 12:56 94 Nasal Cannula 2.0 05/14/18 11:17 Nasal Cannula 2.0 05/14/18 11:00 98.2 76 18 113/43 (66) 94 Nasal Cannula 2.0 98.2 I & O Intake and Output 05/15/18 07:00 Intake Total 860 ml Output Total 1110 ml Balance -250 ml Intake Oral 860 ml Output Urine Total 1110 ml PHYSICAL EXAM Physical Exam Alert, oriented, no acute distress EOMI, sclera non-icteric Neck supple RRR with audible click of valve replacement CTAB, no wheezes, crackles or rhonchi No edema Calm, cooperative, mood/affect within normal limits ASSESSMENT/PLAN Assessment/Plan 4 mm obstructing stone at the right proximal ureter 6 mm obstructing stone in right kidney ARMAAN Moderate right hydronephrosis Asymptomatic bacteruria, awaiting culture Type 2 diabetes Atrial fibrillation History of aortic valve replacement COPD Hypertension Hyperlipidemia Macular degeneration CHF, not in acute exacerbation Urology following Holding pradaxa, ASA d/t possible procedure Cipro to cover UTI pending culture Cr bumped this AM. Hold Lasix and start IVFs cautiously given hx of CHF No procedure today, await spontaneous passage of stone if possible COMMENT Lab Laboratory Tests Test 05/14/18 11:03 05/14/18 14:52 05/14/18 16:19 05/14/18 21:08 Glucose (Fingerstick) 311 mg/dL (70-99) 292 mg/dL (70-99) 256 mg/dL (70-99) 221 mg/dL (70-99) Test 05/15/18 03:25 Sodium Level 135 mmol/L (136-145) Potassium Level 4.2 mmol/L (3.5-5.1) Chloride Level 97 mmol/L (98-107) Carbon Dioxide Level 29 mmol/L (21-32) Anion Gap 9 (6-14) Blood Urea Nitrogen 51 mg/dL (7-20) Creatinine 2.0 mg/dL (0.6-1.0) Estimated GFR (Cockcroft-Gault) 23.7 Glucose Level 176 mg/dL (70-99) Calcium Level 8.8 mg/dL (8.5-10.1) VALERIE FLORENCE MD May 15, 2018 08:34
--- NOTE | 2018-05-15 08:49 | PDOC ---
DOLORES CAMPOS [employer]HALT TAMPER 05/15/18 0849: SUBJECTIVE Subjective Patient doing ok this am. Still having some pain on the right flank but is well controlled. Hematuria resembles koolade. OBJECTIVE Objective Physical Exam: General appearance: Alert and Oriented Head: Normocephalic, without obvious abnormality Eyes: conjunctivae/corneas clear. PERRL, EOM's intact. Fundi benign Back: + flank pain on the right, none on the left. Lungs: Regular respirations, non labored breathing Abdomen: soft, non-tender. Vital Signs Vital Signs Date Time Temp Pulse Resp B/P (MAP) Pulse Ox O2 Delivery O2 Flow Rate FiO2 05/15/18 08:12 97 Nasal Cannula 2.0 05/15/18 07:00 98.1 78 16 112/23 (52) 98 Nasal Cannula 2.0 98.1 05/15/18 03:00 98.2 79 18 145/41 (75) 97 Nasal Cannula 2.0 98.2 05/14/18 23:00 98.3 72 18 126/34 (64) 100 Nasal Cannula 2.0 98.3 05/14/18 20:18 Nasal Cannula 2.0 05/14/18 20:00 Nasal Cannula 2.0 05/14/18 19:00 98.0 70 18 116/47 (70) 100 Nasal Cannula 2.0 98.0 05/14/18 15:00 96.8 64 24 101/39 (59) 94 Nasal Cannula 2.0 96.8 05/14/18 14:48 Nasal Cannula 2.0 05/14/18 14:00 94 Nasal Cannula 2.0 05/14/18 12:56 94 Nasal Cannula 2.0 05/14/18 11:17 Nasal Cannula 2.0 05/14/18 11:00 98.2 76 18 113/43 (66) 94 Nasal Cannula 2.0 98.2 I & O Intake and Output 05/15/18 07:00 Intake Total 860 ml Output Total 1110 ml Balance -250 ml Intake Oral 860 ml Output Urine Total 1110 ml PHYSICAL EXAM Physical Exam Physical Exam: General appearance: Alert and Oriented Head: Normocephalic, without obvious abnormality Eyes: conjunctivae/corneas clear. PERRL, EOM's intact. Fundi benign Back: + flank pain on the right, none on the left. Lungs: Regular respirations, non labored breathing Abdomen: soft, non-tender. ASSESSMENT/PLAN Assessment/Plan Pain continues to be minimal/tolerable. Discussed with patient that there is a chance she could pass stone on her own without surgical intervention. CBC today shows WBC improved down to 10. HANDS AND DIAL INSPECTOR 1.7 to 2.0, patient afebrile [place] to wait until UTI is treated before any surgical intervention-await culture results. Nursing to continue to strain urine. Fluids if Ok with medical team to help with stone passage. Pt has follow up with Dr. Lawson on 06/04/18 at 210 pm. Pt was given appointment card yesterday reminding her of this. Problems: (1) Kidney stones COMMENT Lab Laboratory Tests Test 05/14/18 11:03 05/14/18 14:52 05/14/18 16:19 05/14/18 21:08 Glucose (Fingerstick) 311 mg/dL (70-99) 292 mg/dL (70-99) 256 mg/dL (70-99) 221 mg/dL (70-99) Test 05/15/18 03:25 Sodium Level 135 mmol/L (136-145) Potassium Level 4.2 mmol/L (3.5-5.1) Chloride Level 97 mmol/L (98-107) Carbon Dioxide Level 29 mmol/L (21-32) Anion Gap 9 (6-14) Blood Urea Nitrogen 51 mg/dL (7-20) Creatinine 2.0 mg/dL (0.6-1.0) Estimated GFR (Cockcroft-Gault) 23.7 Glucose Level 176 mg/dL (70-99) Calcium Level 8.8 mg/dL (8.5-10.1) SISSY CULLEN MD 05/15/18 1546: ASSESSMENT/PLAN Assessment/Plan Agree with assessment and plan. Conservative management of 4 mm ureteral stone recommended for now. Might need surgical intervention (stent +/- ureteroscopy) if severe pain returns , fever, or worsening renal function. Continue treatment for possible UTI. DOLORES CAMPOS APRN May 15, 2018 08:49 SISSY CULLEN MD May 15, 2018 15:46
[2018-05-15 08:55] LABS: BASO % 1 % (0-3); EOS # 0.2 x10^3/uL (0.0-0.7); EOS % 2 % (0-3); HEMATOCRIT 29.6 % (36.0-47.0); HEMOGLOBIN 9.5 g/dL (12.0-15.5); LYMPH # 0.7 x10^3/uL (1.0-4.8); LYMPH % 7 % (24-48); MEAN CORPUSCULAR HEMOGLOBIN 29 pg (25-35); MEAN CORPUSCULAR HGB CONC 32 g/dL (31-37); MEAN CORPUSCULAR VOLUME 89 fL (79-100); MONO # 0.7 x10^3/uL (0.0-1.1); MONO % 7 % (0-9); NEUT # 8.6 x10^3uL (1.8-7.7); NEUT % 84 % (31-73); PLATELET COUNT 250 x10^3/uL (140-400); RED BLOOD COUNT 3.31 x10^6/uL (3.50-5.40); RED CELL DISTRIBUTION WIDTH 16.8 % (11.5-14.5); WHITE BLOOD COUNT 10.3 x10^3/uL (4.0-11.0)
[2018-05-15] MEDS ORDERED: PANTOPRAZOLE 40 MG TABLET.DR. PO ONE (09:00)
[2018-05-15] MEDS: CETIRIZINE HCL 10 MG TABLET. PO SCH (09:16)
[2018-05-15] MEDS: GABAPENTIN 100 MG CAPSULE. PO SCH ×3 (09:16→20:23)
[2018-05-15] MEDS: LACTOBACILLUS RHAMNOSUS GG 1 CAPSULE. PO SCH ×2 (09:16→20:23)
[2018-05-15] MEDS: FERROUS SULFATE 325 MG TABLET. PO SCH ×2 (09:16→16:30)
[2018-05-15] MEDS: PANTOPRAZOLE 40 MG TABLET.DR. PO SCH (09:16)
[2018-05-15] MEDS: PSEUDOEPHEDRINE ER 120 MG TABLET.ER. PO SCH (09:16)
[2018-05-15] MEDS: POTASSIUM CHLORIDE 10 MEQ TABLET.ER. PO SCH (09:17)
[2018-05-15] MEDS: CIPROFLOXACIN 200MG PREMIX 100 ML IV SCH ×2 (09:18→20:29)
[2018-05-15] MEDS: IV NORMAL SALINE 1000ML BAG 1,000 ML IV SCH ×2 (09:18→16:30)
[2018-05-15] MEDS: FLUTICASONE 50MCG/NASAL SPRAY 16GM BOTTLE. NS SCH (09:18)
--- NOTE | 2018-05-15 10:36 | NUR ---
took 6 tries to get an IV in pt
[2018-05-15 11:00] VITALS: BP 122/48
--- NOTE | 2018-05-15 11:40 | NUR ---
SW following. Discussed with RN, possibility of procedure at some point. Pt from home with . SW will continue to follow.
[2018-05-15 15:00] VITALS: BP 123/54
[2018-05-15 19:00] VITALS: BP 134/46
[2018-05-15] MEDS: TAMSULOSIN 0.4 MG CAP.ER.24H. PO SCH (20:22)
[2018-05-15] MEDS: ALPRAZolam 0.25 MG TABLET PO SCH (20:23)
[2018-05-15] MEDS: ATORVASTATIN CALCIUM 40 MG TABLET. PO SCH (20:23)
[2018-05-15] MEDS: HYDROcodone/APAP 5/325MG 1 TAB TABLET PO PRN (22:20)
[2018-05-15 23:00] VITALS: BP 127/48
--- NOTE | 2018-05-16 02:34 | NUR ---
Pt transferred to room 426 via bed. Pt stable in stable condition. All belongings moved and accounted for. Call light within reach, bed lower and lock. Will continue to monitor.
[2018-05-16 03:00] VITALS: BP 163/43
[2018-05-16] MEDS: HYDROcodone/APAP 5/325MG 1 TAB TABLET PO PRN (03:46)
[2018-05-16] MEDS: IV NORMAL SALINE 1000ML BAG 1,000 ML IV SCH ×3 (05:46→21:21)
[2018-05-16 07:00] VITALS: BP 114/52
[2018-05-16] MEDS: ALBUTEROL SULFATE 2.5 MG/3 ML NEBU. NEB SCH ×4 (07:22→19:44)
[2018-05-16] MEDS: BUDESONIDE 0.5 MG/2 ML NEBU. NEB SCH ×2 (07:22→19:46)
[2018-05-16 08:02] LABS: CALCIUM 8.7 mg/dL (8.5-10.1); CREATININE 1.9 mg/dL (0.6-1.0); GFR 25.2; POTASSIUM 4.4 mmol/L (3.5-5.1)
[2018-05-16] MEDS: CETIRIZINE HCL 10 MG TABLET. PO SCH (08:13)
[2018-05-16] MEDS: POTASSIUM CHLORIDE 10 MEQ TABLET.ER. PO SCH (08:13)
[2018-05-16] MEDS: FLUTICASONE 50MCG/NASAL SPRAY 16GM BOTTLE. NS SCH (08:13)
[2018-05-16] MEDS: FERROUS SULFATE 325 MG TABLET. PO SCH ×2 (08:13→17:54)
[2018-05-16] MEDS: GABAPENTIN 100 MG CAPSULE. PO SCH ×3 (08:13→21:14)
[2018-05-16] MEDS: PANTOPRAZOLE 40 MG TABLET.DR. PO SCH (08:13)
[2018-05-16] MEDS: PSEUDOEPHEDRINE ER 120 MG TABLET.ER. PO SCH (08:13)
[2018-05-16] MEDS: LACTOBACILLUS RHAMNOSUS GG 1 CAPSULE. PO SCH ×2 (08:13→21:14)
[2018-05-16] MEDS: CIPROFLOXACIN 200MG PREMIX 100 ML IV SCH ×2 (08:14→21:14)
[2018-05-16] MEDS: INSULIN GLARGINE 300 UNITS/3 ML INSULN.PEN. SQ SCH ×2 (08:15→21:21)
--- NOTE | 2018-05-16 08:42 | PDOC ---
DOLORES CAMPOS [employer] 05/16/18 0842: SUBJECTIVE Subjective Feeling good today,sitting up in chair. Slight pain 4/10 across right side of back and right flank. Urine is now yellow, no more hematuria OBJECTIVE Objective Physical Exam: General appearance: Alert and Oriented Head: Normocephalic, without obvious abnormality Eyes: conjunctivae/corneas clear. PERRL, EOM's intact. Fundi benign Back:+ CVA tenderness on the right side, non tender on the left. Lungs: Regular respirations, non labored breathing. Abdomen: soft, non-tender, obese No masses, no organomegaly Vital Signs Vital Signs Date Time Temp Pulse Resp B/P (MAP) Pulse Ox O2 Delivery O2 Flow Rate FiO2 05/16/18 07:24 97 Nasal Cannula 2.0 05/16/18 07:24 97 Nasal Cannula 2.0 05/16/18 07:00 97.9 67 18 114/52 (72) 98 Nasal Cannula 2.0 97.9 05/16/18 04:46 Nasal Cannula 2.0 05/16/18 03:46 Nasal Cannula 2.0 05/16/18 03:00 97.6 89 18 163/43 (83) 95 Nasal Cannula 2.0 97.6 05/15/18 23:00 97.8 77 18 127/48 (74) 98 Nasal Cannula 2.0 97.8 05/15/18 22:20 Nasal Cannula 2.0 05/15/18 20:15 Nasal Cannula 2.0 05/15/18 19:32 94 Nasal Cannula 2.0 05/15/18 19:00 98.0 94 18 134/46 (75) 95 Nasal Cannula 2.0 98.0 05/15/18 16:35 94 Nasal Cannula 2.0 05/15/18 15:00 97.7 83 20 123/54 (77) 96 Nasal Cannula 2.0 97.7 05/15/18 11:48 95 Nasal Cannula 2.0 05/15/18 11:00 98.2 85 16 122/48 (72) 95 Nasal Cannula 2.0 98.2 I & O Intake and Output 05/16/18 06:59 Intake Total 2810 ml Output Total 1575 ml Balance 1235 ml Intake Oral 1220 ml IV Total 1590 ml Output Urine Total 1575 ml # Voids 3 PHYSICAL EXAM Physical Exam Physical Exam: General appearance: Alert and Oriented Head: Normocephalic, without obvious abnormality Eyes: conjunctivae/corneas clear. PERRL, EOM's intact. Fundi benign Back:+ CVA tenderness on the right side, non tender on the left. Lungs: Regular respirations, non labored breathing. Abdomen: soft, non-tender, obese No masses, no organomegaly ASSESSMENT/PLAN Assessment/Plan Pain continues to be minimal/tolerable. Discussed with patient that there is a chance she could pass stone on her own without surgical intervention. 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 Coli. Even if she does require surgical intervention, it is ideal if this is treated first. Nursing to continue to strain urine. Fluids if Ok with medical team to help with stone passage. Pt has follow up with Dr. Lawson on 06/04/18 at 210 pm. Pt was given appointment card earlier reminding her of this. COMMENT Lab Laboratory Tests Test 05/15/18 11:01 05/15/18 16:56 05/15/18 20:39 05/16/18 06:34 Glucose (Fingerstick) 255 mg/dL (70-99) 269 mg/dL (70-99) 285 mg/dL (70-99) Sodium Level 132 mmol/L (136-145) Potassium Level 4.4 mmol/L (3.5-5.1) Chloride Level 97 mmol/L (98-107) Carbon Dioxide Level 28 mmol/L (21-32) Anion Gap 7 (6-14) Blood Urea Nitrogen 48 mg/dL (7-20) Creatinine 1.9 mg/dL (0.6-1.0) Estimated GFR (Cockcroft-Gault) 25.2 Glucose Level 197 mg/dL (70-99) Calcium Level 8.7 mg/dL (8.5-10.1) Test 05/16/18 07:30 Glucose (Fingerstick) 172 mg/dL (70-99) EMETERIO LAWSON MD 05/17/18 1110: ASSESSMENT/PLAN Assessment/Plan agree w SISSY Pena MD 05/22/18 1523: ASSESSMENT/PLAN Assessment/Plan Agree with assessment and plan. DOLORES CAMPOS [employer] May 16, 2018 08:42 EMETERIO LAWSON MD May 17, 2018 11:10 SISSY CULLEN MD May 22, 2018 15:23
--- NOTE | 2018-05-16 08:46 | PDOC ---
SUBJECTIVE Subjective Doing ok this AM. Pain adequately controlled with PO meds. Hematuria seems to be resolving. Still hasn't passed stone. OBJECTIVE Objective Reviewed. Vital Signs Vital Signs Date Time Temp Pulse Resp B/P (MAP) Pulse Ox O2 Delivery O2 Flow Rate FiO2 05/16/18 07:24 97 Nasal Cannula 2.0 05/16/18 07:24 97 Nasal Cannula 2.0 05/16/18 07:00 97.9 67 18 114/52 (72) 98 Nasal Cannula 2.0 97.9 05/16/18 04:46 Nasal Cannula 2.0 05/16/18 03:46 Nasal Cannula 2.0 05/16/18 03:00 97.6 89 18 163/43 (83) 95 Nasal Cannula 2.0 97.6 05/15/18 23:00 97.8 77 18 127/48 (74) 98 Nasal Cannula 2.0 97.8 05/15/18 22:20 Nasal Cannula 2.0 05/15/18 20:15 Nasal Cannula 2.0 05/15/18 19:32 94 Nasal Cannula 2.0 05/15/18 19:00 98.0 94 18 134/46 (75) 95 Nasal Cannula 2.0 98.0 05/15/18 16:35 94 Nasal Cannula 2.0 05/15/18 15:00 97.7 83 20 123/54 (77) 96 Nasal Cannula 2.0 97.7 05/15/18 11:48 95 Nasal Cannula 2.0 05/15/18 11:00 98.2 85 16 122/48 (72) 95 Nasal Cannula 2.0 98.2 I & O Intake and Output 05/16/18 07:00 Intake Total 2810 ml Output Total 1575 ml Balance 1235 ml Intake Oral 1220 ml IV Total 1590 ml Output Urine Total 1575 ml # Voids 3 PHYSICAL EXAM Physical Exam Alert, oriented, no acute distress EOMI, sclera non-icteric Neck supple RRR with audible click of valve replacement CTAB, no wheezes, crackles or rhonchi No edema Calm, cooperative, mood/affect within normal limits ASSESSMENT/PLAN Assessment/Plan 4 mm obstructing stone at the right proximal ureter 6 mm obstructing stone in right kidney ARMAAN, improving Moderate right hydronephrosis Asymptomatic bacteruria, Ecoli, awaiting sensitivities Type 2 diabetes Atrial fibrillation History of aortic valve replacement COPD Hypertension Hyperlipidemia Macular degeneration CHF, not in acute exacerbation Urology following Holding pradaxa, ASA d/t possible procedure Cipro to cover UTI pending culture Cr improving slowly. Holding Lasix and cont IVFs cautiously given hx of CHF No procedure today, await spontaneous passage of stone if possible If Cr improving and pain still well controlled tomorrow, will likely be able to dc tomorrow on PO abx pending sensitivities. COMMENT Lab Laboratory Tests Test 05/15/18 11:01 05/15/18 16:56 05/15/18 20:39 05/16/18 06:34 Glucose (Fingerstick) 255 mg/dL (70-99) 269 mg/dL (70-99) 285 mg/dL (70-99) Sodium Level 132 mmol/L (136-145) Potassium Level 4.4 mmol/L (3.5-5.1) Chloride Level 97 mmol/L (98-107) Carbon Dioxide Level 28 mmol/L (21-32) Anion Gap 7 (6-14) Blood Urea Nitrogen 48 mg/dL (7-20) Creatinine 1.9 mg/dL (0.6-1.0) Estimated GFR (Cockcroft-Gault) 25.2 Glucose Level 197 mg/dL (70-99) Calcium Level 8.7 mg/dL (8.5-10.1) Test 05/16/18 07:30 Glucose (Fingerstick) 172 mg/dL (70-99) VALERIE FLORENCE MD May 16, 2018 08:46
[2018-05-16] MEDS ORDERED: PANTOPRAZOLE 40 MG TABLET.DR. PO ONE (09:00)
[2018-05-16 11:00] VITALS: BP 122/35
[2018-05-16] MEDS ORDERED: traMADol 50 MG TABLET PO PRN (13:15)
[2018-05-16 15:00] VITALS: BP 114/35
--- NOTE | 2018-05-16 15:28 | NUR ---
SW following. Discussed with RN, pt likely to discharge tomorrow, with Jonny CHAVEZ. Jonny Fournier RN met with pt. RN notified.
[2018-05-16 19:49] VITALS: BP 136/47
[2018-05-16] MEDS: ATORVASTATIN CALCIUM 40 MG TABLET. PO SCH (21:14)
[2018-05-16] MEDS: ALPRAZolam 0.25 MG TABLET PO SCH (21:14)
[2018-05-16] MEDS: TAMSULOSIN 0.4 MG CAP.ER.24H. PO SCH (21:14)
[2018-05-16 23:17] VITALS: BP 130/38
[2018-05-17 03:04] VITALS: BP 120/38
[2018-05-17 05:20] LABS: CALCIUM 8.7 mg/dL (8.5-10.1); GFR 23.7; POTASSIUM 4.9 mmol/L (3.5-5.1)
[2018-05-17 07:00] VITALS: BP 158/56
[2018-05-17] MEDS: BUDESONIDE 0.5 MG/2 ML NEBU. NEB SCH (07:22)
[2018-05-17] MEDS: ALBUTEROL SULFATE 2.5 MG/3 ML NEBU. NEB SCH ×2 (07:22→11:13)
[2018-05-17] MEDS: PSEUDOEPHEDRINE ER 120 MG TABLET.ER. PO SCH (08:16)
[2018-05-17] MEDS: PANTOPRAZOLE 40 MG TABLET.DR. PO SCH (08:16)
[2018-05-17] MEDS: CETIRIZINE HCL 10 MG TABLET. PO SCH (08:16)
[2018-05-17] MEDS: POTASSIUM CHLORIDE 10 MEQ TABLET.ER. PO SCH (08:17)
[2018-05-17] MEDS: GABAPENTIN 100 MG CAPSULE. PO SCH ×2 (08:17→12:59)
[2018-05-17] MEDS: LACTOBACILLUS RHAMNOSUS GG 1 CAPSULE. PO SCH (08:17)
[2018-05-17] MEDS: FERROUS SULFATE 325 MG TABLET. PO SCH (08:17)
[2018-05-17] MEDS: IV NORMAL SALINE 1000ML BAG 1,000 ML IV SCH (08:18)
[2018-05-17] MEDS: FLUTICASONE 50MCG/NASAL SPRAY 16GM BOTTLE. NS SCH (08:18)
[2018-05-17] MEDS: CIPROFLOXACIN 200MG PREMIX 100 ML IV SCH (08:18)
[2018-05-17] MEDS: INSULIN GLARGINE 300 UNITS/3 ML INSULN.PEN. SQ SCH (08:29)
[2018-05-17] MEDS ORDERED: PANTOPRAZOLE 40 MG TABLET.DR. PO ONE (09:00)
[2018-05-17] MEDS ORDERED: DOCUSATE SODIUM 100 MG CAPSULE. PO PRN (10:00)
[2018-05-17] MEDS ORDERED: POLYETHYLENE GLYCOL 3350 17 GM PACKET. PO PRN (10:00)
[2018-05-17 11:00] VITALS: BP 139/58
--- NOTE | 2018-05-17 11:10 | PDOC ---
Progress Note Subjective Subjective no acute events. minimal pain. af vssn ROS ROS No nausea No vomiting No pain No rash Vital Sign Vital Signs Vital Signs Date Time Temp Pulse Resp B/P (MAP) Pulse Ox O2 Delivery O2 Flow Rate FiO2 05/17/18 07:22 98 Nasal Cannula 2.0 05/17/18 07:00 97.7 80 18 158/56 (90) 97.7 Physical Exam PHYSICAL EXAM GENERAL: NAD, Alert HEENT: PERRL, OC/OP NECK: Supple, no JVD, no LN LUNGS: Clear HEART: S1S2, no gallop, no murmur ABD: Soft, NT, no organomegaly, no rebound EXT: No edema, no cyanosis TAXI DRIVER: Alert, oriented x 3, no focal neurologic deficit SKIN: No rash IV: ok Labs Lab Laboratory Tests Test 05/16/18 11:45 05/16/18 17:02 05/16/18 20:24 05/17/18 04:15 Glucose (Fingerstick) 239 mg/dL (70-99) 232 mg/dL (70-99) 237 mg/dL (70-99) Sodium Level 132 mmol/L (136-145) Potassium Level 4.9 mmol/L (3.5-5.1) Chloride Level 98 mmol/L (98-107) Carbon Dioxide Level 27 mmol/L (21-32) Anion Gap 7 (6-14) Blood Urea Nitrogen 47 mg/dL (7-20) Creatinine 2.0 mg/dL (0.6-1.0) Estimated GFR (Cockcroft-Gault) 23.7 Glucose Level 167 mg/dL (70-99) Calcium Level 8.7 mg/dL (8.5-10.1) Test 05/17/18 07:34 Glucose (Fingerstick) 166 mg/dL (70-99) Objective Assessment 4mm right upj stone e coli uti Plan Plan of Care rec 2 weeks of vantin 200mg q12h. kub in 2 weeks before seeing me 4.10.13 july dc home. EMETERIO MAHONEY MD May 17, 2018 11:10
[2018-05-17] MEDS ORDERED: CEFDINIR 300 MG CAPSULE PO ONE (11:45)
--- NOTE | 2018-05-17 14:45 | NUR ---
Pt was given discharge instructions, follow up info, new prescriptions, and teaching. Pt is stable. Alert x4. Daughter at bedside during teaching. All belongings left with pt at time of discharge. Pt was escorted out via wheelchair, with hospital PETROPHYSICAL ENGINEER and family member. Will return home with home health services, follow up with Dr. Lawson in 2 weeks. Pt left at 1438
--- NOTE | 2018-05-17 19:41 | PN ---
DATE: 05/17/2018 LOCATION: She is in room 426. SUBJECTIVE: The patient is easily awakened, has tolerable right flank tenderness, still is seeing some blood in her urine while she is urinating, is wondering about possible discharge. OBJECTIVE: VITAL SIGNS: Stable. She is afebrile. GENERAL: She is awake and alert. CHEST: Clear. HEART: Regular. ABDOMEN: Benign. Final urine culture shows E. coli, multidrug resistant to virtually anything by mouth except for Augmentin, but she is allergic to PENICILLIN. I will ask ID to come by to give some sort of suggestions here for antibiotics for the same as Urology is wanting the urinary tract infection treated prior to considering doing anything with the stone on the right, which I think might pass on its own. IMPRESSION: 1. Right renal colic with hematuria and urinary tract infection with multidrug-resistant Escherichia coli. 2. Diabetes. 3. Atrial fibrillation. 4. History of aortic valve replacement. 5. Chronic obstructive pulmonary disease. PLAN: Blood thinners are continuing to be held. I am going to ask ID for suggestions on possible antibiotic choices for discharge. Urology help appreciated. ELROY BRUSH MD DR: LOIS/dwaine JOB#: [id number] / [id number]
--- NOTE | 2018-05-20 09:38 | DS ---
DATE OF DISCHARGE: 05/17/2018 PRIMARY DIAGNOSES: 4 mm right ureteropelvic stone with obstruction and E. coli urinary tract infection. ADDITIONAL DIAGNOSES: Diabetes, atrial fibrillation, history of aortic valve replacement, chronic obstructive pulmonary disease, hypertension. CHIEF COMPLAINT AND HISTORY OF PRESENT ILLNESS: The patient was admitted with urinary tract infection, left shift, elevated creatinine at 1.7 and findings of hematuria for 24 hours, right flank pain and finding of a stone as mentioned above. SUMMARY OF STAY: The patient was admitted, treated throughout the stay with antibiotics. Urology followed along. Culture eventually grew out multi-resistant E. coli, which Urology felt could be treated with Vantin as an outpatient. Prior to them seeing her back in the office to do more definitive treatment for the stone, she was relatively comfortable and felt that she could be dismissed on the day of discharge. DISPOSITION: The patient is discharged to home. ADA diet. ACTIVITY: As tolerated. Office with Dr. Suresh in next week. DISCHARGE MEDICATIONS: Listed on the med rec and have been addressed. ELROY BRUSH MD DR: LOIS/dwaine JOB#: [id number] / [id number]
== END 2018-05-17 14:40 | disposition home health service (06) | DRG 871 ==
LOC: 4 NORTH 14:41
PROVIDERS: ADMIT Family Medicine; ATTEND Family Medicine
DX: A41.9 Sepsis, unspecified organism (principal); N17.0 Acute kidney failure with tubular necrosis; N13.6 Pyonephrosis; R82.71 Bacteriuria; I48.91 Unspecified atrial fibrillation; I50.9 Heart failure, unspecified; I11.0 Hypertensive heart disease with heart failure; E78.5 Hyperlipidemia, unspecified; H35.30 Unspecified macular degeneration; E11.42 Type 2 diabetes mellitus with diabetic polyneuropathy; K57.90 Diverticulosis of intestine, part unspecified, without perforation or abscess without bleeding; Z96.653 Presence of artificial knee joint, bilateral; B96.20 Unspecified Escherichia coli [E. coli] as the cause of diseases classified elsewhere; I25.10 Atherosclerotic heart disease of native coronary artery without angina pectoris; I27.20 Pulmonary hypertension, unspecified; J44.9 Chronic obstructive pulmonary disease, unspecified; R31.0 Gross hematuria; Z16.24 Resistance to multiple antibiotics; Z90.710 Acquired absence of both cervix and uterus; Z95.1 Presence of aortocoronary bypass graft; Z95.2 Presence of prosthetic heart valve; Z90.49 Acquired absence of other specified parts of digestive tract; Z90.722 Acquired absence of ovaries, bilateral; Z82.49 Family history of ischemic heart disease and other diseases of the circulatory system
CPT/HCPCS: 36415; 74018; 74176; 80048; 81001; 82962; 85007; 85025; 87086; 87186; 94640; 94760; J0744; J1815; J2405; J7030; J7613; J7626; 97116; 97530; 97535

== ENCOUNTER → 2018-06-05 | Outpatient (CLI) | payer MEDICARE ==
[2018-05-17 11:00] VITALS: BP 139/58
[~2018-06-05] MED LIST changes: +DABI150C PO; +FURO20TA3 PO; +GABA600T7 PO; +LOSA100T14 PO; +POTA10TA17 PO
--- NOTE | 2018-06-05 17:02 | RAD ---
AP view of the abdomen Clinical indications: Calculus of ureter. FINDINGS: No radiopaque stone is seen overlying either renal shadow. Again seen are vascular calcifications of the anatomic pelvis seen on the previous KUB dated May 14, 2018. No obstructive bowel pattern is evident. There is moderate fecal retention throughout the colon. IMPRESSION: No radiopaque stone is evident. Electronically signed by: Regan Maki MD (06/05/2018 4:59 PM) [id number]
== END | disposition home or self-care (01) ==
LOC: RAD 12:07
PROVIDERS: ATTEND Urology
DX: N20.1 Calculus of ureter (principal)
CPT/HCPCS: 74018

== ENCOUNTER 2018-07-10 16:31 | Inpatient (IN) | payer MEDICARE ==
[~2018-07-10] VITALS: Ht 167.6 cm; Wt 102.1 kg
[~2018-07-10 16:31] MED LIST changes: -DABI150C PO; -FURO20TA3 PO; -GABA600T7 PO; -LOSA100T14 PO; -POTA10TA17 PO
[2018-07-10] MEDS ORDERED: MORPHINE SULFATE 2 MG/ML VIAL. IV ONE (18:15)
[2018-07-10] MEDS ORDERED: IV NORMAL SALINE 500ML BAG 500 ML IV ONE (18:15)
[2018-07-10] MEDS ORDERED: ONDANSETRON PF 4 MG/2 ML VIAL. IV ONE (18:15)
[2018-07-10 18:22] LABS: BASO # 0.1 x10^3/uL (0.0-0.2); BASO % 1 % (0-3); EOS # 0.1 x10^3/uL (0.0-0.7); EOS % 1 % (0-3); LYMPH # 0.6 x10^3/uL (1.0-4.8); LYMPH % 6 % (24-48); MEAN CORPUSCULAR HEMOGLOBIN 30 pg (25-35); MEAN CORPUSCULAR HGB CONC 33 g/dL (31-37); MEAN CORPUSCULAR VOLUME 92 fL (79-100); MONO # 0.6 x10^3/uL (0.0-1.1); MONO % 6 % (0-9); NEUT # 8.6 x10^3uL (1.8-7.7); NEUT % 86 % (31-73); PLATELET COUNT 389 x10^3/uL (140-400); RED BLOOD COUNT 1.94 x10^6/uL (3.50-5.40); RED CELL DISTRIBUTION WIDTH 15.1 % (11.5-14.5); WHITE BLOOD COUNT 9.9 x10^3/uL (4.0-11.0)
[2018-07-10 18:30] LABS: CALCIUM 9.4 mg/dL (8.5-10.1); CREATININE 1.5 mg/dL (0.6-1.0); GFR 33.1; POTASSIUM 4.7 mmol/L (3.5-5.1)
[2018-07-10 18:33] LABS: HEMATOCRIT 17.7 % (36.0-47.0); HEMOGLOBIN 5.8 g/dL (12.0-15.5)
[2018-07-10 18:34] LABS: PROTHROMBIN TIME PATIENT 14.8 SEC (11.7-14.0)
[2018-07-10 18:36] LABS: ALBUMIN 2.9 g/dL (3.4-5.0); ALBUMIN/GLOBULIN RATIO 0.7 (1.0-1.7); MAGNESIUM 2.3 mg/dL (1.8-2.4); TOTAL BILIRUBIN 0.4 mg/dL (0.2-1.0); TOTAL PROTEIN 6.8 g/dL (6.4-8.2)
--- NOTE | 2018-07-10 18:52 | PHYS DOC ---
Past Medical History Past Medical History: A-Fib, CHF, COPD, Diabetes-Type II, High Cholesterol, Hypertension, Kidney Infection, Kidney Stone Additional Past Medical Histor: coumadin use Past Surgical History: Appendectomy, Cholecystectomy, Hysterectomy, Tonsillectomy, Other Additional Past Surgical Histo: bilat knee replacements, aortic valve, mastoid Alcohol Use: None Drug Use: None Adult General Chief Complaint Chief Complaint: NAUSEA/VOMITING/DIARRHA HPI HPI Patient is a 83 year old female who presents with multiple symptoms. Symptoms include nausea, loss of appetite, abdominal pain (diffuse), dizziness, headache that has been ongoing for 3 days. Patient is on 2 L of oxygen at baseline as she has COPD. Has 10/10 abdominal pain that is crampy. Has not tried interventions at home. Has not been eating or drinking due to symptoms. Review of Systems Review of Systems Constitutional: Denies fever or chills [] Eyes: Denies change in visual acuity, redness, or eye pain [] HENT: Denies nasal congestion or sore throat [] Respiratory: Denies cough or shortness of breath [] Cardiovascular: No additional information not addressed in HPI [] GI: Reports abdominal pain, nausea, diarrhea, and vomiting. Denies bloody stools. : Denies dysuria or hematuria [] Musculoskeletal: Denies back pain or joint pain [] Integument: Denies rash or skin lesions [] Neurologic: Reports headache. Denies focal weakness or sensory changes [] Endocrine: Denies polyuria or polydipsia [] Complete systems were reviewed and found to be within normal limits, except as documented in this note. Current Medications Current Medications Current Medications Medications (Trade) Dose Ordered Sig/Nickie Start Time Stop Time Status Last Admin Dose Admin Acetaminophen (Tylenol) 650 mg PRN Q4HRS PRN 07/10/18 19:45 07/11/18 19:44 Fentanyl Citrate (Fentanyl 2ml Vial) 50 mcg PRN Q1HR PRN 07/10/18 19:45 07/11/18 19:44 Morphine Sulfate (Morphine Sulfate) 2 mg 1X ONCE 07/10/18 18:15 07/10/18 18:16 DC Ondansetron HCl (Zofran) 4 mg PRN Q8HRS PRN 07/10/18 19:45 07/11/18 19:44 Sodium Chloride 500 ml @ 500 mls/hr 1X ONCE 07/10/18 18:15 07/10/18 19:14 DC 07/10/18 19:35 500 MLS/HR Allergies Allergies Allergies Coded Allergies Type Severity Reaction Last Updated Verified lisinopril Allergy Severe Anaphylaxis 03/12/18 Yes shellfish derived Allergy Severe Shortness of Air 03/12/18 Yes Penicillins Allergy Intermediate Tolerates rocephin 03/12/18 Yes Sulfa (Sulfonamide Antibiotics) Allergy Intermediate 03/12/18 Yes morphine Adverse Reaction Severe Anxiety 03/12/18 Yes Physical Exam Physical Exam Constitutional: Well developed, well nourished, no acute distress, non-toxic robinson earance. [] HENT: Normocephalic, atraumatic, bilateral external ears normal, oropharynx moist, no oral exudates, nose normal. [] Eyes: PERRLA, EOMI, conjunctiva normal, no discharge. [] Neck: Normal range of motion, no tenderness, supple, no stridor. [] Cardiovascular:Heart rate irregular rhythm, no murmur [] Lungs & Thorax: Bilateral breath sounds clear to auscultation but diminished in the bilateral lower lobes. Abdomen: Bowel sounds normal, soft, diffuse tenderness, no masses, no pulsatile masses. [] Skin: Warm, dry, no erythema, no rash. [] Back: No tenderness, no CVA tenderness. [] Extremities: No tenderness, no cyanosis, no clubbing, ROM intact, no edema. [] Neurologic: Alert and oriented X 3, normal motor function, normal sensory function, no focal deficits noted. [] Psychologic: Affect normal, judgement normal, mood normal. [] Current Patient Data Vital Signs Vital Signs Date Time Temp Pulse Resp B/P (MAP) Pulse Ox O2 Delivery O2 Flow Rate FiO2 07/10/18 17:20 98.3 81 22 163/70 (101) 99 Nasal Cannula 2.0 98.3 Lab Values Laboratory Tests Test 07/10/18 17:35 07/10/18 17:51 07/10/18 19:05 White Blood Count 9.9 x10^3/uL (4.0-11.0) Red Blood Count 1.94 x10^6/uL (3.50-5.40) L Hemoglobin 5.8 g/dL (12.0-15.5) *L Hematocrit 17.7 % (36.0-47.0) *L Mean Corpuscular Volume 92 fL (79-100) Mean Corpuscular Hemoglobin 30 pg (25-35) Mean Corpuscular Hemoglobin Concent 33 g/dL (31-37) Red Cell Distribution Width 15.1 % (11.5-14.5) H Platelet Count 389 x10^3/uL (140-400) Neutrophils (%) (Auto) 86 % (31-73) H Lymphocytes (%) (Auto) 6 % (24-48) L Monocytes (%) (Auto) 6 % (0-9) Eosinophils (%) (Auto) 1 % (0-3) Basophils (%) (Auto) 1 % (0-3) Neutrophils # (Auto) 8.6 x10^3uL (1.8-7.7) H Lymphocytes # (Auto) 0.6 x10^3/uL (1.0-4.8) L Monocytes # (Auto) 0.6 x10^3/uL (0.0-1.1) Eosinophils # (Auto) 0.1 x10^3/uL (0.0-0.7) Basophils # (Auto) 0.1 x10^3/uL (0.0-0.2) Segmented Neutrophils % 83 % (35-66) H Lymphocytes % 12 % (24-48) L Monocytes % 3 % (0-10) Myelocytes % 2 % (0-0) H Platelet Estimate Adequate (ADEQUATE) Polychromasia Mod Basophilic Stippling Present Anisocytosis Slight Prothrombin Time 14.8 SEC (11.7-14.0) H Prothrombin Time INR 1.2 (0.8-1.1) H Sodium Level 140 mmol/L (136-145) Potassium Level 4.7 mmol/L (3.5-5.1) Chloride Level 106 mmol/L (98-107) Carbon Dioxide Level 25 mmol/L (21-32) Anion Gap 9 (6-14) Blood Urea Nitrogen 75 mg/dL (7-20) H Creatinine 1.5 mg/dL (0.6-1.0) H Estimated GFR (Cockcroft-Gault) 33.1 BUN/Creatinine Ratio 50 (6-20) H Glucose Level 319 mg/dL (70-99) H Calcium Level 9.4 mg/dL (8.5-10.1) Magnesium Level 2.3 mg/dL (1.8-2.4) Iron Level 47 ug/dL (50-170) L Total Iron Binding Capacity 264 ug/dL (250-450) Iron Saturation 18 % (15-34) Total Bilirubin 0.4 mg/dL (0.2-1.0) Aspartate Amino Transferase (AST) 12 U/L (15-37) L Alanine Aminotransferase (ALT) 9 U/L (14-59) L Alkaline Phosphatase 110 U/L (46-116) Troponin I Quantitative 0.043 ng/mL (0.000-0.055) BC-Toq-L-Type Natriuretic Peptide 4711 pg/mL (0-449) H Total Protein 6.8 g/dL (6.4-8.2) Albumin 2.9 g/dL (3.4-5.0) L Albumin/Globulin Ratio 0.7 (1.0-1.7) L Lipase 104 U/L (73-393) Glucose (Fingerstick) 289 mg/dL (70-99) H Stool Occult Blood Positive (NEG) Laboratory Tests 07/10/18 17:35 Laboratory Tests 07/10/18 17:35 EKG EKG [] Radiology/Procedures Radiology/Procedures Collected a fecal occult blood sample and performed a rectal exam. No obvious bleeding was noted.[] PATIENT: ROSA PATEL ACCOUNT: [id number] : 1935 LOCATION: ER AGE: 83 SEX: F EXAM STATUS: REG ER ORD. PHYSICIAN: DERRICK JUAREZ APRN REASON: abd pain PROCEDURE: CT ABDOMEN PELVIS WO CONTRAST CT scan of the abdomen and pelvis without contrast 07/10/2018 CLINICAL HISTORY: Abdominal pain. TECHNIQUE: Unenhanced, contiguous, 2 mm axial sections were obtained through the abdomen and pelvis. One or more of the following individualized dose reduction techniques were utilized for this study: 1. Automated exposure control. 2. Adjustment of the mA and/or kV according to patient size. 3. Use of iterative reconstruction technique. FINDINGS: Comparison studies are dated 05/13/2018 and 02/02/2018. Images through the lung bases demonstrate mild to moderate cardiomegaly. Minimal dependent subsegmental atelectasis seen involving both lower lobes. Branching, nodular opacities are seen involving the posterior aspect of the right lower lobe which have not significantly changed. The liver, spleen, pancreas, and left adrenal gland are within normal limits. A 1 cm rounded low-attenuation lesion is seen involving the right adrenal gland. This likely represents an adrenal adenoma. It is unchanged. Nonobstructing calculi are seen involving the mid/lower pole the right kidney. These measure 1 mm to 6 mm in size. Moderate dilatation of the right intrarenal collecting system and right renal pelvis is seen. This has increased since previous examination. A 6 mm calculus is seen at the location of the right UPJ which is causing moderate obstruction of the right collecting system. The calculus has decreased in size since the previous examination. The calculus measures 3 mm in greatest transverse diameter on today's study and measured 6 mm in greatest diameter on the most recent previous examination. The degree of obstruction has increased slightly. No focal abnormality of the left kidney is seen. There is no evidence of obstruction of the left collecting system. Atherosclerotic calcification abdominal aorta and its branches is noted. The abdominal aorta tapers normally. The gallbladder is not visualized consistent with a cholecystectomy. No free fluid or free air is seen within the abdomen. There is no evidence of bowel obstruction. Images through the pelvis demonstrate the urinary bladder distended with urine. Scattered diverticula are seen involving the sigmoid colon. No inflammatory changes are seen adjacent fat. No free fluid is noted. Calcifications are seen within the pelvis consistent with phleboliths. No free fluid is seen. Degenerative changes are seen involving the lower thoracic and throughout the lumbar spine and both hips. IMPRESSION: A 6 mm right UPJ calculus is seen which has decreased in size since the previous examination. It is causing moderate obstruction of the right collecting system. The degree of obstruction appears increased since the previous study. Electronically signed by: Gennaro Duarte MD (07/10/2018 6:57 PM) [facility] Chest x-ray interpreted by Dr. Garcia No acute findings; questionable mild pulmonary edema. Course & Med Decision Making Course & Med Decision Making Pertinent Labs and Imaging studies reviewed. (See chart for details) Will order labs, urine, CT, IV fluids, and supportive care. Patient is agreeable. Hemoglobin is 5.8 but was 9.5 in April. Patient is on blood thinners but unsure what she is on. No obvious bleeding sources. Will order fecal occult stool, and transfuse. Imaging shows a kidney stone causing blockage. BNP is elevated showing that she is in fluid overload. GFR is 33 which has improved since last taken. Talked to Dr. Suresh and will admit to hospital. Venancio Disclaimer Tenishaon Disclaimer This electronic medical record was generated, in whole or in part, using a voice recognition dictation system. Departure Departure Impression: Primary Impression: Anemia Additional Impressions: Nephrolithiasis CHF (congestive heart failure) Disposition: ADMITTED INPATIENT Admitting Physician: Other Referrals: VALERIE FLORENCE MD (PCP) Problem Qualifiers Primary Impression: Anemia Anemia type: unspecified type Qualified Codes: D64.9 - Anemia, unspecified Additional Impressions: CHF (congestive heart failure) Heart failure type: unspecified Heart failure chronicity: unspecified Qualified Codes: I50.9 - Heart failure, unspecified DERRICK JUAREZ APRN July 10, 2018 18:52
--- NOTE | 2018-07-10 19:00 | RAD ---
CT scan of the abdomen and pelvis without contrast 07/10/2018 CLINICAL HISTORY: Abdominal pain. TECHNIQUE: Unenhanced, contiguous, 2 mm axial sections were obtained through the abdomen and pelvis. One or more of the following individualized dose reduction techniques were utilized for this study: 1. Automated exposure control. 2. Adjustment of the mA and/or kV according to patient size. 3. Use of iterative reconstruction technique. FINDINGS: Comparison studies are dated 05/13/2018 and 02/02/2018. Images through the lung bases demonstrate mild to moderate cardiomegaly. Minimal dependent subsegmental atelectasis seen involving both lower lobes. Branching, nodular opacities are seen involving the posterior aspect of the right lower lobe which have not significantly changed. The liver, spleen, pancreas, and left adrenal gland are within normal limits. A 1 cm rounded low-attenuation lesion is seen involving the right adrenal gland. This likely represents an adrenal adenoma. It is unchanged. Nonobstructing calculi are seen involving the mid/lower pole the right kidney. These measure 1 mm to 6 mm in size. Moderate dilatation of the right intrarenal collecting system and right renal pelvis is seen. This has increased since previous examination. A 6 mm calculus is seen at the location of the right UPJ which is causing moderate obstruction of the right collecting system. The calculus has decreased in size since the previous examination. The calculus measures 3 mm in greatest transverse diameter on today's study and measured 6 mm in greatest diameter on the most recent previous examination. The degree of obstruction has increased slightly. No focal abnormality of the left kidney is seen. There is no evidence of obstruction of the left collecting system. Atherosclerotic calcification abdominal aorta and its branches is noted. The abdominal aorta tapers normally. The gallbladder is not visualized consistent with a cholecystectomy. No free fluid or free air is seen within the abdomen. There is no evidence of bowel obstruction. Images through the pelvis demonstrate the urinary bladder distended with urine. Scattered diverticula are seen involving the sigmoid colon. No inflammatory changes are seen adjacent fat. No free fluid is noted. Calcifications are seen within the pelvis consistent with phleboliths. No free fluid is seen. Degenerative changes are seen involving the lower thoracic and throughout the lumbar spine and both hips. IMPRESSION: A 6 mm right UPJ calculus is seen which has decreased in size since the previous examination. It is causing moderate obstruction of the right collecting system. The degree of obstruction appears increased since the previous study. Electronically signed by: Gennaro Duarte MD (07/10/2018 6:57 PM) [facility]
[2018-07-10 19:17] LABS: FECAL OB PT POSITIVE (NEG)
[2018-07-10 19:45] LABS: % LYMPHS 12 % (24-48); % MONOS 3 % (0-10); % MYELOS 2 % (0-0); % SEGS 83 % (35-66)
[2018-07-10] MEDS ORDERED: ONDANSETRON PF 4 MG/2 ML VIAL. IV PRN (19:45)
[2018-07-10] MEDS ORDERED: fentaNYL PF VIAL 100 MCG/2 ML VIAL IV PRN (19:45)
[2018-07-10] MEDS ORDERED: ACETAMINOPHEN 325 MG TABLET. PO PRN (19:45)
[2018-07-10 19:46] LABS: ANISOCYTOSIS SLIGHT; PLT ESTIMATE ADEQUATE (ADEQUATE)
[2018-07-10 19:47] LABS: POLYCHROMASIA MOD
[2018-07-10 21:47] VITALS: BP 154/67
[2018-07-10 22:26] VITALS: BP 132/60
--- NOTE | 2018-07-10 23:08 | RAD ---
AP portable chest radiograph 07/10/2018 Clinical History: Shortness of breath. An AP erect portable digital radiograph of the chest was obtained. Comparison study is dated 03/26/2017. A pacemaker is unchanged in position. The patient is post median sternotomy. The cardiac silhouette is mildly enlarged. Atherosclerotic calcification of the thoracic aorta is seen. The thoracic aorta is mildly tortuous. No acute pulmonary infiltrate is seen. No pleural effusion or pneumothorax is noted. There is diffuse osteopenia of the visualized bony structures. Degenerative changes are seen involving the thoracic spine and both shoulders. Impression: No acute abnormality is seen. Electronically signed by: Gennaro Duarte MD (07/10/2018 11:05 PM) [facility]
[2018-07-10] MEDS ORDERED: HYDR12.58 PO (23:11)
[2018-07-10] MEDS ORDERED: POTA10TA17 PO (23:11)
[2018-07-10] MEDS ORDERED: LOSA100T14 PO (23:11)
[2018-07-10] MEDS ORDERED: FURO20TA3 PO (23:11)
[2018-07-10] MEDS ORDERED: DABI150C PO (23:11)
[2018-07-10] MEDS ORDERED: GABA600T7 PO (23:11)
[2018-07-10] MEDS ORDERED: INSU100V13 SQ (23:11)
[2018-07-11] VITALS (13 sets, daily range): BP systolic 108–170; BP diastolic 46–70
[2018-07-11] MEDS ORDERED: HYDROcodone/APAP 5/325MG 1 TAB TABLET PO PRN
[2018-07-11] MEDS ORDERED: traMADol 50 MG TABLET PO PRN
[2018-07-11] MEDS ORDERED: ALPRAZolam 0.25 MG TABLET ONE (00:28)
--- NOTE | 2018-07-11 03:53 | NUR ---
Patient arrived to room 256 via bed accompanied by Hong. She is able to ambulate several steps to her new bed with a steady gait. VSS, no complaints of pain and nausea has resolved after "medication they gave me downstairs." NS 500 bolus running. Pt is a good historian except for medications, and [facility] 24hr pharmacy called for home med list verification. Dr. Suresh called for "sleeping pill" (xanax) to be restarted, and MD ordered home meds restarted except that Pradaxa be held. NPO at MT status discussed with patient.
--- NOTE | 2018-07-11 06:27 | EKG ---
[address] [place] [address] Test Date: 2018-07-10 Test Time: 17:13:20 Pat Name: ROSA PATEL Department: Room: 256 1 Gender: F Pasteurizing Supervisor: : 1935 Requested By: DERRICK JUAREZ Order Number: [id number] Reading MD: George Alvarez Measurements Intervals [place] Rate: 85 P: [place]: QRS: -26 QRSD: 90 T: -42 QT: 338 QTc: 402 Interpretive Statements ATRIAL FIBRILLATION LEFTWARD AXIS CONSIDER LEFT VENTRICULAR HYPERTROPHY ST & T ABNORMALITY, CONSIDER ANTERIOR ISCHEMIA OR LEFT VENTRICULAR STRAIN HIGH LATERAL ISCHEMIA OR LEFT VENTRICULAR STRAIN ABNORMAL ECG Electronically Signed On 08-01-2018 12:23:24 CDT by George Alvarez
[2018-07-11] MEDS: ALBUTEROL SULFATE 2.5 MG/3 ML NEBU. NEB SCH ×4 (07:33→20:00)
[2018-07-11] MEDS: BUDESONIDE 0.5 MG/2 ML NEBU. NEB SCH ×2 (07:33→20:51)
--- NOTE | 2018-07-11 07:36 | EKG ---
[facility] [address] [place] [address] Test Date: 2018-07-10 Test Time: 17:16:39 Pat Name: ROSA PATEL Department: Room: 256 1 Gender: F Manager Bilingual: : 1935 Requested By: PREMA MASON Order Number: [id number] Reading MD: George Alvarez Measurements Intervals [place] Rate: 80 P: [place]: QRS: -26 QRSD: 98 T: -154 QT: 358 QTc: 416 Interpretive Statements ATRIAL FIBRILLATION LEFTWARD AXIS INCOMPLETE RIGHT BUNDLE BRANCH BLOCK LVH WITH REPOLARIZATION ABNORMALITY ABNORMAL ECG Electronically Signed On 08-01-2018 12:23:57 CDT by George Alvarez
[2018-07-11] MEDS: ASPIRIN ENTERIC COATED 81 MG TABLET.DR. PO SCH ×2 (08:00→08:25)
[2018-07-11] MEDS ORDERED: INSULIN GLARGINE 300 UNITS/3 ML INSULN.PEN. SQ SCH ×2 (08:00→21:00)
[2018-07-11] MEDS: POTASSIUM CITRATE 10 MEQ TABLET.ER PO SCH ×2 (08:25→17:14)
[2018-07-11] MEDS: FLUTICASONE 50MCG/NASAL SPRAY 16GM BOTTLE. NS SCH (08:26)
[2018-07-11] MEDS: CETIRIZINE HCL 10 MG TABLET. PO SCH (08:27)
[2018-07-11] MEDS: FERROUS SULFATE 325 MG TABLET. PO SCH ×2 (08:35→17:14)
--- NOTE | 2018-07-11 08:55 | PDOC ---
Provider Note Provider Note [id number] PREMA MASON MD July 11, 2018 08:55
[2018-07-11] MEDS ORDERED: hydroCHLOROthiazide 12.5 MG CAPSULE PO SCH (09:00)
[2018-07-11] MEDS ORDERED: NON FORMULARY ITEM (Budesonide/Formoterol Fumarate (Symbicort 160-4.5 Mcg Inhaler) 10.2 GM IH SCH (09:00)
[2018-07-11] MEDS ORDERED: LOSARTAN POTASSIUM 50 MG TABLET. PO SCH (09:00)
[2018-07-11] MEDS ORDERED: [UNRECOGNIZED DRUG - REMARK] PO SCH (09:00)
[2018-07-11] MEDS ORDERED: PSEUDOEPHEDRINE ER 120 MG TABLET.ER. PO SCH (09:00)
[2018-07-11] MEDS ORDERED: FUROSEMIDE 20 MG TABLET PO SCH (09:00)
--- NOTE | 2018-07-11 09:56 | HP ---
ADMIT DATE: 07/10/2018 CHIEF COMPLAINT: Weakness. HISTORY OF PRESENT ILLNESS: An 83-year-old white female with known multiple medical problems including hypertension, atrial fibrillation and chronic hydronephrosis. She sees a last waxer at [facility] and takes aspirin and Pradaxa and came in with increasing weakness and hemoglobin was found to be 5.8. 3-4 months ago, the hemoglobin level was 11. She is visually challenged, has not noticed melena, hematochezia or any GI symptoms to speak of. She was given 1 unit of packed red blood cells and feels a little better this morning and further lab is pending at this time. PAST MEDICAL HISTORY: She is uncertain when her last GI procedures were done as she has had GI bleeds in the past. She had ureteral stent placement here at [facility] 2-3 times in the last [address] Lawson for this. MEDICATIONS: SHE HAS MULTIPLE ALLERGIES INCLUDING PENICILLIN, SULFA AND LISINOPRIL LISTED. SOCIAL HISTORY: She is , not physically active, nonsmoker, nondrinker. FAMILY HISTORY: Unremarkable. REVIEW OF SYSTEMS: No other complaints. OBJECTIVE: ENT: Mild pallor, otherwise unremarkable. NECK: No masses, nodes or bruits. LUNGS: Clear. CARDIOVASCULAR: Slightly irregular rate consistent with atrial fibrillation. No S3 or murmurs heard. ABDOMEN: Obese, soft, benign, nontender. EXTREMITIES: Unremarkable. Nail beds are pale. NEUROLOGIC: Physiologic. She has very poor vision and reduced hearing, nonfocal in general. ASSESSMENT: 1. Severe anemia, likely secondary to occult gastrointestinal bleeding caused by aspirin and Pradaxa. 2. Chronic atrial fibrillation and other medical problems are stable. PLAN: She is a DNR patient. We will stop aspirin and Pradaxa and likely stop both of these indefinitely as appear to be greater risk than benefit. She bled when was on warfarin with a higher dose, but is clearly not tolerating these drugs as well. Transfuse to hemoglobin around 8 and supportive care. PREMA MASON MD DR: KAMI/dwaine JOB#: [id number] / [id number]
--- NOTE | 2018-07-11 10:46 | NUR ---
SW reviewed pt's medical chart and evaluated for potential dc needs. Pt is from home with spouse and was admitted for anemia and nephrolithiasis. Pt is on 1 liter of O2 and PT/OT is pending. SW will await PT/OT recommendations and proceed accordingly.
--- NOTE | 2018-07-11 10:55 | PDOC2 ---
DOLORES CAMPOS HEPATOLOGIST 07/11/18 1055: UROLOGY CONSULT Date of Consult Date of Consult DATE: 07/11/18 TIME: 10:44 Reason for Consult Reason for Consult: Kidney stone Identification/Chief Complaint Chief Complaint Kidney stone Source Source: Caregiver, Chart review, Patient History of Present Illness Reason for Visit: This pleasant 83 year old female is well known to us and is a patient of Dr. Lawson'jayda. She was admitted for severe anemia and is currently receiving treatment for this. On arrival to the ER she had severe pain in her flank but is not having this or her back pain currently. She has had several procedures for kidney stones. In the past, she has required stent internalization via IR prior to definitive stone management. She was last seen by Dr. Lawson in our clinic on 06/04/18; at that time she had only a 4 mm stone on her right UPJ which was not symptomatic and recommended a repeat KUB and urocit K and Flomax. The KUB done on 06/05 showed no radiopaque stones evident. Urology was consulted this admission because a 6 mm stone was again discovered on her CT scan. Today she is feeling well with no flank or abd pain. She also denies dysuria, fevers, and feels a little stronger today than she did yesterday. Past Medical History Cardiovascular: AFIB, CAD, CHF, HTN, Hyperlipidemia, Valve insufficiency, Pulmonary hypertension Pulmonary: Bronchitis, COPD GI: Diverticulosis, GI bleed Endocrine: Diabetes Past Surgical History Past Surgical History: Pacemaker, Appendectomy, Cholecystectomy, CABG, Total knee replacement, Hysterectomy, Other Family History Family History: Heart Disease Social History ALCOHOL: none Drugs: None Current Problem List Problems: (1) Renal lithiasis (2) Kidney stones Current Medications Current Medications Current Medications Acetaminophen (Tylenol) 650 mg PRN Q4HRS PRN PO FEVER; Start 07/10/18 at 19:45; Stop 07/11/18 at 19:44 Acetaminophen/ Hydrocodone Bitart (Lortab 5/325) 1 tab PRN Q4HRS PRN PO PAIN; Start 07/11/18 at 00:00 Albuterol Sulfate (Ventolin Neb Soln) 2.5 mg RTQID NEB Last administered on 07/11/18at 07:33; Start 07/11/18 at 08:00 Alprazolam (Xanax) 0.25 mg HS PO Last administered on 07/11/18at 00:30; Start 07/11/18 at 21:00 Alprazolam (Xanax) 0.25 mg STK-MED ONCE .ROUTE ; Start 07/11/18 at 00:28; Stop 07/11/18 at 00:29; Status DC Aspirin (Ecotrin) 81 mg DAILYWBKFT PO ; Start 07/11/18 at 08:00; Stop 07/11/18 at 08:49; Status DC Atorvastatin Calcium (Lipitor) 40 mg HS PO ; Start 07/11/18 at 21:00; Stop 07/11/18 at 21:00; Status DC Budesonide (Pulmicort) 0.5 mg RTBID NEB Last administered on 07/11/18at 07:33; Start 07/11/18 at 08:00 Cetirizine HCl (ZyrTEC) 5 mg DAILY PO Last administered on 07/11/18at 08:27; Start 07/11/18 at 09:00 Fentanyl Citrate (Fentanyl 2ml Vial) 50 mcg PRN Q1HR PRN IV PAIN Last administered on 07/10/18at 20:47; Start 07/10/18 at 19:45; Stop 07/11/18 at 08:49; Status DC Ferrous Sulfate (Feosol) 325 mg BIDAFTMEAL PO Last administered on 07/11/18at 08:35; Start 07/11/18 at 09:00 Fluticasone Propionate (Flonase) 2 spray DAILY NS Last administered on 07/11/18at 08:26; Start 07/11/18 at 09:00 Furosemide (Lasix) 20 mg DAILY PO Last administered on 07/11/18at 08:24; Start 07/11/18 at 09:00; Stop 07/11/18 at 09:00; Status DC Gabapentin (Neurontin) 600 mg HS PO ; Start 07/11/18 at 21:00 Hydrochlorothiazide (Microzide) 12.5 mg DAILY PO Last administered on 07/11/18at 08:25; Start 07/11/18 at 09:00; Stop 07/11/18 at 09:00; Status DC Insulin Glargine (Lantus) 12 units HS SQ ; Start 07/11/18 at 21:00 Insulin Glargine (Lantus) 40 units DAILYWBKFT SQ Last administered on 07/11/18at 08:33; Start 07/11/18 at 08:00 Losartan Potassium (Cozaar) 100 mg DAILY PO Last administered on 07/11/18at 08:25; Start 07/11/18 at 09:00; Stop 07/11/18 at 09:00; Status DC Morphine Sulfate (Morphine Sulfate) 2 mg 1X ONCE IV ; Start 07/10/18 at 18:15; Stop 07/10/18 at 18:16; Status DC Non-Formulary Medication (Budesonide/ Formoterol Fumarate (Symbicort 160-4.5 Mcg Inhaler)) 10.2 gm BID IH ; Start 07/11/18 at 09:00; Status UNV Non-Formulary Medication (Cetirizine Hcl/ Pseudoephedrine (All Day Allergy-D Tablet)) 1 each DAILY PO ; Start 07/11/18 at 09:00; Status UNV Ondansetron HCl (Zofran) 4 mg 1X ONCE IV ; Start 07/10/18 at 18:15; Stop 07/10/18 at 18:16; Status DC Ondansetron HCl (Zofran) 4 mg PRN Q8HRS PRN IV NAUSEA/VOMITING Last administered on 07/11/18at 03:17; Start 07/10/18 at 19:45; Stop 07/11/18 at 19:44 Potassium Citrate (Urocit-K) 10 meq BIDWMEALS PO Last administered on 07/11/18at 08:25; Start 07/11/18 at 08:00 Pseudoephedrine HCl (Sudafed 12-Hour) 120 mg DAILY PO ; Start 07/11/18 at 09:00; Stop 07/11/18 at 09:00; Status DC Sodium Chloride 500 ml @ 500 mls/hr 1X ONCE IV Last administered on 07/10/18at 19:35; Start 07/10/18 at 18:15; Stop 07/10/18 at 19:14; Status DC Tamsulosin HCl (Flomax) 0.4 mg QHS PO ; Start 07/11/18 at 21:00 Tramadol HCl (Ultram) 50 mg PRN Q6HRS PRN PO PAIN; Start 07/11/18 at 00:00 Allergies Allergies: Coded Allergies: lisinopril (Verified Allergy, Severe, Anaphylaxis, 03/12/18) shellfish derived (Verified Allergy, Severe, Shortness of Air, 03/12/18) Penicillins (Verified Allergy, Intermediate, Tolerates rocephin, 03/12/18) Sulfa (Sulfonamide Antibiotics) (Verified Allergy, Intermediate, 03/12/18) morphine (Verified Adverse Reaction, Severe, Anxiety, 03/12/18) ROS Review Of Systems: CONSTITUTIONAL: No fever or chills EYES: No recent changes SKIN: No rash or itching CARDIOVASCULAR: No chest pain, syncope, palpitations, or edema RESPIRATORY: No SOB or cough GASTROINTESTINAL: No nausea, vomiting or abdominal pain NEUROLOGICAL: No headaches or weakness ENDOCRINE: No cold or heat intolerance GENITOURINARY: No urgency or frequency of urination MUSCULOSKELETAL: No back pain or joint pain LYMPHATICS: No enlarged lymph nodes PSYCHIATRIC: No anxiety or depression Physical Exam Physical Exam: General: Pleasant, no acute distress, well groomed Eyes: conjunctiva anicteric, eyes full range of motion ENT: moist oral mucosa, normal dentition Neck: Trachea midline, no masses Back: No CVA pain Respiratory: unlabored breathing, not using accessory muscles, Abdomen: nontender, nondistended, no hepatosplenomegaly, no masses Skin: no rashes or skin lesions on visualized skin Psych: normal mood, affect. Alert and oriented x 3. Vitals VITALS Vital Signs Date Time Temp Pulse Resp B/P (MAP) Pulse Ox O2 Delivery O2 Flow Rate FiO2 07/11/18 08:25 72 139/61 07/11/18 08:00 Nasal Cannula 1.0 07/11/18 07:39 99 07/11/18 07:00 97.5 20 97.5 Labs Labs Laboratory Tests Test 07/10/18 17:35 07/10/18 17:51 07/10/18 19:05 07/11/18 07:48 White Blood Count 9.9 x10^3/uL (4.0-11.0) Red Blood Count 1.94 x10^6/uL (3.50-5.40) Hemoglobin 5.8 g/dL (12.0-15.5) Hematocrit 17.7 % (36.0-47.0) Mean Corpuscular Volume 92 fL (79-100) Mean Corpuscular Hemoglobin 30 pg (25-35) Mean Corpuscular Hemoglobin Concent 33 g/dL (31-37) Red Cell Distribution Width 15.1 % (11.5-14.5) Platelet Count 389 x10^3/uL (140-400) Neutrophils (%) (Auto) 86 % (31-73) Lymphocytes (%) (Auto) 6 % (24-48) Monocytes (%) (Auto) 6 % (0-9) Eosinophils (%) (Auto) 1 % (0-3) Basophils (%) (Auto) 1 % (0-3) Neutrophils # (Auto) 8.6 x10^3uL (1.8-7.7) Lymphocytes # (Auto) 0.6 x10^3/uL (1.0-4.8) Monocytes # (Auto) 0.6 x10^3/uL (0.0-1.1) Eosinophils # (Auto) 0.1 x10^3/uL (0.0-0.7) Basophils # (Auto) 0.1 x10^3/uL (0.0-0.2) Segmented Neutrophils % 83 % (35-66) Lymphocytes % 12 % (24-48) Monocytes % 3 % (0-10) Myelocytes % 2 % (0-0) Platelet Estimate Adequate (ADEQUATE) Polychromasia Mod Basophilic Stippling Present Anisocytosis Slight Prothrombin Time 14.8 SEC (11.7-14.0) Prothromb Time International Ratio 1.2 (0.8-1.1) Sodium Level 140 mmol/L (136-145) Potassium Level 4.7 mmol/L (3.5-5.1) Chloride Level 106 mmol/L (98-107) Carbon Dioxide Level 25 mmol/L (21-32) Anion Gap 9 (6-14) Blood Urea Nitrogen 75 mg/dL (7-20) Creatinine 1.5 mg/dL (0.6-1.0) Estimated GFR (Cockcroft-Gault) 33.1 BUN/Creatinine Ratio 50 (6-20) Glucose Level 319 mg/dL (70-99) Calcium Level 9.4 mg/dL (8.5-10.1) Magnesium Level 2.3 mg/dL (1.8-2.4) Iron Level 47 ug/dL (50-170) Total Iron Binding Capacity 264 ug/dL (250-450) Iron Saturation 18 % (15-34) Total Bilirubin 0.4 mg/dL (0.2-1.0) Aspartate Amino Transf (AST/SGOT) 12 U/L (15-37) Alanine Aminotransferase (ALT/SGPT) 9 U/L (14-59) Alkaline Phosphatase 110 U/L (46-116) Troponin I Quantitative 0.043 ng/mL (0.000-0.055) HP-Wfv-R-Type Natriuretic Peptide 4711 pg/mL (0-449) Total Protein 6.8 g/dL (6.4-8.2) Albumin 2.9 g/dL (3.4-5.0) Albumin/Globulin Ratio 0.7 (1.0-1.7) Lipase 104 U/L (73-393) Glucose (Fingerstick) 289 mg/dL (70-99) 262 mg/dL (70-99) Stool Occult Blood Positive (NEG) Laboratory Tests Test 07/10/18 17:35 07/10/18 17:51 07/10/18 19:05 07/11/18 07:48 White Blood Count 9.9 x10^3/uL (4.0-11.0) Red Blood Count 1.94 x10^6/uL (3.50-5.40) Hemoglobin 5.8 g/dL (12.0-15.5) Hematocrit 17.7 % (36.0-47.0) Mean Corpuscular Volume 92 fL (79-100) Mean Corpuscular Hemoglobin 30 pg (25-35) Mean Corpuscular Hemoglobin Concent 33 g/dL (31-37) Red Cell Distribution Width 15.1 % (11.5-14.5) Platelet Count 389 x10^3/uL (140-400) Neutrophils (%) (Auto) 86 % (31-73) Lymphocytes (%) (Auto) 6 % (24-48) Monocytes (%) (Auto) 6 % (0-9) Eosinophils (%) (Auto) 1 % (0-3) Basophils (%) (Auto) 1 % (0-3) Neutrophils # (Auto) 8.6 x10^3uL (1.8-7.7) Lymphocytes # (Auto) 0.6 x10^3/uL (1.0-4.8) Monocytes # (Auto) 0.6 x10^3/uL (0.0-1.1) Eosinophils # (Auto) 0.1 x10^3/uL (0.0-0.7) Basophils # (Auto) 0.1 x10^3/uL (0.0-0.2) Segmented Neutrophils % 83 % (35-66) Lymphocytes % 12 % (24-48) Monocytes % 3 % (0-10) Myelocytes % 2 % (0-0) Platelet Estimate Adequate (ADEQUATE) Polychromasia Mod Basophilic Stippling Present Anisocytosis Slight Prothrombin Time 14.8 SEC (11.7-14.0) Prothromb Time International Ratio 1.2 (0.8-1.1) Sodium Level 140 mmol/L (136-145) Potassium Level 4.7 mmol/L (3.5-5.1) Chloride Level 106 mmol/L (98-107) Carbon Dioxide Level 25 mmol/L (21-32) Anion Gap 9 (6-14) Blood Urea Nitrogen 75 mg/dL (7-20) Creatinine 1.5 mg/dL (0.6-1.0) Estimated GFR (Cockcroft-Gault) 33.1 BUN/Creatinine Ratio 50 (6-20) Glucose Level 319 mg/dL (70-99) Calcium Level 9.4 mg/dL (8.5-10.1) Magnesium Level 2.3 mg/dL (1.8-2.4) Iron Level 47 ug/dL (50-170) Total Iron Binding Capacity 264 ug/dL (250-450) Iron Saturation 18 % (15-34) Total Bilirubin 0.4 mg/dL (0.2-1.0) Aspartate Amino Transf (AST/SGOT) 12 U/L (15-37) Alanine Aminotransferase (ALT/SGPT) 9 U/L (14-59) Alkaline Phosphatase 110 U/L (46-116) Troponin I Quantitative 0.043 ng/mL (0.000-0.055) FS-Ylq-Z-Type Natriuretic Peptide 4711 pg/mL (0-449) Total Protein 6.8 g/dL (6.4-8.2) Albumin 2.9 g/dL (3.4-5.0) Albumin/Globulin Ratio 0.7 (1.0-1.7) Lipase 104 U/L (73-393) Glucose (Fingerstick) 289 mg/dL (70-99) 262 mg/dL (70-99) Stool Occult Blood Positive (NEG) Images Images IMPRESSION: A 6 mm right UPJ calculus is seen which has decreased in size since the previous examination. It is causing moderate obstruction of the right collecting system. The degree of obstruction appears increased since the previous study. Electronically signed by: Gennaro Duarte MD (07/10/2018 6:57 PM) [facility] Assessment/Plan Assessment/Plan 6 mm stone at the right UPJ with moderate obstruction, [employer] is 1.4, pt afebrile, and patient currently asymptomatic. For now, recommend conservative approach with treatment of anemia being the priority. Pain control, strain urine. CMP in the morning. Dr. Cullen to re-evaluate in the morning. SISSY CULLEN MD 07/12/18 1222: UROLOGY CONSULT Assessment/Plan Assessment/Plan Patient seen and examined. Agree with assessment and plan. DOLORES CAMPOS APRN July 11, 2018 10:55 SISSY CULLEN MD July 12, 2018 12:22
[2018-07-11] MEDS ORDERED: INSULIN GLARGINE 300 UNITS/3 ML INSULN.PEN. SQ ONE (17:30)
[2018-07-11 18:22] LABS: RED BLOOD COUNT 2.22 x10^6/uL (3.50-5.40); RED CELL DISTRIBUTION WIDTH 16.3 % (11.5-14.5); WHITE BLOOD COUNT 9.4 x10^3/uL (4.0-11.0)
[2018-07-11 18:31] LABS: HEMATOCRIT 20.1 % (36.0-47.0); HEMOGLOBIN 6.7 g/dL (12.0-15.5)
[2018-07-11] MEDS ORDERED: ATORVASTATIN CALCIUM 40 MG TABLET. PO SCH (21:00)
[2018-07-11] MEDS ORDERED: ALPRAZolam 0.25 MG TABLET PO SCH (21:00)
[2018-07-11] MEDS: GABAPENTIN 300 MG CAPSULE. PO SCH (21:17)
[2018-07-11] MEDS: TAMSULOSIN 0.4 MG CAP.ER.24H. PO SCH (21:17)
[2018-07-11] MEDS: INSULIN GLARGINE 300 UNITS/3 ML INSULN.PEN. SQ SCH (21:21)
[2018-07-11] MEDS: ALPRAZolam 0.25 MG TABLET PO SCH (21:33)
[2018-07-12] VITALS (12 sets, daily range): BP systolic 103–162; BP diastolic 36–65
[2018-07-12 04:38] LABS: HEMATOCRIT 21.4 % (36.0-47.0); RED BLOOD COUNT 2.38 x10^6/uL (3.50-5.40); RED CELL DISTRIBUTION WIDTH 15.8 % (11.5-14.5); WHITE BLOOD COUNT 9.7 x10^3/uL (4.0-11.0)
[2018-07-12 04:58] LABS: ALBUMIN 2.7 g/dL (3.4-5.0); ALBUMIN/GLOBULIN RATIO 0.8 (1.0-1.7); CALCIUM 8.8 mg/dL (8.5-10.1); CREATININE 1.7 mg/dL (0.6-1.0); GFR 28.6; POTASSIUM 4.4 mmol/L (3.5-5.1); TOTAL BILIRUBIN 0.5 mg/dL (0.2-1.0)
[2018-07-12] MEDS: ALBUTEROL SULFATE 2.5 MG/3 ML NEBU. NEB SCH ×4 (08:09→19:59)
[2018-07-12] MEDS: BUDESONIDE 0.5 MG/2 ML NEBU. NEB SCH ×2 (08:09→19:59)
--- NOTE | 2018-07-12 09:41 | PDOC ---
GENERAL General: vss and afebrile. awake and alert. chest clear, heart regular, abdomen benign. Hb up to 7.0 after transfusion yesterday. Heme positive stool and will ask for GI opinion. urology opinion on stone appreciated. follow cbc with transfusion as needed. VITAL SIGNS Vital Signs: Vital Signs Date Time Temp Pulse Resp B/P (MAP) Pulse Ox O2 Delivery O2 Flow Rate FiO2 07/12/18 08:12 97 Nasal Cannula 1.0 07/12/18 07:00 97.6 66 18 104/50 (68) 97.6 I & O I & O Intake and Output 07/12/18 07:00 Intake Total 820 ml Output Total 0 ml Balance 820 ml Intake Oral 220 ml Blood Product IV Normal Saline Flush 600 ml Output Urine Total 0 ml # Voids 4 # Bowel Movements 2 ALLERGIES Allergies: Allergies Coded Allergies Type Severity Reaction Last Updated Verified lisinopril Allergy Severe Anaphylaxis 03/12/18 Yes shellfish derived Allergy Severe Shortness of Air 03/12/18 Yes Penicillins Allergy Intermediate Tolerates rocephin 03/12/18 Yes Sulfa (Sulfonamide Antibiotics) Allergy Intermediate 03/12/18 Yes morphine Adverse Reaction Severe Anxiety 03/12/18 Yes MEDS Medications: Current Medications Medications (Trade) Dose Ordered Sig/Nickie Start Time Stop Time Status Last Admin Dose Admin Acetaminophen (Tylenol) 650 mg PRN Q4HRS PRN 07/10/18 19:45 07/11/18 16:35 DC Acetaminophen/ Hydrocodone Bitart (Lortab 5/325) 1 tab PRN Q4HRS PRN 07/11/18 00:00 Albuterol Sulfate (Ventolin Neb Soln) 2.5 mg RTQID 07/11/18 08:00 07/12/18 08:09 2.5 MG Alprazolam (Xanax) 0.25 mg HS 07/11/18 21:30 07/11/18 21:33 0.25 MG Aspirin (Ecotrin) 81 mg DAILYWBKFT 07/11/18 08:00 07/11/18 08:49 DC Atorvastatin Calcium (Lipitor) 40 mg HS 07/11/18 21:00 07/11/18 21:00 DC Budesonide (Pulmicort) 0.5 mg RTBID 07/11/18 08:00 07/12/18 08:09 0.5 MG Cetirizine HCl (ZyrTEC) 5 mg DAILY 07/11/18 09:00 07/11/18 08:27 5 MG Fentanyl Citrate (Fentanyl 2ml Vial) 50 mcg PRN Q1HR PRN 07/10/18 19:45 07/11/18 08:49 DC 07/10/18 20:47 50 MCG Ferrous Sulfate (Feosol) 325 mg BIDAFTMEAL 07/11/18 09:00 07/11/18 17:14 325 MG Fluticasone Propionate (Flonase) 2 spray DAILY 07/11/18 09:00 07/11/18 08:26 2 SPRAY Furosemide (Lasix) 20 mg DAILY 07/11/18 09:00 07/11/18 09:00 DC 07/11/18 08:24 20 MG Gabapentin (Neurontin) 600 mg HS 07/11/18 21:00 07/11/18 21:17 600 MG Hydrochlorothiazide (Microzide) 12.5 mg DAILY 07/11/18 09:00 07/11/18 09:00 DC 07/11/18 08:25 12.5 MG Insulin Glargine (Lantus) 10 units 1X ONCE 07/11/18 17:30 07/11/18 17:31 DC 07/11/18 17:34 10 UNITS Losartan Potassium (Cozaar) 100 mg DAILY 07/11/18 09:00 07/11/18 09:00 DC 07/11/18 08:25 100 MG Morphine Sulfate (Morphine Sulfate) 2 mg 1X ONCE 07/10/18 18:15 07/10/18 18:16 DC Non-Formulary Medication (Budesonide/ Formoterol Fumarate (Symbicort 160-4.5 Mcg Inhaler)) 10.2 gm BID 07/11/18 09:00 UNV Non-Formulary Medication (Cetirizine Hcl/ Pseudoephedrine (All Day Allergy-D Tablet)) 1 each DAILY 07/11/18 09:00 UNV Ondansetron HCl (Zofran) 4 mg PRN Q8HRS PRN 07/10/18 19:45 07/11/18 19:44 DC 07/11/18 03:17 4 MG Potassium Citrate (Urocit-K) 10 meq BIDWMEALS 07/11/18 08:00 07/11/18 17:14 10 MEQ Pseudoephedrine HCl (Sudafed 12-Hour) 120 mg DAILY 07/11/18 09:00 07/11/18 09:00 DC Sodium Chloride 500 ml @ 500 mls/hr 1X ONCE 07/10/18 18:15 07/10/18 19:14 DC 07/10/18 19:35 500 MLS/HR Tamsulosin HCl (Flomax) 0.4 mg QHS 07/11/18 21:00 07/11/18 21:17 0.4 MG Tramadol HCl (Ultram) 50 mg PRN Q6HRS PRN 07/11/18 00:00 07/12/18 02:01 50 MG LAB Lab: Laboratory Tests Test 07/11/18 11:38 07/11/18 16:28 07/11/18 18:10 07/11/18 20:49 Glucose (Fingerstick) 322 mg/dL (70-99) 309 mg/dL (70-99) 351 mg/dL (70-99) White Blood Count 9.4 x10^3/uL (4.0-11.0) Red Blood Count 2.22 x10^6/uL (3.50-5.40) Hemoglobin 6.7 g/dL (12.0-15.5) Hematocrit 20.1 % (36.0-47.0) Mean Corpuscular Volume 90 fL (79-100) Mean Corpuscular Hemoglobin 30 pg (25-35) Mean Corpuscular Hemoglobin Concent 33 g/dL (31-37) Red Cell Distribution Width 16.3 % (11.5-14.5) Platelet Count 362 x10^3/uL (140-400) Test 07/12/18 04:00 07/12/18 07:20 White Blood Count 9.7 x10^3/uL (4.0-11.0) Red Blood Count 2.38 x10^6/uL (3.50-5.40) Hemoglobin 7.0 g/dL (12.0-15.5) Hematocrit 21.4 % (36.0-47.0) Mean Corpuscular Volume 90 fL (79-100) Mean Corpuscular Hemoglobin 30 pg (25-35) Mean Corpuscular Hemoglobin Concent 33 g/dL (31-37) Red Cell Distribution Width 15.8 % (11.5-14.5) Platelet Count 339 x10^3/uL (140-400) Sodium Level 138 mmol/L (136-145) Potassium Level 4.4 mmol/L (3.5-5.1) Chloride Level 103 mmol/L (98-107) Carbon Dioxide Level 27 mmol/L (21-32) Anion Gap 8 (6-14) Blood Urea Nitrogen 54 mg/dL (7-20) Creatinine 1.7 mg/dL (0.6-1.0) Estimated GFR (Cockcroft-Gault) 28.6 BUN/Creatinine Ratio 32 (6-20) Glucose Level 216 mg/dL (70-99) Calcium Level 8.8 mg/dL (8.5-10.1) Total Bilirubin 0.5 mg/dL (0.2-1.0) Aspartate Amino Transf (AST/SGOT) 10 U/L (15-37) Alanine Aminotransferase (ALT/SGPT) 10 U/L (14-59) Alkaline Phosphatase 103 U/L (46-116) Total Protein 6.0 g/dL (6.4-8.2) Albumin 2.7 g/dL (3.4-5.0) Albumin/Globulin Ratio 0.8 (1.0-1.7) Glucose (Fingerstick) 168 mg/dL (70-99) ELROY BRUSH MD July 12, 2018 09:41
[2018-07-12] MEDS: CETIRIZINE HCL 10 MG TABLET. PO SCH (09:48)
[2018-07-12] MEDS: POTASSIUM CITRATE 10 MEQ TABLET.ER PO SCH ×2 (09:48→16:39)
[2018-07-12] MEDS: FERROUS SULFATE 325 MG TABLET. PO SCH ×2 (09:48→16:39)
[2018-07-12] MEDS: FLUTICASONE 50MCG/NASAL SPRAY 16GM BOTTLE. NS SCH (09:50)
[2018-07-12] MEDS: INSULIN GLARGINE 300 UNITS/3 ML INSULN.PEN. SQ SCH ×2 (09:50→21:55)
--- NOTE | 2018-07-12 12:17 | PDOC2 ---
GI CONSULT Reason For Consult: Anemia HPI: HPI: 83 y/o female well-known to me. Admitted this occasion with abdominal pain (from kidney stone?), now resolved. Noted again to be anemic and with heme positive stool. Denies any overt bleeding. Occasional LQ discomfort that resolves with passage of stool or flatus. At admission, taking ASA and Pradaxa. Last EGD with colonoscopy Fall 2016. Diverticulosis at colonoscopy; we were not able to intubate the cecum due to looping after many attempts, but could see IC valve. EGD with low grade reflux, otherwise normal. Biopsies of antrum and duodenum normal. Had SBCE in March 2017 w/o lesion identified. We did discuss option of referral for double-balloon enteroscopy, but she did not feel could tolerate and not likely to have altered management. No real GI complaints currently. S/p chris. No liver or pancreatic history. No tobacco or alcohol use. Denies diarrhea or constipation. PMH: PMH: Afib, CAD, CHF, HTN, COPD/asthma, RICKEY, DM, gout, OA, UTI's, nephrolithiasis, S/p appendectomy, chris, ureteral stents, tonsillectomy, hysterectomy, bilateral TKR's, PPMI, AVR (tissue valve?). FH: Family History: No pertinent hx Social History: Smoke: No ALCOHOL: none Drugs: None ROS: GEN: Denies fevers, chills, sweats HEENT: Denies blurred vision, sore throat CV: Denies chest pain RESP: Denies shortness of air, cough GI: Per HPI : Denies hematuria, dysuria ENDO: Denies weight changes NEURO: Denies confusion, dizziness MSK: Denies weakness, joint pain/swelling SKIN: Denies jaundice, pruritus Vitals: Vitals: Vital Signs Date Time Temp Pulse Resp B/P (MAP) Pulse Ox O2 Delivery O2 Flow Rate FiO2 07/12/18 11:15 97.9 64 18 116/48 97.9 07/12/18 10:46 97 Nasal Cannula 1.0 Labs: Labs: Laboratory Tests Test 07/11/18 16:28 07/11/18 18:10 07/11/18 20:49 07/12/18 04:00 Glucose (Fingerstick) 309 mg/dL (70-99) 351 mg/dL (70-99) White Blood Count 9.4 x10^3/uL (4.0-11.0) 9.7 x10^3/uL (4.0-11.0) Red Blood Count 2.22 x10^6/uL (3.50-5.40) 2.38 x10^6/uL (3.50-5.40) Hemoglobin 6.7 g/dL (12.0-15.5) 7.0 g/dL (12.0-15.5) Hematocrit 20.1 % (36.0-47.0) 21.4 % (36.0-47.0) Mean Corpuscular Volume 90 fL (79-100) 90 fL (79-100) Mean Corpuscular Hemoglobin 30 pg (25-35) 30 pg (25-35) Mean Corpuscular Hemoglobin Concent 33 g/dL (31-37) 33 g/dL (31-37) Red Cell Distribution Width 16.3 % (11.5-14.5) 15.8 % (11.5-14.5) Platelet Count 362 x10^3/uL (140-400) 339 x10^3/uL (140-400) Sodium Level 138 mmol/L (136-145) Potassium Level 4.4 mmol/L (3.5-5.1) Chloride Level 103 mmol/L (98-107) Carbon Dioxide Level 27 mmol/L (21-32) Anion Gap 8 (6-14) Blood Urea Nitrogen 54 mg/dL (7-20) Creatinine 1.7 mg/dL (0.6-1.0) Estimated GFR (Cockcroft-Gault) 28.6 BUN/Creatinine Ratio 32 (6-20) Glucose Level 216 mg/dL (70-99) Calcium Level 8.8 mg/dL (8.5-10.1) Total Bilirubin 0.5 mg/dL (0.2-1.0) Aspartate Amino Transf (AST/SGOT) 10 U/L (15-37) Alanine Aminotransferase (ALT/SGPT) 10 U/L (14-59) Alkaline Phosphatase 103 U/L (46-116) Total Protein 6.0 g/dL (6.4-8.2) Albumin 2.7 g/dL (3.4-5.0) Albumin/Globulin Ratio 0.8 (1.0-1.7) Test 07/12/18 07:20 07/12/18 11:21 Glucose (Fingerstick) 168 mg/dL (70-99) 230 mg/dL (70-99) Allergies: Coded Allergies: lisinopril (Verified Allergy, Severe, Anaphylaxis, 03/12/18) shellfish derived (Verified Allergy, Severe, Shortness of Air, 03/12/18) Penicillins (Verified Allergy, Intermediate, Tolerates rocephin, 03/12/18) Sulfa (Sulfonamide Antibiotics) (Verified Allergy, Intermediate, 03/12/18) morphine (Verified Adverse Reaction, Severe, Anxiety, 03/12/18) Medications: Current Medications Medications (Trade) Dose Ordered Sig/Nickie Route PRN Reason Start Time Stop Time Status Last Admin Dose Admin Alprazolam (Xanax) 0.25 mg HS PO 07/11/18 21:00 07/11/18 21:30 DC 07/11/18 00:30 Tamsulosin HCl (Flomax) 0.4 mg QHS PO 07/11/18 21:00 07/11/18 21:17 Gabapentin (Neurontin) 600 mg HS PO 07/11/18 21:00 07/11/18 21:17 Insulin Glargine (Lantus) 45 units DAILYWBKFT SQ 07/12/18 08:00 07/12/18 09:50 Insulin Glargine (Lantus) 25 units HS SQ 07/11/18 21:00 07/11/18 21:21 Insulin Glargine (Lantus) 10 units 1X ONCE SQ 07/11/18 17:30 07/11/18 17:31 DC 07/11/18 17:34 Alprazolam (Xanax) 0.25 mg HS PO 07/11/18 21:30 07/11/18 21:33 PE: GEN: NAD HEENT: Atraumatic, PERRLA LUNGS: CTAB HEART: IRRR, no murmurs, no valve clicks I can appreciate ABD: NABS, S/ND/NT, no masses EXTREMITY: No edema SKIN: No rashes, no jaundice NEURO/PSYCH: A & O 3 A/P: A/P: IMP: Recurrent anemia/heme positive stool w/o responsible lesion identified at w/u in the past. Though cecum not seen, seems unlikely would have malignancy; not surgical candidate in any case. 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 GERD S/p chris Diverticulosis --other medical issues. REC: Continue po iron; consider tid dosing. Continue PPI. Further evaluation not likely to find fixable problem and would not recommend. Obviously, if there was a way for her to be off ASA and Pradaxa, this would help. Frequent monitoring of hemoglobin and transfuse prn. At this point, not a medical therapy for her issues. Thank you for allowing me to assist in the care of this patient. Please call if questions. DERRICK MATTHEW MD July 12, 2018 12:17
--- NOTE | 2018-07-12 12:25 | PDOC ---
PROGRESS NOTE SUBJECTIVE: ROS: ROS: UROLOGY: Denies blood in urine. Denies difficulty urinating HPI: Denies flank or right sided abdominal pain. No fevers, hematuria. Problems: Problems Medical Problems: (1) CHF (congestive heart failure) Status: Acute (2) Nephrolithiasis Status: Acute OBJECTIVE: Vital Signs: Vital Signs Date Time Temp Pulse Resp B/P (MAP) Pulse Ox O2 Delivery O2 Flow Rate FiO2 07/12/18 12:11 98 Nasal Cannula 1.0 07/12/18 11:15 97.9 64 18 116/48 97.9 07/12/18 10:46 97.7 72 18 124/41 (68) 97 Nasal Cannula 1.0 97.7 07/12/18 10:45 97.7 72 18 124/41 97.7 07/12/18 10:30 97.8 66 18 116/38 97.8 07/12/18 10:15 97.8 61 18 103/37 97.8 07/12/18 09:55 97.9 73 20 112/37 97.9 07/12/18 09:42 97.9 67 18 106/36 97.9 07/12/18 08:12 97 Nasal Cannula 1.0 07/12/18 08:10 97 Nasal Cannula 1.0 07/12/18 07:54 Nasal Cannula 1.0 07/12/18 07:00 97.6 66 18 104/50 (68) 98 Nasal Cannula 1.0 97.6 07/12/18 03:15 97.7 79 21 122/57 (78) 97 Nasal Cannula 1.0 97.7 07/12/18 03:01 Nasal Cannula 1.0 07/12/18 02:01 Nasal Cannula 1.0 07/11/18 23:50 97.8 64 20 108/46 97.8 07/11/18 23:00 97.9 91 22 126/60 (82) 99 Nasal Cannula 1.0 97.9 07/11/18 22:45 97.9 91 20 126/60 97.9 07/11/18 21:45 97.6 60 20 162/69 97.6 07/11/18 20:53 98 Nasal Cannula 1.0 07/11/18 20:44 98.0 61 20 145/65 98.0 07/11/18 20:27 97.9 86 20 153/67 97.9 5/17/19 20:00 Nasal Cannula 1.0 07/11/18 19:35 97.9 65 22 153/67 (95) 98 Nasal Cannula 1.0 97.9 07/11/18 15:30 98 Nasal Cannula 1.0 07/11/18 14:36 97.9 67 20 138/61 (86) 97 Nasal Cannula 2.0 97.9 I & O Intake and Output 07/12/18 07:00 Intake Total 820 ml Output Total 0 ml Balance 820 ml Intake Oral 220 ml Blood Product IV Normal Saline Flush 600 ml Output Urine Total 0 ml # Voids 4 # Bowel Movements 2 PHYSICAL EXAM: Physical Exam: General: Pleasant, no acute distress, well groomed Respiratory: unlabored breathing Abdomen: nontender, nondistended, no hepatosplenomegaly, no masses Skin: no rashes or skin lesions on visualized skin Psych: normal mood, affect. Alert and oriented x 3. LABS: Laboratory Tests Test 07/10/18 17:35 07/10/18 17:51 07/10/18 19:05 07/11/18 07:48 White Blood Count 9.9 x10^3/uL (4.0-11.0) Red Blood Count 1.94 x10^6/uL (3.50-5.40) Hemoglobin 5.8 g/dL (12.0-15.5) Hematocrit 17.7 % (36.0-47.0) Mean Corpuscular Volume 92 fL (79-100) Mean Corpuscular Hemoglobin 30 pg (25-35) Mean Corpuscular Hemoglobin Concent 33 g/dL (31-37) Red Cell Distribution Width 15.1 % (11.5-14.5) Platelet Count 389 x10^3/uL (140-400) Neutrophils (%) (Auto) 86 % (31-73) Lymphocytes (%) (Auto) 6 % (24-48) Monocytes (%) (Auto) 6 % (0-9) Eosinophils (%) (Auto) 1 % (0-3) Basophils (%) (Auto) 1 % (0-3) Neutrophils # (Auto) 8.6 x10^3uL (1.8-7.7) Lymphocytes # (Auto) 0.6 x10^3/uL (1.0-4.8) Monocytes # (Auto) 0.6 x10^3/uL (0.0-1.1) Eosinophils # (Auto) 0.1 x10^3/uL (0.0-0.7) Basophils # (Auto) 0.1 x10^3/uL (0.0-0.2) Segmented Neutrophils % 83 % (35-66) Lymphocytes % 12 % (24-48) Monocytes % 3 % (0-10) Myelocytes % 2 % (0-0) Platelet Estimate Adequate (ADEQUATE) Polychromasia Mod Basophilic Stippling Present Anisocytosis Slight Prothrombin Time 14.8 SEC (11.7-14.0) Prothromb Time International Ratio 1.2 (0.8-1.1) Sodium Level 140 mmol/L (136-145) Potassium Level 4.7 mmol/L (3.5-5.1) Chloride Level 106 mmol/L (98-107) Carbon Dioxide Level 25 mmol/L (21-32) Anion Gap 9 (6-14) Blood Urea Nitrogen 75 mg/dL (7-20) Creatinine 1.5 mg/dL (0.6-1.0) Estimated GFR (Cockcroft-Gault) 33.1 BUN/Creatinine Ratio 50 (6-20) Glucose Level 319 mg/dL (70-99) Calcium Level 9.4 mg/dL (8.5-10.1) Magnesium Level 2.3 mg/dL (1.8-2.4) Iron Level 47 ug/dL (50-170) Total Iron Binding Capacity 264 ug/dL (250-450) Iron Saturation 18 % (15-34) Total Bilirubin 0.4 mg/dL (0.2-1.0) Aspartate Amino Transf (AST/SGOT) 12 U/L (15-37) Alanine Aminotransferase (ALT/SGPT) 9 U/L (14-59) Alkaline Phosphatase 110 U/L (46-116) Troponin I Quantitative 0.043 ng/mL (0.000-0.055) DG-[id number]-Type Natriuretic Peptide 4711 pg/mL (0-449) Total Protein 6.8 g/dL (6.4-8.2) Albumin 2.9 g/dL (3.4-5.0) Albumin/Globulin Ratio 0.7 (1.0-1.7) Lipase 104 U/L (73-393) Glucose (Fingerstick) 289 mg/dL (70-99) 262 mg/dL (70-99) Stool Occult Blood Positive (NEG) Test 07/11/18 11:38 07/11/18 16:28 07/11/18 18:10 07/11/18 20:49 Glucose (Fingerstick) 322 mg/dL (70-99) 309 mg/dL (70-99) 351 mg/dL (70-99) White Blood Count 9.4 x10^3/uL (4.0-11.0) Red Blood Count 2.22 x10^6/uL (3.50-5.40) Hemoglobin 6.7 g/dL (12.0-15.5) Hematocrit 20.1 % (36.0-47.0) Mean Corpuscular Volume 90 fL (79-100) Mean Corpuscular Hemoglobin 30 pg (25-35) Mean Corpuscular Hemoglobin Concent 33 g/dL (31-37) Red Cell Distribution Width 16.3 % (11.5-14.5) Platelet Count 362 x10^3/uL (140-400) Test 07/12/18 04:00 07/12/18 07:20 07/12/18 11:21 White Blood Count 9.7 x10^3/uL (4.0-11.0) Red Blood Count 2.38 x10^6/uL (3.50-5.40) Hemoglobin 7.0 g/dL (12.0-15.5) Hematocrit 21.4 % (36.0-47.0) Mean Corpuscular Volume 90 fL (79-100) Mean Corpuscular Hemoglobin 30 pg (25-35) Mean Corpuscular Hemoglobin Concent 33 g/dL (31-37) Red Cell Distribution Width 15.8 % (11.5-14.5) Platelet Count 339 x10^3/uL (140-400) Sodium Level 138 mmol/L (136-145) Potassium Level 4.4 mmol/L (3.5-5.1) Chloride Level 103 mmol/L (98-107) Carbon Dioxide Level 27 mmol/L (21-32) Anion Gap 8 (6-14) Blood Urea Nitrogen 54 mg/dL (7-20) Creatinine 1.7 mg/dL (0.6-1.0) Estimated GFR (Cockcroft-Gault) 28.6 BUN/Creatinine Ratio 32 (6-20) Glucose Level 216 mg/dL (70-99) Calcium Level 8.8 mg/dL (8.5-10.1) Total Bilirubin 0.5 mg/dL (0.2-1.0) Aspartate Amino Transf (AST/SGOT) 10 U/L (15-37) Alanine Aminotransferase (ALT/SGPT) 10 U/L (14-59) Alkaline Phosphatase 103 U/L (46-116) Total Protein 6.0 g/dL (6.4-8.2) Albumin 2.7 g/dL (3.4-5.0) Albumin/Globulin Ratio 0.8 (1.0-1.7) Glucose (Fingerstick) 168 mg/dL (70-99) 230 mg/dL (70-99) MEDICATIONS: Current Medications Medications (Trade) Dose Ordered Sig/Nickie Start Time Stop Time Status Last Admin Dose Admin Acetaminophen (Tylenol) 650 mg PRN Q4HRS PRN 07/10/18 19:45 07/11/18 16:35 DC Acetaminophen/ Hydrocodone Bitart (Lortab 5/325) 1 tab PRN Q4HRS PRN 07/11/18 00:00 Albuterol Sulfate (Ventolin Neb Soln) 2.5 mg RTQID 07/11/18 08:00 07/12/18 12:09 2.5 MG Alprazolam (Xanax) 0.25 mg HS 07/11/18 21:30 07/11/18 21:33 0.25 MG Aspirin (Ecotrin) 81 mg DAILYWBKFT 07/11/18 08:00 07/11/18 08:49 DC Atorvastatin Calcium (Lipitor) 40 mg HS 07/11/18 21:00 07/11/18 21:00 DC Budesonide (Pulmicort) 0.5 mg RTBID 07/11/18 08:00 07/12/18 08:09 0.5 MG Cetirizine HCl (ZyrTEC) 5 mg DAILY 07/11/18 09:00 07/12/18 09:48 5 MG Fentanyl Citrate (Fentanyl 2ml Vial) 50 mcg PRN Q1HR PRN 07/10/18 19:45 07/11/18 08:49 DC 07/10/18 20:47 50 MCG Ferrous Sulfate (Feosol) 325 mg BIDAFTMEAL 07/11/18 09:00 07/12/18 09:48 325 MG Fluticasone Propionate (Flonase) 2 spray DAILY 07/11/18 09:00 07/12/18 09:50 2 SPRAY Furosemide (Lasix) 20 mg DAILY 07/11/18 09:00 07/11/18 09:00 DC 07/11/18 08:24 20 MG Gabapentin (Neurontin) 600 mg HS 07/11/18 21:00 07/11/18 21:17 600 MG Hydrochlorothiazide (Microzide) 12.5 mg DAILY 07/11/18 09:00 07/11/18 09:00 DC 07/11/18 08:25 12.5 MG Insulin Glargine (Lantus) 10 units 1X ONCE 07/11/18 17:30 07/11/18 17:31 DC 07/11/18 17:34 10 UNITS Losartan Potassium (Cozaar) 100 mg DAILY 07/11/18 09:00 07/11/18 09:00 DC 07/11/18 08:25 100 MG Morphine Sulfate (Morphine Sulfate) 2 mg 1X ONCE 07/10/18 18:15 07/10/18 18:16 DC Non-Formulary Medication (Budesonide/ Formoterol Fumarate (Symbicort 160-4.5 Mcg Inhaler)) 10.2 gm BID 07/11/18 09:00 UNV Non-Formulary Medication (Cetirizine Hcl/ Pseudoephedrine (All Day Allergy-D Tablet)) 1 each DAILY 07/11/18 09:00 UNV Ondansetron HCl (Zofran) 4 mg PRN Q8HRS PRN 07/10/18 19:45 07/11/18 19:44 DC 07/11/18 03:17 4 MG Potassium Citrate (Urocit-K) 10 meq BIDWMEALS 07/11/18 08:00 07/12/18 09:48 10 MEQ Pseudoephedrine HCl (Sudafed 12-Hour) 120 mg DAILY 07/11/18 09:00 07/11/18 09:00 DC Sodium Chloride 500 ml @ 500 mls/hr 1X ONCE 07/10/18 18:15 07/10/18 19:14 DC 07/10/18 19:35 500 MLS/HR Tamsulosin HCl (Flomax) 0.4 mg QHS 07/11/18 21:00 07/11/18 21:17 0.4 MG Tramadol HCl (Ultram) 50 mg PRN Q6HRS PRN 07/11/18 00:00 07/12/18 02:01 50 MG ASSESSMENT & PLAN I reviewed CT images - tiny 2-3 mm stone at right UPJ, with moderate right hydronephrosis - significant improvement in stone burden from prior scans. No renal colic. Tiny stone will likely pass without intervention. F/U as outpatient with Dr. Lawson in 1 month. Problem List: Problems Medical Problems: (1) CHF (congestive heart failure) Status: Acute (2) Nephrolithiasis Status: Acute SISSY CULLEN MD July 12, 2018 12:25
[2018-07-12 16:01] LABS: HEMOGLOBIN 8.5 g/dL (12.0-15.5); RED BLOOD COUNT 2.8 x10^6/uL (3.50-5.40); RED CELL DISTRIBUTION WIDTH 15.7 % (11.5-14.5); WHITE BLOOD COUNT 10.7 x10^3/uL (4.0-11.0)
[2018-07-12] MEDS: TAMSULOSIN 0.4 MG CAP.ER.24H. PO SCH (21:56)
[2018-07-12] MEDS: GABAPENTIN 300 MG CAPSULE. PO SCH (21:56)
[2018-07-12] MEDS: ALPRAZolam 0.25 MG TABLET PO SCH (21:56)
[2018-07-13 03:00] VITALS: BP 144/63
[2018-07-13 05:17] LABS: BASO # 0.1 x10^3/uL (0.0-0.2); BASO % 1 % (0-3); EOS # 0.4 x10^3/uL (0.0-0.7); EOS % 3 % (0-3); HEMATOCRIT 24.1 % (36.0-47.0); HEMOGLOBIN 8.2 g/dL (12.0-15.5); LYMPH # 0.9 x10^3/uL (1.0-4.8); LYMPH % 9 % (24-48); MEAN CORPUSCULAR HEMOGLOBIN 30 pg (25-35); MEAN CORPUSCULAR HGB CONC 34 g/dL (31-37); MEAN CORPUSCULAR VOLUME 89 fL (79-100); MONO # 0.9 x10^3/uL (0.0-1.1); MONO % 8 % (0-9); NEUT # 8.5 x10^3uL (1.8-7.7); NEUT % 79 % (31-73); PLATELET COUNT 333 x10^3/uL (140-400); RED CELL DISTRIBUTION WIDTH 15.9 % (11.5-14.5); WHITE BLOOD COUNT 10.7 x10^3/uL (4.0-11.0)
[2018-07-13 05:36] LABS: CALCIUM 8.9 mg/dL (8.5-10.1); CREATININE 1.7 mg/dL (0.6-1.0); GFR 28.6; POTASSIUM 4.3 mmol/L (3.5-5.1)
[2018-07-13 07:00] VITALS: BP 114/54
[2018-07-13] MEDS: ALBUTEROL SULFATE 2.5 MG/3 ML NEBU. NEB SCH ×4 (07:58→20:28)
[2018-07-13] MEDS: BUDESONIDE 0.5 MG/2 ML NEBU. NEB SCH ×2 (07:58→20:28)
[2018-07-13] MEDS: POTASSIUM CITRATE 10 MEQ TABLET.ER PO SCH ×2 (08:55→17:33)
[2018-07-13] MEDS: FERROUS SULFATE 325 MG TABLET. PO SCH ×2 (08:55→17:33)
[2018-07-13] MEDS: FLUTICASONE 50MCG/NASAL SPRAY 16GM BOTTLE. NS SCH (08:56)
[2018-07-13] MEDS: CETIRIZINE HCL 10 MG TABLET. PO SCH (08:56)
[2018-07-13] MEDS: INSULIN GLARGINE 300 UNITS/3 ML INSULN.PEN. SQ SCH ×2 (08:59→22:06)
[2018-07-13 11:04] VITALS: BP 141/59
--- NOTE | 2018-07-13 12:10 | PDOC ---
G I PROGRESS NOTE Subjective Asleep, not awakened. Physical Exam No PE. Review of Relevant I have reviewed the following items yo (where applicable) has been applied. Labs Laboratory Tests Test 07/11/18 16:28 07/11/18 18:10 07/11/18 20:49 07/12/18 04:00 Glucose (Fingerstick) 309 mg/dL (70-99) 351 mg/dL (70-99) White Blood Count 9.4 x10^3/uL (4.0-11.0) 9.7 x10^3/uL (4.0-11.0) Red Blood Count 2.22 x10^6/uL (3.50-5.40) 2.38 x10^6/uL (3.50-5.40) Hemoglobin 6.7 g/dL (12.0-15.5) 7.0 g/dL (12.0-15.5) Hematocrit 20.1 % (36.0-47.0) 21.4 % (36.0-47.0) Mean Corpuscular Volume 90 fL (79-100) 90 fL (79-100) Mean Corpuscular Hemoglobin 30 pg (25-35) 30 pg (25-35) Mean Corpuscular Hemoglobin Concent 33 g/dL (31-37) 33 g/dL (31-37) Red Cell Distribution Width 16.3 % (11.5-14.5) 15.8 % (11.5-14.5) Platelet Count 362 x10^3/uL (140-400) 339 x10^3/uL (140-400) Sodium Level 138 mmol/L (136-145) Potassium Level 4.4 mmol/L (3.5-5.1) Chloride Level 103 mmol/L (98-107) Carbon Dioxide Level 27 mmol/L (21-32) Anion Gap 8 (6-14) Blood Urea Nitrogen 54 mg/dL (7-20) Creatinine 1.7 mg/dL (0.6-1.0) Estimated GFR (Cockcroft-Gault) 28.6 BUN/Creatinine Ratio 32 (6-20) Glucose Level 216 mg/dL (70-99) Calcium Level 8.8 mg/dL (8.5-10.1) Total Bilirubin 0.5 mg/dL (0.2-1.0) Aspartate Amino Transf (AST/SGOT) 10 U/L (15-37) Alanine Aminotransferase (ALT/SGPT) 10 U/L (14-59) Alkaline Phosphatase 103 U/L (46-116) Total Protein 6.0 g/dL (6.4-8.2) Albumin 2.7 g/dL (3.4-5.0) Albumin/Globulin Ratio 0.8 (1.0-1.7) Test 07/12/18 07:20 07/12/18 11:21 07/12/18 15:40 07/12/18 17:05 Glucose (Fingerstick) 168 mg/dL (70-99) 230 mg/dL (70-99) 249 mg/dL (70-99) White Blood Count 10.7 x10^3/uL (4.0-11.0) Red Blood Count 2.80 x10^6/uL (3.50-5.40) Hemoglobin 8.5 g/dL (12.0-15.5) Hematocrit 25.0 % (36.0-47.0) Mean Corpuscular Volume 89 fL (79-100) Mean Corpuscular Hemoglobin 30 pg (25-35) Mean Corpuscular Hemoglobin Concent 34 g/dL (31-37) Red Cell Distribution Width 15.7 % (11.5-14.5) Platelet Count 323 x10^3/uL (140-400) Test 07/12/18 21:18 07/13/18 04:35 07/13/18 07:27 07/13/18 11:12 Glucose (Fingerstick) 250 mg/dL (70-99) 85 mg/dL (70-99) 189 mg/dL (70-99) White Blood Count 10.7 x10^3/uL (4.0-11.0) Red Blood Count 2.70 x10^6/uL (3.50-5.40) Hemoglobin 8.2 g/dL (12.0-15.5) Hematocrit 24.1 % (36.0-47.0) Mean Corpuscular Volume 89 fL (79-100) Mean Corpuscular Hemoglobin 30 pg (25-35) Mean Corpuscular Hemoglobin Concent 34 g/dL (31-37) Red Cell Distribution Width 15.9 % (11.5-14.5) Platelet Count 333 x10^3/uL (140-400) Neutrophils (%) (Auto) 79 % (31-73) Lymphocytes (%) (Auto) 9 % (24-48) Monocytes (%) (Auto) 8 % (0-9) Eosinophils (%) (Auto) 3 % (0-3) Basophils (%) (Auto) 1 % (0-3) Neutrophils # (Auto) 8.5 x10^3uL (1.8-7.7) Lymphocytes # (Auto) 0.9 x10^3/uL (1.0-4.8) Monocytes # (Auto) 0.9 x10^3/uL (0.0-1.1) Eosinophils # (Auto) 0.4 x10^3/uL (0.0-0.7) Basophils # (Auto) 0.1 x10^3/uL (0.0-0.2) Sodium Level 138 mmol/L (136-145) Potassium Level 4.3 mmol/L (3.5-5.1) Chloride Level 102 mmol/L (98-107) Carbon Dioxide Level 28 mmol/L (21-32) Anion Gap 8 (6-14) Blood Urea Nitrogen 49 mg/dL (7-20) Creatinine 1.7 mg/dL (0.6-1.0) Estimated GFR (Cockcroft-Gault) 28.6 Glucose Level 107 mg/dL (70-99) Calcium Level 8.9 mg/dL (8.5-10.1) Laboratory Tests Test 07/12/18 15:40 07/12/18 17:05 07/12/18 21:18 07/13/18 04:35 White Blood Count 10.7 x10^3/uL (4.0-11.0) 10.7 x10^3/uL (4.0-11.0) Red Blood Count 2.80 x10^6/uL (3.50-5.40) 2.70 x10^6/uL (3.50-5.40) Hemoglobin 8.5 g/dL (12.0-15.5) 8.2 g/dL (12.0-15.5) Hematocrit 25.0 % (36.0-47.0) 24.1 % (36.0-47.0) Mean Corpuscular Volume 89 fL (79-100) 89 fL (79-100) Mean Corpuscular Hemoglobin 30 pg (25-35) 30 pg (25-35) Mean Corpuscular Hemoglobin Concent 34 g/dL (31-37) 34 g/dL (31-37) Red Cell Distribution Width 15.7 % (11.5-14.5) 15.9 % (11.5-14.5) Platelet Count 323 x10^3/uL (140-400) 333 x10^3/uL (140-400) Glucose (Fingerstick) 249 mg/dL (70-99) 250 mg/dL (70-99) Neutrophils (%) (Auto) 79 % (31-73) Lymphocytes (%) (Auto) 9 % (24-48) Monocytes (%) (Auto) 8 % (0-9) Eosinophils (%) (Auto) 3 % (0-3) Basophils (%) (Auto) 1 % (0-3) Neutrophils # (Auto) 8.5 x10^3uL (1.8-7.7) Lymphocytes # (Auto) 0.9 x10^3/uL (1.0-4.8) Monocytes # (Auto) 0.9 x10^3/uL (0.0-1.1) Eosinophils # (Auto) 0.4 x10^3/uL (0.0-0.7) Basophils # (Auto) 0.1 x10^3/uL (0.0-0.2) Sodium Level 138 mmol/L (136-145) Potassium Level 4.3 mmol/L (3.5-5.1) Chloride Level 102 mmol/L (98-107) Carbon Dioxide Level 28 mmol/L (21-32) Anion Gap 8 (6-14) Blood Urea Nitrogen 49 mg/dL (7-20) Creatinine 1.7 mg/dL (0.6-1.0) Estimated GFR (Cockcroft-Gault) 28.6 Glucose Level 107 mg/dL (70-99) Calcium Level 8.9 mg/dL (8.5-10.1) Test 07/13/18 07:27 07/13/18 11:12 Glucose (Fingerstick) 85 mg/dL (70-99) 189 mg/dL (70-99) Hemoglobin stable after transfusion. Vitals/I & O Vital Sign - Last 24 Hours 07/12/18 07/12/18 07/12/18 07/12/18 12:11 15:00 16:03 19:35 Temp 97.9 97.8 97.9 97.8 Pulse 71 87 Resp 20 17 B/P (MAP) 117/57 (77) 162/65 (97) Pulse Ox 98 98 95 O2 Delivery Nasal Cannula Nasal Cannula Nasal Cannula Nasal Cannula O2 Flow Rate 1.0 1.0 1.0 1.0 07/12/18 07/12/18 07/12/18 07/12/18 20:01 20:01 20:09 23:00 Temp 98.1 98.1 Pulse 73 Resp 17 B/P (MAP) 139/64 (89) Pulse Ox 100 100 98 O2 Delivery Nasal Cannula Nasal Cannula Nasal Cannula Nasal Cannula O2 Flow Rate 1.0 1.0 1.0 1.0 07/13/18 07/13/18 07/13/18 07/13/18 03:00 07:00 08:00 08:01 Temp 97.4 97.6 97.4 97.6 Pulse 69 67 Resp 18 18 B/P (MAP) 144/63 (90) 114/54 (74) Pulse Ox 97 96 O2 Delivery Nasal Cannula Nasal Cannula Nasal Cannula Nasal Cannula O2 Flow Rate 1.0 1.0 1.0 1.0 07/13/18 07/13/18 11:04 11:56 Temp 98.0 98.0 Pulse 72 Resp 18 B/P (MAP) 141/59 (86) Pulse Ox 99 99 O2 Delivery Nasal Cannula Nasal Cannula O2 Flow Rate 1.0 1.0 Intake and Output 07/12/18 07/12/18 07/13/18 14:59 22:59 06:59 Intake Total 325 ml 860 ml 300 ml Output Total 300 ml 600 ml Balance 25 ml 860 ml -300 ml Problem List Problems Medical Problems: (1) CHF (congestive heart failure) Status: Acute (2) Nephrolithiasis Status: Acute Assessment Chronic anemia, iron deficient, 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 Plan of Care: Continue current Tx, Mgmt DERRICK MATTHEW MD July 13, 2018 12:10
[2018-07-13 15:11] VITALS: BP 129/63
[2018-07-13 19:30] VITALS: BP 137/42
[2018-07-13] MEDS: TAMSULOSIN 0.4 MG CAP.ER.24H. PO SCH (22:00)
[2018-07-13] MEDS: ALPRAZolam 0.25 MG TABLET PO SCH (22:00)
[2018-07-13] MEDS: GABAPENTIN 300 MG CAPSULE. PO SCH (22:00)
--- NOTE | 2018-07-13 22:34 | PN ---
DATE: 07/13/2018 LOCATION: She is in room 256. SUBJECTIVE: The patient is easily awakened, awake and alert. Denies any specific complaints and not much discomfort from the kidney stone at all today. OBJECTIVE: Vital signs are stable. She is afebrile. Hemoglobin is stable today at 8.2 and nursing report no further bleeding. BUN is down to 49, creatinine stable at 1.7, albumin is low at 2.7, suggesting [id number] protein-calorie malnutrition. Per the patient, she had a workup a year ago including colonoscopy, small bowel capsule for sure and I believe an EGD with GI evaluation stating be best for her to be off blood thinners if possible and p.r.n. transfusions with monitoring of hemoglobin as the recommended therapy. Urology was seeing her for the stone, feels like the stone will probably pass at some point and to have Urology followup in a month or so after discharge. IMPRESSION: 1. Gastrointestinal bleed with symptomatic anemia, better after transfusion. 2. Ureteral stone with minimal discomfort at this point in time. PLAN: We will continue present therapy. Recheck a CBC in the morning and the patient likely be ready for discharge at that point in time. ELROY BRUSH MD DR: LOIS/dwaine JOB#: [id number] / [id number]
[2018-07-13 23:00] VITALS: BP 105/46
[2018-07-14 03:30] VITALS: BP 137/68
[2018-07-14 04:45] LABS: BASO % 0 % (0-3); EOS # 0.3 x10^3/uL (0.0-0.7); EOS % 2 % (0-3); HEMATOCRIT 24.7 % (36.0-47.0); LYMPH # 0.9 x10^3/uL (1.0-4.8); LYMPH % 8 % (24-48); MEAN CORPUSCULAR HEMOGLOBIN 29 pg (25-35); MEAN CORPUSCULAR HGB CONC 33 g/dL (31-37); MEAN CORPUSCULAR VOLUME 90 fL (79-100); MONO # 0.9 x10^3/uL (0.0-1.1); MONO % 8 % (0-9); NEUT # 9.2 x10^3uL (1.8-7.7); NEUT % 82 % (31-73); PLATELET COUNT 350 x10^3/uL (140-400); RED BLOOD COUNT 2.74 x10^6/uL (3.50-5.40); RED CELL DISTRIBUTION WIDTH 15.7 % (11.5-14.5); WHITE BLOOD COUNT 11.3 x10^3/uL (4.0-11.0)
[2018-07-14 07:00] VITALS: BP 146/64
[2018-07-14] MEDS: BUDESONIDE 0.5 MG/2 ML NEBU. NEB SCH (07:55)
[2018-07-14] MEDS: ALBUTEROL SULFATE 2.5 MG/3 ML NEBU. NEB SCH ×2 (07:55→11:45)
--- NOTE | 2018-07-14 08:43 | PDOC ---
Provider Note Provider Note [id number] PREMA MASON MD July 14, 2018 08:43
[2018-07-14] MEDS: FERROUS SULFATE 325 MG TABLET. PO SCH (08:45)
[2018-07-14] MEDS: CETIRIZINE HCL 10 MG TABLET. PO SCH (08:45)
[2018-07-14] MEDS: GABAPENTIN 300 MG CAPSULE. PO SCH (08:45)
[2018-07-14] MEDS: FLUTICASONE 50MCG/NASAL SPRAY 16GM BOTTLE. NS SCH (08:46)
[2018-07-14] MEDS: POTASSIUM CITRATE 10 MEQ TABLET.ER PO SCH (08:46)
[2018-07-14] MEDS: INSULIN GLARGINE 300 UNITS/3 ML INSULN.PEN. SQ SCH (08:50)
--- NOTE | 2018-07-14 09:02 | DS ---
DATE OF DISCHARGE: 07/14/2018 HOSPITAL SUMMARY: An 83-year-old white female who takes aspirin and Pradaxa for atrial fibrillation and prior coronary artery disease, came in with a hemoglobin of 5.8, hematocrit 17.7, MCV 92, with normal white count and platelet count. After 2 units, hemoglobin was up to 8.5 and has remained stable in that range since then. Chemistry profile was all within normal limits except BUN was 54, creatinine 1.7 on admission. BUN came down to 1.[address] scan of the abdomen showed right hydronephrosis with a 6 mm stone at the right UPJ, smaller in size than previously noted. She was given 2 units of packed red blood cells and aspirin and Pradaxa were stopped, and she has remained stable Dr. Mejia saw her in the hospital and declined further intervention as he had felt that his stone would pass spontaneously, and she was not having symptomatic pain in that area. She is comfortable to be discharged and followed as an outpatient at this point. She was told that stopping both aspirin and Pradaxa, while she does need both those drugs, they are providing more harm than benefit and will stay off both those anticoagulants as they were likely causing occult GI bleeding. FINAL DIAGNOSES: 1. Severe iron deficiency anemia secondary to occult gastrointestinal bleeding. 2. Hydronephrosis secondary to proximal right ureteral stone. OPERATIONS, PROCEDURES, COMPLICATIONS: None. CONSULTATIONS: Dr. Ja Alarcon. Dr. Mejia. DISPOSITION: She will stay off both aspirin and Pradaxa as more risk than benefit. Continue iron tablets twice a day. We will follow up in office in 1-2 weeks. Follow her hemoglobin and office with Urology in 1 month. PROGNOSIS: Guarded. PREMA MASON MD DR: KAMI/dwaine JOB#: [id number] / [id number]
--- NOTE | 2018-07-14 09:08 | PDOC ---
DOLORES CAMPOS HOTEL CONTROLLER 07/14/18 0908: SUBJECTIVE Subjective Pt doing well, no pain or dysuria. Ready to go home. OBJECTIVE Objective Physical Exam: General appearance: Alert and Oriented Head: Normocephalic, without obvious abnormality Eyes: conjunctivae/corneas clear. PERRL, EOM's intact. Fundi benign Back: negative Lungs:Regular respirations, non labored breathing Abdomen: soft, non-tender, obese . No masses, no organomegaly Vital Signs Vital Signs Date Time Temp Pulse Resp B/P (MAP) Pulse Ox O2 Delivery O2 Flow Rate FiO2 07/14/18 08:05 97 Nasal Cannula 1.0 07/14/18 07:58 97 Nasal Cannula 1.0 07/14/18 07:00 98.8 83 18 146/64 (91) 97 Nasal Cannula 1.0 98.8 07/14/18 03:30 98.2 83 20 137/68 (91) 98 Nasal Cannula 1.0 98.2 07/13/18 23:00 98.0 60 18 105/46 (65) 97 Nasal Cannula 1.0 98.0 07/13/18 20:30 100 Nasal Cannula 1.0 07/13/18 20:29 100 Nasal Cannula 1.0 07/13/18 20:00 Nasal Cannula 1.0 07/13/18 19:30 98.0 88 20 137/42 (73) 98 Nasal Cannula 1.0 98.0 07/13/18 16:13 99 Nasal Cannula 1.0 07/13/18 15:11 97.5 74 16 129/63 (85) 98 Nasal Cannula 1.0 97.5 07/13/18 11:56 99 Nasal Cannula 1.0 07/13/18 11:04 98.0 72 18 141/59 (86) 99 Nasal Cannula 1.0 98.0 I & O Intake and Output 07/14/18 07:00 Intake Total 1260 ml Output Total 2600 ml Balance -1340 ml Intake Oral 1260 ml Output Urine Total 2600 ml PHYSICAL EXAM Physical Exam Physical Exam: General appearance: Alert and Oriented Head: Normocephalic, without obvious abnormality Eyes: conjunctivae/corneas clear. PERRL, EOM's intact. Fundi benign Back: negative Lungs:Regular respirations, non labored breathing Abdomen: soft, non-tender, obese . No masses, no organomegaly ASSESSMENT/PLAN Assessment/Plan Patient has no pain, afebrile, no dysuria. [facility] and Dr. Cullen have reviewed imaging-stones not acutely concerning, in fact there is significant improvement in stone burden from prior scans. Tiny stone should pass with conservative measures We plan to have her follow up with Dr. Lawson on 08/03/18 at 230 pm at [facility] location. Pt given appointment card. All questions answered. Will sign off at this time, but please call with questions or changes in patient condition. Problems: (1) Kidney stones (2) Nephrolithiasis COMMENT Lab Laboratory Tests Test 07/13/18 11:12 07/13/18 16:58 07/13/18 21:08 07/14/18 03:50 Glucose (Fingerstick) 189 mg/dL (70-99) 155 mg/dL (70-99) 238 mg/dL (70-99) White Blood Count 11.3 x10^3/uL (4.0-11.0) Red Blood Count 2.74 x10^6/uL (3.50-5.40) Hemoglobin 8.0 g/dL (12.0-15.5) Hematocrit 24.7 % (36.0-47.0) Mean Corpuscular Volume 90 fL (79-100) Mean Corpuscular Hemoglobin 29 pg (25-35) Mean Corpuscular Hemoglobin Concent 33 g/dL (31-37) Red Cell Distribution Width 15.7 % (11.5-14.5) Platelet Count 350 x10^3/uL (140-400) Neutrophils (%) (Auto) 82 % (31-73) Lymphocytes (%) (Auto) 8 % (24-48) Monocytes (%) (Auto) 8 % (0-9) Eosinophils (%) (Auto) 2 % (0-3) Basophils (%) (Auto) 0 % (0-3) Neutrophils # (Auto) 9.2 x10^3uL (1.8-7.7) Lymphocytes # (Auto) 0.9 x10^3/uL (1.0-4.8) Monocytes # (Auto) 0.9 x10^3/uL (0.0-1.1) Eosinophils # (Auto) 0.3 x10^3/uL (0.0-0.7) Basophils # (Auto) 0.0 x10^3/uL (0.0-0.2) Test 07/14/18 08:43 Glucose (Fingerstick) 98 mg/dL (70-99) SISSY CULLEN MD 07/18/18 1235: ASSESSMENT/PLAN Assessment/Plan Agree with assessment and plan. DOLORES CAMPOS APRN July 14, 2018 09:08 SISSY CULLEN MD July 18, 2018 12:35
[2018-07-14 11:00] VITALS: BP 130/45
--- NOTE | 2018-07-14 12:09 | NUR ---
Discharge Note: [facility] Discharge instructions and discharge home medications reviewed with Patient and a copy given. All questions have been answered and understanding verbalized. The following instructions and handouts were given: kidney stones, cardiac diet,and chest pain Discontinued iv lines and catheter intact. Patient discharged to home with friend via vehicle.
== END 2018-07-14 11:50 | disposition home or self-care (01) | DRG 378 ==
LOC: ER 16:31 → 2 SOUTH 19:36
PROVIDERS: ADMIT Family Medicine; ATTEND Family Medicine
PROC: 30233N1 Transfusion of Nonautologous Red Blood Cells into Peripheral Vein, Percutaneous Approach (ICD-10-PCS; principal; 2018-07-11)
DX: K57.31 Diverticulosis of large intestine without perforation or abscess with bleeding (principal); N13.2 Hydronephrosis with renal and ureteral calculous obstruction; D68.32 Hemorrhagic disorder due to extrinsic circulating anticoagulants; D50.0 Iron deficiency anemia secondary to blood loss (chronic); I48.2 Chronic atrial fibrillation; I11.0 Hypertensive heart disease with heart failure; I50.9 Heart failure, unspecified; J44.9 Chronic obstructive pulmonary disease, unspecified; E78.00 Pure hypercholesterolemia, unspecified; E11.9 Type 2 diabetes mellitus without complications; Z66 Do not resuscitate; I25.10 Atherosclerotic heart disease of native coronary artery without angina pectoris; E78.5 Hyperlipidemia, unspecified; I27.20 Pulmonary hypertension, unspecified; G47.33 Obstructive sleep apnea (adult) (pediatric); M19.90 Unspecified osteoarthritis, unspecified site; K21.9 Gastro-esophageal reflux disease without esophagitis; M10.9 Gout, unspecified; Z96.653 Presence of artificial knee joint, bilateral; T45.515A Adverse effect of anticoagulants, initial encounter; Y92.89 Other specified places as the place of occurrence of the external cause; Z87.442 Personal history of urinary calculi; Z90.49 Acquired absence of other specified parts of digestive tract; Z90.710 Acquired absence of both cervix and uterus; Z99.81 Dependence on supplemental oxygen; Z88.2 Allergy status to sulfonamides; Z88.5 Allergy status to narcotic agent; Z88.0 Allergy status to penicillin; Z91.013 Allergy to seafood; Z79.82 Long term (current) use of aspirin; Z95.1 Presence of aortocoronary bypass graft
CPT/HCPCS: 36415; 71045; 74176; 80048; 80053; 82274; 82962; 83540; 83550; 83690; 83735; 83880; 84484; 85007; 85025; 85027; 85610; 86850; 86900; 86901; 86920; 93005; 94640; 94760; 96360; J1815; J2405; J3010; J7040; J7613; J7626; P9016; 97116; 99285-25

== ENCOUNTER 2018-10-16 13:10 | Emergency (ER) | payer MEDICARE ==
[~2018-10-16] VITALS: Ht 167.6 cm; Wt 99.3 kg
[~2018-10-16 13:10] MED LIST changes: +DABI150C PO; +FURO20TA3 PO; +GABA600T7 PO; +LOSA100T14 PO; +POTA10TA17 PO
[2018-10-16] MEDS ORDERED: HYDROcodone/APAP 5/325MG 1 TAB TABLET PO ONE (14:00)
--- NOTE | 2018-10-16 14:43 | RAD ---
Study: WRIST 3V LEFT Indication: Fall. Comparison: None. Findings: Taking into consideration diffuse osteopenia, no displaced fracture identified.. 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 Vascular calcifications. There is some soft tissue swelling about the wrist, most notable dorsally Impression: 1. There appears to be some soft tissue swelling most notable at the dorsal wrist. No acute fracture is identified though evaluation for subtle fractures is limited due to the degree of osteopenia. 2. 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 Electronically signed by: LO DIAZ MD (10/16/2018 2:40 PM) [facility]
--- NOTE | 2018-10-16 14:46 | RAD ---
Indication: Fall with left rib pain TECHNIQUE: PA chest and multiple views of the left foot COMPARISON: None FINDINGS: Heart is normal in size. Left chest wall cardiac pacer with its lead projecting over the heart. Lungs are clear. No pneumothorax or pleural effusion. No acute left rib fractures seen. IMPRESSION: No left rib fractures seen.. Electronically signed by: Luis Angel Nix DO (10/16/2018 2:43 PM) [facility]
[2018-10-16 14:54] VITALS: BP 108/56
--- NOTE | 2018-10-16 14:56 | PHYS DOC ---
Past Medical History Past Medical History: A-Fib, CHF, COPD, Diabetes-Type II, High Cholesterol, Hypertension, Kidney Infection, Kidney Stone Additional Past Medical Histor: coumadin use, NEUROPATHY, MAC DEGEN, WEARS 2L VIA NC Past Surgical History: Appendectomy, Cholecystectomy, Hysterectomy, Tonsillecto my, Other Additional Past Surgical Histo: bilat knee replacements, aortic valve, mastoid Alcohol Use: None Drug Use: None Adult General Chief Complaint Chief Complaint: UPPER EXTREMITY INJURY HPI HPI Patient is a 83 year old female, accompanied by her family, who presents to the ER with complaints of left wrist and left rib pain after falling in her shower yesterday afternoon. Patient states the reason for her fall is that she slid off of the shower chair. Pt refused EMS transfer to the hospital, after they were called to help the patient back up from the shower floor. She currently rates her pain as 7 out of 10 on the pain scale, there are no alleviating factors, the pain increases with palpation or movement of the affected extremity. ROS She denies any head injury, loss consciousness, nausea, vomiting, abdominal pain, back pain, or hip pain after the fall. Patient denies any numbness, tingling, or decreased sensation of her left upper extremity. She denies any cough, shortness of breath, or palpitations prior to the fall and at this time. All other ROS is neg unless otherwise noted in HPI. Review of Systems Review of Systems See Above Current Medications Current Medications Current Medications Medications (Trade) Dose Ordered Sig/Nickie Start Time Stop Time Status Last Admin Dose Admin Acetaminophen/ Hydrocodone Bitart (Lortab 5/325) 1 tab 1X ONCE 10/16/18 14:00 10/16/18 14:01 DC 10/16/18 14:06 1 TAB Allergies Allergies Allergies Coded Allergies Type Severity Reaction Last Updated Verified lisinopril Allergy Severe Anaphylaxis 03/12/18 Yes shellfish derived Allergy Severe Shortness of Air 03/12/18 Yes Penicillins Allergy Intermediate Tolerates rocephin 03/12/18 Yes Sulfa (Sulfonamide Antibiotics) Allergy Intermediate 03/12/18 Yes morphine Adverse Reaction Severe Anxiety 03/12/18 Yes Physical Exam Physical Exam See Above Constitutional: Well developed, well nourished, no acute distress, non-toxic appearance. [] HENT: Normocephalic, atraumatic, bilateral external ears normal, nose normal. [] Eyes: PERRLA, EOMI, conjunctiva normal, no discharge. [] Neck: Normal range of motion, no tenderness, supple, no stridor. [] Cardiovascular:Heart rate regular rhythm, no murmur [] Lungs & Thorax: Bilateral breath sounds clear to auscultation [] Skin: Warm, dry, no erythema, no rash; bruising noted to the left wrist [] Back: No tenderness Extremities: Lateral left wrist TTP, no obvious deformity, no crepitus, no cyanosis, no clubbing, ROM limited due to pain, 1+ edema. [] Neurologic: Alert and oriented X 3, normal motor function, normal sensory function, no focal deficits noted. [] Psychologic: Affect normal, judgement normal, mood normal. [] Current Patient Data Vital Signs Vital Signs Date Time Temp Pulse Resp B/P (MAP) Pulse Ox O2 Delivery O2 Flow Rate FiO2 10/16/18 14:54 46 18 108/56 (73) 93 Room Air 10/16/18 14:06 2.0 10/16/18 13:41 98.4 98.4 EKG EKG [] Radiology/Procedures Radiology/Procedures PROCEDURE: RIBS LEFT AND PA CHEST Indication: Fall with left rib pain TECHNIQUE: PA chest and multiple views of the left foot COMPARISON: None FINDINGS: Heart is normal in size. Left chest wall cardiac pacer with its lead projecting over the heart. Lungs are clear. No pneumothorax or pleural effusion. No acute left rib fractures seen. IMPRESSION: No left rib fractures seen..[] PROCEDURE: WRIST 3V LEFT Study: WRIST 3V LEFT Indication: Fall. Comparison: None. Findings: Taking into consideration diffuse osteopenia, no displaced fracture identified.. 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 Vascular calcifications. There is some soft tissue swelling about the wrist, most notable dorsally Impression: 1. There appears to be some soft tissue swelling most notable at the dorsal wrist. No acute fracture is identified though evaluation for subtle fractures is limited due to the degree of osteopenia. 2. 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 Course & Med Decision Making Course & Med Decision Making Pertinent Labs and Imaging studies reviewed. (See chart for details) [] Dragon Disclaimer Dragon Disclaimer This electronic medical record was generated, in whole or in part, using a voice recognition dictation system. Departure Departure Impression: Primary Impression: Acute pain of left wrist Additional Impressions: Contusion of left wrist, initial encounter Rib pain on left side Fall in (into) shower or empty bathtub, initial encounter Disposition: 01 HOME, SELF-CARE Condition: STABLE Referrals: VALERIE FLORENCE MD (PCP) Patient Instructions: Fall Prevention and Home Safety, [id number], Wrist Pain, [id number] Additional Instructions: Tylenol or ibuprofen as needed for pain. Wear the wrist splint as needed until pain subsides, apply ice and elevate your wrist frequently for the next 2 days then as needed for comfort. Be sure to take 2 deep breaths and cough at least twice an hour [id number] awake for the next few days to help prevent pneumonia from shallow breathing. Follow-up with your primary care doctor if symptoms persist, return to the ER if symptoms worsen. Splinting Splinting : Location: L wrist Pre-Made Type: velcro (wrist splint to L wrist) Pre-Proc Neuro Vasc Exam: normal Post-Proc Neuro Vasc Exam: normal, unchanged from pre-exam Progress Pt tolerated procedure well no complications. Problem Qualifiers SILVIA PETERSON LIFE TRAINER Oct 16, 2018 14:56
== END 2018-10-16 15:10 | disposition home or self-care (01) ==
LOC: ER 13:10
DX: S60.212A Contusion of left wrist, initial encounter (principal); R07.81 Pleurodynia; I48.91 Unspecified atrial fibrillation; J44.9 Chronic obstructive pulmonary disease, unspecified; E78.00 Pure hypercholesterolemia, unspecified; I11.0 Hypertensive heart disease with heart failure; I50.9 Heart failure, unspecified; E11.40 Type 2 diabetes mellitus with diabetic neuropathy, unspecified; Z87.442 Personal history of urinary calculi; Z90.49 Acquired absence of other specified parts of digestive tract; Z90.89 Acquired absence of other organs; Z90.710 Acquired absence of both cervix and uterus; Z91.013 Allergy to seafood; Z88.0 Allergy status to penicillin; Z88.2 Allergy status to sulfonamides; Z88.5 Allergy status to narcotic agent; Z88.8 Allergy status to other drugs, medicaments and biological substances; W18.2XXA Fall in (into) shower or empty bathtub, initial encounter; Y93.E8 Activity, other personal hygiene; Y92.091 Bathroom in other non-institutional residence as the place of occurrence of the external cause; Y99.8 Other external cause status
CPT/HCPCS: 29125; 71101; 73110; 99284-25

== ENCOUNTER 2018-11-14 12:09 | Emergency (ER) | payer MEDICARE ==
[~2018-11-14] VITALS: Ht 167.6 cm; Wt 99.3 kg
[2018-11-14] MEDS ORDERED: SILVER NITRATE STICK TP ONE ×2 (13:00→13:45)
[2018-11-14] MEDS ORDERED: OXYMETAZOLINE 0.05% NASAL SPRAY 30ML BOTTLE. NS ONE (13:00)
--- NOTE | 2018-11-14 13:03 | PHYS DOC ---
Past Medical History Past Medical History: A-Fib, Anemia, CHF, COPD, Diabetes-Type II, High Ch olesterol, Hypertension, Kidney Infection, Kidney Stone, Renal Disease Additional Past Medical Histor: NEUROPATHY, MAC DEGEN, WEARS 2L VIA NC Past Surgical History: Appendectomy, Cholecystectomy, Hysterectomy, Pacemaker, Tonsillectomy, Other Additional Past Surgical Histo: bilat knee replacements, aortic valve, mastoid Alcohol Use: None Drug Use: None Adult General Chief Complaint Chief Complaint: NOSEBLEED [facility] HPI 83-year-old female presents to the emergency department with complaints of epistaxis. Patient states she had a nosebleed on Saturday, had one this morning and start her on Levaquin with concerning for clots, vomiting that time. She has no blood thinning history currently, states she was discontinued. Patient had any chest pain, shortness of breath, nausea, vomiting, abdominal pain. Nothing makes symptoms worse or better. She does wear oxygen chronically 2 Liter NC. All other ROS negative unless documented in HPI Review of Systems Review of Systems See Above Current Medications Current Medications Current Medications Medications (Trade) Dose Ordered Sig/Nickie Start Time Stop Time Status Last Admin Dose Admin Oxymetazoline HCl (Afrin) 2 spray 1X ONCE 11/14/18 13:00 11/14/18 13:01 DC 11/14/18 13:10 2 SPRAY Silver Nitrate/ Potassium Nitrate 1 each 1X ONCE 11/14/18 13:45 11/14/18 13:46 DC 11/14/18 13:43 1 EACH Allergies Allergies Allergies Coded Allergies Type Severity Reaction Last Updated Verified lisinopril Allergy Severe Anaphylaxis 03/12/18 Yes shellfish derived Allergy Severe Shortness of Air 03/12/18 Yes Penicillins Allergy Intermediate Tolerates rocephin 03/12/18 Yes Sulfa (Sulfonamide Antibiotics) Allergy Intermediate 03/12/18 Yes morphine Adverse Reaction Severe Anxiety 03/12/18 Yes Physical Exam Physical Exam See Above Constitutional: Well developed, well nourished, no acute distress, non-toxic appearance. [] HENT: Normocephalic, atraumatic, bilateral external ears normal, oropharynx moist, no oral exudates, left nares with anterior area of bleeding, currently hemostatic. [] Eyes: PERRLA, EOMI, conjunctiva normal, no discharge. [] Cardiovascular:Heart rate regular rhythm, no murmur [] Lungs & Thorax: Bilateral breath sounds clear to auscultation [] Abdomen: Bowel sounds normal, soft, no tenderness, no masses, no pulsatile masses. [] Skin: Warm, dry, no erythema, no rash. [] Extremities: No tenderness, no cyanosis, no clubbing, no edema. [] Neurologic: Alert and oriented X 3, no focal deficits noted. [] Psychologic: Affect normal, judgement normal, mood normal. [] Current Patient Data Vital Signs Vital Signs Date Time Temp Pulse Resp B/P (MAP) Pulse Ox O2 Delivery O2 Flow Rate FiO2 11/14/18 12:45 98.2 83 16 144/93 (110) 95 Room Air 98.2 EKG EKG [] Radiology/Procedures Radiology/Procedures [] Course & Med Decision Making Course & Med Decision Making Pertinent Labs and Imaging studies reviewed. (See chart for details) []83-year-old female presents to the emergency department with complaints of epistaxis. Patient states she had a nosebleed on Saturday, had one this morning and start her on Levaquin with concerning for clots, vomiting that time. She has no blood thinning history currently, states she was discontinued. Patient had any chest pain, shortness of breath, nausea, vomiting, abdominal pain. Nothing makes symptoms worse or better. She does wear oxygen chronically 2 Liter NC. Afrin nasal spray x 2 to left nares - no active bleeding. Further review re veals evidence of anterior medially concern for area of bleeding. Silver nitrate provided. Patient has had no further nosebleed to date. Following up hemoglobin at this time. If no further evidence of bleeding would recommend discharge and follow-up as an outpatient with ENT. Bleeding has resolved. Dragon Disclaimer Dragon Disclaimer This electronic medical record was generated, in whole or in part, using a voice recognition dictation system. Departure Departure Impression: Primary Impression: Anterior epistaxis Disposition: HOME, SELF-CARE Condition: STABLE Referrals: VALERIE FLORENCE MD (PCP) Patient Instructions: Nosebleed, [id number] Additional Instructions: Afrin nasal spray may be used for bleeding attempt two sprays if no improvement may need further ER evaluation Anterior bleeding present, silver nitrate used for hemostasis No further bleeding Recommend ENT follow up/referral Consider saline nasal spray to nares CR JEAN MD Nov 14, 2018 13:03
[2018-11-14 14:49] VITALS: BP 167/73
[2018-11-14 14:54] LABS: BASO # 0.1 x10^3/uL (0.0-0.2); BASO % 1 % (0-3); EOS # 0.1 x10^3/uL (0.0-0.7); EOS % 1 % (0-3); HEMATOCRIT 27.9 % (36.0-47.0); HEMOGLOBIN 9.2 g/dL (12.0-15.5); LYMPH # 0.8 x10^3/uL (1.0-4.8); LYMPH % 8 % (24-48); MEAN CORPUSCULAR HEMOGLOBIN 29 pg (25-35); MEAN CORPUSCULAR HGB CONC 33 g/dL (31-37); MEAN CORPUSCULAR VOLUME 89 fL (79-100); MONO # 0.7 x10^3/uL (0.0-1.1); MONO % 8 % (0-9); NEUT # 7.9 x10^3/uL (1.8-7.7); NEUT % 82 % (31-73); PLATELET COUNT 298 x10^3/uL (140-400); RED BLOOD COUNT 3.14 x10^6/uL (3.50-5.40); RED CELL DISTRIBUTION WIDTH 16.1 % (11.5-14.5); WHITE BLOOD COUNT 9.6 x10^3/uL (4.0-11.0)
== END 2018-11-14 14:55 | disposition home or self-care (01) ==
LOC: ER 12:09
DX: R04.0 Epistaxis (principal); E11.40 Type 2 diabetes mellitus with diabetic neuropathy, unspecified; I48.91 Unspecified atrial fibrillation; I11.0 Hypertensive heart disease with heart failure; I50.9 Heart failure, unspecified; J44.9 Chronic obstructive pulmonary disease, unspecified; E78.00 Pure hypercholesterolemia, unspecified; Z87.442 Personal history of urinary calculi; Z90.89 Acquired absence of other organs; Z90.49 Acquired absence of other specified parts of digestive tract; Z90.710 Acquired absence of both cervix and uterus; Z95.0 Presence of cardiac pacemaker; Z96.653 Presence of artificial knee joint, bilateral; Z88.8 Allergy status to other drugs, medicaments and biological substances; Z88.5 Allergy status to narcotic agent; Z88.2 Allergy status to sulfonamides; Z88.0 Allergy status to penicillin; Z91.013 Allergy to seafood
CPT/HCPCS: 36415; 85025; 99284

== ENCOUNTER 2018-12-06 22:39 | Inpatient (IN) | payer MEDICARE ==
[~2018-12-06] VITALS: Ht 167.6 cm; Wt 102.6 kg
--- NOTE | 2018-12-06 23:18 | PHYS DOC ---
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 She denies fever. She states that her pain is 2 out of 10 in severity and sharp. The patient states she has a hi story of COPD, congestive heart failure, and A. fib. Review of Systems Review of Systems Constitutional: Denies fever or chills [] Eyes: Denies change in visual acuity, redness, or eye pain [] HENT: Denies nasal congestion or sore throat [] Respiratory: Reports cough and shortness of breath [] Cardiovascular: No additional information not addressed in HPI [] GI: Reports R flank pain, Denies nausea, vomiting, bloody stools or diarrhea [] : Denies dysuria or hematuria [] Musculoskeletal: Reports back pain. Integument: Denies rash or skin lesions [] Neurologic: Denies headache, focal weakness or sensory changes [] Endocrine: Denies polyuria or polydipsia [] Complete systems were reviewed and found to be within normal limits, except as documented in this note. Current Medications Current Medications Current Medications Medications (Trade) Dose Ordered Sig/Nickie Start Time Stop Time Status Last Admin Dose Admin Albuterol/ Ipratropium (Duoneb) 3 ml 1X ONCE 12/06/18 23:30 12/06/18 23:31 DC 12/06/18 23:42 3 ML Methylprednisolone Sodium Succinate (SOLU-Medrol 125MG VIAL) 62.5 mg 1X ONCE 12/06/18 23:30 12/06/18 23:31 DC 12/06/18 23:42 62.5 MG Allergies Allergies Allergies Coded Allergies Type Severity Reaction Last Updated Verified lisinopril Allergy Severe Anaphylaxis 03/12/18 Yes shellfish derived Allergy Severe Shortness of Air 03/12/18 Yes Penicillins Allergy Intermediate Tolerates rocephin 03/12/18 Yes Sulfa (Sulfonamide Antibiotics) Allergy Intermediate 03/12/18 Yes morphine Adverse Reaction Severe Anxiety 03/12/18 Yes Physical Exam Physical Exam Constitutional: Well developed, well nourished, no acute distress, non-toxic appearance. [] HENT: Normocephalic, atraumatic, bilateral external ears normal, oropharynx moist, no oral exudates, nose normal. [] Eyes: PERRLA, EOMI, conjunctiva normal, no discharge. [] Neck: Normal range of motion, no tenderness, supple, no stridor. [] Cardiovascular:Heart rate regular rhythm, no murmur [] Lungs & Thorax: Bilateral breath sounds have scattered rhonchi. Abdomen: Bowel sounds normal, soft, R flank tenderness, no masses, no pulsatile masses. [] Skin: Warm, dry, no erythema, no rash. [] Back: lower back tenderness on R. Extremities: No tenderness, no cyanosis, no clubbing, ROM intact, no edema. [] Neurologic: Alert and oriented X 3, normal motor function, normal sensory function, no focal deficits noted. [] Psychologic: Affect normal, judgement normal, mood normal. [] Current Patient Data Vital Signs Vital Signs Date Time Temp Pulse Resp B/P (MAP) Pulse Ox O2 Delivery O2 Flow Rate FiO2 12/06/18 23:42 97 Nasal Cannula 3.0 12/06/18 23:00 98.6 84 22 151/85 (107) 98.6 Lab Values Laboratory Tests Test 12/06/18 23:12 12/06/18 23:25 White Blood Count 12.9 x10^3/uL (4.0-11.0) H Red Blood Count 2.70 x10^6/uL (3.50-5.40) L Hemoglobin 8.1 g/dL (12.0-15.5) L Hematocrit 24.7 % (36.0-47.0) L Mean Corpuscular Volume 91 fL (79-100) Mean Corpuscular Hemoglobin 30 pg (25-35) Mean Corpuscular Hemoglobin Concent 33 g/dL (31-37) Red Cell Distribution Width 17.5 % (11.5-14.5) H Platelet Count 294 x10^3/uL (140-400) Neutrophils (%) (Auto) 88 % (31-73) H Lymphocytes (%) (Auto) 4 % (24-48) L Monocytes (%) (Auto) 8 % (0-9) Eosinophils (%) (Auto) 0 % (0-3) Basophils (%) (Auto) 0 % (0-3) Neutrophils # (Auto) 11.3 x10^3/uL (1.8-7.7) H Lymphocytes # (Auto) 0.5 x10^3/uL (1.0-4.8) L Monocytes # (Auto) 1.0 x10^3/uL (0.0-1.1) Eosinophils # (Auto) 0.0 x10^3/uL (0.0-0.7) Basophils # (Auto) 0.1 x10^3/uL (0.0-0.2) Segmented Neutrophils % 93 % (35-66) H Lymphocytes % 2 % (24-48) L Monocytes % 4 % (0-10) Eosinophils % 1 % (0-5) Toxic Granulation Slight Platelet Estimate Adequate (ADEQUATE) Hypochromasia Slight Anisocytosis Slight Prothrombin Time 15.0 SEC (11.7-14.0) H Prothrombin Time INR 1.2 (0.8-1.1) H Activated Partial Thromboplast Time 32 SEC (24-38) Sodium Level 138 mmol/L (136-145) Potassium Level 5.2 mmol/L (3.5-5.1) H Chloride Level 100 mmol/L (98-107) Carbon Dioxide Level 28 mmol/L (21-32) Anion Gap 10 (6-14) Blood Urea Nitrogen 42 mg/dL (7-20) H Creatinine 1.9 mg/dL (0.6-1.0) H Estimated GFR (Cockcroft-Gault) 25.2 BUN/Creatinine Ratio 22 (6-20) H Glucose Level 238 mg/dL (70-99) H Lactic Acid Level 1.1 mmol/L (0.4-2.0) Calcium Level 9.5 mg/dL (8.5-10.1) Magnesium Level 2.3 mg/dL (1.8-2.4) Total Bilirubin 0.8 mg/dL (0.2-1.0) Aspartate Amino Transferase (AST) 21 U/L (15-37) Alanine Aminotransferase (ALT) 13 U/L (14-59) L Alkaline Phosphatase 122 U/L (46-116) H Creatine Kinase 40 U/L (26-192) Creatine Kinase MB (Mass) 1.2 ng/mL (0.0-3.6) Creatine Kinase MB Relative Index % (0-4) Troponin I Quantitative 0.185 ng/mL (0.000-0.055) GP-Wvk-D-Type Natriuretic Peptide 96979 pg/mL (0-449) H Total Protein 7.4 g/dL (6.4-8.2) Albumin 3.3 g/dL (3.4-5.0) L Albumin/Globulin Ratio 0.8 (1.0-1.7) L Procalcitonin < 0.10 ng/mL (0.00-0.10) Urine Collection Type Unknown Urine Color Yellow Urine Clarity Cloudy Urine pH 6.5 Urine Specific [place] 1.010 Urine Protein Negative mg/dL (NEG-TRACE) Urine Glucose (UA) Negative mg/dL (NEG) Urine Ketones (Stick) Negative mg/dL (NEG) Urine Blood Small (NEG) Urine Nitrite Negative (NEG) Urine Bilirubin Negative (NEG) Urine Urobilinogen Dipstick 1.0 mg/dL (0.2 mg/dL) Urine Leukocyte Esterase Large (NEG) Urine RBC 6-10 /HPF (0-2) Urine WBC Tntc /HPF (0-4) Urine Squamous Epithelial Cells Few /LPF Urine Bacteria Many /HPF (0-FEW) Laboratory Tests 12/06/18 23:12 Laboratory Tests 12/06/18 23:12 EKG EKG EKG interpreted by Dr. Montalvo Sinus with rate of 88, No STEMI.[] Radiology/Procedures Radiology/Procedures [] Signed PATIENT: ROSA PATEL ACCOUNT: [id number] : 1935 LOCATION: [facility] AGE: 83 SEX: F EXAM STATUS: ADM IN ORD. PHYSICIAN: DERRICK JUAREZ APRN REASON: r flank pain PROCEDURE: CT ABDOMEN PELVIS WO CONTRAST Chest PA and lateral: Reason for examination: Shortness of breath and cough. Right flank pain. Comparison is made to previous study dated 08/06/2012. Pacemaker remains present on the left hemithorax. There are postop changes in the sternum. The heart size is enlarged. Mediastinum is unremarkable. Lung kohler show mild increased markings at the lung bases. There continues to be some elevation of the right hemidiaphragm which is stable. No acute bony abnormalities are seen. Impression: Cardiomegaly. Mildly increased markings seen in the lung bases. CT abdomen and pelvis without contrast: Helical images were obtained through the abdomen and pelvis with no intravenous or oral contrast administered. Reconstruction was performed in sagittal and coronal planes. Exposure: One or more of the following individualized dose reduction techniques were utilized for this examination: 1. Automated exposure control 2. Adjustment of the mA and/or kV according to patient size 3. Use of iterative reconstruction technique. The lung kohler show mild groundglass infiltrates which may reflect some pulmonary edema. No pleural effusions are seen. The heart size appears to be enlarged with no pericardial effusion. No abnormality seen at the liver, spleen, adrenal glands or the atrophic pancreas. The gallbladder appears be surgically absent. The abdominal aorta and inferior vena cava show no acute abnormalities but there is arteriosclerotic vascular calcification present. The left kidney shows no renal calculi, hydronephrosis or obstructive uropathy. The right kidney shows severe hydronephrosis with a calcification seen in the proximal right ureter measuring 6.9 mm in greatest dimension there are also additional renal calculi present posteriorly at the midpole the right kidney. There is perinephric stranding in the right retroperitoneal region. The colon shows diffuse scattered diverticuli but no diverticulitis or colitis. The small intestinal tract shows no abnormal dilatation or wall thickening. No abnormality seen at the stomach or duodenum. No abnormality seen at the bladder or vaginal cuff. No free fluid or free air is seen in the abdomen or pelvis. No acute bony abnormalities are seen. IMPRESSION: Cardiomegaly. Mild groundglass infiltrates suggesting in the visualized lung kohler which could reflect some mild pulmonary edema. Severe hydronephrosis in the right kidney which appears to be related to a 6.9 mm calculus in the proximal right ureter. Additional renal calculi in the midpole of the right kidney. Perinephric stranding is present. Electronically signed by: Nya Kelly MD (12/07/2018 12:49 AM) [facility] [place] DICTATED and SIGNED BY: NYA KELLY MD DATE: 12/07/18 0049 Course & Med Decision Making Course & Med Decision Making Pertinent Labs and Imaging studies reviewed. (See chart for details) Will get labs, CT of abdomen pelvis WO, Chest x-ray, and urine. Will give steroids and duoneb. Labs shows 12.9 WBC, Hemoglobin of 8.1 (baseline), Potassium of 5.2, Creatinine of 1.9 (baseline), BNP of 15,249, Troponin of 0.185 (likely related to CHF) Urine shows large leukocytes with many bacteria and WBC. Will treat with Rocephin, and give Lasix for elevated BNP. Discussed with Dr. Suresh who accepts admission to the hospital. Will consult cardiology. Dragon Disclaimer Dragon Disclaimer This electronic medical record was generated, in whole or in part, using a voice recognition dictation system. Departure Departure Impression: Primary Impression: Elevated troponin I level Additional Impressions: Acute exacerbation of CHF (congestive heart failure) Hyperkalemia Nephrolithiasis Hydronephrosis concurrent with and due to calculi of kidney and ureter Disposition: 09 ADMITTED INPATIENT Admitting Physician: Thee Suresh Condition: GUARDED Referrals: VALERIE FLORENCE MD (PCP) Problem Qualifiers Additional Impressions: Acute exacerbation of CHF (congestive heart failure) Heart failure type: unspecified Qualified Codes: I50.9 - Heart failure, unspecified DERRICK JUAREZ APRN Dec 06, 2018 23:18
[2018-12-06 23:26] LABS: BASO # 0.1 x10^3/uL (0.0-0.2); BASO % 0 % (0-3); EOS % 0 % (0-3); HEMATOCRIT 24.7 % (36.0-47.0); HEMOGLOBIN 8.1 g/dL (12.0-15.5); LYMPH # 0.5 x10^3/uL (1.0-4.8); LYMPH % 4 % (24-48); MEAN CORPUSCULAR HEMOGLOBIN 30 pg (25-35); MEAN CORPUSCULAR HGB CONC 33 g/dL (31-37); MEAN CORPUSCULAR VOLUME 91 fL (79-100); MONO % 8 % (0-9); NEUT # 11.3 x10^3/uL (1.8-7.7); NEUT % 88 % (31-73); PLATELET COUNT 294 x10^3/uL (140-400); RED CELL DISTRIBUTION WIDTH 17.5 % (11.5-14.5); WHITE BLOOD COUNT 12.9 x10^3/uL (4.0-11.0)
[2018-12-06] MEDS ORDERED: IPRATRPIUM/ALBUTEROL 0.5/2.5MG 3 ML NEBU. NEB ONE (23:30)
[2018-12-06] MEDS ORDERED: methylPREDNISolone SOD SUCC PF 125 MG/2 ML VIAL. IV ONE (23:30)
[2018-12-06 23:33] LABS: BILIRUBIN,URINE NEGATIVE (NEG); CLARITY,URINE CLOUDY; COLOR,URINE YELLOW; NITRITE,URINE NEGATIVE (NEG); PH,URINE 6.5; PROTEIN,URINE NEGATIVE (NEG-TRACE)
[2018-12-06 23:39] LABS: CALCIUM 9.5 mg/dL (8.5-10.1); CREATININE 1.9 mg/dL (0.6-1.0); GFR 25.2; POTASSIUM 5.2 mmol/L (3.5-5.1)
[2018-12-06 23:39] LABS: BACTERIA,URINE MANY /HPF (0-FEW); SQUAMOUS EPITHELIAL CELL,UR FEW /LPF; WBC,URINE TNTC /HPF (0-4)
[2018-12-06 23:44] LABS: ALBUMIN 3.3 g/dL (3.4-5.0); ALBUMIN/GLOBULIN RATIO 0.8 (1.0-1.7); MAGNESIUM 2.3 mg/dL (1.8-2.4); TOTAL BILIRUBIN 0.8 mg/dL (0.2-1.0); TOTAL PROTEIN 7.4 g/dL (6.4-8.2)
[2018-12-06 23:52] LABS: CREATINE KINASE 40 U/L (26-192)
[2018-12-06 23:58] LABS: % EOS 1 % (0-5); % LYMPHS 2 % (24-48); % MONOS 4 % (0-10); % SEGS 93 % (35-66); ANISOCYTOSIS SLIGHT; HYPOCHROMIA SLIGHT; PLT ESTIMATE ADEQUATE (ADEQUATE); TOXIC GRANULATION SLIGHT
[2018-12-07] VITALS (7 sets, daily range): BP systolic 106–142; BP diastolic 50–82
[2018-12-07] MEDS ORDERED: ONDANSETRON PF 4 MG/2 ML VIAL. IV PRN (00:30)
[2018-12-07] MEDS ORDERED: cefTRIAXone IV Push 1 GM VIAL. IVP ONE (00:30)
[2018-12-07] MEDS ORDERED: FUROSEMIDE 40 MG/4 ML VIAL. IVP ONE (00:30)
--- NOTE | 2018-12-07 00:52 | RAD ---
Chest PA and lateral: Reason for examination: Shortness of breath and cough. Right flank pain. Comparison is made to previous study dated 08/06/2012. Pacemaker remains present on the left hemithorax. There are postop changes in the sternum. The heart size is enlarged. Mediastinum is unremarkable. Lung kohler show mild increased markings at the lung bases. There continues to be some elevation of the right hemidiaphragm which is stable. No acute bony abnormalities are seen. Impression: Cardiomegaly. Mildly increased markings seen in the lung bases. CT abdomen and pelvis without contrast: Helical images were obtained through the abdomen and pelvis with no intravenous or oral contrast administered. Reconstruction was performed in sagittal and coronal planes. Exposure: One or more of the following individualized dose reduction techniques were utilized for this examination: 1. Automated exposure control 2. Adjustment of the mA and/or kV according to patient size 3. Use of iterative reconstruction technique. The lung kohler show mild groundglass infiltrates which may reflect some pulmonary edema. No pleural effusions are seen. The heart size appears to be enlarged with no pericardial effusion. No abnormality seen at the liver, spleen, adrenal glands or the atrophic pancreas. The gallbladder appears be surgically absent. The abdominal aorta and inferior vena cava show no acute abnormalities but there is arteriosclerotic vascular calcification present. The left kidney shows no renal calculi, hydronephrosis or obstructive uropathy. The right kidney shows severe hydronephrosis with a calcification seen in the proximal right ureter measuring 6.9 mm in greatest dimension there are also additional renal calculi present posteriorly at the midpole the right kidney. There is perinephric stranding in the right retroperitoneal region. The colon shows diffuse scattered diverticuli but no diverticulitis or colitis. The small intestinal tract shows no abnormal dilatation or wall thickening. No abnormality seen at the stomach or duodenum. No abnormality seen at the bladder or vaginal cuff. No free fluid or free air is seen in the abdomen or pelvis. No acute bony abnormalities are seen. IMPRESSION: Cardiomegaly. Mild groundglass infiltrates suggesting in the visualized lung kohler which could reflect some mild pulmonary edema. Severe hydronephrosis in the right kidney which appears to be related to a 6.9 mm calculus in the proximal right ureter. Additional renal calculi in the midpole of the right kidney. Perinephric stranding is present. Electronically signed by: Nya Hobson MD (12/07/2018 12:49 AM) [facility]
[2018-12-07] MEDS ORDERED: fentaNYL PF VIAL 100 MCG/2 ML VIAL IV PRN (01:00)
[2018-12-07] MEDS ORDERED: fentaNYL PF VIAL 100 MCG/2 ML VIAL IV ONE (01:00)
--- NOTE | 2018-12-07 01:45 | NUR ---
Pt arrived to unit at 0045 accompanied by ED RN via rima. VSS, A&Ox4, 3LNC, family with patient. Pt kept gold colored ring on ring finger on left hand. Pt oriented to unit schedule/ routines, safety policy, no smoking policy, security policy, bathroom and call light usage, diet and visitation policy. Provider paged, provider returned page. Provider updated on status of patient, elevated troponin, SOB, CHF exacerbation. Provider ordered this RN to resume patients home meds and to establish pt on cardiac diet. Provider informed this RN that the pt would not be receiving any tests; no need for NPO. Provider also informed this RN no need to consult cardiology. Will continue to assess and monitor pt.
[2018-12-07] MEDS ORDERED: traMADol 50 MG TABLET PO PRN (02:00)
[2018-12-07 03:24] LABS: CREATINE KINASE 38 U/L (26-192)
[2018-12-07 04:50] LABS: BASO # 0.1 x10^3/uL (0.0-0.2); BASO % 1 % (0-3); EOS % 0 % (0-3); HEMATOCRIT 25.3 % (36.0-47.0); HEMOGLOBIN 8.1 g/dL (12.0-15.5); LYMPH # 0.2 x10^3/uL (1.0-4.8); LYMPH % 2 % (24-48); MEAN CORPUSCULAR HEMOGLOBIN 30 pg (25-35); MEAN CORPUSCULAR HGB CONC 32 g/dL (31-37); MEAN CORPUSCULAR VOLUME 93 fL (79-100); MONO # 0.2 x10^3/uL (0.0-1.1); MONO % 1 % (0-9); NEUT # 12.2 x10^3/uL (1.8-7.7); NEUT % 96 % (31-73); PLATELET COUNT 267 x10^3/uL (140-400); RED BLOOD COUNT 2.73 x10^6/uL (3.50-5.40); RED CELL DISTRIBUTION WIDTH 17.4 % (11.5-14.5); WHITE BLOOD COUNT 12.7 x10^3/uL (4.0-11.0)
[2018-12-07 05:13] LABS: ALBUMIN 3.3 g/dL (3.4-5.0); ALBUMIN/GLOBULIN RATIO 0.9 (1.0-1.7); CALCIUM 9.4 mg/dL (8.5-10.1); CREATININE 1.9 mg/dL (0.6-1.0); GFR 25.2; POTASSIUM 5.4 mmol/L (3.5-5.1); TOTAL BILIRUBIN 0.7 mg/dL (0.2-1.0); TOTAL PROTEIN 6.9 g/dL (6.4-8.2)
[2018-12-07 05:21] LABS: CREATINE KINASE 40 U/L (26-192)
[2018-12-07] MEDS ORDERED: BUDESONIDE 0.5 MG/2 ML NEBU. NEB SCH (08:00)
[2018-12-07] MEDS: INSULIN GLARGINE SYRINGE. SQ SCH ×2 (08:00→22:24)
[2018-12-07] MEDS: IPRATRPIUM/ALBUTEROL 0.5/2.5MG 3 ML NEBU. NEB SCH ×4 (08:04→19:40)
[2018-12-07] MEDS: POTASSIUM CITRATE 10 MEQ TABLET.ER PO SCH ×2 (08:40→21:00)
[2018-12-07] MEDS: hydroCHLOROthiazide 12.5 MG CAPSULE PO SCH (08:43)
[2018-12-07] MEDS: FERROUS SULFATE 325 MG TABLET. PO SCH ×2 (08:43→22:14)
[2018-12-07] MEDS: PSEUDOEPHEDRINE ER 120 MG TABLET.ER. PO SCH (08:43)
[2018-12-07] MEDS: FLUTICASONE 50MCG/NASAL SPRAY 16GM BOTTLE. NS SCH (08:44)
[2018-12-07] MEDS ORDERED: CETIRIZINE HCL 10 MG TABLET. PO SCH (09:00)
[2018-12-07] MEDS ORDERED: FUROSEMIDE 20 MG TABLET PO SCH (09:00)
--- NOTE | 2018-12-07 10:43 | PDOC ---
Provider Note Provider Note [id number] PREMA MASON MD Dec 07, 2018 10:43
--- NOTE | 2018-12-07 10:59 | HP ---
ADMIT DATE: 12/07/2018 CHIEF COMPLAINT: Shortness of breath. HISTORY OF PRESENT ILLNESS: An 83-year-old white female with known diabetes and a degree of cardiomyopathy, came in with increasing shortness of breath over 1 week. Chest x-ray showed continued mild congestive heart failure and she has been given one dose of Lasix and feels somewhat better at this time. No other specific complaints. PAST MEDICAL HISTORY: Well documented in the old record. ALLERGIES: PENICILLIN, SULFA, MORPHINE, AND LISINOPRIL. SOCIAL HISTORY: Lives in an assisted care with her . Nondrinker, nonsmoker. FAMILY HISTORY: Unremarkable. REVIEW OF SYSTEMS: No other complaints. OBJECTIVE: ENT: All within normal limits. NECK: No masses, nodes or bruits. LUNGS: Decreased breath sounds, a few basilar crackles. CARDIOVASCULAR: Regular rate, rate 100. No murmur or S3. ABDOMEN: Obese, soft, nontender. EXTREMITIES: 1+ pretibial edema, reasonably good pedal and radial pulses. No joint or skin lesions. NEUROLOGIC: Physiologic, except for very poor vision. ASSESSMENT: [id number] congestive heart failure, systolic type. She has chronic renal insufficiency, macular degeneration and chronic anemia. PLAN: DNR, comfort care, Lasix and follow up as ordered. PREMA MASON MD DR: KAMI/dwaine JOB#: [id number] / [id number]
--- NOTE | 2018-12-07 12:01 | EKG ---
[facility] [address] [place] [address] Test Date: 2018-12-06 Test Time: 23:32:38 Pat Name: ROSA PATEL Department: Room: 250 1 Gender: F Director Cpg: : [phone] Requested By: DERRICK JUAREZ Order Number: [id number] Reading MD: Mateus Jacobo MD Measurements Intervals [place] Rate: 88 P: PA: QRS: -34 QRSD: 96 T: 4 QT: 362 QTc: 441 Interpretive Statements ATRIAL FIBRILLATION NON-SPECIFIC ST/T CHANGES Electronically Signed On 12-15-2018 9:20:42 CDT by Mateus Jacobo MD
[2018-12-07] MEDS: FUROSEMIDE 40 MG/4 ML VIAL. IVP SCH (12:48)
[2018-12-07] MEDS: LOSARTAN POTASSIUM 50 MG TABLET. PO SCH (12:48)
[2018-12-07] MEDS ORDERED: TAMSULOSIN 0.4 MG CAP.ER.24H. PO SCH (21:00)
[2018-12-07] MEDS: cefTRIAXone IV Push 1 GM VIAL. IVP SCH (22:10)
[2018-12-07] MEDS: GABAPENTIN 300 MG CAPSULE. PO SCH (22:14)
[2018-12-07] MEDS: ATORVASTATIN CALCIUM 40 MG TABLET. PO SCH (22:14)
[2018-12-07] MEDS: ALPRAZolam 0.25 MG TABLET PO SCH (22:14)
[2018-12-08] VITALS (11 sets, daily range): BP systolic 78–209; BP diastolic 47–86
[2018-12-08 05:39] LABS: CALCIUM 8.9 mg/dL (8.5-10.1); CREATININE 2.1 mg/dL (0.6-1.0); GFR 22.4; POTASSIUM 4.3 mmol/L (3.5-5.1)
[2018-12-08] MEDS: IPRATRPIUM/ALBUTEROL 0.5/2.5MG 3 ML NEBU. NEB SCH ×4 (05:48→20:03)
[2018-12-08] MEDS: PSEUDOEPHEDRINE ER 120 MG TABLET.ER. PO SCH (08:46)
[2018-12-08] MEDS: POTASSIUM CITRATE 10 MEQ TABLET.ER PO SCH ×2 (08:47→21:00)
[2018-12-08] MEDS: FERROUS SULFATE 325 MG TABLET. PO SCH ×2 (08:48→21:00)
[2018-12-08] MEDS: hydroCHLOROthiazide 12.5 MG CAPSULE PO SCH (08:48)
[2018-12-08] MEDS: LOSARTAN POTASSIUM 50 MG TABLET. PO SCH (08:48)
[2018-12-08] MEDS: FUROSEMIDE 40 MG/4 ML VIAL. IVP SCH (08:49)
[2018-12-08] MEDS: FLUTICASONE 50MCG/NASAL SPRAY 16GM BOTTLE. NS SCH (08:49)
[2018-12-08] MEDS: INSULIN GLARGINE SYRINGE. SQ SCH ×2 (08:58→18:38)
--- NOTE | 2018-12-08 09:12 | PDOC ---
Provider Note Provider Note feels less dyspnea after lasix- edema down- hb 8.1, was > 10 in 08/13 when asa and pradaxa stopped re ?surce of anemia- will add venofer , [id number] as last level 2017- follow hemogram, transfuse if < 8 PREMA MASON MD Dec 08, 2018 09:12
[2018-12-08] MEDS ORDERED: IRON SUCROSE COMPLEX 500 MG in IV NORMAL SALINE 250ML 250 ML IV ONE (10:00)
--- NOTE | 2018-12-08 11:54 | NUR ---
After walking from bathroom back to bed, patient stated she felt like she was going to pass out. Patient asked for cold rag. BP was 78/47. Rechecked & it was 158/68, 209/86, 186/72. Patient states she felt better a few minutes after laying down & is resting. Will continue to monitor BP.
--- NOTE | 2018-12-08 15:23 | NUR ---
SS following for discharge planning. SS reviewed pt chart. Pt is from [facility], ; fax [phone], with spouse. Pt is currently requiring oxygen. SS contacted [facility] and verified pt's previous placement. SS met with pt and pt reported that she receives oxygen at home through [facility], ; fax [phone]. SS will continue to follow for discharge planning.
[2018-12-08] MEDS: cefTRIAXone IV Push 1 GM VIAL. IVP SCH (17:34)
--- NOTE | 2018-12-08 18:15 | NUR ---
Dr. Suresh notified of patient's high blood sugars today, orders received for 20 units of Lantus one time plus order to give 12 units of Lantus that is scheduled for bedtime now also. Will continue to monitor.
[2018-12-08] MEDS ORDERED: INSULIN GLARGINE SYRINGE. SQ ONE (18:30)
[2018-12-08] MEDS: GABAPENTIN 300 MG CAPSULE. PO SCH (21:00)
[2018-12-08] MEDS: LACTOBACILLUS RHAMNOSUS GG 1 CAPSULE. PO SCH (21:00)
[2018-12-08] MEDS: ALPRAZolam 0.25 MG TABLET PO SCH (21:00)
[2018-12-08] MEDS: ACETAMINOPHEN 325 MG TABLET. PO PRN (21:00)
[2018-12-08] MEDS: ATORVASTATIN CALCIUM 40 MG TABLET. PO SCH (21:02)
[2018-12-09] VITALS (13 sets, daily range): BP systolic 104–139; BP diastolic 36–60
[2018-12-09 04:53] LABS: HEMATOCRIT 22.9 % (36.0-47.0); HEMOGLOBIN 7.6 g/dL (12.0-15.5); RED BLOOD COUNT 2.51 x10^6/uL (3.50-5.40); RED CELL DISTRIBUTION WIDTH 16.9 % (11.5-14.5); WHITE BLOOD COUNT 9.5 x10^3/uL (4.0-11.0)
[2018-12-09] MEDS: IPRATRPIUM/ALBUTEROL 0.5/2.5MG 3 ML NEBU. NEB SCH ×4 (07:37→20:03)
[2018-12-09] MEDS: FLUTICASONE 50MCG/NASAL SPRAY 16GM BOTTLE. NS SCH (08:54)
[2018-12-09] MEDS: PSEUDOEPHEDRINE ER 120 MG TABLET.ER. PO SCH (08:55)
[2018-12-09] MEDS: LACTOBACILLUS RHAMNOSUS GG 1 CAPSULE. PO SCH ×2 (08:55→20:58)
[2018-12-09] MEDS: FERROUS SULFATE 325 MG TABLET. PO SCH ×2 (08:56→20:58)
--- NOTE | 2018-12-09 08:57 | PDOC ---
Provider Note Provider Note vss, no temp- less dyspnea and edema- hb down 7.6, B12 low 237- will do mma, add B12 sq, transfuse 1 u prbc- source of anemia ? as she is off asa/pradaxa, poor endoscopy candiadte- on rocephin for uti, cult pending but > 10/6 gram neg rods PREMA MASON MD Dec 09, 2018 08:57
[2018-12-09] MEDS: INSULIN GLARGINE SYRINGE. SQ SCH ×2 (09:09→21:05)
[2018-12-09] MEDS ORDERED: CYANOCOBALAMIN (VITAMIN B-12) 1,000 MCG/ML VIAL SQ ONE (10:00)
[2018-12-09] MEDS: LOSARTAN POTASSIUM 50 MG TABLET. PO SCH (11:33)
[2018-12-09] MEDS: hydroCHLOROthiazide 12.5 MG CAPSULE PO SCH (14:48)
[2018-12-09] MEDS: cefTRIAXone IV Push 1 GM VIAL. IVP SCH (17:44)
[2018-12-09] MEDS: ALPRAZolam 0.25 MG TABLET PO SCH (20:58)
[2018-12-09] MEDS: ATORVASTATIN CALCIUM 40 MG TABLET. PO SCH (20:58)
[2018-12-09] MEDS: GABAPENTIN 300 MG CAPSULE. PO SCH (20:58)
[2018-12-10] MEDS: ACETAMINOPHEN 325 MG TABLET. PO PRN (00:20)
[2018-12-10 03:00] VITALS: BP 115/39
[2018-12-10 07:00] VITALS: BP 116/58
[2018-12-10] MEDS: IPRATRPIUM/ALBUTEROL 0.5/2.5MG 3 ML NEBU. NEB SCH ×4 (07:41→20:28)
[2018-12-10] MEDS: LACTOBACILLUS RHAMNOSUS GG 1 CAPSULE. PO SCH ×2 (08:48→20:48)
[2018-12-10] MEDS: PSEUDOEPHEDRINE ER 120 MG TABLET.ER. PO SCH (08:48)
[2018-12-10] MEDS: FERROUS SULFATE 325 MG TABLET. PO SCH ×2 (08:48→20:48)
[2018-12-10] MEDS: hydroCHLOROthiazide 12.5 MG CAPSULE PO SCH (08:49)
[2018-12-10] MEDS: FLUTICASONE 50MCG/NASAL SPRAY 16GM BOTTLE. NS SCH (08:49)
[2018-12-10] MEDS: LOSARTAN POTASSIUM 50 MG TABLET. PO SCH (08:49)
[2018-12-10] MEDS: INSULIN GLARGINE SYRINGE. SQ SCH ×2 (08:55→20:57)
--- NOTE | 2018-12-10 09:39 | PDOC ---
Provider Note Provider Note vss, feels better after 1 u prbc- hb and mma pending- will add cefdinir for e coli uti, follow hb, consider dc 12/11 if stable PREMA MASON MD Dec 10, 2018 09:39
[2018-12-10 10:14] LABS: HEMATOCRIT 28.6 % (36.0-47.0); HEMOGLOBIN 9.4 g/dL (12.0-15.5); RED BLOOD COUNT 3.18 x10^6/uL (3.50-5.40); RED CELL DISTRIBUTION WIDTH 16.9 % (11.5-14.5); WHITE BLOOD COUNT 9.2 x10^3/uL (4.0-11.0)
[2018-12-10 10:16] LABS: CALCIUM 9.2 mg/dL (8.5-10.1); CREATININE 2.3 mg/dL (0.6-1.0); GFR 20.2
[2018-12-10] MEDS: CEFDINIR 300 MG CAPSULE PO SCH ×2 (10:59→20:48)
[2018-12-10] MEDS: CYANOCOBALAMIN (VITAMIN B-12) 1,000 MCG TABLET. PO SCH (10:59)
[2018-12-10 11:02] VITALS: BP 129/59
--- NOTE | 2018-12-10 11:07 | NUR ---
SS following up with discharge planning. PT/OT recommended nursing home unit at discharge. SS met with pt to discuss nursing home unit and discharge planning. Pt declined nursing home unit and reported that she would prefer to return to [facility] with home healthcare. [facility], ; [phone], in the past. Pt also receives services through [facility], ; fax [phone], for oxygen. SS will continue to follow for discharge planning.
[2018-12-10 14:57] VITALS: BP 168/70
[2018-12-10 19:41] VITALS: BP 125/36
[2018-12-10] MEDS ORDERED: ACETAMINOPHEN/CODEINE 300/30MG TABLET. PO PRN (20:00)
[2018-12-10] MEDS ORDERED: ACETAMINOPHEN/CODEINE 120/12MG 5 ML SOLUTION. PO PRN (20:00)
[2018-12-10] MEDS: ALPRAZolam 0.25 MG TABLET PO SCH (20:47)
[2018-12-10] MEDS: ATORVASTATIN CALCIUM 40 MG TABLET. PO SCH (20:48)
[2018-12-10] MEDS: GABAPENTIN 300 MG CAPSULE. PO SCH (20:48)
[2018-12-10 23:03] VITALS: BP 124/47
[2018-12-11 03:01] VITALS: BP 115/54
[2018-12-11 05:39] LABS: HEMATOCRIT 28.1 % (36.0-47.0); HEMOGLOBIN 9.2 g/dL (12.0-15.5); RED BLOOD COUNT 3.09 x10^6/uL (3.50-5.40); RED CELL DISTRIBUTION WIDTH 16.8 % (11.5-14.5); WHITE BLOOD COUNT 9.1 x10^3/uL (4.0-11.0)
[2018-12-11 07:00] VITALS: BP 118/55
[2018-12-11] MEDS: IPRATRPIUM/ALBUTEROL 0.5/2.5MG 3 ML NEBU. NEB SCH (08:11)
--- NOTE | 2018-12-11 08:35 | SNU/HH DC ---
DISCHARGE WITH HOME HEALTH DISCHARGE INFORMATION: Final Diagnosis: Problems Medical Problems: (1) Acute exacerbation of CHF (congestive heart failure) Status: Acute (2) Elevated troponin I level Status: Acute (3) Hydronephrosis concurrent with and due to calculi of kidney and ureter Status: Acute (4) Hyperkalemia Status: Acute (5) Nephrolithiasis Status: Acute Condition on Discharge: Stable CODE STATUS: Code Status: DNR/DNI HOME HEALTH: Face to Face: I certify this patient is under my care and that I, or a nurse practitioner or physician's benefits assistant working with me, had a face to face encounter that meets the physician face to face encounter requirements with this patient on []. RN For Eval/Treatment: Yes Pt Meets Homebound Status: Poor coordination w/ amb. POST DISCHARGE ORDERS: Activity Instructions for Disc: Activity as tolerated Weight Bearing Status after Di: As tolerated Bathing Instructions: Shower-keep dressing dry, No Tub Bath until see DIET AFTER DISCHARGE: ADA Wound/Incision Care: Ice to area for comfort, Keep wound/cast CDI, No wound care needed CHECKS AFTER DISCHARGE: Checks after discharge: Check blood press - daily, Check blood sugar, ac/hs TREATMENT/EQUIPMENT ORDERS: Adaptive Equipment Issued: None Discharge Respiratory Equipmen: Oxygen CERTIFICATION STATEMENT: Certification Statement: Certification Statement: Based on the above finding, I certify that this patient is confined to the home and needs intermittent nursing home care, physical therapy and/or speech therapy, or continues to need occupational therapy.~ This patient is under my care, and I have initiated the establishment of the plan of care.~ This patient will be followed by myself or a community physician who will periodically review the plan of care. Home Meds Active Scripts Tamsulosin Hcl (FLOMAX) 0.4 Mg Cap.er.24h, 0.4 MG PO QHS for kidney stone for 30 Days, #30 CAP.SR 0 Refills Prov:VALERIE FLORENCE MD 02/07/18 Reported Medications Losartan Potassium (LOSARTAN POTASSIUM) 100 Mg Tablet, 100 MG PO DAILY for HYPERTENSION, TAB 07/10/18 Hydrochlorothiazide (HYDROCHLOROTHIAZIDE TABLET) 12.5 Mg Tablet, 12.5 MG PO DAILY for DIURETIC, TAB 0 Refills 07/10/18 Insulin Detemir (LEVEMIR) 100 Unit/1 Ml Vial, 12 UNIT SQ HS for DM, VIAL 07/10/18 Furosemide (FUROSEMIDE) 20 Mg Tablet, 1 TAB PO DAILY for chf, #90 TAB 1 Refill 07/10/18 Potassium Citrate (POTASSIUM CITRATE) 10 Meq Tablet.er, 1 TAB PO BID for elecrolyte replacement, #60 TAB 11 Refills 07/10/18 Gabapentin (GABAPENTIN) 600 Mg Tablet, 600 MG PO HS for NEUROGENIC PAIN, TAB 07/10/18 Tramadol Hcl (TRAMADOL HCL) 50 Mg Tablet, 50 MG PO Q6HRS PRN for PAIN, #20 TAB 03/12/18 Fluticasone Propionate (Flonase Allergy Relief) 9.9 Ml [place].susp, 2 SPRAYS NS DAILY for nasal congestion, BOTTLE 03/04/18 Hydrocodone Bit/Acetaminophen (HYDROCODONE-APAP 5-325 ) 1 Tab Tablet, 1 TAB PO PRN Q4HRS PRN for PAIN, TAB 0 Refills 02/13/18 Cetirizine Hcl/Pseudoephedrine (ALL DAY ALLERGY-D TABLET) 1 Each Tab.er.12h, 1 EACH PO DAILY for allergies, TAB.SR 02/13/18 Ferrous Sulfate (FERROUS SULFATE) 325 Mg Tablet, 1 TAB PO BID, #60 TAB 3 Refills 11/09/16 Insulin Detemir (LEVEMIR) 100 Unit/1 Ml Vial, 40 UNIT SQ DAILYWBKFT, VIAL 11/09/16 Alprazolam (ALPRAZOLAM) 0.25 Mg Tablet, 1 TAB PO HS, #90 TAB 06/16/14 Budesonide/Formoterol Fumarate (SYMBICORT 160-4.5 MCG INHALER) 10.2 Gm Hfa.aer.ad, 10.2 GM IH BID 05/17/13 Atorvastatin Calcium (ATORVASTATIN CALCIUM) 40 Mg Tablet, 40 MG PO DAILY 05/17/13 PREMA MASON MD Dec 11, 2018 08:35
--- NOTE | 2018-12-11 08:38 | PDOC ---
Provider Note Provider Note [id number] PREMA MASON MD Dec 11, 2018 08:38
[2018-12-11 08:50] VITALS: BP 118/55
[2018-12-11] MEDS: hydroCHLOROthiazide 12.5 MG CAPSULE PO SCH (08:50)
[2018-12-11] MEDS: CYANOCOBALAMIN (VITAMIN B-12) 1,000 MCG TABLET. PO SCH (08:50)
[2018-12-11] MEDS: LOSARTAN POTASSIUM 50 MG TABLET. PO SCH (08:50)
[2018-12-11] MEDS: PSEUDOEPHEDRINE ER 120 MG TABLET.ER. PO SCH (08:50)
[2018-12-11] MEDS: LACTOBACILLUS RHAMNOSUS GG 1 CAPSULE. PO SCH (08:50)
[2018-12-11] MEDS: CEFDINIR 300 MG CAPSULE PO SCH (08:50)
[2018-12-11] MEDS: FERROUS SULFATE 325 MG TABLET. PO SCH (08:50)
[2018-12-11] MEDS: FLUTICASONE 50MCG/NASAL SPRAY 16GM BOTTLE. NS SCH (08:51)
[2018-12-11] MEDS: INSULIN GLARGINE SYRINGE. SQ SCH (08:54)
--- NOTE | 2018-12-11 09:09 | DS ---
DATE OF DISCHARGE: 12/11/2018 HOSPITAL SUMMARY: An 83-year-old white female who came in with evidence of congestive heart failure with infiltrates on chest x-ray and her hemoglobin down to 7.6, where it had normally been 10 or 11, B12 was borderline low at 237, creatinine up to 2.1 and MMA level pending at this time. She received a unit of packed red blood cells. She received IV Lasix and IV Venofer and her heart failure is improving and she is feeling better and comfortably followed as an outpatient. The etiology of the anemia is unknown, presumed to be occult blood loss even though she is now off the aspirin and Pradaxa that she was on. FINAL DIAGNOSES: 1. Acute congestive heart failure, diastolic type. 2. Anemia, etiology undetermined. 3. Chronic kidney disease 3, multifactorial. 4. Hydronephrosis, chronic secondary to proximal right ureteral stone. OPERATIONS, PROCEDURES, COMPLICATIONS AND CONSULTATIONS: None. DISPOSITION: Continue on iron and no aspirin or any anti-inflammatories or anticoagulants. Home meds remain the same. Prognosis is very guarded given multiple medical problems and she remains a DNR patient. PREMA MASON MD DR: KAMI/dwaine JOB#: [id number] / [id number]
--- NOTE | 2018-12-11 09:15 | NUR ---
SS following up with discharge planning. Discharge orders received for home healthcare. SS phoned and faxed discharge orders and referral to [facility], ; fax [phone]. Pt's RN notified.
--- NOTE | 2018-12-11 11:32 | NUR ---
Discharge Note: ROSA PATEL [address] Discharge instructions and discharge home medications reviewed with Patient and a copy given. All questions have been answered and understanding verbalized. The following instructions and handouts were given: written presctiption, medication list, heart failure education Discontinued lines and drains: IV lines X 2, dressing clean, dry and intact. Patient discharged to home with home health via wheelchair
[2018-12-12 10:12] LABS: METHYLMALONIC ACID 1833 nmol/L (0-378)
== END 2018-12-11 11:05 | disposition home health service (06) | DRG 871 ==
LOC: ER 22:39 → 2 SOUTH 12-07 00:12
PROVIDERS: ADMIT Family Medicine; ATTEND Family Medicine
PROC: 30233N1 Transfusion of Nonautologous Red Blood Cells into Peripheral Vein, Percutaneous Approach (ICD-10-PCS; principal; 2018-12-07)
PROC: 5A09357 Assistance with Respiratory Ventilation, Less than 24 Consecutive Hours, Continuous Positive Airway Pressure (ICD-10-PCS; 2018-12-07)
PROC: 5A09357 Assistance with Respiratory Ventilation, Less than 24 Consecutive Hours, Continuous Positive Airway Pressure (ICD-10-PCS; 2018-12-08)
DX: A41.9 Sepsis, unspecified organism (principal); I50.43 Acute on chronic combined systolic (congestive) and diastolic (congestive) heart failure; I13.0 Hypertensive heart and chronic kidney disease with heart failure and stage 1 through stage 4 chronic kidney disease, or unspecified chronic kidney disease; N13.2 Hydronephrosis with renal and ureteral calculous obstruction; I42.9 Cardiomyopathy, unspecified; E87.5 Hyperkalemia; J44.9 Chronic obstructive pulmonary disease, unspecified; E78.00 Pure hypercholesterolemia, unspecified; H35.30 Unspecified macular degeneration; I48.91 Unspecified atrial fibrillation; N18.3 Chronic kidney disease, stage 3 (moderate); E11.22 Type 2 diabetes mellitus with diabetic chronic kidney disease; D64.9 Anemia, unspecified; Z96.653 Presence of artificial knee joint, bilateral; Z87.442 Personal history of urinary calculi; Z90.710 Acquired absence of both cervix and uterus; Z88.2 Allergy status to sulfonamides; Z88.5 Allergy status to narcotic agent; Z88.0 Allergy status to penicillin; Z91.013 Allergy to seafood; Z90.49 Acquired absence of other specified parts of digestive tract
CPT/HCPCS: 36415; 36430; 71046; 74176; 80048; 80053; 81001; 82553; 82607; 82962; 83605; 83735; 83880; 83921; 84145; 84484; 85007; 85025; 85027; 85610; 85730; 86850; 86900; 86901; 86920; 87086; 87186; 93005; 94640; 94660; 94760; 96374; 96375; J0696; J1756; J1815; J1940; J2930; J3420; J7050; J7620; J7626; P9016; 97116; 97530; 97535; 99285-25; G0378; J7030